=== PATIENT | male | born 1945 | race Two or more races ===

== ENCOUNTER 2020-02-05 08:20 | Outpatient (CLI) | payer OTHER, SELFPAY ==
--- NOTE | 2020-02-05 08:25 | ECHO_ITS ---
Patient Info Name: Jose Quinonez Age: 74 years : 1945 Gender: Male Ht: 66 in Wt: 150 lbs BSA: 1.79 m2 HR: 67 bpm BP: 136 / 70 mmHg Technical Quality: Good Exam Date: 02/05/2020 9:09 AM Exam Location: [facility] Patient Status: Outpatient Admit Date: 02/05/2020 Staff Ordering Physician: Olivier Kern DO Fire Lookout: Mahsa Wu RDCS Attending Provider: Olivier Kern DO Referring Physician: Erlin DEL TORO; Exam Type: CA echo doppler color flow Study Info Indications - cardiac murmur Complete two-dimensional, color flow and Doppler transthoracic echocardiogram is performed. Summary 1. Left ventricular chamber dimension is normal. 2. Left ventricular systolic function is normal, estimated at 60-65%. 3. There is mildly increased left ventricular wall thickness. 4. The left ventricular diastolic function is abnormal. 5. E/e' 21 is elevated. 6. Global longitudinal strain is normal at -17.7%. 7. Left atrial chamber dimension is severely enlarged. 8. Right atrial chamber dimension is mildly enlarged. 9. There is mild aortic valve sclerosis. 10. There is trace aortic valve regurgitation. 11. The mitral valve has mildly calcified annulus. 12. There is mild mitral valve regurgitation. 13. There is mild tricuspid valve regurgitation. 14. Mild pulmonary hypertension, estimated pulmonary arterial systolic pressure is 43 mmHg. Left Ventricle E/e' 21 is elevated. Global longitudinal strain is normal at -17.7%. Left ventricular chamber dimension is normal. Left ventricular systolic function is normal, estimated at 60-65%. There is mildly increased left ventricular wall thickness. The left ventricular diastolic function is abnormal. Right Ventricle Right ventricular chamber dimension is normal. Right ventricular systolic function is normal. Left Atria Left atrial chamber dimension is severely enlarged. Right Atria Right atrial chamber dimension is mildly enlarged. Aortic Valve The aortic valve is trileaflet. There is mild aortic valve sclerosis. There is no aortic valve stenosis. There is trace aortic valve regurgitation. Pulmonic Valve There is no pulmonic regurgitation. Mitral Valve The mitral valve has mildly calcified annulus. There is no mitral valve stenosis. There is mild mitral valve regurgitation. Tricuspid Valve There is mild tricuspid valve regurgitation. Mild pulmonary hypertension, estimated pulmonary arterial systolic pressure is 43 mmHg. Pericardium/Pleural There is no pericardial effusion. Inferior Vena Cava Normal inferior vena cava with >50% collapse upon inspiration consistent with normal right atrial pressure, 5 mmHg. Aorta The aortic root size at the sinus of Valsalva is normal. Left Ventricular Outflow Tract Name Value Normal LVOT 2D LVOT Diameter 2.0 cm LVOT Doppler LVOT Peak Gradient 5 mmHg LVOT Mean Gradient 2 mmHg LVOT VTI 25 cm LVOT VTI/AV VTI Ratio 0.7 LVOT Stroke Volume 78 ml
== END 2020-02-05 08:21 | disposition home or self-care (01) ==
LOC: ANHCARD 08:23
PROVIDERS: PCP Emergency Medicine; Visit Provider Internal Medicine Cardiovascular Disease
DX: R01.1 Cardiac murmur, unspecified (principal); I35.8 Other nonrheumatic aortic valve disorders; I34.0 Nonrheumatic mitral (valve) insufficiency; I36.1 Nonrheumatic tricuspid (valve) insufficiency; I27.20 Pulmonary hypertension, unspecified
CPT/HCPCS: 93306

== ENCOUNTER 2021-01-09 20:31 | Inpatient (IN) | payer OTHER, SELFPAY ==
--- NOTE | ~2021-01-09 | XR_ITS ---
EXAMINATION: XR chest port-a-cath/central DATE: 01/10/2021 10:14 INDICATION: Central line placement. TECHNIQUE: A single frontal view of the chest was obtained. COMPARISON: Chest single view 01/09/2021 FINDINGS: There is a diffuse interstitial pattern, consistent with mild pulmonary edema. No pleural e ffusion or pneumothorax. Cardiomegaly is noted. A left internal jugular central venous catheter is se en with tip at the superior cavoatrial junction. There is an old healed right rib fracture. IMPRESSION: 1. Central line tip at superior cavoatrial junction. 2. Mild pulmonary edema. 3. Cardiomegaly. Reviewed, dictated and finalized at location A.
--- NOTE | ~2021-01-09 | XR_ITS ---
XR chest 1V portable 01/09/2021 21:25 Indication: Shortness of breath Procedure: AP portable chest Comparison: 05/21/2018 Findings: Diffuse bilateral airspace disease. Heart size normal. No significant effusion or pneumotho rax. No acute osseous abnormality. Impression: 1: Diffuse bilateral airspace disease may represent edema or pneumonia. Reviewed, dictated and finalized at location A. Impression: 1: Diffuse bilateral airspace disease may represent edema or pneumonia.
--- NOTE | 2021-01-09 20:36 | ECG_ITS ---
Measurements Intervals [place] Rate: 94 P: 28 WV: 152 QRS: 40 QRSD: 104 T: 53 QT: 351 QTc: 440 Interpretive Statements SINUS RHYTHM CANNOT RULE OUT SEPTAL INFARCT, AGE INDETERMINATE BORDERLINE ST ABNORMALITY- ANTEROLAT/HIGH LEADS BASELINE ARTIFACT- AVL, AVF, V4-V6 ABNORMAL ECG Electronically Signed On 01-12-2021 13:30:51 CDT by Olivier Kern D.O.
[2021-01-09 20:40] VITALS: BP 209/119; PULSE 94; RESP 24; TEMP 36.3; O2SAT 96
--- NOTE | 2021-01-09 20:46 | PC.NURSE ---
Pt presents to ED from [facility] via EMS with complaints of sob. Language barrier noted as pt speaks Farsi. [id number] called by pt on his cell phone and she states that pt was due to go to Dialysis on Sunday and was not able to go because his ride never showed up. Bbryvh-[id number] also states that pt has been complaining of sob since yesterday evening and experiencing frequent episodes of diarrhea; pt noted to be taking OTC antidiarrheal medication. Sisiter-in law advises that pt has hx of diabetes and has no known allergies. Pt arrived on 4liters of O2 and saturating at 96%. Pt noted to desaturate to 88% on room air; placed on 4 liters via nasal cannula and O2 increased to 97%. Pt noted to be agitated, diaphoretic, pale with labored breathing and abdominal muscle use. ED respiratory presented to bedside for Bi-pap placement. Stratus placed at bedside for translation. Lawn Care Technician shared that pt states he does not have any chest pain at this time and is only short of breath. Also states that pt denies similar events in the past. Pt confirmed [id number]'s series of events. Pt remains alert and oriented to baseline.
[2021-01-09 20:58] VITALS: O2SAT 96
--- NOTE | 2021-01-09 21:00 | PC.NURSE ---
Pt not tolerating O2 via NC well. Desaturated to 89%. Pt placed on 15 liters of O2 via non-re breather and is requesting O2 to be increased. Pt sitting at beside for comfort. O2 96% via non rebreather.
[2021-01-09 21:06] VITALS: PULSE 84; RESP 30; O2SAT 100
--- NOTE | 2021-01-09 21:08 | PC.NURSE ---
Respiratory presented to bedside for Bi pap placement. Prior to RT arrival, pt placed on 15 liters of O2 on non rebreather and was requesting for O2 to be increased. Pt was restless, diaphoretic and sitting at bedside for comfort. Bi pap placed and pt immediately relaxed back in bed, placed feet on cart and said thank you . Respirations decreased and pt presents more comfortable.
--- NOTE | 2021-01-09 21:20 | PC.NURSE ---
Pt continues to tolerate Bi pap well. Resting on cart with eyes closed, relaxed and respirations have decreased from 38 to 24. O2 saturation at 100%. Pt remains alert and oriented x4 and in no obvious distress. Call button and personal items within reach. Advised to press call button for assistance.
[2021-01-09 21:22] LABS: Basophils Percent Auto 0.2 % (0.2-1.2); Eosinophils Absolute Auto 0.4 K/mm3 (0-0.3); Eosinophils Percent Auto 2.3 % (0-4.4); Hematocrit 36.4 % (42.0-52.0); Hemoglobin 11.8 g/dL (14.0-18.0); Immature Granulocyte Absolute 0.08 K/mm3 (0.00-0.031); Immature Granulocyte Percent A 0.5 % (0-0.5); Lymphocytes Percent Auto 20.3 % (18.3-44.2); Mean Corpuscular HGB Conc 32.4 g/dl (32-36); Mean Corpuscular Hemoglobin 33.5 pg (26-34); Mean Corpuscular Volume 103.4 fl (80-100); Mean Platelet Volume 11.1 fl (7.4-10.4); Monocytes Absolute Auto 0.9 K/mm3 (0.1-0.6); Monocytes Percent Auto 5.5 % (2.6-8.5); Neutrophils Absolute Auto 11.6 K/mm3 (1.3-6.7); Neutrophils Percent Auto 71.2 % (45.5-73.1); Platelet Count Result 148 k/mm3 (150-375); Red Blood Count 3.52 M/mm3 (4.6-6.20); White Blood Count 16.3 K/mm3 (4.5-10.0)
[2021-01-09] MEDS: FUROSEMIDE INJ 40 MG/4 ML VIAL IV PUSH (21:27)
[2021-01-09 21:30] VITALS: BP 219/79; PULSE 82; RESP 28; TEMP 36.3; O2SAT 96
[2021-01-09] MEDS: NITROGLYCERIN OINTMENT 1 INCH DOSE TRANSDERM (21:30)
[2021-01-09 21:41] LABS: Anion Gap 14 mmol/L (8-16); Blood Urea Nitrogen 77 mg/dL (9-20); Calcium 8.7 mg/dL (8.4-10.2); Carbon Dioxide 22 mmol/L (22-30); Chloride 102 mmol/L (98-107); Estimated Glomerular Filt Rate 4; Glucose 145 mg/dL (75-110); Potassium 7.8 mmol/L (3.4-5.0); Sodium 138 mmol/L (137-145)
[2021-01-09 21:42] LABS: NT Pro B Type Natriuretic Pept 20400 pg/mL (5-100)
--- NOTE | 2021-01-09 21:47 | ED.SOB ---
HPI - SOB/Dyspnea General Chief Complaint: Shortness of Breath/Dyspnea <Masoud Camargo MD - Last Filed: 01/10/21 01:28> Stated Complaint: sob <Masoud Camargo MD - Last Filed: 01/10/21 01:28> Time Seen by Provider: 01/09/21 20:47 <Masoud Camargo MD - Last Filed: 01/10/21 01:28> History of Present Illness HPI Narrative: Patient is a 75-year-old male with history of end-stage renal disease who requires dialysis Sunday that presents the ER with shortness of breath. Patient missed dialysis 2 days ago due to the transportation vehicle not showing up. He came increasingly short of breath today. He was found to be hypoxic by EMS. He is on supplemental oxygen is diaphoretic and tachypneic. There is a language barrier as patient speaks Farsi. He follows commands well and will shake his head yes or no appropriately to questions. <Masoud Camargo MD - Last Filed: 01/10/21 01:28> Related Data Home Medications: Home Medications Medication Instructions Recorded Confirmed furosemide 40 mg tablet 40 mg PO QAM 11/27/19 11/30/20 <Masuod Camargo MD - Last Filed: 01/10/21 01:28> Allergies/Adverse Reactions: Allergies Allergy/AdvReac Type Severity Reaction Status Date / Time No Known Allergies Allergy Verified 01/09/21 21:26 <Masoud Camargo MD - Last Filed: 01/10/21 01:28> Review of Systems Review of Systems: ROS unobtainable: Yes other (Full review of systems limited due to language barrier) <Masoud Camargo MD - Last Filed: 01/10/21 01:28> Constitutional: Constitutional: Denies chills and Denies fever(s) <Masoud Camargo MD - Last Filed: 01/10/21 01:28> Comments: Sweats <Masoud Camargo MD - Last Filed: 01/10/21 01:28> Cardiovascular: Cardiovascular: Denies chest pain, Denies rapid heart rate and Denies radiating jaw, neck or arm pain <Masoud Camargo MD - Last Filed: 01/10/21 01:28> Respiratory: Respiratory: Denies cough and Reports dyspnea <Masoud Camargo MD - Last Filed: 01/10/21:28> Comments: Orthopnea positive <Masoud Camargo MD - Last Filed: 01/10/21:28> Gastrointestinal: Gastrointestinal: Denies abdominal pain, Denies nausea and Denies vomiting <Masoud Camargo MD - Last Filed: 01/10/21:28> [facility] Past Medical History Medical History: Medical History (Updated 01/10/21 @ 00:58 by Masoud Camargo MD) Anemia CAD in [place] artery CKD (chronic kidney disease) stage V requiring chronic dialysis Dependence on renal dialysis Diabetes Dyslipidemia Essential hypertension Hypersomnia Renal disease Systolic murmur <Masoud Camargo MD - Last Filed: 01/10/21:28> Surgical History Surgical History: Surgical History (Updated 01/10/21 @ 00:47 by Masoud Camargo MD) AV fistula <Masoud Camargo MD - Last Filed: 01/10/21:28> Social History Social History: Social History Smoking status: Former smoker <Masoud Camargo MD - Last Filed: 01/10/21:28> Exam Narrative: Exam Narrative: GENERAL: ill-appearing, well-nourished, and in moderate distress. HEAD: Normocephalic, atraumatic. EYES: PERRL and EOMI. ENT: Mucous membranes moist. CHEST: Severe respiratory distress with increased respiratory rate and bibasilar crackles and poor lung volumes. HEART: Regular rate and rhythm. Normal peripheral pulses. ABDOMEN: Soft, nontender, nondistended. EXTREMITIES: Normal range of motion. 1+ edema.AV fistula RUE SKIN: Warm, diaphoretic, no rash. NEURO: Alert and oriented x3. PSYCH: Normal mood and affect. <Masoud Camargo MD - Last Filed: 01/10/21:28> Course Course Emergency Course: Patient with significant respiratory distress upon arrival. BiPAP applied. Patient tolerating quite well with 14/8. Patient did have one episode where he physically remove that and bradycardia down and was in severe distress. Upon being set back up in BiPAP applied he normalized
--- NOTE | 2021-01-09 22:15 | PC.NURSE ---
Pt found in room leaning over side rail with bi pap removed and in respiratory distress. Pt sinus macario with HR 38 and O2 undetected as sensor was removed when scientific writer presented to bedside. Staff assist and respiratory called; EDMD also presented to bedside. Pt repositioned in bed, bipap replaced and pt vitals improved. O2 saturation 97% and respirations 34. Stratus brought back to bedside and Pt educated on the need to keep bi pap in place and voices his understanding. Pt advised on poc and asks if he has any requests and pt denies at this time. Resting on cart in its lowest position with call button and persona items within reach. Advised to press call button for assistance.
[2021-01-09] MEDS: DEXTROSE 50% 25 GM/50 ML SYRINGE IV PUSH (22:27)
[2021-01-09] MEDS: INSULIN HUMAN REGULAR (*BKC) 100 UNITS/ML 10 UNITS IV PUSH (22:28)
[2021-01-09] MEDS: SODIUM POLYSTYRENE SULFONONATE 15 GM/60 ML BTL 30 GM PO (22:28)
[2021-01-09] MEDS: CALCIUM GLUCONATE 1,000 MG/10 ML VIAL 1000 MG IV PUSH (22:29)
--- NOTE | 2021-01-09 22:55 | PC.NURSE ---
Respiratory at bedside for ABG.
[2021-01-09 22:59] VITALS: PULSE 81; RESP 19; O2SAT 100
[2021-01-09 23:01] LABS: Alveolar/Arterial O2 Gradient 40.7 mmHg; Base Excess ABG -9.9 mEq/l (+/-2.0); Carboxyhemoglobin 0.6 % THb (0-2.0); Fractional Inspired Oxygen 30 %; HCO3 ABG 16.8 mEq/l (22.0-26.0); Methemoglobin ABG 0.1 %THb (0-1.5); Oxygen Content ABG 16.2 %vol (16.0-22.0); Oxyhemoglobin 96.6 % THb (90.0-100.0); PO2 ABG 126.2 mmHg (80.0-100.0); PO2 FiO2 Ratio Arterial Blood 4.21 %; Reduced Hemoglobin 2.7 %THb (0-5.0); Total Hemoglobin 11.8 g/dL (12.0-18.0)
[2021-01-09 23:02] LABS: Site Drawn LEFT RADIAL; pH ABG 7.242 (7.350-7.450)
[2021-01-09 23:03] LABS: Device NON-INVASIVE VENT; Modified Allen's Test Pass; Non-Invasive Expiratory Pressure 8 CMH2O; Non-Invasive Inspiratory Pressure 14 CMH2O; Non-Invasive Vent Rate 10 /MIN
[2021-01-09 23:30] LABS: Glucose Point of Care 191 (65-105)
--- NOTE | 2021-01-09 23:30 | PC.NURSE ---
Addendum entered by Erica Asencio RN 01/10/21 00:03: Dr. Camargo informed me that per Dr. Pickens reported that the dialysis nurse is not available to come in to do the dialysis. Machine Puller notified to page a telephone solicitor supervisor at [facility] and warehouse freight handler Florinda ba and Kristi carr RN aware also. Will await the telephone solicitor supervisor to return call. Original Note: [id number]
[2021-01-10] VITALS (37 sets, daily range): BP systolic 74–205; BP diastolic 41–83; PULSE 54–136; RESP 16–31; TEMP 36–37; O2SAT 94–100; BMI 25.4
--- NOTE | 2021-01-10 00:01 | PC.NURSE ---
[id number]- Assistant Project Manager notified to page dialysis nurse per Dr Camargo and Dr. Pickens request.
--- NOTE | 2021-01-10 00:05 | PC.NURSE ---
Rosalind from [facility] returned call into the ed and spoke with ED electrical discharge machine operator. Reports that there is not a dialysis nurse available at this time but will have one here first thing in the am to the ICU for patient dialysis. Rosalind reports that she has spoken to dr. Pickens and is ok with dialysis being first thing in the am. Dr. Camargo aware of am dialysis and orders received to recheck patient potassium at this time. Dr. Camargo has been in communication with Dr. Lucero. call center supervisor Florinda aware of Rosalind and information received for dialysis in the AM.
--- NOTE | 2021-01-10 00:19 | PC.NURSE ---
EDMD presented to bedside for reassessment. Pt up to bedside commode with assistance for bowel movement. Pt noted to be alert, stable and in no obvious distress at this time. Nitro paste removed.
[2021-01-10 00:32] LABS: Potassium 7.4 mmol/L (3.4-5.0)
--- NOTE | 2021-01-10 01:18 | PC.NURSE ---
Pt assisted to bedside commode and is now back in bed resting on car with call button ans personal items within reach. Pt advised to press call button for assistance.
[2021-01-10 02:11] LABS: Anion Gap 14 mmol/L (8-16); Blood Urea Nitrogen 81 mg/dL (9-20); Calcium 8.5 mg/dL (8.4-10.2); Carbon Dioxide 23 mmol/L (22-30); Chloride 101 mmol/L (98-107); Estimated CRCL calculation 4 ml/min; Estimated Glomerular Filt Rate 3; Glucose 157 mg/dL (75-110); Potassium 7.9 mmol/L (3.4-5.0); Sodium 138 mmol/L (137-145)
--- NOTE | 2021-01-10 02:27 | PC.NURSE ---
Pt up to bedside commode with steady gait. Vitals remain stable and pt in no obvious distress at this time.
[2021-01-10] MEDS: ALBUTEROL SULFATE NEB 2.5 MG/0.5 ML INH 5 MG INHALATION (02:35)
[2021-01-10] MEDS: DEXTROSE 50% 25 GM/50 ML SYRINGE IV PUSH ×2 (02:49→06:42)
[2021-01-10] MEDS: INSULIN HUMAN REGULAR (*BKC) 100 UNITS/ML 10 UNITS IV PUSH ×2 (02:50→06:46)
[2021-01-10 02:54] LABS: Glucose Point of Care 155 (65-105)
--- NOTE | 2021-01-10 03:29 | PC.NURSE ---
Glucose 203.
--- NOTE | 2021-01-10 03:30 | PC.NURSE ---
AFter multiple attempts to contact Sai KINNEY final call returned by Shakira and confirmation of time for dialysis in the am will be 7am. THis was relayed to Dr. Michael who spoke with Dr. Lucero.
[2021-01-10 03:31] LABS: Glucose Point of Care 203 (65-105)
--- NOTE | 2021-01-10 03:49 | PC.NURSE ---
Report called to Tammy. Lozano to send pt to floor.
[2021-01-10 04:33] LABS: Potassium 6.6 mmol/L (3.4-5.0)
--- NOTE | 2021-01-10 05:08 | PM.IMHP ---
H&P: HPI History of Present Illness Date/Time: 01/10/21 05:08 Chief Complaint: Shortness of breath+ Narrative: This is a pleasant 75-year-old Diabetic [place]ri[place] male with known history of end-stage renal disease on chronic hemodialysis Wednesdays and Fridays, chronic hypertension, coronary artery disease status post stent placement, and hyperlipidemia who presented to the hospital with a complaint of increased shortness of breath. The patient states that he could not sleep the night before because he was so short of breath. Apparently he missed dialysis this past Sunday because he could not get transportation to the dialysis center. Patient denies any fevers, chills, cough, chest pain, palpitations, dysuria, or hematuria. He reports chronic diarrhea for about a month now and has had some intermittent mild abdominal discomfort with that. Tonight in the emergency room the patient was found to be in acute respiratory failure. Chest x-ray revealed bilateral diffuse pulmonary edema. At approximately 8:36 p.m. EKG was obtained which demonstrated peaked T-waves in V3 V4 V5 V6. At approximately 9:00 p.m. the patient was treated with 40 mg of IV Lasix. The patient was initiated on BiPAP. Routine labs were obtained which demonstrated a severely elevated potassium of 7.8. At 9:50 p.m. the patient was treated with calcium gluconate, insulin and dextrose, and Kayexalate. ER provider, Dr Camargo consulted the patient's install technician, Dr. Hernandez for emergent dialysis. The dialysis nurse apparently called in sick this evening and there was no replacement. Dr. Camargo consulted our service to admit the patient to the hospital and verbalized to me that the install technician would perform dialysis in the morning. I personally called the install technician, Dr. Hernandez and discussed the case with him in detail. Dr. Hernandez verbalized to me that the patient needed emergent dialysis and should be transferred to another hospital for dialysis as this could not be performed immediately at our hospital. I relayed this information to Dr. Camargo who informed me that he would attempt to clarify if they could get a replacement dialysis nurse. Dr. Camargo decided to recheck the patient's labs which now demonstrated a serum potassium of 7.4 after treatment and at approximately 1:29 am I was paged by Dr. Camargo who again asked me to admit the patient to the hospital with the idea that the patient would get dialysis in the morning. I verbalized to him that I would like to speak with the install technician before accepting the patient and once more I called Dr. Hernandez and discussed the case with him a second time. Dr. Hernandez again verbalized to me that the patient needs urgent dialysis and would be best served to be transferred to another hospital at this time where immediate dialysis could be performed. I told him that I would advise the emergency room physician, Dr. Camargo to transfer the patient, which I did. At approximately 2:15 a.m. the patient was treated with 5 mg albuterol nebulization and was also given another round of 10 mg IV insulin and an amp of IV dextrose. At approximately 3:15 a.m. I was paged by Dr. Michael, ER physician who related to me that the install technician now wanted the patient to be admitted to our hospital for dialysis in the morning. Once more I called the install technician to verify this plan together with the ER provider, Dr. Michael on the phone. Dr. Hernandez stated that because of logistics, transferring the patient at this point in time to another facility would likely result in dialysis occurring around the same time in the morning and that we should now keep the patient in our hospital as it no longer made sense to transfer the patient. The patient arrived to the ICU at approximately 4:45 a.m. and on my encounter with the patient he is resting comfortably in bed saturating 100% on 2 L of oxygen. Repeat ABG was obtained which demonstrated peaked T-waves in V3 V4 V5 V6. Repeat BMP
--- NOTE | 2021-01-10 05:14 | ECG_ITS ---
Measurements Intervals [place] Rate: 80 P: 42 [place]: 158 QRS: 24 QRSD: 89 T: 71 QT: 411 QTc: 475 Interpretive Statements SINUS RHYTHM POSSIBLE LEFT ATRIAL ENLARGEMENT CANNOT RULE OUT SEPTAL INFARCT, AGE INDETERMINATE CONSIDER INFERIOR INFARCT, AGE INDETERMINATE BORDERLINE ST-T WAVE ABNORMALITY- ANTEROLAT/HIGH LAT LEADS ABNORMAL ECG Electronically Signed On 01-10-2021 6:58:55 CDT by Olivier Kern D.O.
--- NOTE | 2021-01-10 05:38 | PC.NURSE ---
This patient, Jose Quinonez, was admitted to Intensive Care Unit-3 @ 0445. Patient/family oriented to hospital policies and general routines including ID bracelet, bed and alarms, visiting hours, pain management, procedures, bathroom and other care routines, personal items, smoking policy, room service/diet, and visiting hours. Information on how to activate the Rapid Response Team has been discussed. Patient/Family are encouraged to report perceived risks to care and to ask questions if they do not understand what they are told or what they should do.
[2021-01-10] MEDS: hydrALAZINE HCL 20 MG/ML VIAL 10 MG IV PUSH (06:16)
[2021-01-10] MEDS: SODIUM BICARBONATE 8.4% 50 MEQ/50 ML SYRINGE IV PUSH (06:41)
[2021-01-10] MEDS: CALCIUM GLUC 1,000 MG/NS 50 ML 1,000 MG/50 ML BAG 100 MG IVPB (06:47)
[2021-01-10] MEDS: amLODIPine BESYLATE 5 MG TABLET PO (08:15)
[2021-01-10] MEDS: carvediloL 25 MG TABLET PO ×2 (08:15→19:37)
[2021-01-10] MEDS: FUROSEMIDE 40 MG TABLET PO (08:15)
[2021-01-10] MEDS: ENOXAPARIN 30 MG/0.3 ML SYRINGE SUB-Q (08:15)
[2021-01-10] MEDS: ATORVASTATIN 40 MG TABLET PO (08:15)
[2021-01-10 08:22] LABS: Glucose Point of Care 79 (65-105)
--- NOTE | 2021-01-10 08:51 | WPDCNINT ---
Assessment and Plan Assessment and plan (1) Acute hyperkalemia: Code(s): E87.5 - Hyperkalemia Status: Acute Assessment and Plan: Patient with acute hyperkalemia likely related to missed dialysis -initial potassium was 7.8, which was treated -repeat potassium this morning is 6.6, patient is going to be getting dialysis this morning -will monitor post dialysis (2) Volume overload: Qualifiers: Hypervolemia type: other Qualified Code(s): E87.79 - Other fluid overload Code(s): E87.70 - Fluid overload, unspecified Status: Acute Assessment and Plan: Volume overload acute respiratory failure and shortness of breath likely related to missed dialysis -patient to get dialyzed and home following shortness of breath will improve with fluid removal (3) Acute respiratory failure: Qualifiers: Respiratory failure complication: unspecified whether with hypoxia or hypercapnia Qualified Code(s): J96.00 - Acute respiratory failure, unspecified whether with hypoxia or hypercapnia Code(s): J96.00 - Acute respiratory failure, unspecified whether with hypoxia or hypercapnia Status: Acute Assessment and Plan: Acute respiratory failure likely related to volume overload from missed dialysis -patient was initially placed on BiPAP and is currently on 2 L nasal cannula with good O2 sats, denies shortness of breath -fluid removal with dialysis will probably help his respiratory status (4) Essential hypertension: Code(s): I10 - Essential (primary) hypertension Status: Chronic Assessment and Plan: Essential hypertension with elevated blood pressures -patient to get dialyzed which will probably help (5) CKD (chronic kidney disease) stage V requiring chronic dialysis: Code(s): N18.6 - End stage renal disease; Z99.2 - Dependence on renal dialysis Status: Chronic Assessment and Plan: Dr. Hernandez is the dance instructor is aware of the patient. -he had recommended dialysis to be done overnight but due to non availability of dialysis staff patient be dialyzed this morning Additional Plan Will discuss with family Code status: Full code Critical care time spent: 44 minutes This dictation may have been done utilizing a voice recognition system. Attempts have been made to correct errors. However, there may be uncorrected grammatical, spelling, and recognition errors present. Due to a high probability of clinically significant, life threatening deterioration, the patient required my highest level of preparedness to intervene emergently and I personally spent this critical care time directly and personally managing the patient. This critical care time included obtaining a history; examining the patient; pulse oximetry; ordering and review of studies; arranging urgent treatment with development of a management plan; evaluation of patient's response to treatment; frequent reassessment; and discussions with other providers. It was exclusive of separately billable procedures and treating other patients and teaching time. Please see Assessment and Plan section and the rest of the note for further information on patient assessment and treatment Horizontal Boring Mill Set Up Operator Consult Note Consult date: 01/10/21 Time Seen: 07:04 Reason for consult: Respiratory distress, hyperkalemia, missed dialysis HPI: Jose Quinonez is a 75 year old male significant past medical history of coronary artery disease, end-stage renal disease on hemodialysis, Sunday, Sunday, Sunday, history of diabetes, dyslipidemia, essential hypertension the ED on 01/09/2021 with complains of shortness of breath. He stated that he missed his dialysis on 01/07 as he did not have transportation to the dialysis center. He stated he became increasingly short of breath on the day of admission, upon EMS arrival they found him to be hypoxic and tachypneic. Patient admission has been obtained from the medical records due to language
[2021-01-10 09:11] LABS: Hepatitis B Surface Antigen Negative (Negative)
[2021-01-10 09:29] LABS: Hepatitis B Surface Anti Res Indeterminate
--- NOTE | 2021-01-10 11:01 | P.PCNBED_ITS ---
Procedures Hemodialysis Catheter Placement Left IJ: Discussed w/ patient and/or surrogate, the non-emergent placement of a hemodialysis catheter, including it's clinincal necessity/indication & associated potential risks & complications.: Yes The patient and/or surrogate understand(s) and acknowledge(s) the need to proceed with hemodialysis catheter insertion as an important element of the patient's clinical management.: Yes Emergently Placed - (Given emergent patient conditions, temporal constraints may not have permitted and aforementioned informed consent.): No HD Catheter Date: 01/10/21 HD Catheter Time: 09:44 Pre-procedural Time-Out was completed immediately before starting the procedure and confirmed: Patient Identification, Site, Procedure, Patient Position and the Availability of Requisite Equipment.: Yes Patient Position: supine Patient Placed on Monitor/Pulse Ox: Yes Provider Prep: mask, sterile gown, sterile gloves, Max. sterile barrier precautions, cap and hand hygiene Hemodialysis Catheter Prep: Chlorhexidine scrub Local Anesthesia Used: lidocaine 1% Amount of anesthesia used (mL): 4 Ultrasound Used for Placement: Yes Hemodialysis Catheter Inserted: triple Latvian: 12 Length (cm): 20 Depth of Insertion (cm): 20 Post Procedure: sutured in place, good blood return, all ports aspirated, flushed, capped, transparent dressing, hemostatic product, antimicrobial pro duct, securement product and aseptic technique maintained throughout procedure Post Procedure X-Ray: tip of catheter in good position Patient Tolerated Procedure: well Complications: none
[2021-01-10 12:21] LABS: Glucose Point of Care 140 (65-105)
--- NOTE | 2021-01-10 13:45 | PM.IMPN ---
Progress Note: A&P Assessment and Plan (1) Acute hyperkalemia: Code(s): E87.5 - Hyperkalemia Status: Acute Assessment and Plan: Patient has been admitted to ICU. Patient's acute hyperkalemia peers to be secondary to missed dialysis session this past week. Wood Panel Inspector has been consulted by ER provider. Repeat labs an EKG continue to reveal hyperkalemia. The patient will be treated with another round of calcium gluconate, IV insulin and IV dextrose, sodium bicarbonate, and albuterol neb. We will continue to monitor potassium every 4 hours. Telemetry. Specialty Department Supervisor, Dr. Hernandez, has been consulted by ER provider and is aware of the patient's severe hyperkalemia. The patient will likely benefit from early dialysis today. Continue nephrology recommendations. 01/10/21 13:45 Patient is 75-year-old male with history of coronary artery disease, diabetes and end-stage renal disease on hemodialysis patient presented emergency department with a complaint of shortness of breath as he had missed his scheduled dialysis on Sunday upon arrival to emergency depart his potassium was 7.8 and he was found to have peak T-wave on EKG, emergency depart patient received DuoNeb, dextrose and insulin to to bring level of potassium down 6.6, also patient was quite hypoxic, was unable to receive emergent dialysis last night however currently patient is receiving dialysis states is feeling much better compared to when he arrived, denies any complaint of shortness of breath, chest pain palpitation fever or chills, patient be seen by Nephrology, will continue to monitor patient will receive his scheduled dialysis and further recommendation to follow. (2) Acute respiratory failure: Qualifiers: Respiratory failure complication: unspecified whether with hypoxia or hypercapnia Qualified Code(s): J96.00 - Acute respiratory failure, unspecified whether with hypoxia or hypercapnia Code(s): J96.00 - Acute respiratory failure, unspecified whether with hypoxia or hypercapnia Status: Acute Assessment and Plan: Secondary to fluid overload as the patient missed his dialysis this past Sunday. Patient was initiated on BiPAP and currently he is only on 2 L of oxygen via nasal cannula saturating 100%. Patient is no longer in acute respiratory failure. We will reinitiate BiPAP if necessary. (3) Volume overload: Qualifiers: Hypervolemia type: other Qualified Code(s): E87.79 - Other fluid overload Code(s): E87.70 - Fluid overload, unspecified Status: Acute Assessment and Plan: Secondary to non adherence with dialysis. Patient will benefit from dialysis today. (4) Metabolic acidosis: Code(s): E87.2 - Acidosis Status: Acute Assessment and Plan: Secondary to ESRD. Monitor acid-base status. (5) Leukocytosis: Qualifiers: Leukocytosis type: unspecified Qualified Code(s): D72.829 - Elevated white blood cell count, unspecified Code(s): D72.829 - Elevated white blood cell count, unspecified Status: Acute Assessment and Plan: Check U/A w/ reflex. Monitor CBCd. (6) CKD (chronic kidney disease) stage V requiring chronic dialysis: Code(s): N18.6 - End stage renal disease; Z99.2 - Dependence on renal dialysis Status: Chronic Assessment and Plan: Continue nephrology recommendations. Renal diet. (7) Essential hypertension: Code(s): I10 - Essential (primary) hypertension Status: Chronic Assessment and Plan: Elevated. Continue amlodipine and Coreg. P.r.n. IV hydralazine with parameters as ordered. (8) Dyslipidemia: Code(s): E78.5 - Hyperlipidemia, unspecified Status: Chronic Assessment and Plan: Continue atorvastatin. (9) Diabetes: Qualifiers: Diabetes mellitus type: type 2 Diabetes mellitus halfway insulin use: without halfway use Diabetes mellitus complication status: with kidney
--- NOTE | 2021-01-10 13:59 | WPDNEURCNPN ---
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 EKG changes in a patient with coronary artery disease Acute respiratory failure with metabolic and respiratory acidosis. The former from renal failure, the letter from the restrictive filling Plan: -urgent dialysis. Supervised. -need to have cardiac assessment as well. -leukocytosis probably also stress origin -follow-up for ESRD and related -patient dropped his blood pressure, will need to consider presence of a pericardial effusion as well. -probable dialysis tomorrow as well to see if he can remove fluid. Fluid removal limited today. -follow-up of ESRD and related needs. (5) CAD in [place] artery: Code(s): I25.10 - Atherosclerotic heart disease of [place] coronary artery without angina pectoris Status: Acute (6) Dyslipidemia: Code(s): E78.5 - Hyperlipidemia, unspecified Status: Chronic (7) Diabetes: Qualifiers: Diabetes mellitus type: type 2 Diabetes mellitus terminal computer operator insulin use: without prison use Diabetes mellitus complication status: with kidney complications Diabetes mellitus complication detail: with chronic kidney disease Chronic kidney disease stage: on chronic dialysis Qualified Code(s): E11.22 - Type 2 diabetes mellitus with diabetic chronic kidney disease; N18.6 - End stage renal disease; Z99.2 - Dependence on renal dialysis Code(s): E11.9 - Type 2 diabetes mellitus without complications Status: Chronic (8) Acute respiratory failure: Qualifiers: Respiratory failure complication: unspecified whether with hypoxia or hypercapnia Qualified Code(s): J96.00 - Acute respiratory failure, unspecified whether with hypoxia or hypercapnia Code(s): J96.00 - Acute respiratory failure, unspecified whether with hypoxia or hypercapnia Status: Acute (9) Leukocytosis: Qualifiers: Leukocytosis type: unspecified Qualified Code(s): D72.829 - Elevated white blood cell count, unspecified Code(s): D72.829 - Elevated white blood cell count, unspecified Status: Acute (10) Essential hypertension: Code(s): I10 - Essential (primary) hypertension Status: Chronic Consult date: 01/10/21 Time Seen: 13:20 HPI: Jose Quinonez is a 75 year old male who presents with shortness of breath which he states that has been progressive over the last month but suddenly got worse over the weekend.. He missed his dialysis on Sunday, did not get picked up by his transportation company. No chest pains associated. No nausea or vomiting. Received a call from the emergency room last night indicating the presence of high Potassium and presentation of shortness of breath from a missed dialysis. Was on BiPAP. When the patient removed his BiPAP he did bradycardic down. Hence I notified the dialysis nurse oil pump station operator chief immediately through [facility] ore bridge operator. He indicated his non availability due to not feeling well. I was then contacted by his laboratory supervisor who asked if patient could wait until
[2021-01-10 14:49] LABS: Anion Gap 7 mmol/L (8-16); Blood Urea Nitrogen 30 mg/dL (9-20); Calcium 8.1 mg/dL (8.4-10.2); Carbon Dioxide 33 mmol/L (22-30); Chloride 97 mmol/L (98-107); Estimated CRCL calculation 12 ml/min; Estimated Glomerular Filt Rate 11; Glucose 98 mg/dL (75-110); Potassium 3.3 mmol/L (3.4-5.0); Sodium 137 mmol/L (137-145)
[2021-01-10 16:59] LABS: Glucose Point of Care 188 (65-105)
[2021-01-10 20:01] LABS: Anion Gap 8 mmol/L (8-16); Blood Urea Nitrogen 37 mg/dL (9-20); Calcium 8.3 mg/dL (8.4-10.2); Carbon Dioxide 32 mmol/L (22-30); Chloride 97 mmol/L (98-107); Estimated CRCL calculation 8 ml/min; Estimated Glomerular Filt Rate 7; Glucose 136 mg/dL (75-110); Sodium 137 mmol/L (137-145)
[2021-01-10 20:03] LABS: Potassium 4.2 mmol/L (3.4-5.0)
[2021-01-11] VITALS (17 sets, daily range): BP systolic 126–155; BP diastolic 56–73; PULSE 74–86; RESP 16–22; TEMP 36.7–37.2; O2SAT 84–100
--- NOTE | 2021-01-11 | ECHO_ITS ---
Patient Info Name: Jose Quinonez Age: 75 years : 1945 Gender: Male Ht: 69 in Wt: 172 lbs BSA: 1.96 m2 HR: 76 bpm BP: 139 / 56 mmHg Technical Quality: Good Exam Date: 01/11/2021 8:04 AM Exam Location: [facility] Patient Status: Inpatient Admit Date: 01/10/2021 Staff Ordering Physician: 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 MD Service Team Leader: Julien Ordoñez, LAY[place], RT Attending Provider: Rubens Lucero MD Referring Physician: Mary BATISTA; Exam Type: CA echo doppler color flow Study Info Indications I50.9 - Heart failure, unspecified Complete two-dimensional, color flow and Doppler transthoracic echocardiogram is performed. Strain analysis performed. Summary 1. Complete two-dimensional, color flow and Doppler transthoracic echocardiogram is performed. 2. Normal LV size and wall thickness; normal LV systolic function, ejection fraction 65-70%; G LS-15%. Normal diastolic function. Moderate left atrial enlargement. Mild mitral annular calcification, mild MR. Mild aortic valve sclerosis, no stenosis; mild aortic regurgitation. Trivial TR, unable to assess RVSP due to inadequate TR jet. Sinus rhythm. Left Ventricle Left ventricular chamber dimension is normal. Left ventricular systolic function is normal, estimated at 65-70%. There is moderately increased left ventricular wall thickness. The left ventricular diastolic function is normal. Right Ventricle Right ventricular chamber dimension is normal. Right ventricular systolic function is normal. Left Atria Left atrial chamber dimension is moderately enlarged. Right Atria Right atrial chamber dimension is normal. Aortic Valve There is mild aortic valve sclerosis. There is no aortic valve stenosis. There is mild aortic valve regurgitation. Pulmonic Valve The pulmonic valve is normal. There is trace pulmonic regurgitation. Mitral Valve The mitral valve has normal leaflets. There is trace mitral valve regurgitation. There is mild mitral valve calcification. Tricuspid Valve The tricuspid valve leaflets are normal. There is trace tricuspid valve regurgitation. Pericardium/Pleural The pericardium appears normal. Inferior Vena Cava Dilated inferior vena cava with >50% collapse upon inspiration consistent with elevated right atrial pressure, 10 mmHg. Aorta The aortic root size at the sinus of Valsalva is normal. Tricuspid Valve Name Value Normal Estimated PAP/RSVP RA Pressure 10 mmHg <=5 Report Signatures
[2021-01-11 04:56] LABS: Basophils Percent Auto 0.1 % (0.2-1.2); Eosinophils Absolute Auto 0.4 K/mm3 (0-0.3); Eosinophils Percent Auto 5.6 % (0-4.4); Hematocrit 24.9 % (42.0-52.0); Hemoglobin 8.1 g/dL (14.0-18.0); Immature Granulocyte Absolute 0.02 K/mm3 (0.00-0.031); Immature Granulocyte Percent A 0.3 % (0-0.5); Lymphocytes Absolute Auto 1.64 K/mm3 (0.9-3.2); Lymphocytes Percent Auto 23.6 % (18.3-44.2); Mean Corpuscular HGB Conc 32.5 g/dl (32-36); Mean Corpuscular Hemoglobin 33.2 pg (26-34); Mean Platelet Volume 11.5 fl (7.4-10.4); Monocytes Absolute Auto 0.4 K/mm3 (0.1-0.6); Monocytes Percent Auto 6.3 % (2.6-8.5); Neutrophils Absolute Auto 4.4 K/mm3 (1.3-6.7); Neutrophils Percent Auto 64.1 % (45.5-73.1); Platelet Count Result 91 k/mm3 (150-375); Red Blood Count 2.44 M/mm3 (4.6-6.20); White Blood Count 6.9 K/mm3 (4.5-10.0)
[2021-01-11 05:06] LABS: Anion Gap 5 mmol/L (8-16); Blood Urea Nitrogen 42 mg/dL (9-20); Calcium 7.8 mg/dL (8.4-10.2); Carbon Dioxide 32 mmol/L (22-30); Chloride 100 mmol/L (98-107); Estimated CRCL calculation 7 ml/min; Estimated Glomerular Filt Rate 6; Glucose 85 mg/dL (75-110); Potassium 4.2 mmol/L (3.4-5.0); Sodium 137 mmol/L (137-145)
[2021-01-11 07:53] LABS: Glucose Point of Care 72 (65-105)
--- NOTE | 2021-01-11 08:21 | ECG_ITS ---
Measurements Intervals [place] Rate: 80 P: 28 CA: 143 QRS: 28 QRSD: 89 T: 71 QT: 409 QTc: 473 Interpretive Statements SINUS RHYTHM BORDERLINE R WAVE PROGRESSION, ANTERIOR LEADS CONSIDER INFERIOR INFARCT, AGE INDETERMINATE BORDERLINE ST-T WAVE ABNORMALITY- HIGH LATERAL LEADS ABNORMAL ECG Electronically Signed On 01-11-2021 12:20:59 CDT by Olivier Kern D.O.
[2021-01-11 09:31] LABS: NT Pro B Type Natriuretic Pept 20200 pg/mL (5-100)
[2021-01-11 09:39] LABS: Troponin I 0.052 ng/mL (0.000-0.034)
[2021-01-11] MEDS: carvediloL 25 MG TABLET PO ×2 (10:09→20:22)
[2021-01-11] MEDS: ATORVASTATIN 40 MG TABLET PO (10:10)
[2021-01-11] MEDS: FUROSEMIDE 40 MG TABLET PO (10:10)
[2021-01-11] MEDS: amLODIPine BESYLATE 5 MG TABLET PO (10:10)
--- NOTE | 2021-01-11 11:13 | PM.PNNEP ---
Progress Note: A&P Assessment and Plan (1) End stage renal disease: Code(s): N18.6 - End stage renal disease Status: Chronic Assessment and Plan: HD tomorrow and continue M/W/F schedule follow electrolytes, volume status, and clearance (2) Acute hyperkalemia: Code(s): E87.5 - Hyperkalemia Status: Acute Assessment and Plan: due to missed HD treatment on 01/07/21 corrected with dialysis follow trend (3) Acute respiratory failure: Qualifiers: Respiratory failure complication: unspecified whether with hypoxia or hypercapnia Qualified Code(s): J96.00 - Acute respiratory failure, unspecified whether with hypoxia or hypercapnia Code(s): J96.00 - Acute respiratory failure, unspecified whether with hypoxia or hypercapnia Status: Acute Assessment and Plan: due to volume overload and possible flash pulmonary edema clinically better following dialysis and supportive therapy follow respiratory status (4) Essential hypertension: Code(s): I10 - Essential (primary) hypertension Status: Chronic Assessment and Plan: reasonable control at this time follow trend of hemodynamics (5) Anemia: Code(s): D64.9 - Anemia, unspecified Status: Acute Assessment and Plan: partly due to ESRD Epogen with HD follow trend of H/H Will continue to follow. Subjective Date/time seen: 01/11/21 11:13 Tolerated dialysis yesterday without any issues or problems; appears to be doing reasonably well from what I can tell (language barrier limits assessment); no new issues or problems overnight or earlier this AM; no apparent distress voiced. Exam Narrative: Exam Narrative: General: WD/WN male in NAD Heart: normal S1 and S2; no rub Lungs: clear to auscultation Abdomen: soft, nontender, nondistended, positive bowel sounds Extremities: no cyanosis or clubbing; no edema Skin: warm and dry Objective Data Vital Signs Vital Signs: Vital Signs Temp Pulse Resp BP Pulse Ox 01/11/21 10:09 82 01/11/21 09:02 82 16 93 01/11/21 08:40 86 16 99 01/11/21 08:00 82 16 93 01/11/21 07:52 36.7 C 77 16 155/67 H 99 01/11/21 04:15 77 17 139/56 L 99 01/11/21 04:00 81 01/11/21 00:00 77 20 93 01/10/21 20:51 76 19 98 01/10/21 20:00 36.9 C 88 21 H 144/54 H 95 01/10/21 19:52 88 19 95 01/10/21 19:41 78 17 95 01/10/21 19:37 78 01/10/21 18:31 136 H 31 H 112/67 96 01/10/21 16:00 36.9 C 75 18 110/56 L 100 01/10/21 14:37 121/50 L 01/10/21 14:15 37.0 C 62 18 97/46 L 01/10/21 14:00 73 18 103/51 L 100 01/10/21 13:45 73 108/48 L 01/10/21 13:30 73 90/46 L 01/10/21 13:15 72 95/48 L 01/10/21 13:00 64 97/49 L 01/10/21 12:45 71 97/47 L 01/10/21 12:30 68 91/52 L 01/10/21 12:15 67 92/47 L 01/10/21 12:00 68 20 95/48 L 98 01/10/21 11:59 69 18 98 01/10/21 11:45 69 85/45 L 01/10/21 11:30 70 74/43 L 01/10/21 11:15 71 100/47 L Intake/Output Intake/Output: Intake & Output 01/08/21 01/09/21 01/10/21 01/11/21 23:59 23:59 23:59 23:59 Intake Total 590 400 Output Total 605 175 Balance -15 225 Meds/Results Medications: Active Medications Generic Name Dose Route Start Last Admin Trade Name Freq PRN Reason Stop Dose Admin Acetaminophen 650 mg 01/09/21 22:57 Acetaminophen 325 Mg Tablet PO Q4H PRN Mild Pain (1-3) or Fever Amlodipine Besylate 5 mg 01/10/21 09:00 01/11/21 10:10 Amlodipine Besylate 5 Mg Tablet PO 5 mg DAILY UMU Administration Atorvastatin Calcium 40 mg 01/10/21 09:00 01/11/21 10:10 Atorvastatin 40 Mg Tablet PO 40 mg DAILY UMU Administration Carvedilol 25 mg 01/10/21 09:00 01/11/21 10:09 Carvedilol 25 Mg Tablet PO 25 mg Q12HR UMU Administration Dextrose 12.5 gm 01/10/21 05:25 Dextrose 50% 25 Gm/50
[2021-01-11 12:08] LABS: Glucose Point of Care 151 (65-105)
--- NOTE | 2021-01-11 12:31 | PM.IMPN ---
Progress Note: A&P Assessment and Plan (1) Acute hyperkalemia: Code(s): E87.5 - Hyperkalemia Status: Acute Assessment and Plan: 01/11/21 12:31 Patient has been admitted to ICU. Patient's acute hyperkalemia peers to be secondary to missed dialysis session this past week. [employer] Supervisor has been consulted by ER provider. Repeat labs an EKG continue to reveal hyperkalemia. The patient will be treated with another round of calcium gluconate, IV insulin and IV dextrose, sodium bicarbonate, and albuterol neb. We will continue to monitor potassium every 4 hours. Telemetry. Collection Systems Foreman, Dr. Hernandez, has been consulted by ER provider and is aware of the patient's severe hyperkalemia. The patient will likely benefit from early dialysis today. Continue nephrology recommendations. 01/10/21 13:45 Patient is 75-year-old male with history of coronary artery disease, diabetes and end-stage renal disease on hemodialysis patient presented emergency department with a complaint of shortness of breath as he had missed his scheduled dialysis on Sunday upon arrival to emergency depart his potassium was 7.8 and he was found to have peak T-wave on EKG, emergency depart patient received DuoNeb, dextrose and insulin to to bring level of potassium down 6.6, also patient was quite hypoxic, was unable to receive emergent dialysis last night however currently patient is receiving dialysis states is feeling much better compared to when he arrived, denies any complaint of shortness of breath, chest pain palpitation fever or chills, patient be seen by Nephrology, will continue to monitor patient will receive his scheduled dialysis and further recommendation to follow. 01/11 patient was seen by his senior resident care director and concern the patient complains chest pain, this morning patient does state he has chest pain, his first tropes will continue to monitor, patient will be seen by tray line worker, patient will be seen by his senior resident care director and will have scheduled dialysis, will continue to monitor and further recommendations to follow (2) Acute respiratory failure: Qualifiers: Respiratory failure complication: unspecified whether with hypoxia or hypercapnia Qualified Code(s): J96.00 - Acute respiratory failure, unspecified whether with hypoxia or hypercapnia Code(s): J96.00 - Acute respiratory failure, unspecified whether with hypoxia or hypercapnia Status: Acute Assessment and Plan: Secondary to fluid overload as the patient missed his dialysis this past Sunday. Patient was initiated on BiPAP and currently he is only on 2 L of oxygen via nasal cannula saturating 100%. Patient is no longer in acute respiratory failure. We will reinitiate BiPAP if necessary. (3) Volume overload: Qualifiers: Hypervolemia type: other Qualified Code(s): E87.79 - Other fluid overload Code(s): E87.70 - Fluid overload, unspecified Status: Acute Assessment and Plan: Secondary to non adherence with dialysis. Patient will benefit from dialysis today. (4) Metabolic acidosis: Code(s): E87.2 - Acidosis Status: Acute Assessment and Plan: Secondary to ESRD. Monitor acid-base status. (5) Leukocytosis: Qualifiers: Leukocytosis type: unspecified Qualified Code(s): D72.829 - Elevated white blood cell count, unspecified Code(s): D72.829 - Elevated white blood cell count, unspecified Status: Acute Assessment and Plan: Check U/A w/ reflex. Monitor CBCd. (6) CKD (chronic kidney disease) stage V requiring chronic dialysis: Code(s): N18.6 - End stage renal disease; Z99.2 - Dependence on renal dialysis Status: Chronic Assessment and Plan: Continue nephrology recommendations. Renal diet. (7) Essential hypertension: Code(s): I10 - Essential (primary) hypertension Status: Chronic Assessment and Plan: Elevated. Continue amlodipine and Coreg. P.r.n.
[2021-01-11 13:27] LABS: Troponin I 0.035 ng/mL (0.000-0.034)
--- NOTE | 2021-01-11 16:44 | PM.CNCAR ---
Assessment and Plan Assessment and plan (1) Essential hypertension: Code(s): I10 - Essential (primary) hypertension Status: Chronic Assessment and Plan: Stable. (2) Dyslipidemia: Code(s): E78.5 - Hyperlipidemia, unspecified Status: Chronic Assessment and Plan: On statin. (3) CAD in [place] artery: Code(s): I25.10 - Atherosclerotic heart disease of [place] coronary artery without angina pectoris Status: Acute (4) Volume overload: Qualifiers: Hypervolemia type: other Qualified Code(s): E87.79 - Other fluid overload Code(s): E87.70 - Fluid overload, unspecified Status: Acute Assessment and Plan: Control with hemodialysis. (5) End stage renal disease: Code(s): N18.6 - End stage renal disease Status: Chronic Assessment and Plan: Nephrology following. (6) Elevated troponin: Code(s): R77.8 - Other specified abnormalities of plasma proteins Status: Acute Assessment and Plan: Mild and trending down. Not related to ACS. Probably non-[place] troponin elevation. Echo is normal with no wall motion abnormalities. Will sign off. Have him keep his scheduled f/u appointment with me. History of Present Illness History of Present Illness Consult date/time: 01/11/21 16:44 Reason for consult: CP. 75 yr old man who is my regular cardiology patient presents to ER yesterday due to worsening sob. He has a history of CAD with stent, ESRD on HD (his chief telephone operator is Dr. Mathis), dyslipidemia, hypertension. Telephonic/video auto apprentice mechanic present for translation. Patient reports he missed dialysis on Sunday as he could not find transportation to dialysis center. He noted worsening sob in last couple of days and so he presented to ER. He completely denies chest discomfort of any kind. It was found that he had very high potassium levels and he got dialysis. Troponins are slightly elevated at .052 then went to .035. Hb was 11.8 then 8.1. NTproBNP 20,200. EKG: Sinus rhythm, consider inferior infarct, borderline ST-T wave abnormality. CXR shows diffuse bilateral airspace disease represents pulm edema or pneumonia. Echo done today shows normal EF with no wall motion abnormalities. His normal is he has BARNETT after walking in from parking lot. Denies chest pain, orthopnea, PND, edema, dizziness. CARDIOVASCULAR PROCEDURES HEALTH EDUCATION TEACHER: Cath (In [place]: Received 1 stent per patient.) - 2013 ECHO/MUGA: 02/05/20 Echo: EF 60-65%, mild LVH, diastolic dysfunction (E/e' 21), severe LAE, mild SHANICE, trace AI, mild MAC/MR/TR, RVSP 43 mmHg. Echo (EF 60-65%, mild LVH, grade II diastolic dysfunction (E/E' 15), mod LAE, Tiny shunt from left to right atrium s/o ASD, mild MAC, mild MR, trace AI/TR.) - 06/06/2018 ELECTROPHYSIOLOGY: EKG (Sinus rhythm, minimal q waves- inferior leads, borderline st-t wave abnormality- lateral leads.) - 05/30/2018 STRESS TESTS: MPI (Lexiscan myoview: Negative for ischemia.) - 06/06/2018 Reason For Visit: fluid overload, hyperkalemia Review of Systems Review of Systems: All systems reviewed & are unremarkable except as noted in HPI and below Constitutional: Constitutional: Reports as per HPI, Denies chills and Denies fever(s) Cardiovascular: Cardiovascular: Reports as per HPI, Denies chest pain, Denies leg edema, Denies lightheadedness and Reports dyspnea Respiratory: Respiratory: Reports as per HPI and Reports dyspnea Gastrointestinal: Gastrointestinal: Reports as per HPI and Denies abdominal pain Genitourinary: Genitourinary: Reports as per HPI and Denies dysuria Musculoskeletal: Musculoskeletal: Reports as per HPI Neurologic: Reports as per HPI, Denies dizziness and Denies syncope [facility] Past Medical History Medical History (Updated 01/11/21 @ 16:53 by Olivier Kern DO) Anemia CAD in [place] artery CKD (chronic kidney disease) stage V requiring chronic dialysis Dependence on renal dialysis Diabetes Dyslipidemia Essential hyper
[2021-01-11 16:59] LABS: Glucose Point of Care 182 (65-105)
[2021-01-11 18:32] LABS: Troponin I 0.029 ng/mL (0.000-0.034)
[2021-01-12] VITALS (30 sets, daily range): BP systolic 103–165; BP diastolic 50–96; PULSE 64–81; RESP 14–25; TEMP 36.5–37; O2SAT 92–100
[2021-01-12 04:58] LABS: Mean Corpuscular HGB Conc 33.3 g/dl (32-36); Mean Corpuscular Hemoglobin 33.5 pg (26-34); Mean Corpuscular Volume 100.4 fl (80-100); Mean Platelet Volume 11.6 fl (7.4-10.4); Platelet Count Result 92 k/mm3 (150-375); Red Blood Count 2.39 M/mm3 (4.6-6.20); Red Cell Distribution Width 12.7 % (11.5-14.5)
[2021-01-12 05:14] LABS: Albumin Level 3.4 g/dL (3.5-5.1); Anion Gap 10 mmol/L (8-16); Blood Urea Nitrogen 59 mg/dL (9-20); Calcium 7.4 mg/dL (8.4-10.2); Carbon Dioxide 29 mmol/L (22-30); Chloride 96 mmol/L (98-107); Estimated CRCL calculation 6 ml/min; Estimated Glomerular Filt Rate 5; Glucose 74 mg/dL (75-110); Phosphorus 6.7 mg/dL (2.5-4.5); Potassium 3.9 mmol/L (3.4-5.0); Sodium 135 mmol/L (137-145)
[2021-01-12] MEDS: carvediloL 25 MG TABLET PO ×2 (08:26→20:25)
[2021-01-12] MEDS: ATORVASTATIN 40 MG TABLET PO (08:26)
[2021-01-12] MEDS: FUROSEMIDE 40 MG TABLET PO (08:26)
[2021-01-12] MEDS: amLODIPine BESYLATE 5 MG TABLET PO (08:26)
[2021-01-12 08:30] LABS: Glucose Point of Care 97 (65-105)
--- NOTE | 2021-01-12 10:49 | PCCCNOTE ---
Per Care Coordination pt will need a Covid test within 48 hours or returning to Assisted Living.
[2021-01-12 12:04] LABS: Glucose Point of Care 145 (65-105)
--- NOTE | 2021-01-12 13:35 | PM.IMPN ---
Progress Note: A&P Assessment and Plan (1) Acute hyperkalemia: Code(s): E87.5 - Hyperkalemia Status: Acute Assessment and Plan: 01/12/21 13:40 Patient has been admitted to ICU. Patient's acute hyperkalemia peers to be secondary to missed dialysis session this past week. Inseam Trimmer has been consulted by ER provider. Repeat labs an EKG continue to reveal hyperkalemia. The patient will be treated with another round of calcium gluconate, IV insulin and IV dextrose, sodium bicarbonate, and albuterol neb. We will continue to monitor potassium every 4 hours. Telemetry. Project Manager/Design Manager, Dr. Hernandez, has been consulted by ER provider and is aware of the patient's severe hyperkalemia. The patient will likely benefit from early dialysis today. Continue nephrology recommendations. 01/10/21 13:45 Patient is 75-year-old male with history of coronary artery disease, diabetes and end-stage renal disease on hemodialysis patient presented emergency department with a complaint of shortness of breath as he had missed his scheduled dialysis on Sunday upon arrival to emergency depart his potassium was 7.8 and he was found to have peak T-wave on EKG, emergency depart patient received DuoNeb, dextrose and insulin to to bring level of potassium down 6.6, also patient was quite hypoxic, was unable to receive emergent dialysis last night however currently patient is receiving dialysis states is feeling much better compared to when he arrived, denies any complaint of shortness of breath, chest pain palpitation fever or chills, patient be seen by Nephrology, will continue to monitor patient will receive his scheduled dialysis and further recommendation to follow. 01/11 patient was seen by his plant and maintenance technician and concern the patient complains chest pain, this morning patient does state he has chest pain, his first tropes will continue to monitor, patient will be seen by senior administrative services officer, patient will be seen by his plant and maintenance technician and will have scheduled dialysis, will continue to monitor and further recommendations to follow. 01/12 patient with complaint of chest pain patient was seen by his Cardiology does not suspect acute coronary syndrome most likely elevated tropes secondary to end-stage renal disease on hemodialysis, this morning patient denies any complaint of chest pain shortness of breath palpitation fever or chills, he wants to go home, will do the COVID test before discharging patient back to the long-term (2) Acute respiratory failure: Qualifiers: Respiratory failure complication: unspecified whether with hypoxia or hypercapnia Qualified Code(s): J96.00 - Acute respiratory failure, unspecified whether with hypoxia or hypercapnia Code(s): J96.00 - Acute respiratory failure, unspecified whether with hypoxia or hypercapnia Status: Acute Assessment and Plan: Secondary to fluid overload as the patient missed his dialysis this past Sunday. Patient was initiated on BiPAP and currently he is only on 2 L of oxygen via nasal cannula saturating 100%. Patient is no longer in acute respiratory failure. We will reinitiate BiPAP if necessary. (3) Volume overload: Qualifiers: Hypervolemia type: other Qualified Code(s): E87.79 - Other fluid overload Code(s): E87.70 - Fluid overload, unspecified Status: Acute Assessment and Plan: Secondary to non adherence with dialysis. Patient will benefit from dialysis today. (4) Metabolic acidosis: Code(s): E87.2 - Acidosis Status: Acute Assessment and Plan: Secondary to ESRD. Monitor acid-base status. (5) Leukocytosis: Qualifiers: Leukocytosis type: unspecified Qualified Code(s): D72.829 - Elevated white blood cell count, unspecified Code(s): D72.829 - Elevated white blood cell count, unspecified Status: Acute Assessment and Plan: Check U/A w/ reflex. Monitor CBCd. (6) CKD (chronic kidney disease) stage V
[2021-01-12] MEDS: SODIUM CHLORIDE 0.9% IV 1,000 ML 100 ML IV CONT (14:00)
[2021-01-12] MEDS: EPOETIN ALFA-EPBX 10,000 UNITS/ML VIAL 10000 UNITS IV PUSH (16:52)
--- NOTE | 2021-01-12 16:59 | PM.PNNEP ---
Progress Note: A&P Assessment and Plan (1) End stage renal disease: Code(s): N18.6 - End stage renal disease Status: Chronic Assessment and Plan: HD today and continue M/W/ schedule follow electrolytes, volume status, and clearance (2) Acute hyperkalemia: Code(s): E87.5 - Hyperkalemia Status: Acute Assessment and Plan: due to missed HD treatment on 01/07/21 corrected with dialysis follow trend (3) Acute respiratory failure: Qualifiers: Respiratory failure complication: unspecified whether with hypoxia or hypercapnia Qualified Code(s): J96.00 - Acute respiratory failure, unspecified whether with hypoxia or hypercapnia Code(s): J96.00 - Acute respiratory failure, unspecified whether with hypoxia or hypercapnia Status: Acute Assessment and Plan: due to volume overload and possible flash pulmonary edema clinically better following dialysis and supportive therapy follow respiratory status (4) Essential hypertension: Code(s): I10 - Essential (primary) hypertension Status: Chronic Assessment and Plan: reasonable control at this time follow trend of hemodynamics (5) Anemia: Code(s): D64.9 - Anemia, unspecified Status: Acute Assessment and Plan: partly due to ESRD Epogen with HD follow trend of H/H Will continue to follow. Subjective Date/time seen: 01/12/21 16:59 Tolerating dialysis at the time of my visit (seen on HD at ~ 4:50PM); no issue/events/problems overnight or earlier this AM; breathing/respiratory status stable if not better; remains hemodynamically stable; no other complaints voiced. Exam Narrative: Exam Narrative: General: WD/WN male in NAD Heart: normal S1 and S2; no rub Lungs: clear to auscultation Abdomen: soft, nontender, nondistended, positive bowel sounds Extremities: no cyanosis or clubbing; no edema Skin: warm and intact Objective Data Vital Signs Vital Signs: Vital Signs Temp Pulse Resp BP Pulse Ox 01/12/21 15:00 67 124/58 L 01/12/21 14:45 69 128/59 L 01/12/21 14:24 72 137/66 01/12/21 14:14 36.9 C 71 18 136/66 01/12/21 12:00 69 01/12/21 11:44 92 01/12/21 08:26 76 01/12/21 08:00 36.5 C 69 25 H 117/70 96 01/12/21 04:00 66 01/12/21 02:23 68 14 100 01/12/21 00:00 71 18 100 01/11/21 21:07 100 01/11/21 20:40 74 22 H 99 01/11/21 20:22 74 01/11/21 20:18 36.9 C 74 21 H 141/71 H 100 01/11/21 20:00 75 Intake/Output Intake/Output: Intake & Output 01/09/21 01/10/21 01/11/21 01/12/21 23:59 23:59 23:59 23:59 Intake Total 590 1520 540 Output Total 605 175 150 Balance -15 1345 390 Meds/Results Medications: Active Medications Generic Name Dose Route Start Last Admin Trade Name Freq PRN Reason Stop Dose Admin Acetaminophen 650 mg 01/09/21 22:57 Acetaminophen 325 Mg Tablet PO Q4H PRN Mild Pain (1-3) or Fever Amlodipine Besylate 5 mg 01/10/21 09:00 01/12/21 08:26 Amlodipine Besylate 5 Mg Tablet PO 5 mg DAILY UMU Administration Atorvastatin Calcium 40 mg 01/10/21 09:00 01/12/21 08:26 Atorvastatin 40 Mg Tablet PO 40 mg DAILY UMU Administration Carvedilol 25 mg 01/10/21 09:00 01/12/21 08:26 Carvedilol 25 Mg Tablet PO 25 mg Q12HR UMU Administration Dextrose 12.5 gm 01/10/21 05:25 Dextrose 50% 25 Gm/50 Ml Syringe IV PUSH PRN PRN Hypoglycemia Protocol Enoxaparin Sodium 30 mg 01/10/21 09:00 01/11/21 10:00 Enoxaparin 30 Mg/0.3 Ml Syringe SUB-Q Not Given DAILY UMU Epoetin Volodymyr-epbx 10,000 units 01/12/21 21:43 01/12/21 16:52 Epoetin Volodymyr-Epbx 10,000 Units/Ml Vial IV PUSH 01/12/21 21:44 10,000 units ONCE ONE Administration Furosemide 40 mg 01/10/21 09:00 01/12/21 08:26 Furosemide 40 Mg Tablet PO 40 mg QAM UMU Administration Glucagon 1 mg 01/10/21 05:25
--- NOTE | 2021-01-12 17:01 | PM.DS ---
DS: Admitting Diagnosis Admitting Diagnosis Admitting Diagnosis: Short of breath DS: Discharge Diagnosis Discharge Diagnosis (1) Acute hyperkalemia: Code(s): E87.5 - Hyperkalemia Status: Acute Assessment and Plan: 01/12/21 13:40 Patient has been admitted to ICU. Patient's acute hyperkalemia peers to be secondary to missed dialysis session this past week. Staff Counsel has been consulted by ER provider. Repeat labs an EKG continue to reveal hyperkalemia. The patient will be treated with another round of calcium gluconate, IV insulin and IV dextrose, sodium bicarbonate, and albuterol neb. We will continue to monitor potassium every 4 hours. Telemetry. Stage Manager, Dr. Hernandez, has been consulted by ER provider and is aware of the patient's severe hyperkalemia. The patient will likely benefit from early dialysis today. Continue nephrology recommendations. 01/10/21 13:45 Patient is 75-year-old male with history of coronary artery disease, diabetes and end-stage renal disease on hemodialysis patient presented emergency department with a complaint of shortness of breath as he had missed his scheduled dialysis on Sunday upon arrival to emergency depart his potassium was 7.8 and he was found to have peak T-wave on EKG, emergency depart patient received DuoNeb, dextrose and insulin to to bring level of potassium down 6.6, also patient was quite hypoxic, was unable to receive emergent dialysis last night however currently patient is receiving dialysis states is feeling much better compared to when he arrived, denies any complaint of shortness of breath, chest pain palpitation fever or chills, patient be seen by Nephrology, will continue to monitor patient will receive his scheduled dialysis and further recommendation to follow. 01/11 patient was seen by his chemical radiation technician and concern the patient complains chest pain, this morning patient does state he has chest pain, his first tropes will continue to monitor, patient will be seen by inbound customer service representative, patient will be seen by his chemical radiation technician and will have scheduled dialysis, will continue to monitor and further recommendations to follow. 01/12 patient with complaint of chest pain patient was seen by his Cardiology does not suspect acute coronary syndrome most likely elevated tropes secondary to end-stage renal disease on hemodialysis, this morning patient denies any complaint of chest pain shortness of breath palpitation fever or chills, he wants to go home, will do the COVID test before discharging patient back to the custodial (2) Acute respiratory failure: Qualifiers: Respiratory failure complication: unspecified whether with hypoxia or hypercapnia Qualified Code(s): J96.00 - Acute respiratory failure, unspecified whether with hypoxia or hypercapnia Code(s): J96.00 - Acute respiratory failure, unspecified whether with hypoxia or hypercapnia Status: Acute Assessment and Plan: Secondary to fluid overload as the patient missed his dialysis this past Sunday. Patient was initiated on BiPAP and currently he is only on 2 L of oxygen via nasal cannula saturating 100%. Patient is no longer in acute respiratory failure. We will reinitiate BiPAP if necessary. (3) Volume overload: Qualifiers: Hypervolemia type: other Qualified Code(s): E87.79 - Other fluid overload Code(s): E87.70 - Fluid overload, unspecified Status: Acute Assessment and Plan: Secondary to non adherence with dialysis. Patient will benefit from dialysis today. (4) Metabolic acidosis: Code(s): E87.2 - Acidosis Status: Acute Assessment and Plan: Secondary to ESRD. Monitor acid-base status. (5) Leukocytosis: Qualifiers: Leukocytosis type: unspecified Qualified Code(s): D72.829 - Elevated white blood cell count, unspecified Code(s): D72.829 - Elevated white blood cell count, unspecified Status: Acute Assessmen
[2021-01-12 18:21] LABS: SARS-CoV-2 RNA PCR Negative
--- NOTE | 2021-01-12 18:26 | PC.NURSE ---
Report from insole coverer at 1814. Patient returned to room via bed without issue.
--- NOTE | 2021-01-12 18:33 | PC.NURSE ---
Patient transfered to Dialysis room via bed without issue.
--- NOTE | 2021-01-12 18:51 | PC.NURSE ---
Report called to [place] staff TAMIE Pimentel
[2021-01-12 19:32] LABS: Glucose Point of Care 105 (65-105)
[2021-01-12] MEDS: ACETAMINOPHEN 325 MG TABLET 650 MG PO (20:25)
== END 2021-01-12 20:45 | disposition home health service (06) | DRG 425 ==
LOC: ANHED 01-10 01:00 → ANHICU 01-10 06:41
PROVIDERS: Emergency Medicine; Family Medicine; Internal Medicine Nephrology; Admitting Provider Family Medicine; Emergency Provider Emergency Medicine; PCP Emergency Medicine; Visit Provider Family Medicine
DX: E87.79 Other fluid overload (principal); E87.5 Hyperkalemia; J96.01 Acute respiratory failure with hypoxia; J96.02 Acute respiratory failure with hypercapnia; Z91.15 Patient's noncompliance with renal dialysis; Z20.822 Contact with and (suspected) exposure to COVID-19; I12.0 Hypertensive chronic kidney disease with stage 5 chronic kidney disease or end stage renal disease; E11.22 Type 2 diabetes mellitus with diabetic chronic kidney disease; N18.6 End stage renal disease; Z99.2 Dependence on renal dialysis; I25.10 Atherosclerotic heart disease of native coronary artery without angina pectoris; E87.2 Acidosis; D63.1 Anemia in chronic kidney disease; D72.829 Elevated white blood cell count, unspecified; E78.5 Hyperlipidemia, unspecified; Z87.891 Personal history of nicotine dependence
CPT/HCPCS: 36415; 36600; 71045; 80048; 80069; 82375; 82805; 82948; 83050; 83880; 84132; 84484; 85025; 85027; 86706; 87340; 93005; 93306; 94002; 94003; 94640; 96374; 96375; 97161; 97165; 99285; A9270; C1752; C9803; G0257; J0360; J0610; J1650; J1815; J1940; J7030; Q5106; U0003; U0005

== ENCOUNTER 2021-01-19 10:30 | Inpatient (IN) | payer OTHER, SELFPAY ==
[2021-01-19] VITALS (21 sets, daily range): BP systolic 112–153; BP diastolic 49–73; PULSE 65–84; RESP 16–21; TEMP 36.1–37.3; O2SAT 96–100; BMI 28.9
--- NOTE | ~2021-01-19 | CT_ITS ---
EXAMINATION: CT abdomen pelvis wo con EXAM DATE: 01/19/2021 11:35 INDICATION: Upper abdominal pain, nausea and vomiting. Diarrhea. Dialysis patient. TECHNIQUE: Spiral CT of the abdomen and pelvis was performed without contrast. Axial, coronal and sag ittal images were reviewed. The dose-length product (DLP) for this examination was 479.57 mGy-cm. T he exposure was tailored according to patient size (auto mA exposure control), and iterative reconstr uction (ASIR) was used as additional dose reduction technique. There is no prior study for compariso n. FINDINGS: Mild to moderate bilateral renal atrophy. There is no nephrolithiasis or hydronephrosis. The prostate is unremarkable. The bladder is unremarkable. Mild hazy fat stranding at the pancreatic head and uncinate. The liver, spleen, adrenal glands are unremarkable. The gallbladder is distended but otherwise unremarkable. There is no biliary duct dilation. There is no retroperitoneal or pelv ic lymphadenopathy. Small umbilical fat-containing hernia. Moderate scattered arteriosclerotic dise ase. The appendix is not positively visualized. There is no pericecal inflammatory change to suggest appe ndicitis. The stomach and small bowel are unremarkable. Small amount of colonic contents. No wiliam e intraperitoneal gas. There is cardiomegaly. Trace right pleural effusion. The lung bases are unr emarkable. There are no osteoblastic or osteolytic lesions identified. Chronic bilateral L5 spondylo lysis. IMPRESSION: 1. Possible mild acute pancreatitis, correlate with amylase and lipase. 2. Distended but otherwise unremarkable gallbladder. 3. Cardiomegaly. Reviewed, dictated and finalized at location B.
--- NOTE | ~2021-01-19 | MR_ITS ---
EXAMINATION: MR MRCP wo con/w 3D wo ind pp DATE: 01/20/2021 14:34 INDICATION: Pancreatitis TECHNIQUE: Magnetic resonance imaging (MRI) of the abdomen was performed without intravenous contrast . Sequences included coronal T2-weighted SS-FSE ARC, coronal T2-weighted FS SS-FSE, coronal T2-weight ed 2D FS FIESTA, Water:Coronal LAVA-Flex, sagittal T2-weighted SS-FSE ARC, axial SSFSE ARC, axial 3D DualEcho, axial DWI B=600, axial T1-weighted LAVA, FAT:Coronal LAVA-Flex, and coronal in and opposed phase LAVA-Flex. Thick-slab T2-weighted FRFSE-XL images were obtained for magnetic resonance cholangi opancreatography (MRCP). Maximum intensity projection 3-D reconstructions of the volumetric data were created by the technologist. COMPARISON: CT, 01/19/2021 CONTRAST: None FINDINGS: ABDOMEN MRI: There is mild atelectasis of the lung bases. Cardiomegaly is noted. The liver, spleen, a nd adrenal glands are normal. The pancreas is unremarkable. There is mild wall thickening of the gall bladder. Small amount of adjacent fluid is identified. There are no pathologically enlarged abdominal lymph nodes. No dilated loops of bowel are evident. ABDOMEN MRCP: Respiratory motion artifact slightly limits the MRCP acquisition. There is no intrahepa tic or extrahepatic biliary dilatation. No biliary stones or stricture are identified. The pancreatic duct is normal in course and caliber. IMPRESSION: 1. No biliary dilatation, stones or stricture identified. 2. Mild wall thickening of the gallbladder with surrounding inflammatory fluid, possible cholecystiti s. Reviewed, dictated and finalized at location A. IMPRESSION: 1. No biliary dilatation, stones or stricture identified. 2. Mild wall thickening of the gallbladder with surrounding inflammatory fluid, possible cholecystitis.
--- NOTE | ~2021-01-19 | NM_ITS ---
EXAMINATION: NM hepatobiliary wo pharm EXAM DATE: 01/21/2021 14:19 INDICATION: Cholecystitis. TECHNIQUE: 5.4 mCi Tc-99m mebrofenin (Choletec) was administered intravenously. Scintigraphic images of the abdomen were obtained for one hour. To obtained gallbladder ejection fraction, patient drank 8 ounces of Ensure and imaging of the gallbladder obtained for one hour following ingestion. Gallbl adder ejection fraction was calculated by the technologist. Correlation is made to Recent CT and MRI. FINDINGS: There is normal clearance of radiotracer from the blood pool. There is homogeneous tracer u ptake by the liver. Gallbladder was identified initially after 50 minutes of imaging. No small bowel activity during the 1st hour and 15 minutes of imaging. Patient ingested ensure, and subsequent small bowel activity was confirmed. The gallbladder ejection fraction (GBEF) is 25% (most patients with ga llbladder dysfunction have GBEF < 35%, but there is slight overlap with the normal range of 33-90% us ing this protocol).] IMPRESSION: Delayed gallbladder and small bowel activity. Low gallbladder ejection fraction 25%, whic h may indicate some component of gallbladder dysfunction and/or chronic cholecystitis. Reviewed, dictated and finalized at location B. IMPRESSION: Delayed gallbladder and small bowel activity. Low gallbladder eject ion fraction 25%, which may indicate some component of gallbladder dysfunction and/or chronic cholecystitis.
--- NOTE | 2021-01-19 11:20 | ED.ABDPAIN ---
HPI - Abdominal Pain General Chief Complaint: Abdominal Pain Stated Complaint: Abd pain, N/V Time Seen by Provider: 01/19/21 11:04 Source: RN notes reviewed History of Present Illness HPI narrative: Patient presents to emergency department from home for abdominal pain. Patient states symptoms began last night with pain in the epigastric region states he had several episodes of emesis as well as diarrhea states that this morning continues to have the pain and severe nausea denies any emesis this morning denies any fevers or chills chest pain shortness of breath or any other symptoms patient was due for dialysis this morning at 11 Related Data Home Medications Medication Instructions Recorded Confirmed furosemide 40 mg tablet 40 mg PO QAM 11/27/19 01/10/21 Allergies Allergy/AdvReac Type Severity Reaction Status Date / Time No Known Allergies Allergy Verified 01/19/21 10:55 Review of Systems Review of Systems: Narrative: Gen.: Denies fevers or chills ENT: Denies congestion Respiratory: Denies shortness of breath or cough CV: Denies chest pain or palpitations GI: See HPI reports chronic renal failure with dialysis Musculoskeletal: Denies back pain or muscle pain Neuro: Denies numbness, tingling, weakness or focal weakness Skin: Denies rash Except as documented, all other systems reviewed and negative PMFSH Past Medical History Medical History (Updated 01/19/21 @ 14:04 by Dannie Morgan DO) Anemia, chronic disease Coronary artery disease History of stents. Followed by Dr. Olivier Kern. Dyslipidemia End-stage renal disease on hemodialysis Essential hypertension Surgical History Surgical History (Updated 01/19/21 @ 14:03 by Celia Gastelum PA-C) AV fistula (~05/2018) History of basal cell carcinoma excision Right cheek per Dr. Salgado. Family History Family History Other Unknown family medical history Social History Social History Smoking packs per day: 1 Smoking cigarettes per day: 20.0 Smoking status: Former smoker Second hand tobacco smoke exposure: No Alcohol intake: current Drinks per week: 1 Substance use: never Gender identity (if verbalized by the patient): Male Spiritual care concerns: No Exam Narrative: Exam Narrative: APPEARANCE: No acute distress, nontoxic, resting in bed HEENT: Normocephalic, atraumatic, OMM RESPIRATORY: No respiratory distress, clear to auscultation bilaterally with no rhonchi wheezing or rales CARDIOVASCULAR: RRR s murmur ABDOMINAL: Soft nondistended tender palpation epigastric and right upper quadrant left lower quadrant no tenderness right lower quadrant left lower quadrant no rebound or guarding MUSCULOSKELETAl: Moves all extremities. No clubbing, cyanosis or edema. NEURO: Awake and alert. Following commands, speech normal, no focal deficits SKIN:: Warm, dry. Normal Color PSYCHIATRIC: Normal affect/mood Course Course Emergency Course: Discussed with Dr. Wong presentation work-up will plan for patient of dialysis today request patient received insulin dextrose for current hyperkalemia Discussed with Dr. Montes presentation work-up agrees with admission at this time will hold fluids until dialysis Discussed with patient and family results of workup and diagnosis. Discussed need for admission. Patient and family understand and agree to current treatment plan Vital Signs Vital signs: Vital Signs Temperature 99.2 F 01/19/21 10:38 Pulse Rate 84 01/19/21 10:38 Respiratory Rate 18 01/19/21 10:38 Blood Pressure 146/63 H 01/19/21 10:38 Pulse Oximetry 100 01/19/21 10:38 Temperature 99.2 F 01/19/21 10:38 Pulse Rate 71 01/19/21 13:55 Respiratory Rate 18 01/19/21 13:55 Blood Pressure 118/52 L 01/19/21 13:55 Pulse Oximetry 97 01/19/21 13:32 MDM - Abdominal Pain Lab Data Result diagrams
[2021-01-19] MEDS: ONDANSETRON INJ 4 MG/2 ML VIAL IV PUSH (11:25)
--- NOTE | 2021-01-19 11:27 | PC.NURSE ---
Pt to ED via stretcher at this time.
[2021-01-19 11:28] LABS: Basophils Percent Auto 0.1 % (0.2-1.2); Eosinophils Percent Auto 0.4 % (0-4.4); Hematocrit 27.9 % (42.0-52.0); Hemoglobin 9.1 g/dL (14.0-18.0); Immature Granulocyte Absolute 0.07 K/mm3 (0.00-0.031); Immature Granulocyte Percent A 0.7 % (0-0.5); Immature Platelet Fraction Pct 4.7 % (0.9-11.2); Lymphocytes Absolute Auto 0.91 K/mm3 (0.9-3.2); Lymphocytes Percent Auto 8.8 % (18.3-44.2); Mean Corpuscular HGB Conc 32.6 g/dl (32-36); Mean Corpuscular Hemoglobin 33.2 pg (26-34); Mean Corpuscular Volume 101.8 fl (80-100); Mean Platelet Volume 11.3 fl (7.4-10.4); Monocytes Absolute Auto 0.7 K/mm3 (0.1-0.6); Monocytes Percent Auto 6.4 % (2.6-8.5); Neutrophils Absolute Auto 8.6 K/mm3 (1.3-6.7); Neutrophils Percent Auto 83.6 % (45.5-73.1); Platelet Count Result 135 k/mm3 (150-375); Red Blood Count 2.74 M/mm3 (4.6-6.20); White Blood Count 10.3 K/mm3 (4.5-10.0)
[2021-01-19 11:54] LABS: Alanine Aminotransferase 331 U/L (4-50); Albumin Level 4.3 g/dL (3.5-5.1); Alkaline Phosphatase 173 U/L (38-126); Anion Gap 11 mmol/L (8-16); Aspartate Amino Transferase 380 U/L (17-59); Bilirubin,Total 2.8 mg/dL (0.2-1.3); Blood Urea Nitrogen 53 mg/dL (9-20); Calcium 9.3 mg/dL (8.4-10.2); Carbon Dioxide 28 mmol/L (22-30); Chloride 98 mmol/L (98-107); Estimated CRCL calculation 7 ml/min; Estimated Glomerular Filt Rate 6; Glucose 179 mg/dL (75-110); Potassium 5.8 mmol/L (3.4-5.0); Sodium 137 mmol/L (137-145)
--- NOTE | 2021-01-19 11:57 | ECG_ITS ---
Measurements Intervals [place] Rate: 79 P: -5 ND: 164 QRS: 12 QRSD: 94 T: 72 QT: 392 QTc: 449 Interpretive Statements SINUS RHYTHM BORDERLINE R WAVE PROGRESSION, ANTERIOR LEADS CONSIDER INFERIOR INFARCT, AGE INDETERMINATE BASELINE ARTIFACT- I, II, III, AVR, AVL, AVF, V3-V6 ABNORMAL ECG Electronically Signed On 01-19-2021 12:16:53 CDT by Olivier Kern D.O.
[2021-01-19 12:25] LABS: Amylase > 2400 U/L (30-110)
[2021-01-19 12:26] LABS: Lipase > 40000 U/L (23-300)
[2021-01-19 12:27] LABS: Add Urine Microscopic? YES; Appearance Urine Clear (Clear); Bacteria Urine Trace /hpf; Bilirubin Urine Negative (Negative); Blood Urine 1+ (Negative); Color Urine Yellow (Yellow); Glucose Urine UA 3+ mg/dL (Negative); Ketones Urine Negative (Negative); Leukocyte Esterase Ur Negative LEU/UL (Negative); Nitrate Urine Negative (Negative); Protein Urine 3+ mg/dL (Negative); RBC Urine 21-50 /hpf (0-2); Specific Grav Ur 1.009 (1.001-1.035); Squamous Epithelial Cell Urine Rare /hpf (Few); Urobilinogen Urine Negative mg/dL (<2.0); WBC Urine 0-3 /hpf
[2021-01-19] MEDS: DEXTROSE 50% 25 GM/50 ML SYRINGE IV PUSH (12:27)
[2021-01-19] MEDS: INSULIN HUMAN REGULAR (*BKC) 100 UNITS/ML 10 UNITS IV PUSH (12:28)
--- NOTE | 2021-01-19 14:02 | PC.NURSE ---
This patient, Jose Quinonez, was admitted to [address] [place] [address] Room 324-01. Patient/family oriented to hospital policies and general routines including ID bracelet, bed and alarms, visiting hours, pain management, procedures, bathroom and other care routines, personal items, smoking policy, room service/diet, and visiting hours. Information on how to activate the Rapid Response Team has been discussed. Patient/Family are encouraged to report perceived risks to care and to ask questions if they do not understand what they are told or what they should do.
--- NOTE | 2021-01-19 15:00 | PM.IMHP ---
H&P: HPI History of Present Illness Date/Time: 01/19/21 15:00 Chief Complaint: Abdominal pain. Narrative: This is a pleasant 75-year-old male with end-stage renal disease on hemodialysis, coronary artery disease with history of stents, chronic hypertension, chronic anemia, diet-controlled diabetes, GERD, and dyslipidemia who presented to the emergency department earlier today via EMS for evaluation of abdominal pain. The patient's primary language is Farsi and although he can speak a few words of Nepali I did use the video translating system to aid in obtaining the following history. He developed epigastric pain which woke him from sleep at approximately 01:00. He has a difficult time describing the pain but states that it was an intense and has waxed and waned since that time. It did radiate up into the right upper quadrant. He gives no aggravating or alleviating factors. Associated symptoms include nausea and emesis x4. He also had 1 episode of diarrhea early this morning. He had a similar episode in the evening while in the hospital little over a week ago but he was told by the doctor that it was probably GERD. Today he was found to have evidence of pancreatitis on CT with markedly elevated lipase and amylase. The gallbladder was distended but there were no stones noted nor biliary dilatation. At the time my evaluation he is having no pain or nausea. He also denies fever, chills, sweats. No chest pain or shortness of breath. Review of Systems Review of Systems: Narrative: Twelve systems were reviewed with pertinent positives and negatives as per HPI. He denies fever, chills, and sweats. No chest pain or shortness of breath. No cold or flu symptoms. He denies hematemesis, melena, and hematochezia. He has been on dialysis for 2.5 years and still urinates a bit. No dysuria or hematuria. Except as documented, all other systems were reviewed and are negative. [facility] Past Medical History Medical History (Updated 01/20/21 @ 00:36 by Celia Gastelum PA-C) Anemia of chronic disease Coronary artery disease History of stents. Followed by Dr. Olivier Kern. Diet-controlled diabetes mellitus Dyslipidemia End-stage renal disease on hemodialysis Essential hypertension Surgical History Surgical History AV fistula (~05/2018) History of basal cell carcinoma excision Right cheek per Dr. Salgado. Family History Family History Other Unknown family medical history Social History Social History (Updated 01/20/21 @ 00:37 by Celia Gastelum PA-C) Social History: Surrogate decision maker: Sid Fraser, [id number]. Code status: Full code. Smoking packs per day: 1 Smoking cigarettes per day: 20.0 Smoking status: Never smoker Second hand tobacco smoke exposure: No Alcohol intake: current Drinks per week: 1 Substance use: never Substance use type: does not use Additional living arrangements comments: The patient lives at [facility] in [place]. Originally from [place]. His children remain there. 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 Gender identity (if verbalized by the patient): Male Spiritual care concerns: No Meds Home Medications and Allergies Home Medications Medication Instructions Recorded Confirmed Type furosemide 40 mg tablet 40 mg PO QAM 11/27/19 01/19/21 History amlodipine 5 mg tablet 5 mg PO DAILY #30 tablet 12/07/20 01/19/21 Rx atorvastatin 40 mg tablet 40 mg PO DAILY #30 tablet 12/07/20 01/19/21 Rx carvedilol 25 mg tablet 25 mg PO Q12H #60 tablet 12/07/20 01/19/21 Rx Allergies Allergy/AdvReac Type Severity Reaction Status Date / Time No Known Allergies Allergy Verified 01/19/21 10:55 Vital Signs Vital Signs - 24 hr 01/19/21 10:38 01/19/21 12:55 01/19/21 13:32 Temperature 99
--- NOTE | 2021-01-19 16:12 | WPDGICN ---
Assessment and Plan Assessment and plan (1) Acute pancreatitis: Code(s): K85.90 - Acute pancreatitis without necrosis or infection, unspecified Status: Acute Assessment and Plan: pancreatitis with elevated transaminases and bili, ? GS pancreatitis. CT reviewed with distended GB but no obvious stones, will get MRCP to assess also biliary system trend liver enzymes and NPO status for now get TG level ask surgery to see based on clinical course (2) Transaminasemia: Code(s): R74.01 - Elevation of levels of liver transaminase levels Status: Acute Assessment and Plan: from pancreatitis, ? passed stone will get also hepatitis panel patient denies drinking alcohol (3) End-stage renal disease on hemodialysis: Code(s): N18.6 - End stage renal disease; Z99.2 - Dependence on renal dialysis Status: Acute Assessment and Plan: nephrology to see and get dialysis inhouse (4) Acute hyperkalemia: Code(s): E87.5 - Hyperkalemia Status: Acute (5) Anemia of chronic disease: Code(s): D63.8 - Anemia in other chronic diseases classified elsewhere Status: Acute Assessment and Plan: stable, continue to monitor GI Consult Note Consult date/time: 01/19/21 16:12 Reason for consult: abdominal pain, pancreatitis HPI: Jose Quinonez is a 75 year old male with end-stage renal disease on hemodialysis, coronary artery disease, hypertension, chronic anemia who came to the emergency department via EMS for evaluation of new onset of abdominal pain. He speaks some Turkish but also part of interview using Farsi translation. He came here with severe pain in epigastric area, sharp type, also had nausea and emesis. Blood work showed elevated liver enzymes, dustin 2.8, transaminases 300 and significant elevation of pancreatic enzymes. He denies alcohol use or previous history of liver/pancreatic disease. CT of the abdomen and pelvis reviewed and showed mild, acute pancreatitis, Gallbladder was distended but otherwise unremarkable. Review of Systems Constitutional: Constitutional: Denies chills Eyes: Eyes: Reports no additional eye complaints ENT: Reports Normal hearing present Cardiovascular: Cardiovascular: Denies chest pain Respiratory: Respiratory: Denies dyspnea Gastrointestinal: Gastrointestinal: Reports abdominal pain, Reports nausea and Reports vomiting Genitourinary: Comments: on dialysis Musculoskeletal: Musculoskeletal: Denies neck pain Integumentary/Breasts: Skin/Breast: Denies dry skin Neurologic: Reports system reviewed and no additional complaints, except as documented Psychiatric: Psychiatric: Reports no additional psychiatric complaints [facility] Past Medical History Medical History (Updated 01/19/21 @ 14:05 by Celia Gastelum PA-C) Anemia of chronic disease Coronary artery disease History of stents. Followed by Dr. Olivier Kern. Dyslipidemia End-stage renal disease on hemodialysis Essential hypertension Surgical History Surgical History (Updated 01/19/21 @ 14:03 by Celia Gastelum PA-C) AV fistula (~05/2018) History of basal cell carcinoma excision Right cheek per Dr. Salgado. Family History Family History Other Unknown family medical history Social History Social History (Updated 01/19/21 @ 14:37 by Celia Gastelum PA-C) Social History: Surrogate decision maker: Sid Fraser, sibling. Code status: Full code. Smoking packs per day: 1 Smoking cigarettes per day: 20.0 Smoking status: Never smoker Second hand tobacco smoke exposure: No Alcohol intake: current Drinks per week: 1 Substance use: never Substance use type: does not use Additional living arrangements comments: The patient lives with his in [place]. Occupation/Education: retired Gender identity (if verbalized by the patient): Male Spiritual care concerns: No Med
[2021-01-19 17:12] LABS: Hepatitis B Surface Anti Res Negative
[2021-01-19 17:20] LABS: Hepatitis B Surface Antigen Negative (Negative)
--- NOTE | 2021-01-19 17:26 | PM.CNNEP ---
Assessment and Plan Assessment and plan (1) End-stage renal disease on hemodialysis: Code(s): N18.6 - End stage renal disease; Z99.2 - Dependence on renal dialysis Status: Acute Assessment and Plan: Jose has end-stage renal disease. He is due for dialysis today. His volume status looks okay. Because of the pancreatitis, he may 3rd space and so I think we will not take any fluid off in dialysis today. The patient's potassium is high so he is being done on a 2 potassium bath. (2) Acute pancreatitis: Code(s): K85.90 - Acute pancreatitis without necrosis or infection, unspecified Status: Acute Assessment and Plan: The patient has a very high his amylase and lipase, and also findings on CT scan. He is NPO. GI has been consulted. MRCP has been ordered (3) Essential hypertension: Code(s): I10 - Essential (primary) hypertension Status: Chronic Assessment and Plan: his blood pressure is fairly labile ranging from 116-148. We will keep an eye on this. It may fall because of 3rd spacing. Or it may rise because he is not on his medications or from abdominal pain. So will let his blood pressure declare itself and treat him accordingly. (4) Hyperkalemia: Code(s): E87.5 - Hyperkalemia Status: Acute Assessment and Plan: Potassium is 5.8. He is being done on a low-potassium bath (5) Transaminasemia: Code(s): R74.01 - Elevation of levels of liver transaminase levels Status: Acute Assessment and Plan: liver enzymes are high. Perhaps he passed a gallstone (6) Anemia of chronic disease: Code(s): D63.8 - Anemia in other chronic diseases classified elsewhere Status: Acute Assessment and Plan: hemoglobin is 9.1. I will give him some EPO. (7) Coronary artery disease: Code(s): I25.10 - Atherosclerotic heart disease of [place] coronary artery without angina pectoris Status: Acute Assessment and Plan: No chest pain or shortness of breath History of Present Illness Reason for Consult Consult date: 01/19/21 Chief Complaint Chief complaint: PANCREATITIS,HYPERKALEMIA,CHRONIC RENAL FAILURE History of Present Illness Narrative: Jose Is a very pleasant 75-year-old gentleman who has multiple medical problems including end-stage renal disease on dialysis for about 2 and half years, anemia, hyperlipidemia, hypertension, coronary disease status post stents. The patient says that he went to dialysis on Sunday and did well. He had about 2.5L on. They got the fluid off successfully although his blood pressure did drop at the very end. He says that he has been having some belly pain which has been mild over the last week but then in the last day grew in intensity. The pain was in the epigastric area. He had some nausea and vomiting this morning but otherwise none. No diarrhea. No fevers or chills. He went to the emergency room and was Evaluated. CT scan showed mild acute pancreatitis. Amylase and lipase are very high. Liver enzymes are also elevated. He was admitted to the hospital. His potassium was 5.8. Renal consultation was requested for treatment of the potassium and dialysis. Review of Systems Constitutional: Constitutional: Reports no additional constitutional complaints Eyes: Eyes: Reports no additional eye complaints ENT: Reports system reviewed and no additional complaints, except as documented Cardiovascular: Cardiovascular: Reports no additional cardiovascular complaints Respiratory: Respiratory: Reports no additional respiratory complaints Gastrointestinal: Gastrointestinal: Reports no additional gastrointestinal complaints Genitourinary: Genitourinary: Reports no additional male genitourinary complaints Musculoskeletal: Musculoskeletal: Reports no additional musculoskeletal complaints Integumentary/Breasts: Skin/Breast: Reports system reviewed and no
[2021-01-19 21:16] LABS: Glucose Point of Care 79 (65-105)
[2021-01-20] VITALS (10 sets, daily range): BP systolic 107–138; BP diastolic 47–52; PULSE 65–71; RESP 16–18; TEMP 36.6–36.7; O2SAT 96–99
[2021-01-20] MEDS: DEXTROSE 50% 25 GM/50 ML SYRINGE IV PUSH (04:44)
[2021-01-20 05:15] LABS: Glucose Point of Care 110 (65-105)
[2021-01-20 05:15] LABS: Glucose Point of Care 54 (65-105)
[2021-01-20 06:17] LABS: Basophils Percent Auto 0.2 % (0.2-1.2); Eosinophils Absolute Auto 0.4 K/mm3 (0-0.3); Eosinophils Percent Auto 5.6 % (0-4.4); Hematocrit 23.3 % (42.0-52.0); Hemoglobin 7.8 g/dL (14.0-18.0); Immature Granulocyte Absolute 0.03 K/mm3 (0.00-0.031); Immature Granulocyte Percent A 0.5 % (0-0.5); Immature Platelet Fraction Pct 5.4 % (0.9-11.2); Lymphocytes Absolute Auto 1.05 K/mm3 (0.9-3.2); Mean Corpuscular HGB Conc 33.5 g/dl (32-36); Mean Corpuscular Hemoglobin 33.2 pg (26-34); Mean Corpuscular Volume 99.1 fl (80-100); Monocytes Absolute Auto 0.5 K/mm3 (0.1-0.6); Monocytes Percent Auto 7.3 % (2.6-8.5); Neutrophils Absolute Auto 4.6 K/mm3 (1.3-6.7); Neutrophils Percent Auto 70.4 % (45.5-73.1); Platelet Count Result 111 k/mm3 (150-375); Red Blood Count 2.35 M/mm3 (4.6-6.20); Red Cell Distribution Width 13.1 % (11.5-14.5); White Blood Count 6.6 K/mm3 (4.5-10.0)
[2021-01-20 06:24] LABS: INR 1.3; Prothrombin Time 17.2 Seconds (11.1-14.7)
[2021-01-20 06:25] LABS: Partial Thromboplastin Time 35.4 SECONDS (22.3-36.8)
[2021-01-20 06:40] LABS: Alanine Aminotransferase 306 U/L (4-50); Albumin Level 3.4 g/dL (3.5-5.1); Alkaline Phosphatase 161 U/L (38-126); Anion Gap 7 mmol/L (8-16); Aspartate Amino Transferase 187 U/L (17-59); Bilirubin,Total 3.4 mg/dL (0.2-1.3); Blood Urea Nitrogen 27 mg/dL (9-20); Calcium 8.4 mg/dL (8.4-10.2); Carbon Dioxide 33 mmol/L (22-30); Chloride 93 mmol/L (98-107); Estimated CRCL calculation 10 ml/min; Estimated Glomerular Filt Rate 10; Glucose 95 mg/dL (75-110); Magnesium 1.8 mg/dL (1.6-2.3); Potassium 3.7 mmol/L (3.4-5.0); Sodium 133 mmol/L (137-145); Triglycerides 59 mg/dL (<150)
[2021-01-20 06:54] LABS: Anisocytosis 1+ (NORMAL); Hypochromasia 2+ (NORMAL); Platelet Estimate Adequate (Adequate); Poikilocytosis 1+ (NORMAL)
[2021-01-20 07:29] LABS: Lipase 3011 U/L (23-300)
--- NOTE | 2021-01-20 09:01 | PM.CNGS ---
Assessment and Plan Assessment and plan (1) Acute pancreatitis: Code(s): K85.90 - Acute pancreatitis without necrosis or infection, unspecified Status: Acute Assessment and Plan: CT scan reviewed, which suggests acute pancreatitis. Lipase greater than 40,000 on admission. Etiology unclear at this point. Patient denies alcohol use. Triglycerides are normal. The patient does have elevated LFTs, concerning for a gallstone that may have passed. There is no evidence of cholelithiasis or biliary duct dilation on the CT scan. GI has also been consulted. MRCP has been ordered today to further evaluate the biliary system. If there are gallstones present on the MRCP, we will plan for laparoscopic cholecystectomy as an outpatient with Dr. Dwyer. The patient would be a higher risk surgical candidate due to his multiple co-morbidities. If there are no gallstones on the MRCP, then another etiology should be considered for his pancreatitis. The patient is already clinically improving and his lipase is down significantly this morning. He is no longer complaining of any abdominal pain. After the MRCP, it would be okay to start him on a liquid diet from our standpoint. Continue medical management for the acute pancreatitis with IV fluids and analgesics. We will trend his labs and monitor the patient with serial abdominal exams. Thank you for allowing us to see the patient in consultation and we will continue to follow along with you. (2) Transaminasemia: Code(s): R74.01 - Elevation of levels of liver transaminase levels Status: Acute Assessment and Plan: Elevated LFTs with total bilirubin slightly up today. Concern for passing stone? No gallstones noted on CT scan. MRCP ordered today and will be able to evaluate the biliary system. Will await these results. See plan above. (3) End-stage renal disease on hemodialysis: Code(s): N18.6 - End stage renal disease; Z99.2 - Dependence on renal dialysis Status: Acute Assessment and Plan: Nephrology has been consulted and is following the patient. He received dialysis in-house last night. Labs improved this morning following dialysis. (4) Coronary artery disease: Code(s): I25.10 - Atherosclerotic heart disease of [place] coronary artery without angina pectoris Status: Acute (5) Diet-controlled diabetes mellitus: Code(s): E11.9 - Type 2 diabetes mellitus without complications Status: Acute Assessment and Plan: Hgb A1C 6.0. Management for hospitalist. (6) Anemia of chronic disease: Code(s): D63.8 - Anemia in other chronic diseases classified elsewhere Status: Acute Additional Plan I have discussed the patient's case and plan of care with Dr. Dwyer. History of Present Illness Consult details Consult date: 01/20/21 Reason for consult: other (Acute pancreatitis, elevated LFTs) Requesting physician: Lenard Nava MD Narrative: This is a 75-year-old male with end-stage renal disease on hemodialysis, coronary artery disease, hypertension, and diet controlled diabetes, who presented to the ER with complaints of abdominal pain yesterday. The patient speaks Farsi, therefore a video/telephone tunneling machine operator was used for interpretation. The patient had a sudden onset of upper abdominal pain around 1:00 a.m. 2 nights ago. He had associated nausea and vomiting. There were no alleviating factors. No fever or chills. Due to the persistent abdominal pain, the patient presented to the ER for further evaluation. CT scan of the abdomen and pelvis suggested mild acute pancreatitis. There was noted to be gallbladder distention but no gallstones or biliary duct dilation. Labs revealed a lipase of greater than 40,000 and elevated LFTs. The patient was admitted to the hospitalist service. He was made NPO and started on IV fluids and analgesics. Our service was then consulted for the concern of this being biliary pancreatitis due
--- NOTE | 2021-01-20 12:36 | PM.PNNEP ---
Progress Note: A&P Assessment and Plan (1) End-stage renal disease on hemodialysis: Code(s): N18.6 - End stage renal disease; Z99.2 - Dependence on renal dialysis Status: Acute Assessment and Plan: Jose has end-stage renal disease. This is due to hypertension. He is due for dialysis tomorrow. (2) Acute pancreatitis: Code(s): K85.90 - Acute pancreatitis without necrosis or infection, unspecified Status: Acute Assessment and Plan: The patient has pancreatitis. Lipase is much better, down to 3000. He is NPO. GI has been consulted. MRCP has been ordered. He is waiting for this to be done. (3) Essential hypertension: Code(s): I10 - Essential (primary) hypertension Status: Chronic Assessment and Plan: his blood pressure has settled down. It is ranging from 100-140. (4) Hyperkalemia: Code(s): E87.5 - Hyperkalemia Status: Acute Assessment and Plan: Resolved (5) Transaminasemia: Code(s): R74.01 - Elevation of levels of liver transaminase levels Status: Acute Assessment and Plan: liver enzymes are high. This is improved (6) Anemia of chronic disease: Code(s): D63.8 - Anemia in other chronic diseases classified elsewhere Status: Acute Assessment and Plan: hemoglobin is 9.1. I will give him some EPO. (7) Coronary artery disease: Code(s): I25.10 - Atherosclerotic heart disease of [place] coronary artery without angina pectoris Status: Acute Assessment and Plan: No chest pain or shortness of breath Subjective Date/time seen: 01/20/21 12:36 Interval history: The patient looks comfortable. He wants to eat. Belly seems a lot better. No shortness of breath Exam Narrative: Exam Narrative: WDWN in NAD skin no rash or subcu nodules head ncat lungs clear cor reg no rub abd BS+ nontender and soft ext no edema. Objective Data Vital Signs Vital Signs: Vital Signs - 24 hr 01/19/21 12:55 01/19/21 13:32 01/19/21 13:55 Temperature Pulse Rate 79 69 71 Respiratory Rate 21 H 17 18 Blood Pressure 134/54 L 116/49 L 118/52 L Pulse Oximetry 96 97 01/19/21 14:13 01/19/21 15:45 01/19/21 16:00 Temperature 36.1 C L 36.6 C Pulse Rate 70 70 73 Respiratory Rate 16 20 Blood Pressure 134/51 L 148/72 H 153/73 H Pulse Oximetry 99 01/19/21 16:15 01/19/21 16:30 01/19/21 17:00 Temperature Pulse Rate 66 66 67 Respiratory Rate Blood Pressure 132/62 117/60 120/58 L Pulse Oximetry 01/19/21 17:15 01/19/21 17:30 01/19/21 17:45 Temperature Pulse Rate 67 68 67 Respiratory Rate Blood Pressure 128/61 125/63 112/55 L Pulse Oximetry 01/19/21 18:00 01/19/21 18:15 01/19/21 18:30 Temperature Pulse Rate 65 66 67 Respiratory Rate Blood Pressure 115/54 L 119/57 L 137/58 L Pulse Oximetry 01/19/21 18:45 01/19/21 18:59 01/19/21 19:10 Temperature 36.2 C L Pulse Rate 67 66 68 Respiratory Rate 20 Blood Pressure 121/51 L 114/55 L 136/65 Pulse Oximetry 01/19/21 20:00 01/19/21 22:00 01/20/21 00:00 Temperature 36.8 C Pulse Rate 69 72 66 Respiratory Rate 16 Blood Pressure 135/56 L Pulse Oximetry 96 01/20/21 04:00 01/20/21 06:00 01/20/21 08:00 Temperature 36.7 C Pulse Rate 67 71 71 Respiratory Rate 16 Blood Pressure 107/49 L Pulse Oximetry 97 01/20/21 10:14 Temperature Pulse Rate Respiratory Rate Blood Pressure Pulse Oximetry 96 Intake/Output Intake/Output: Intake & Output 01/17/21 01/18/21 01/19/21 01/20/21 23:59 23:59 23:59 23:59 Intake Total 100 Output Total 0 300 Balance 100 -300 Meds/Results Medications: Active Medications Generic Name Dose Route Start Last Admin Trade Name Freq PRN Reason Stop Dose Admin Dextrose 12.5 gm 01/20/21 04:34 01/20/21 04:44 Dextrose 50% 25 Gm/50 Ml Syringe IV PUSH 12.5 gm PRN PRN Administration
--- NOTE | 2021-01-20 15:13 | PM.IMPN ---
Progress Note: A&P Assessment and Plan (1) Acute pancreatitis: Code(s): K85.90 - Acute pancreatitis without necrosis or infection, unspecified Status: Acute (2) End-stage renal disease on hemodialysis: Code(s): N18.6 - End stage renal disease; Z99.2 - Dependence on renal dialysis Status: Acute (3) Diet-controlled diabetes mellitus: Code(s): E11.9 - Type 2 diabetes mellitus without complications Status: Acute (4) Anemia of chronic disease: Code(s): D63.8 - Anemia in other chronic diseases classified elsewhere Status: Acute (5) Transaminasemia: Code(s): R74.01 - Elevation of levels of liver transaminase levels Status: Acute (6) Acute hyperkalemia: Code(s): E87.5 - Hyperkalemia Status: Acute Additional Plan 01/19/21 The patient presents today with epigastric pain radiating to the right upper quadrant that began sometime early this morning associated with nausea and vomiting. Amylase and lipase were markedly elevated with mild, acute pancreatitis on imaging. Gallbladder was distended but otherwise unremarkable. Though no ductal dilatation was noted I wonder if he may have passed a stone given his elevated LFTs. He reports having a similar episode within the last week or so which was chalked up to GERD. Dr. Nava (Gastroenterology) has been consulted for his opinion and an MRCP has been ordered for tomorrow. At this time treatment will be supportive with antiemetics and analgesics available as needed. As he is currently undergoing dialysis I do not want to give him any more fluids in what he received in the emergency department. His potassium is a bit elevated and in fact he is due for dialysis today. Dr. Wong consulted and his input is appreciated. Blood pressures were reviewed and they are stable and will be monitored closely. Hemoglobin and hematocrit are also stable on review of previous labs. 01/20/2021 lipase down trending no gallstones on MRCP just finding suspicious for cholecystitis. Spoke with GI will perform HIDA scan for further evaluation. The patient reporting abdominal pain discomfort in the epigastrium with ingestion of fluids. He is advised not to continue to drink of causing him pain. Pain medication administration discussed with RN. She will monitor pain score and treat accordingly. Patient with end-stage renal disease AVF in right proximal upper extremity nephrology following. Subjective Date/time seen: 01/20/21 15:13 Patient doing okay he reports worsening abdominal pain with ingestion of clear liquid diet. Patient advised to drink slowly or to take break from CLD if it is causing him pain. Case reviewed with RN. Exam Narrative: Exam Narrative: General: Well-developed male undergoing dialysis in no acute distress. Weight: 81.3 kilogram. BMI: 28.9. HEENT: Wearing glasses. PERRL, EOMI. Sclerae anicteric. Neck: Supple. No JVD. Respiratory: Lungs are clear to auscultation bilaterally. Respirations are nonlabored. Cardiovascular: Regular rate and rhythm with S1-S2. Gastrointestinal: Abdomen is soft and nondistended with slightly hypoactive bowel sounds. He is tender to deeper palpation in the right upper quadrant/epigastric region. No guarding or rebound tenderness. Skin: Warm and dry. Nonjaundiced. Extremities: No cyanosis, clubbing, or edema. Radial and pedal pulses intact. Neurological: Alert. Cranial nerves 2-12 are grossly intact. No gross focal deficits on gross examination. Psychiatric: Pleasant and cooperative with normal mood and affect. Judgment and insight intact. Objective Data Vital Signs Vital Signs: Vital Signs - 24 hr 01/19/21 15:45 01/19/21 16:00 01/19/21 16:15 Temperature 97.8 F Pulse Rate 70 73 66 Respiratory Rate 20 Blood Pressure 148/72 H 153/73 H 132/62 Pulse Oximetry 01/19/21 16:30 01/19/21 17:00 01/19/21 17:15 Temperature Pulse Rate 66 67 67 Respiratory Ra
[2021-01-20] MEDS: MORPHINE SULFATE (*CRX) 2 MG/ML INJ IV PUSH (15:53)
--- NOTE | 2021-01-20 16:01 | WPDGIPROGNO ---
Progress Note: A&P Assessment and Plan (1) Acute pancreatitis: Code(s): K85.90 - Acute pancreatitis without necrosis or infection, unspecified Status: Acute Assessment and Plan: still with pain, lipase trending down. TG klevel normal evaluated by surgery just completed MRCP and normal biliary system, no stones or stricture ok to start CL diet (2) Transaminasemia: Code(s): R74.01 - Elevation of levels of liver transaminase levels Status: Acute Assessment and Plan: continue to monitor, no choledocholithiasis (3) Anemia of chronic disease: Code(s): D63.8 - Anemia in other chronic diseases classified elsewhere Status: Acute Assessment and Plan: continue to monitor (4) End-stage renal disease on hemodialysis: Code(s): N18.6 - End stage renal disease; Z99.2 - Dependence on renal dialysis Status: Acute Assessment and Plan: on dialysis (5) Epigastric pain: Code(s): R10.13 - Epigastric pain Status: Acute Subjective Date/time seen: 01/20/21 16:01 Interval history: still some pain, no new events, he is hungry Review of Systems Review of Systems: All systems reviewed & are unremarkable except as noted in HPI and below Exam Const: General: comfortable and no acute distress HENMT: General nose exam: Normal nares present Eyes: General: appearance normal, both eyes and all related structures Neck: Neck: no JVD Resp: Auscultation: clear to auscultation bilaterally Cardio: Rate: regular rate Rhythm: regular rhythm GI: GI Palp: Yes Soft to palpation and Yes Tenderness to palpation present (GI) (mild tenderness in epigastric, no rebound) Auscultation: normal bowel sounds Skin: General skin exam: normal color Neuro: Speech: normal speech Motor exam (neuro): Normal motor muscle tone present throughout Extrem: General: normal to inspection Other: AV shunt in right arm Psych: Mental Status: mental status grossly normal Objective Data Vital Signs Vital Signs: Vital Signs - 24 hr 01/19/21 16:15 01/19/21 16:30 01/19/21 17:00 Temperature Pulse Rate 66 66 67 Respiratory Rate Blood Pressure 132/62 117/60 120/58 L Pulse Oximetry 01/19/21 17:15 01/19/21 17:30 01/19/21 17:45 Temperature Pulse Rate 67 68 67 Respiratory Rate Blood Pressure 128/61 125/63 112/55 L Pulse Oximetry 01/19/21 18:00 01/19/21 18:15 01/19/21 18:30 Temperature Pulse Rate 65 66 67 Respiratory Rate Blood Pressure 115/54 L 119/57 L 137/58 L Pulse Oximetry 01/19/21 18:45 01/19/21 18:59 01/19/21 19:10 Temperature 97.2 F L Pulse Rate 67 66 68 Respiratory Rate 20 Blood Pressure 121/51 L 114/55 L 136/65 Pulse Oximetry 01/19/21 20:00 01/19/21 22:00 01/20/21 00:00 Temperature 98.3 F Pulse Rate 69 72 66 Respiratory Rate 16 Blood Pressure 135/56 L Pulse Oximetry 96 01/20/21 04:00 01/20/21 06:00 01/20/21 08:00 Temperature 98.0 F Pulse Rate 67 71 71 Respiratory Rate 16 Blood Pressure 107/49 L Pulse Oximetry 97 01/20/21 10:14 01/20/21 12:00 Temperature Pulse Rate 69 Respiratory Rate Blood Pressure Pulse Oximetry 96 Intake/Output Intake/Output: Intake & Output 01/17/21 01/18/21 01/19/21 01/20/21 23:59 23:59 23:59 23:59 Intake Total 100 Output Total 0 300 Balance 100 -300 Meds/Results Medications: Active Medications Generic Name Dose Route Start Last Admin Trade Name Freq PRN Reason Stop Dose Admin Dextrose 12.5 gm 01/20/21 04:34 01/20/21 04:44 Dextrose 50% 25 Gm/50 Ml Syringe IV PUSH 12.5 gm PRN PRN Administration Hypoglycemia Protocol Epoetin Volodymyr-epbx 10,000 units 01/19/21 17:00 01/20/21 00:56 Epoetin Volodymyr-Epbx 10,000 Units/Ml Vial IV PUSH Not Given [email or web address] [facility] Glucagon 1 mg 01/20/21 04:34 Glucagon For Inj 1 Mg Vial IM PRN PRN Hypoglycemia Protocol Glucose 15 gm 01/20/21 04:
[2021-01-20 17:58] LABS: Glucose Point of Care 93 (65-105)
[2021-01-21] VITALS (26 sets, daily range): BP systolic 84–148; BP diastolic 35–67; PULSE 66–80; RESP 16–18; TEMP 36.4–37.3; O2SAT 96–98
[2021-01-21 00:49] LABS: Glucose Point of Care 116 (65-105)
[2021-01-21 06:22] LABS: Basophils Percent Auto 0.2 % (0.2-1.2); Eosinophils Absolute Auto 0.5 K/mm3 (0-0.3); Eosinophils Percent Auto 7.5 % (0-4.4); Hematocrit 23.2 % (42.0-52.0); Hemoglobin 7.8 g/dL (14.0-18.0); Immature Granulocyte Absolute 0.02 K/mm3 (0.00-0.031); Immature Granulocyte Percent A 0.3 % (0-0.5); Immature Platelet Fraction Pct 5.8 % (0.9-11.2); Lymphocytes Absolute Auto 1.07 K/mm3 (0.9-3.2); Lymphocytes Percent Auto 17.1 % (18.3-44.2); Mean Corpuscular HGB Conc 33.6 g/dl (32-36); Mean Corpuscular Hemoglobin 32.8 pg (26-34); Mean Corpuscular Volume 97.5 fl (80-100); Mean Platelet Volume 11.2 fl (7.4-10.4); Monocytes Absolute Auto 0.6 K/mm3 (0.1-0.6); Monocytes Percent Auto 8.9 % (2.6-8.5); Neutrophils Absolute Auto 4.1 K/mm3 (1.3-6.7); Platelet Count Result 107 k/mm3 (150-375); Red Blood Count 2.38 M/mm3 (4.6-6.20); Red Cell Distribution Width 12.8 % (11.5-14.5); White Blood Count 6.3 K/mm3 (4.5-10.0)
[2021-01-21 06:30] LABS: Alanine Aminotransferase 213 U/L (4-50); Albumin Level 3.4 g/dL (3.5-5.1); Alkaline Phosphatase 158 U/L (38-126); Anion Gap 7 mmol/L (8-16); Aspartate Amino Transferase 69 U/L (17-59); Bilirubin,Total 2.1 mg/dL (0.2-1.3); Blood Urea Nitrogen 39 mg/dL (9-20); Calcium 7.9 mg/dL (8.4-10.2); Carbon Dioxide 31 mmol/L (22-30); Chloride 93 mmol/L (98-107); Estimated CRCL calculation 7 ml/min; Estimated Glomerular Filt Rate 7; Glucose 83 mg/dL (75-110); Lipase 534 U/L (23-300); Potassium 3.8 mmol/L (3.4-5.0); Sodium 131 mmol/L (137-145)
[2021-01-21 08:06] LABS: Glucose Point of Care 85 (65-105)
--- NOTE | 2021-01-21 13:47 | WPDGIPROGNO ---
Progress Note: A&P Assessment and Plan (1) Acute pancreatitis: Code(s): K85.90 - Acute pancreatitis without necrosis or infection, unspecified Status: Acute Assessment and Plan: improving, only mild pain now will advance diet pending HIDA scan, may need follow up with surgery based on findings but liver enzymes trending down and overall better (2) Transaminasemia: Code(s): R74.01 - Elevation of levels of liver transaminase levels Status: Acute Assessment and Plan: trending down, no choledocholithiasis (3) Anemia of chronic disease: Code(s): D63.8 - Anemia in other chronic diseases classified elsewhere Status: Acute Assessment and Plan: continue to monitor, low but stable (4) End-stage renal disease on hemodialysis: Code(s): N18.6 - End stage renal disease; Z99.2 - Dependence on renal dialysis Status: Acute Assessment and Plan: on dialysis (5) Epigastric pain: Code(s): R10.13 - Epigastric pain Status: Acute Assessment and Plan: improved Subjective Date/time seen: 01/21/21 13:47 Interval history: pain is improved and he is hungry, no BM yet. Overall feeling better Review of Systems Review of Systems: All systems reviewed & are unremarkable except as noted in HPI and below Exam Const: General: comfortable and no acute distress HENMT: General nose exam: Normal nares present Eyes: General: appearance normal, both eyes and all related structures Neck: Neck: supple and no JVD Resp: Auscultation: clear to auscultation bilaterally Cardio: Rate: regular rate GI: Inspection: non-distended GI Palp: Yes Soft to palpation, Yes Tenderness to palpation present (GI) (only mild ttp epigastric but improved) and No Guarding due to palpation present (GI) Auscultation: normal bowel sounds Skin: General skin exam: normal color Neuro: Speech: normal speech Motor exam (neuro): Normal motor muscle tone present throughout Extrem: General: normal to inspection Objective Data Vital Signs Vital Signs: Vital Signs - 24 hr 01/20/21 14:00 01/20/21 16:00 01/20/21 20:00 Temperature 97.9 F Pulse Rate 71 68 65 Respiratory Rate 18 Blood Pressure 138/47 L Pulse Oximetry 96 01/20/21 22:00 01/21/21 00:00 01/21/21 04:00 Temperature 97.9 F Pulse Rate 67 66 68 Respiratory Rate 18 Blood Pressure 136/52 L Pulse Oximetry 99 01/21/21 06:00 Temperature 97.6 F Pulse Rate 70 Respiratory Rate 18 Blood Pressure 148/67 H Pulse Oximetry 98 Intake/Output Intake/Output: Intake & Output 01/18/21 01/19/21 01/20/21 01/21/21 23:59 23:59 23:59 23:59 Intake Total 100 590 150 Output Total 0 675 Balance 100 -85 150 Meds/Results Medications: Active Medications Generic Name Dose Route Start Last Admin Trade Name Freq PRN Reason Stop Dose Admin Dextrose 12.5 gm 01/20/21 04:34 01/20/21 04:44 Dextrose 50% 25 Gm/50 Ml Syringe IV PUSH 12.5 gm PRN PRN Administration Hypoglycemia Protocol Epoetin Volodymyr-epbx 10,000 units 01/19/21 17:00 01/20/21 00:56 Epoetin Volodymyr-Epbx 10,000 Units/Ml Vial IV PUSH Not Given [email or web address] [facility] Glucagon 1 mg 01/20/21 04:34 Glucagon For Inj 1 Mg Vial IM PRN PRN Hypoglycemia Protocol Glucose 15 gm 01/20/21 04:34 Glucose Oral Gel 15 Gm Of Glucse In 37.5 Gm Tube PO PRN PRN Hypoglycemia Protocol Morphine Sulfate 2 mg 01/19/21 12:40 01/20/21 15:53 Morphine Sulfate (*Crx) 2 Mg/Ml Inj IV PUSH 2 mg Q2H PRN Administration Pain Rated 7-10 Ondansetron HCl 4 mg 01/19/21 12:40 Ondansetron Inj 4 Mg/2 Ml Vial IV PUSH Q4H PRN Nausea Radiology Results: ITS Impressions Abdomen/Pelvis CT 01/19/21 11:36 IMPRESSION: 1. Possible mild acute pancreatitis, correlate with amylase and lipase. 2. Distended but otherwise unremarkable gallbladder. 3. Cardiomegaly. MRCP 01/20/21 14:
[2021-01-21 14:13] LABS: Glucose Point of Care 113 (65-105)
--- NOTE | 2021-01-21 15:17 | PM.IMPN ---
Progress Note: A&P Assessment and Plan (1) Acute pancreatitis: Code(s): K85.90 - Acute pancreatitis without necrosis or infection, unspecified Status: Acute (2) End-stage renal disease on hemodialysis: Code(s): N18.6 - End stage renal disease; Z99.2 - Dependence on renal dialysis Status: Acute (3) Diet-controlled diabetes mellitus: Code(s): E11.9 - Type 2 diabetes mellitus without complications Status: Acute (4) Anemia of chronic disease: Code(s): D63.8 - Anemia in other chronic diseases classified elsewhere Status: Acute (5) Transaminasemia: Code(s): R74.01 - Elevation of levels of liver transaminase levels Status: Acute (6) Acute hyperkalemia: Code(s): E87.5 - Hyperkalemia Status: Acute Additional Plan 01/19/21 The patient presents today with epigastric pain radiating to the right upper quadrant that began sometime early this morning associated with nausea and vomiting. Amylase and lipase were markedly elevated with mild, acute pancreatitis on imaging. Gallbladder was distended but otherwise unremarkable. Though no ductal dilatation was noted I wonder if he may have passed a stone given his elevated LFTs. He reports having a similar episode within the last week or so which was chalked up to GERD. Dr. Nava (Gastroenterology) has been consulted for his opinion and an MRCP has been ordered for tomorrow. At this time treatment will be supportive with antiemetics and analgesics available as needed. As he is currently undergoing dialysis I do not want to give him any more fluids in what he received in the emergency department. His potassium is a bit elevated and in fact he is due for dialysis today. Dr. Wong consulted and his input is appreciated. Blood pressures were reviewed and they are stable and will be monitored closely. Hemoglobin and hematocrit are also stable on review of previous labs. 01/20/2021 lipase down trending no gallstones on MRCP just finding suspicious for cholecystitis. Spoke with GI will perform HIDA scan for further evaluation. The patient reporting abdominal pain discomfort in the epigastrium with ingestion of fluids. He is advised not to continue to drink of causing him pain. Pain medication administration discussed with RN. She will monitor pain score and treat accordingly. Patient with end-stage renal disease AVF in right proximal upper extremity nephrology following. 01/21/2021 lipase is normalizing no stones on imaging HIDA with possible chronic cholecystitis. GI following as well as surgery. Continue current care, advanced diet to full liquid, anticipate discharge in 24-48 hours. Subjective Date/time seen: 01/21/21 15:17 Patient doing okay abdominal pain improving. He was able to tolerate clear liquid diet last night out currently NPO for HIDA scan. Patient speaks Farsi as 1st language discussion performed in Swedish And all questions answered. Exam Narrative: Exam Narrative: General: Well-developed male no acute distress. Weight: 81.3 kilogram. BMI: 28.9. HEENT: Wearing glasses. PERRL, EOMI. Sclerae anicteric. Neck: Supple. No JVD. Respiratory: Lungs are clear to auscultation bilaterally. Respirations are nonlabored. Cardiovascular: Regular rate and rhythm with S1-S2. Gastrointestinal: Abdomen is soft and nondistended with slightly hypoactive bowel sounds. He is tender to deeper palpation in the right upper quadrant. epigastric pain has resolved No guarding or rebound tenderness. Skin: Warm and dry. Nonjaundiced. Extremities: No cyanosis, clubbing, or edema. Radial and pedal pulses intact. AVF right upper extremity Neurological: Alert. Cranial nerves 2-12 are grossly intact. No gross focal deficits on gross examination. Psychiatric: Pleasant and cooperative with normal mood and affect. Judgment and insight intact. Objective Data Vital Signs Vital Signs: Vital Signs - 24 hr 01/20/21
[2021-01-21] MEDS: EPOETIN ALFA-EPBX 10,000 UNITS/ML VIAL 10000 UNITS IV PUSH (16:45)
[2021-01-21 18:34] LABS: Glucose Point of Care 148 (65-105)
[2021-01-21] MEDS: MORPHINE SULFATE (*CRX) 2 MG/ML INJ IV PUSH (20:33)
[2021-01-21 20:46] LABS: Glucose Point of Care 229 (65-105)
[2021-01-22] VITALS (9 sets, daily range): BP systolic 108–164; BP diastolic 48–67; PULSE 67–80; RESP 16–20; TEMP 36.3–36.8; O2SAT 96–98
[2021-01-22 08:22] LABS: Glucose Point of Care 75 (65-105)
[2021-01-22] MEDS: carvediloL 25 MG TABLET PO ×2 (10:22→20:41)
[2021-01-22] MEDS: amLODIPine BESYLATE 5 MG TABLET PO (10:23)
[2021-01-22] MEDS: FUROSEMIDE 40 MG TABLET PO (10:24)
[2021-01-22] MEDS: ATORVASTATIN 40 MG TABLET PO (10:24)
[2021-01-22 11:37] LABS: Alanine Aminotransferase 146 U/L (4-50); Albumin Level 3.8 g/dL (3.5-5.1); Alkaline Phosphatase 196 U/L (38-126); Anion Gap 7 mmol/L (8-16); Aspartate Amino Transferase 40 U/L (17-59); Bilirubin,Total 1.4 mg/dL (0.2-1.3); Blood Urea Nitrogen 20 mg/dL (9-20); Calcium 8.3 mg/dL (8.4-10.2); Carbon Dioxide 33 mmol/L (22-30); Chloride 94 mmol/L (98-107); Estimated CRCL calculation 10 ml/min; Estimated Glomerular Filt Rate 9; Glucose 180 mg/dL (75-110); Lipase 314 U/L (23-300); Magnesium 1.9 mg/dL (1.6-2.3); Potassium 4.3 mmol/L (3.4-5.0); Sodium 134 mmol/L (137-145)
--- NOTE | 2021-01-22 11:47 | PM.PNNEP ---
Progress Note: A&P Assessment and Plan (1) End-stage renal disease on hemodialysis: Code(s): N18.6 - End stage renal disease; Z99.2 - Dependence on renal dialysis Status: Acute Assessment and Plan: Jose has end-stage renal disease. This is due to hypertension. He had dialysis yesterday. (2) Acute pancreatitis: Code(s): K85.90 - Acute pancreatitis without necrosis or infection, unspecified Status: Acute Assessment and Plan: The patient has pancreatitis. Lipase is much better, down to 314 He is NPO. GI is consulting. (3) Essential hypertension: Code(s): I10 - Essential (primary) hypertension Status: Chronic Assessment and Plan: his blood pressure has settled down. It is ranging from 100-140. (4) Hyperkalemia: Code(s): E87.5 - Hyperkalemia Status: Deleted Assessment and Plan: Resolved (5) Transaminasemia: Code(s): R74.01 - Elevation of levels of liver transaminase levels Status: Acute Assessment and Plan: liver enzymes are improved (6) Anemia of chronic disease: Code(s): D63.8 - Anemia in other chronic diseases classified elsewhere Status: Acute Assessment and Plan: hemoglobin is 9.1. I will give him some EPO. (7) Coronary artery disease: Code(s): I25.10 - Atherosclerotic heart disease of [place] coronary artery without angina pectoris Status: Acute Assessment and Plan: No chest pain or shortness of breath Subjective Date/time seen: 01/22/21 11:47 Interval history: The patient looks comfortable. Tolerating food. Nursing tells me that he is going to go home today. Sister and [id number] are both in the room. We discussed the case. Exam Narrative: Exam Narrative: WDWN in NAD skin no rash or subcu nodules head ncat lungs clear bilaterally cor reg no rub or gallop abd BS+ nontender and soft ext no edema. Objective Data Vital Signs Vital Signs: Vital Signs - 24 hr 01/21/21 12:00 01/21/21 14:00 01/21/21 14:39 Temperature 37.3 C 36.7 C Pulse Rate 67 72 74 Respiratory Rate 16 18 Blood Pressure 121/57 L 137/64 Pulse Oximetry 96 01/21/21 15:06 01/21/21 15:15 01/21/21 15:30 Temperature Pulse Rate 69 70 71 Respiratory Rate Blood Pressure 125/58 L 117/51 L 84/35 L Pulse Oximetry 01/21/21 15:40 01/21/21 15:45 01/21/21 15:50 Temperature Pulse Rate 72 72 70 Respiratory Rate Blood Pressure 105/52 L 87/41 L 105/45 L Pulse Oximetry 01/21/21 16:00 01/21/21 16:15 01/21/21 16:30 Temperature Pulse Rate 80 69 68 Respiratory Rate Blood Pressure 101/49 L 120/54 L 126/55 L Pulse Oximetry 01/21/21 16:45 01/21/21 17:00 01/21/21 17:15 Temperature Pulse Rate 69 72 68 Respiratory Rate Blood Pressure 125/57 L 127/62 134/61 Pulse Oximetry 01/21/21 17:30 01/21/21 17:45 01/21/21 18:06 Temperature Pulse Rate 68 70 67 Respiratory Rate Blood Pressure 136/62 137/62 139/56 L Pulse Oximetry 01/21/21 18:16 01/21/21 20:00 01/21/21 22:00 Temperature 36.8 C 36.8 C Pulse Rate 77 79 73 Respiratory Rate 18 18 Blood Pressure 147/67 H 147/51 H Pulse Oximetry 96 01/22/21 00:00 01/22/21 04:00 01/22/21 06:00 Temperature 36.4 C L Pulse Rate 79 68 71 Respiratory Rate 20 Blood Pressure 148/54 H Pulse Oximetry 98 01/22/21 10:22 Temperature Pulse Rate 72 Respiratory Rate Blood Pressure Pulse Oximetry Intake/Output Intake/Output: Intake & Output 01/19/21 01/20/21 01/21/21 01/22/21 23:59 23:59 23:59 23:59 Intake Total 100 590 990 440 Output Total 0 675 730 100 Balance 100 -85 260 340 Meds/Results Medications: Active Medications Generic Name Dose Route Start Last Admin Trade Name Freq PRN Reason Stop Dose Admin Amlodipine Besylate 5 mg 01/22/21 09:00 01/22/21 10:23 Amlodipine Besylate 5 Mg Tablet PO 5 mg DAILY [facility] Administ
[2021-01-22 12:27] LABS: Glucose Point of Care 139 (65-105)
--- NOTE | 2021-01-22 13:27 | PM.DS ---
DS: Admitting Diagnosis Admitting Diagnosis Admitting Diagnosis: (1) Acute pancreatitis: Code(s): K85.90 - Acute pancreatitis without necrosis or infection, unspecified Status: Acute (2) Hyperkalemia: Code(s): E87.5 - Hyperkalemia Status: Acute (3) Transaminasemia: Code(s): R74.01 - Elevation of levels of liver transaminase levels Status: Acute (4) End-stage renal disease on hemodialysis: Code(s): N18.6 - End stage renal disease; Z99.2 - Dependence on renal dialysis Status: Acute (5) Anemia of chronic disease: Code(s): D63.8 - Anemia in other chronic diseases classified elsewhere Status: Acute (6) Essential hypertension: Code(s): I10 - Essential (primary) hypertension Status: Chronic (7) Dyslipidemia: Code(s): E78.5 - Hyperlipidemia, unspecified Status: Chronic DS: Discharge Diagnosis Discharge Diagnosis (1) Diet-controlled diabetes mellitus: Code(s): E11.9 - Type 2 diabetes mellitus without complications Status: Acute (2) Anemia of chronic disease: Code(s): D63.8 - Anemia in other chronic diseases classified elsewhere Status: Acute (3) Transaminasemia: Code(s): R74.01 - Elevation of levels of liver transaminase levels Status: Acute (4) Acute pancreatitis: Code(s): K85.90 - Acute pancreatitis without necrosis or infection, unspecified Status: Acute (5) Acute hyperkalemia: Code(s): E87.5 - Hyperkalemia Status: Acute (6) End-stage renal disease on hemodialysis: Code(s): N18.6 - End stage renal disease; Z99.2 - Dependence on renal dialysis Status: Acute (7) Coronary artery disease: Code(s): I25.10 - Atherosclerotic heart disease of [place] coronary artery without angina pectoris Status: Acute (8) Elevated troponin: Code(s): R77.8 - Other specified abnormalities of plasma proteins Status: Acute (9) Anemia: Code(s): D64.9 - Anemia, unspecified Status: Acute (10) End stage renal disease: Code(s): N18.6 - End stage renal disease Status: Chronic (11) Diabetes: Qualifiers: Diabetes mellitus type: type 2 Diabetes mellitus terminal computer operator insulin use: without terminal computer operator use Diabetes mellitus complication status: with kidney complications Diabetes mellitus complication detail: with chronic kidney disease Chronic kidney disease stage: on chronic dialysis Qualified Code(s): E11.22 - Type 2 diabetes mellitus with diabetic chronic kidney disease; N18.6 - End stage renal disease; Z99.2 - Dependence on renal dialysis Code(s): E11.9 - Type 2 diabetes mellitus without complications Status: Chronic DS: Summary Hospital Course Reason for hospitalization: abd pain Hospital Course: 01/19/21 The patient presents today with epigastric pain radiating to the right upper quadrant that began sometime early this morning associated with nausea and vomiting. Amylase and lipase were markedly elevated with mild, acute pancreatitis on imaging. Gallbladder was distended but otherwise unremarkable. Though no ductal dilatation was noted I wonder if he may have passed a stone given his elevated LFTs. He reports having a similar episode within the last week or so which was chalked up to GERD. Dr. Nava (Gastroenterology) has been consulted for his opinion and an MRCP has been ordered for tomorrow. At this time treatment will be supportive with antiemetics and analgesics available as needed. As he is currently undergoing dialysis I do not want to give him any more fluids in what he received in the emergency department. His potassium is a bit elevated and in fact he is due for dialysis today. Dr. Wong consulted and his input is appreciated. Blood pressures were reviewed and they are stable and will be monitored closely. Hemoglobin and hematocrit are also stable on review of previous labs. 01/20/2021 lipase down mariola
[2021-01-22 17:18] LABS: Glucose Point of Care 220 (65-105)
[2021-01-22 18:13] LABS: Glucose Point of Care 242 (65-105)
[2021-01-22 23:13] LABS: Glucose Point of Care 170 (65-105)
[2021-01-23 06:00] VITALS: BP 159/57; PULSE 71; RESP 16; TEMP 36.4; O2SAT 98
[2021-01-23 08:00] LABS: Glucose Point of Care 85 (65-105)
[2021-01-23] MEDS: ATORVASTATIN 40 MG TABLET PO (08:01)
[2021-01-23 08:02] VITALS: PULSE 73
[2021-01-23] MEDS: carvediloL 25 MG TABLET PO (08:02)
[2021-01-23] MEDS: amLODIPine BESYLATE 5 MG TABLET PO (08:03)
[2021-01-23] MEDS: FUROSEMIDE 40 MG TABLET PO (08:03)
[2021-01-23 14:53] LABS: SARS-CoV-2 RNA PCR Negative
--- NOTE | 2021-01-23 14:56 | PM.DS ---
DS: Admitting Diagnosis Admitting Diagnosis Admitting Diagnosis: Admitting Diagnosis: (1) Acute pancreatitis: Code(s): K85.90 - Acute pancreatitis without necrosis or infection, unspecified Status: Acute (2) Hyperkalemia: Code(s): E87.5 - Hyperkalemia Status: Acute (3) Transaminasemia: Code(s): R74.01 - Elevation of levels of liver transaminase levels Status: Acute (4) End-stage renal disease on hemodialysis: Code(s): N18.6 - End stage renal disease; Z99.2 - Dependence on renal dialysis Status: Acute (5) Anemia of chronic disease: Code(s): D63.8 - Anemia in other chronic diseases classified elsewhere Status: Acute (6) Essential hypertension: Code(s): I10 - Essential (primary) hypertension Status: Chronic (7) Dyslipidemia: Code(s): E78.5 - Hyperlipidemia, unspecified Status: Chronic DS: Discharge Diagnosis Discharge Diagnosis (1) Epigastric pain: Code(s): R10.13 - Epigastric pain Status: Acute (2) Diet-controlled diabetes mellitus: Code(s): E11.9 - Type 2 diabetes mellitus without complications Status: Acute (3) Anemia of chronic disease: Code(s): D63.8 - Anemia in other chronic diseases classified elsewhere Status: Acute (4) Transaminasemia: Code(s): R74.01 - Elevation of levels of liver transaminase levels Status: Acute (5) Acute pancreatitis: Code(s): K85.90 - Acute pancreatitis without necrosis or infection, unspecified Status: Acute (6) Acute hyperkalemia: Code(s): E87.5 - Hyperkalemia Status: Acute (7) End-stage renal disease on hemodialysis: Code(s): N18.6 - End stage renal disease; Z99.2 - Dependence on renal dialysis Status: Acute (8) Coronary artery disease: Code(s): I25.10 - Atherosclerotic heart disease of [place] coronary artery without angina pectoris Status: Acute (9) Elevated troponin: Code(s): R77.8 - Other specified abnormalities of plasma proteins Status: Acute (10) Anemia: Code(s): D64.9 - Anemia, unspecified Status: Acute (11) End stage renal disease: Code(s): N18.6 - End stage renal disease Status: Chronic (12) Diabetes: Qualifiers: Diabetes mellitus type: type 2 Diabetes mellitus care home insulin use: without buttermaker use Diabetes mellitus complication status: with kidney complications Diabetes mellitus complication detail: with chronic kidney disease Chronic kidney disease stage: on chronic dialysis Qualified Code(s): E11.22 - Type 2 diabetes mellitus with diabetic chronic kidney disease; N18.6 - End stage renal disease; Z99.2 - Dependence on renal dialysis Code(s): E11.9 - Type 2 diabetes mellitus without complications Status: Chronic (13) Acute hyperkalemia: Code(s): E87.5 - Hyperkalemia Status: Acute (14) Essential hypertension: Code(s): I10 - Essential (primary) hypertension Status: Chronic (15) Dyslipidemia: Code(s): E78.5 - Hyperlipidemia, unspecified Status: Chronic DS: Summary Hospital Course Hospital Course: Hospital Course Reason for hospitalization: abd pain Hospital Course: 01/19/21 The patient presents today with epigastric pain radiating to the right upper quadrant that began sometime early this morning associated with nausea and vomiting. Amylase and lipase were markedly elevated with mild, acute pancreatitis on imaging. Gallbladder was distended but otherwise unremarkable. Though no ductal dilatation was noted I wonder if he may have passed a stone given his elevated LFTs. He reports having a similar episode within the last week or so which was chalked up to GERD. Dr. Nava (Gastroenterology) has been consulted for his opinion and an MRCP has been ordered for tomorrow. At this time treatment will be supportive with antiemetics and analgesics available as needed. As
== END 2021-01-23 09:50 | disposition home health service (06) | DRG 282 ==
LOC: ANHED 12:47 → ANH3MEDSUR 12:53
PROVIDERS: Internal Medicine Nephrology; Nurse Practitioner Family; Physician Assistant; Admitting Provider Family Medicine; Emergency Provider Emergency Medicine; PCP Emergency Medicine; Visit Provider Hospitalist
DX: K85.90 Acute pancreatitis without necrosis or infection, unspecified (principal); E87.5 Hyperkalemia; I12.0 Hypertensive chronic kidney disease with stage 5 chronic kidney disease or end stage renal disease; N18.6 End stage renal disease; I25.10 Atherosclerotic heart disease of native coronary artery without angina pectoris; E78.5 Hyperlipidemia, unspecified; D63.1 Anemia in chronic kidney disease
CPT/HCPCS: 36415; 74176; 74181; 76376; 78226; 80053; 81001; 82150; 82948; 83036; 83690; 83735; 84100; 84478; 85025; 85055; 85610; 85730; 86706; 87340; 93005; 96361; 96374; 96375; 97110; 97116; 97161; 97165; 99291; A9270; A9537; C9803; G0257; G0379; J0131; J1815; J2270; J2405; J7030; Q5106; U0003; U0005

== ENCOUNTER 2021-01-24 14:21 | Inpatient (IN) | payer OTHER, SELFPAY ==
--- NOTE | ~2021-01-24 | CT_ITS ---
EXAMINATION: CT abdomen pelvis wo con EXAM DATE: 01/24/2021 16:48 INDICATION: Epigastric pain during dialysis TECHNIQUE: Spiral CT of the abdomen and pelvis was performed without contrast. Axial, coronal and s agittal images of the abdomen and pelvis were reviewed. The dose-length product (DLP) for this exami nation was 986.24 mGy-cm. The exposure was tailored according to patient size (auto mA exposure cont rol), and iterative reconstruction (ASIR) was used as additional dose reduction technique. Comparison is made to prior examination from 01/19/2021. FINDINGS: There is hazy fat stranding surrounding the pancreas, appearance is suspicious for acute pa ncreatitis. This is more pronounced than on previous exam. The liver, spleen, adrenal glands and [place] are otherwise unremarkable. Gallbladder is unremarkable. No biliary obstruction. Kidneys are atrophic with generalized adjacent fat stranding, unchanged. No hydronephrosis. The prostate is unr emarkable. The bladder is unremarkable. There is no retroperitoneal or pelvic lymphadenopathy. Th ere is moderate scattered arteriosclerotic disease. The appendix is not positively visualized. There is no pericecal inflammatory change to suggest appe ndicitis. The stomach and small bowel are unremarkable. There is expected amount of colonic stool. No free intraperitoneal gas. Mild cardiomegaly. The lung bases are unremarkable. There are no osteoblastic or osteolytic lesions identified. IMPRESSION: 1. Increase in mild peripancreatic fat stranding compared to 5 days ago, appearance is suspicious fo r acute uncomplicated pancreatitis. 2. Cardiomegaly. Reviewed, dictated and finalized at location A. IMPRESSION: 1. Increase in mild peripancreatic fat stranding compared to 5 days ago, appea john is suspicious for acute uncomplicated pancreatitis. 2. Cardiomegaly.
--- NOTE | ~2021-01-24 | XR_ITS ---
XR chest 1V portable DATE: 01/30/2021 01:45 INDICATION: Shortness of breath TECHNIQUE: Portable AP views on 01/30/2021 at 0 137 0138 hours COMPARISON: 01/10/2021 portable AP chest at 1009 hours FINDINGS: Borderline or increased heart size. There is pulmonary vascular congestion and redistributi on. There are new bilateral pulmonary infiltrates which predominate centrally and in the lower lung z ones. Differential diagnosis includes pulmonary edema and pneumonia, aspiration. Aortic arch calcification. Diffuse osteopenia. Degenerative changes of the thoracic and lumbar spine. IMPRESSION: Congestive changes and bilateral infiltrates suggesting pulmonary edema. Pneumonia or asp iration are not excluded. Reviewed, dictated and finalized at location A. IMPRESSION: Congestive changes and bilateral infiltrates suggesting pulmonary e corrine. Pneumonia or aspiration are not excluded.
--- NOTE | ~2021-01-24 | CT_ITS ---
EXAMINATION: CT abdomen pelvis wo con DATE: 01/29/2021 09:49 INDICATION: Persistent abdominal pain. Elevated lipase. TECHNIQUE: Computed tomography (CT) of the abdomen and pelvis was performed without intravenous contr ast. Automated exposure control and iterative reconstruction technique were employed. Exam dose: 454 .05 mGy-cm total exam DLP. COMPARISON: 01/24/2021 CT abdomen pelvis FINDINGS: There are mild to moderate bilateral pleural effusions, right greater than left, with assoc iated mild bilateral lower lobe compressive atelectasis. Borderline heart size. No pericardial effusion. There is interval virtual resolution of peripancreatic fat stranding since 01/24/2021. The gallbladder is present. Gallbladder wall thickening is noted. No pericholecystic fat stranding is noted. No bile duct or pancreatic duct dilatation. The liver, spleen, pancreas and adrenal glands are unremarkable. There is bilateral relatively symmetric perinephric stranding. 1.7 cm exophytic medial upper pole left renal cyst. 10 mm exophytic lateral left upper pole renal cys t. 7 mm exophytic lower pole right renal cyst. No urinary tract calculus or hydroureteronephrosis. The urinary bladder is relatively evacuated, which may account for moderate diffuse thickening of the wall. There is prostate enlargement. There is extensive abdominal aortic calcification but no aneurysm. There is likewise prominent calcif ication of the iliac and femoral arteries. No intraperitoneal or retroperitoneal or pelvic mass lesio n or adenopathy or ascites is evident. No bowel obstruction, bowel wall thickening, pneumatosis or intraperitoneal free air. Multilevel severe degenerative disc disease of the lumbar spine including L2-3, L4-5 and L5-S1 in par ticular. There is associated mild retrolisthesis at L2-3 and L4-5. Bilateral L5 pars interarticularis defects with grade 1 anterolisthesis at L5-S1. IMPRESSION: Virtual resolution of peripancreatic fat stranding consistent with improvement of pancre atitis Gallbladder wall thickening Bilateral renal cysts Prostate enlargement and probable associated bladder wall thickening Reviewed, dictated and finalized at Location [facility]. Reviewed, dictated and finalized at location A. IMPRESSION: Virtual resolution of peripancreatic fat stranding consistent with improvement of pancreatitis Gallbladder wall thickening Bilateral renal cysts Prostate enlargement and probable associated bladder wall thickening
--- NOTE | ~2021-01-24 | US_ITS ---
EXAMINATION: US right upper quadrant DATE: 01/24/2021 15:56 INDICATION: Abdominal pain. TECHNIQUE: Multiple grayscale and Doppler ultrasound images of the abdomen were obtained. COMPARISON: MRCP 01/20/2021 FINDINGS: The pancreas is obscured by bowel gas. The liver is normal without focal lesion. There is n ormal flow in main portal vein. The gallbladder is normal in size. No gallstones or gallbladder wall thickening. There was no sonographic Ordoñez sign. The common duct is normal and measures 3 mm. IMPRESSION: 1. Normal right upper quadrant ultrasound. Reviewed, dictated and finalized at location B.
[2021-01-24 14:39] VITALS: BP 126/78; PULSE 70; RESP 18; TEMP 36; O2SAT 99
--- NOTE | 2021-01-24 15:28 | PC.NURSE ---
Pt off floor to US via cart
--- NOTE | 2021-01-24 15:55 | PC.NURSE ---
Pt returned from imaging, was d/jude yesterday from hospital for pancreatitis. Received full dialysis today (RUE fistula, MWF) when upper abd pain and N/V started, +chills, febrile. Denies diarrhea, LBM today normal. NSR on monitor, 96% RA, shallow tachypneic respirations
--- NOTE | 2021-01-24 15:57 | ED.GENADULT ---
HPI - General Adult General Chief complaint: Abdominal Pain <Masoud Camargo MD - Last Filed: 01/24/21 16:55> Stated complaint: abd pain during dialysis, hx pancreatitis <Masoud Camargo MD - Last Filed: 01/24/21 16:55> Time Seen by Provider: 01/24/21 15:00 <Masoud Camargo MD - Last Filed: 01/24/21 16:55> History of Present Illness HPI narrative: Patient is a 75-year-old male who presents ER with acute epigastric pain that occurred while getting dialysis. Patient was admitted on 01/19/2021 for acute pancreatitis. He underwent MRCP and there is no evidence of gallstones. Patient did have a HIDA scan performed that showed an ejection fraction 25% which is reduced. Patient's lipase level improved as is his liver function tests and he was discharged home on 01/23/2021. Patient cannot describe any aggravating or alleviating factors at this time. His is acting as spanish interpreter as he speaks Farsi. <Masoud Camargo MD - Last Filed: 01/24/21 16:55> Related Data Home medications: Home Medications Medication Instructions Recorded Confirmed furosemide 40 mg tablet 40 mg PO QAM 11/27/19 01/19/21 <Masoud Camargo MD - Last Filed: 01/24/21 16:55> Allergies/adverse reactions: Allergies Allergy/AdvReac Type Severity Reaction Status Date / Time No Known Allergies Allergy Verified 01/21/21 02:46 <Masoud Camargo MD - Last Filed: 01/24/21 16:55> Review of Systems Review of Systems: All systems reviewed & are unremarkable except as noted in HPI and below <Masoud Camargo MD - Last Filed: 01/24/21 16:55> Constitutional: Constitutional: Denies chills and Denies weakness <Masoud Camargo MD - Last Filed: 01/24/21 16:55> Cardiovascular: Cardiovascular: Denies chest pain and Denies radiating jaw, neck or arm pain <Masoud Camargo MD - Last Filed: 01/24/21 16:55> Respiratory: Respiratory: Denies cough and Denies dyspnea <Masoud Camargo MD - Last Filed: 01/24/21 16:55> Gastrointestinal: Gastrointestinal: Reports abdominal pain, Denies diarrhea, Reports nausea and Reports vomiting <Masoud Camargo MD - Last Filed: 01/24/21 16:55> Musculoskeletal: Musculoskeletal: Denies muscle cramps <Masoud Camargo MD - Last Filed: 01/24/21 16:55> PMFSH Past Medical History Medical History: Medical History (Updated 01/24/21 @ 19:04 by Romel Farmer MD) Anemia of chronic disease Coronary artery disease History of stents. Followed by Dr. Olivier Kern. Diet-controlled diabetes mellitus Dyslipidemia End-stage renal disease on hemodialysis Epigastric pain Essential hypertension <Masoud Camargo MD - Last Filed: 01/24/21 16:55> Surgical History Surgical History: Surgical History AV fistula (~05/2018) History of basal cell carcinoma excision Right cheek per Dr. Salgado. <Masoud Camargo MD - Last Filed: 01/24/21 16:55> Family History Family History: Family History Other Unknown family medical history <Masoud Camargo MD - Last Filed: 01/24/21 16:55> Social History Social History: Social History Social History: Surrogate decision maker: Sid Fraser, [id number]. Code status: Full code. Smoking packs per day: 1 Smoking cigarettes per day: 20.0 Smoking status: Never smoker Second hand tobacco smoke exposure: No Alcohol intake: never Substance use: never Substance use type: does not use Additional living arrangements comments: The patient lives at [facility] in [place]. Originally from [place]. His children remain there. 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 Gender identity (if verbalized by the patient): Male Spiritual care concerns: No <Masoud Camargo MD - Last Filed: 01/24/21 16:55>
[2021-01-24] MEDS: MORPHINE SULFATE (*CRX) 4 MG/ML INJ IV PUSH (16:01)
[2021-01-24] MEDS: PROMETHAZINE HCL 25 MG/ML AMPUL 12.5 MG IV PUSH (16:02)
[2021-01-24 16:06] VITALS: BP 142/60; PULSE 81; RESP 28; TEMP 38.8; O2SAT 96
[2021-01-24 16:28] LABS: Basophils Percent Auto 0.1 % (0.2-1.2); Eosinophils Absolute Auto 0.2 K/mm3 (0-0.3); Eosinophils Percent Auto 2.1 % (0-4.4); Hematocrit 25.2 % (42.0-52.0); Hemoglobin 8.4 g/dL (14.0-18.0); Immature Granulocyte Absolute 0.03 K/mm3 (0.00-0.031); Immature Granulocyte Percent A 0.4 % (0-0.5); Immature Platelet Fraction Pct 5.9 % (0.9-11.2); Lymphocytes Absolute Auto 0.82 K/mm3 (0.9-3.2); Lymphocytes Percent Auto 10.6 % (18.3-44.2); Mean Corpuscular HGB Conc 33.3 g/dl (32-36); Mean Corpuscular Hemoglobin 33.7 pg (26-34); Mean Corpuscular Volume 101.2 fl (80-100); Mean Platelet Volume 10.9 fl (7.4-10.4); Monocytes Absolute Auto 0.1 K/mm3 (0.1-0.6); Monocytes Percent Auto 0.8 % (2.6-8.5); Neutrophils Absolute Auto 6.7 K/mm3 (1.3-6.7); Platelet Count Result 137 k/mm3 (150-375); Red Blood Count 2.49 M/mm3 (4.6-6.20); Red Cell Distribution Width 12.9 % (11.5-14.5); White Blood Count 7.8 K/mm3 (4.5-10.0)
[2021-01-24 17:00] LABS: Alanine Aminotransferase 105 U/L (4-50); Albumin Level 3.9 g/dL (3.5-5.1); Alkaline Phosphatase 415 U/L (38-126); Anion Gap 9 mmol/L (8-16); Aspartate Amino Transferase 99 U/L (17-59); Bilirubin,Total 2.3 mg/dL (0.2-1.3); Blood Urea Nitrogen 19 mg/dL (9-20); Carbon Dioxide 29 mmol/L (22-30); Chloride 99 mmol/L (98-107); Estimated CRCL calculation 12 ml/min; Estimated Glomerular Filt Rate 11; Glucose 112 mg/dL (75-110); Potassium 4.6 mmol/L (3.4-5.0); Sodium 137 mmol/L (137-145)
[2021-01-24 17:34] LABS: Lipase 18990 U/L (23-300)
[2021-01-24 17:45] VITALS: BP 141/56; PULSE 90; RESP 22; O2SAT 92
[2021-01-24 18:41] VITALS: BP 137/56; PULSE 93; RESP 22; O2SAT 92
[2021-01-24] MEDS: HYDROmorphone HCL INJ (*CRX) 1 MG/ML SYR 0.5 MG IV PUSH (19:24)
[2021-01-24 19:25] VITALS: BP 129/53; PULSE 94; RESP 24; O2SAT 94
[2021-01-24 20:00] VITALS: BP 139/52; PULSE 100; RESP 16; TEMP 37.2; O2SAT 91; BMI 35.4
[2021-01-24] MEDS: SODIUM CHLORIDE 0.9% IV 1,000 ML 75 ML IV CONT (20:38)
--- NOTE | 2021-01-24 21:02 | ADMGEN ---
This patient, Jose Quinonez, was admitted to 2 Medical Room 240-. Patient/family oriented to hospital policies and general routines including ID bracelet, bed and alarms, visiting hours, pain management, procedures, bathroom and other care routines, personal items, smoking policy, room service/diet, and visiting hours. Information on how to activate the Rapid Response Team has been discussed. Patient/Family are encouraged to report perceived risks to care and to ask questions if they do not understand what they are told or what they should do.
--- NOTE | 2021-01-24 22:54 | PM.IMHP ---
H&P: HPI History of Present Illness Date/Time: 01/24/21 22:54 this is a 75-year-old male patient who was just [facility] 01[facility]21 with the admitting diagnosis of acute pancreatitis without necrosis or infection. The patient had been admitted on 01/19/2021 we had epigastric pain radiating to his right upper quadrant. The patient had a similar episode a week prior to this. The patient did have a MRCP that admission no gallstones on the MR CP just finding suspicious for cholecystitis. Patient also had a HIDA scan no stones on imaging HIDA scan with possible chronic cholecystitis. GI as well surgery followed the patient. The patient was tolerating full liquid diet. Lipase trended down to the 300s on 01/19/2021 his lipase was greater than 40,000. On the 01/22/2021 his lipase was down to 314 on 01/22/2021. The patient is end-stage renal disease with hemodialysis. The patient return to the emergency room with acute epigastric pain that occurred while he was getting dialysis today. Patient's HIDA scan showed an ejection fraction of 25% which is reduced. The patient stated that he had just eaten some corn flakes and a half of a bagel today. The patient tells me that he is getting some relief with the IV pain medication. CT of the abdomen and pelvis was read as increase in mild. Pancreatic fat stranding compared to 5 days ago appearance is suspicious for acute complicated pancreatitis. Cardiomegaly. For upper quadrant ultrasound was read as normal right upper quadrant ultrasound today. 2.3. AST is 9 9 ALT 105 alkaline phosphatase 450. Patient denies any alcohol consumption. Patient's lipase is 18,990. Patient's hemoglobin is 8.4 and 25.2. Platelet count 137. IV fluids infusing without difficulty. The patient was given Dilaudid. Nephrology has been consulted GI has been consulted. Patient is being admitted to inpatient services on the date of service of 01/24/2021. Chief Complaint: Abdominal pain Review of Systems Review of Systems: All systems reviewed & are unremarkable except as noted in HPI and below Constitutional: Constitutional: Reports as per HPI and Reports no additional constitutional complaints Eyes: Eyes: Reports as per HPI and Reports no additional eye complaints ENT: Reports system reviewed and no additional complaints, except as documented and Reports Normal hearing present Cardiovascular: Cardiovascular: Reports no additional cardiovascular complaints Respiratory: Respiratory: Reports no additional respiratory complaints and Reports no additional respiratory complaints Gastrointestinal: Gastrointestinal: Reports as per HPI and Reports no additional gastrointestinal complaints Musculoskeletal: Musculoskeletal: Reports no additional musculoskeletal complaints Integumentary/Breasts: Skin/Breast: Reports system reviewed and no additional complaints, except as docu and Reports as per HPI Neurologic: Reports system reviewed and no additional complaints, except as documented, Reports as per HPI and Reports Normal hearing present Psychiatric: Psychiatric: Reports no additional psychiatric complaints and Reports as per HPI Endocrine: Endocrine: Reports no additional endocrine complaints Hematologic/Lymphatic: Hematologic/Lymphatic: Reports no additional hematologic/lymphatic complaints Allergic/Immunologic: Allergic/Immunologic: Reports no additional allergic/immunologic complaints [facility], [facility] Past Medical History Medical History Anemia of chronic disease Coronary artery disease History of stents. Followed by Dr. Olivier Kern. Diet-controlled diabetes mellitus Dyslipidemia End-stage renal disease on hemodialysis Epigastric pain Essential hypertension Surgical History Surgical History AV fistula (~05/2018) History of basal cell carcinoma excision Right cheek per Dr. Salgado. Family History
[2021-01-25] VITALS (8 sets, daily range): BP systolic 128–149; BP diastolic 52–59; PULSE 79–89; RESP 16–18; TEMP 36.5–36.9; O2SAT 92–98
[2021-01-25 05:49] LABS: Basophils Percent Auto 0.2 % (0.2-1.2); Eosinophils Absolute Auto 0.3 K/mm3 (0-0.3); Eosinophils Percent Auto 2.6 % (0-4.4); Hematocrit 24.8 % (42.0-52.0); Immature Granulocyte Absolute 0.08 K/mm3 (0.00-0.031); Immature Granulocyte Percent A 0.8 % (0-0.5); Immature Platelet Fraction Pct 5.5 % (0.9-11.2); Lymphocytes Absolute Auto 0.85 K/mm3 (0.9-3.2); Lymphocytes Percent Auto 8.1 % (18.3-44.2); Mean Corpuscular HGB Conc 32.3 g/dl (32-36); Mean Corpuscular Hemoglobin 33.6 pg (26-34); Mean Corpuscular Volume 104.2 fl (80-100); Mean Platelet Volume 11.6 fl (7.4-10.4); Monocytes Absolute Auto 0.6 K/mm3 (0.1-0.6); Monocytes Percent Auto 5.8 % (2.6-8.5); Neutrophils Absolute Auto 8.6 K/mm3 (1.3-6.7); Neutrophils Percent Auto 82.5 % (45.5-73.1); Platelet Count Result 130 k/mm3 (150-375); Red Blood Count 2.38 M/mm3 (4.6-6.20); Red Cell Distribution Width 13.3 % (11.5-14.5); White Blood Count 10.4 K/mm3 (4.5-10.0)
[2021-01-25 06:09] LABS: Alanine Aminotransferase 146 U/L (4-50); Albumin Level 3.5 g/dL (3.5-5.1); Alkaline Phosphatase 426 U/L (38-126); Anion Gap 7 mmol/L (8-16); Aspartate Amino Transferase 115 U/L (17-59); Bilirubin,Total 3.7 mg/dL (0.2-1.3); Blood Urea Nitrogen 25 mg/dL (9-20); Calcium 7.7 mg/dL (8.4-10.2); Carbon Dioxide 28 mmol/L (22-30); Chloride 100 mmol/L (98-107); Estimated CRCL calculation 10 ml/min; Estimated Glomerular Filt Rate 8; Glucose 105 mg/dL (75-110); Potassium 4.9 mmol/L (3.4-5.0); Sodium 135 mmol/L (137-145); Triglycerides 81 mg/dL (<150)
[2021-01-25 07:06] LABS: Lipase 12110 U/L (23-300)
--- NOTE | 2021-01-25 09:21 | PM.CNNEP ---
Assessment and Plan Assessment and plan (1) Acute pancreatitis: Qualifiers: Acute pancreatitis complication: no infection or necrosis Pancreatitis type: unspecified pancreatitis type Qualified Code(s): K85.90 - Acute pancreatitis without necrosis or infection, unspecified Code(s): K85.90 - Acute pancreatitis without necrosis or infection, unspecified Status: Acute (2) Diet-controlled diabetes mellitus: Code(s): E11.9 - Type 2 diabetes mellitus without complications Status: Acute (3) Anemia of chronic disease: Code(s): D63.8 - Anemia in other chronic diseases classified elsewhere Status: Acute (4) End-stage renal disease on hemodialysis: Code(s): N18.6 - End stage renal disease; Z99.2 - Dependence on renal dialysis Status: Acute Assessment and Plan: end-stage renal disease diabetic renal disease hypertensive renal disease anemia of chronic kidney disease secondary hyperparathyroidism acute pancreatitis plan: spoke through a radio equipment repairer in excellent during the he has acute pancreatitis, no surgical interventions, will need to give his pancreas a rest. symptomatic treatment for now. Dialysis to be done Sunday, Sunday, Sunday schedule. Elevated liver enzymes. This is in relation to the acute pancreatitis itself. No evidence of gallstones as per recent testing. Follow-up (5) Coronary artery disease: Code(s): I25.10 - Atherosclerotic heart disease of [place] coronary artery without angina pectoris Status: Acute (6) Essential hypertension: Code(s): I10 - Essential (primary) hypertension Status: Chronic History of Present Illness Reason for Consult Consult date: 01/25/21 Reason for consult: end stage renal disease (Established ESRD patient admitted with recurrent acute pancreatitis) Chief Complaint Chief complaint: acute Pancreatitis History of Present Illness Narrative: 75-year-old male who comes in with acute recurrent pancreatitis. Indicates that he was at dialysis yesterday, When he suddenly developed severe epigastric abdominal pain. Developed nausea and vomiting in the hospital itself. No diarrhea. His lipase was close to 18,000. No fevers or chills. At the last visit the patient had a similar presentation. MRCP was done and this was negative for gallstones. No surgical indication. CT scan on this occasion shows mild inflammation within the pancreas itself. imaging studies unremarkable. HIDA scan from past shows slightly low ejection fraction for the gallbladder. The patient looks ill, mildly short of breath at rest. This shortness of breath and is more due to the discomfort of the acute pancreatitis. No problems reported by the dialysis itself SOB. His right forearm fistula is working well. Review of Systems Review of Systems: Narrative: Negative All systems reviewed & are unremarkable except as noted in HPI and below PMFSH Past Medical History Medical History Anemia of chronic disease Coronary artery disease History of stents. Followed by Dr. Olivier Kern. Diet-controlled diabetes mellitus Dyslipidemia End-stage renal disease on hemodialysis Epigastric pain Essential hypertension Surgical History Surgical History AV fistula (~05/2018) History of basal cell carcinoma excision Right cheek per Dr. Salgado. Family History Family History Other Unknown family medical history Social History Social History Social History: Surrogate decision maker: Sid Evelio, [id number]. Code status: Full code. Smoking packs per day: 1 Smoking cigarettes per day: 20.0 Smoking status: Never smoker Second hand tobacco smoke exposure: No Alcohol intake: never Substance use: never Albrecht
[2021-01-25] MEDS: PANTOPRAZOLE SODIUM IV 40 MG VIAL IV PUSH (09:44)
[2021-01-25 10:07] LABS: Add Urine Microscopic? YES; Appearance Urine Clear (Clear); Bilirubin Urine Negative (Negative); Blood Urine Negative (Negative); Color Urine Amber (Yellow); Glucose Urine UA 2+ mg/dL (Negative); Ketones Urine Negative (Negative); Leukocyte Esterase Ur Negative LEU/UL (Negative); Nitrate Urine Negative (Negative); Protein Urine 3+ mg/dL (Negative); RBC Urine 0-2 /hpf (0-2); Specific Grav Ur 1.011 (1.001-1.035); Squamous Epithelial Cell Urine Rare /hpf (Few); WBC Urine 0-3 /hpf
[2021-01-25] MEDS: SODIUM CHLORIDE 0.9% IV 1,000 ML 50 ML IV CONT (10:44)
--- NOTE | 2021-01-25 13:06 | PM.IMPN ---
Progress Note: A&P Assessment and Plan (1) Acute pancreatitis: Qualifiers: Acute pancreatitis complication: no infection or necrosis Pancreatitis type: unspecified pancreatitis type Qualified Code(s): K85.90 - Acute pancreatitis without necrosis or infection, unspecified Code(s): K85.90 - Acute pancreatitis without necrosis or infection, unspecified Status: Acute Assessment and Plan: The patient is NPO at this time. Continue to monitor lipase. I am not going to continue with any IV fluids at this time as he has dialysis. Continue with IV pain medication and pantoprazole. The patient was seen by GI and surgery the last admission. GI has been consulted this time. The patient had a delayed gallbladder and small bowel activity wound he had a hepatobiliary scan on by 721. Ejection fraction 25%.. The patient's abdominal pelvis CT was read as increase and mild peripancreatic fat stranding compared to 5 days ago. Patient's lipase was 18,890. Check triglycerides. 01/25/21 13:06 Patient is 75-year-old male with history of end-stage renal disease on hemodialysis he was recently discharged after being treated for pancreatitis patient had a MRCP and did not show any gallstones, patient HIDA scan showed reduced ejection fraction, and his lipase were trending down so patient was discharged home on 01/22/21, however patient presented again last night with complaint abdominal pain and his lipase were close to 18,000 and this morning the close to 12,000, CT scan of the abdomen showed Increase in mild peripancreatic fat stranding compared to 5 days ago, appearance is suspicious for acute uncomplicated pancreatitis. Suggesting pancreatitis possibly infection will start the patient on Zosyn, this morning patient still is feeling much better pain is controlled denies any nausea or vomiting, patient will be seen by GI and further recommendation to follow, I suspect patient will need a surgery down the road once his infection is resolved will continue to monitor and further recommendation to follow. (2) Transaminasemia: Code(s): R74.01 - Elevation of levels of liver transaminase levels Status: Acute Assessment and Plan: The patient did have an upper quadrant ultrasound which was read as negative. (3) End-stage renal disease on hemodialysis: Code(s): N18.6 - End stage renal disease; Z99.2 - Dependence on renal dialysis Status: Acute Assessment and Plan: Nephrology has been consulted. Further recommendation for IV fluids. Patient had dialysis today. It sounds like he is Sunday and Sunday. (4) Coronary artery disease: Code(s): I25.10 - Atherosclerotic heart disease of [place] coronary artery without angina pectoris Status: Acute Assessment and Plan: The patient has a history of coronary artery disease with cardiac stents. (5) Essential hypertension: Code(s): I10 - Essential (primary) hypertension Status: Chronic Assessment and Plan: Patient is NPO at this time will do p.r.n. hydralazine. (6) Dyslipidemia: Code(s): E78.5 - Hyperlipidemia, unspecified Status: Chronic Assessment and Plan: Hold atorvastatin. Patient has elevated liver enzymes and he is NPO. Subjective Date/time seen: 01/25/21 13:06 Patient is 75-year-old male with history of end-stage renal disease on hemodialysis he was recently discharged after being treated for pancreatitis patient had a MRCP and did not show any gallstones, patient HIDA scan showed reduced ejection fraction, and his lipase were trending down so patient was discharged home on 01/22/21, however patient presented again last night with complaint abdominal pain and his lipase were close to 18,000 and this morning the close to 12,000, CT scan of the abdomen showed Increase in mild peripancreatic fat stranding compared to 5 days ago, appearance is suspicious for acute uncomplicated pancreatitis. Suggest
--- NOTE | 2021-01-25 13:40 | PCPTNOTE ---
Attempted PT evaluation. Pt back in bed from working with OT. Declining PT eval at this time secondary to epigastric pain. Will try again tomorrow. Susan Lilly, [email or web address]
--- NOTE | 2021-01-25 14:11 | WPDGICN ---
Assessment and Plan Assessment and plan (1) Acute pancreatitis: Qualifiers: Acute pancreatitis complication: no infection or necrosis Pancreatitis type: unspecified pancreatitis type Qualified Code(s): K85.90 - Acute pancreatitis without necrosis or infection, unspecified Code(s): K85.90 - Acute pancreatitis without necrosis or infection, unspecified Status: Acute Assessment and Plan: repeat ultrasound normal GB, CT scan no stones and MRCP recently also negative for stones will refer as outpatient for EUS of pancreas and GB (assess if microlithiasis), no definitive etiology to explain pancreatitis supportive care (2) Epigastric pain: Code(s): R10.13 - Epigastric pain Status: Acute Assessment and Plan: will do EGD tomorrow to exclude ulcers, esophagitis and other cause of abdominal pain (3) Anemia of chronic disease: Code(s): D63.8 - Anemia in other chronic diseases classified elsewhere Status: Acute Assessment and Plan: hb stable (4) End-stage renal disease on hemodialysis: Code(s): N18.6 - End stage renal disease; Z99.2 - Dependence on renal dialysis Status: Acute Assessment and Plan: by nephrology (5) Coronary artery disease: Code(s): I25.10 - Atherosclerotic heart disease of [place] coronary artery without angina pectoris Status: Acute (6) Transaminasemia: Code(s): R74.01 - Elevation of levels of liver transaminase levels Status: Acute Assessment and Plan: probably from acute pancreatitis will get also HCV ab GI Consult Note Consult date/time: 01/25/21 14:11 Reason for consult: pancreatitis HPI: Jose Quinonez is a 75 year old male with history of end-stage renal disease on hemodialysis, coronary artery disease, hypertension, chronic anemia who I met during recent hospitalization just few days ago after he was admitted for acute pancreatitis. He had MRCP that did not show gallstones and HIDA scan with possible chronic cholecystitis, EF 25%. Surgery evaluated patient. This time he is back because acute severe pain in epigastric area while he was getting his dialysis with nausea and vomiting. New CT of the abdomen and pelvis reviewed, showed increase in mild pancreatitis c/w acute uncomplicated pancreatitis. Also had upper quadrant ultrasound was normal. Pancreatic enzymes elevated. He never had EGD, pain was 10/10 on admission and now 5/10. Denies alcohol intake. Transaminases 90-100, HBV non-reactive. Review of Systems Constitutional: Constitutional: Denies headache(s) and Denies weakness Eyes: Eyes: Denies blurry vision ENT: Reports Normal hearing present, Denies headache(s) and Denies neck pain Cardiovascular: Cardiovascular: Denies chest pain and Denies dyspnea Respiratory: Respiratory: Denies dyspnea Gastrointestinal: Gastrointestinal: Reports no additional gastrointestinal complaints Genitourinary: Genitourinary: Denies dysuria Musculoskeletal: Musculoskeletal: Denies neck pain Integumentary/Breasts: Skin/Breast: Denies dry skin Neurologic: Reports Normal hearing present, Denies headache(s) and Denies weakness Psychiatric: Psychiatric: Denies anxiety Endocrine: Endocrine: Denies change in body appearance Hematologic/Lymphatic: Hematologic/Lymphatic: Denies easy bleeding Allergic/Immunologic: Allergic/Immunologic: Denies urticaria PMFSH Past Medical History Medical History Anemia of chronic disease Coronary artery disease History of stents. Followed by Dr. Olivier Kern. Diet-controlled diabetes mellitus Dyslipidemia End-stage renal disease on hemodialysis Epigastric pain Essential hypertension Surgical History Surgical History AV fistula (~05/2018) History of basal cell carcinoma excision Right cheek per Dr. Salgado. Family History Family History (Reviewed
[2021-01-25] MEDS: HYDROmorphone HCL INJ (*CRX) 1 MG/ML SYR 0.5 MG IV PUSH (20:41)
[2021-01-26] VITALS (14 sets, daily range): BP systolic 101–175; BP diastolic 51–82; PULSE 69–100; RESP 16–27; TEMP 36–37.1; O2SAT 94–100
--- NOTE | 2021-01-26 04:39 | PC.NURSE ---
Pt c/o being short of breath resp. shallow and 22. Spo2 89% , skin warm and dry color good. O2 starte at 2L/min and encourage pt to breath deeply. spo2 up to96% with 2L on.
[2021-01-26] MEDS: SODIUM CHLORIDE 0.9% IV 1,000 ML 50 ML IV CONT (05:25)
[2021-01-26 05:46] LABS: Basophils Percent Auto 0.1 % (0.2-1.2); Eosinophils Absolute Auto 0.5 K/mm3 (0-0.3); Eosinophils Percent Auto 5.6 % (0-4.4); Hematocrit 24.1 % (42.0-52.0); Hemoglobin 7.9 g/dL (14.0-18.0); Immature Granulocyte Absolute 0.05 K/mm3 (0.00-0.031); Immature Granulocyte Percent A 0.5 % (0-0.5); Lymphocytes Absolute Auto 0.91 K/mm3 (0.9-3.2); Mean Corpuscular HGB Conc 32.8 g/dl (32-36); Mean Corpuscular Hemoglobin 33.6 pg (26-34); Mean Corpuscular Volume 102.6 fl (80-100); Monocytes Absolute Auto 0.5 K/mm3 (0.1-0.6); Monocytes Percent Auto 5.7 % (2.6-8.5); Neutrophils Absolute Auto 7.1 K/mm3 (1.3-6.7); Neutrophils Percent Auto 78.1 % (45.5-73.1); Platelet Count Result 117 k/mm3 (150-375); Red Blood Count 2.35 M/mm3 (4.6-6.20); Red Cell Distribution Width 13.2 % (11.5-14.5); White Blood Count 9.1 K/mm3 (4.5-10.0)
[2021-01-26 06:04] LABS: Alanine Aminotransferase 105 U/L (4-50); Albumin Level 3.3 g/dL (3.5-5.1); Alkaline Phosphatase 418 U/L (38-126); Anion Gap 8 mmol/L (8-16); Aspartate Amino Transferase 55 U/L (17-59); Bilirubin,Total 4.1 mg/dL (0.2-1.3); Blood Urea Nitrogen 32 mg/dL (9-20); Calcium 7.9 mg/dL (8.4-10.2); Carbon Dioxide 24 mmol/L (22-30); Chloride 103 mmol/L (98-107); Estimated CRCL calculation 7 ml/min; Estimated Glomerular Filt Rate 6; Glucose 86 mg/dL (75-110); Magnesium 1.7 mg/dL (1.6-2.3); Phosphorus 3.8 mg/dL (2.5-4.5); Potassium 4.7 mmol/L (3.4-5.0); Sodium 135 mmol/L (137-145)
[2021-01-26 07:39] LABS: Lipase 2811 U/L (23-300)
[2021-01-26 07:47] LABS: Hepatitis C Virus Antibody Negative (Negative)
[2021-01-26] MEDS: PANTOPRAZOLE SODIUM IV 40 MG VIAL IV PUSH (08:28)
--- NOTE | 2021-01-26 09:26 | PC.NURSE ---
call to dialysis nurse court operations clerk to report that pt also has an EGD scheduled for today, tentatively scheduled for 1400
--- NOTE | 2021-01-26 10:25 | PC.NURSE ---
to GI lab via stretcher for scheduled EGD
--- NOTE | 2021-01-26 10:45 | WPDANESEPPF ---
Anes - Initial Pre Proc Eval Procedure: Operation Date: 01/26/21 14:00 Proposed Procedures p Esophagogastroduodenoscopy - Lenard Nava MD Date/Time: 01/26/21 10:45 Surgeon: Yumi Villa MD Pre Op Diagnosis: acute Pancreatitis Patient Data Age: 75 Gender: M Height: 5 ft 6 in Weight: 99.5 kg Last Vital Signs Temp 98.5 F 01/26/21 05:35 Pulse 91 01/26/21 08:00 Resp 20 01/26/21 08:00 BP 159/60 H 01/26/21 05:35 Pulse Ox 96 01/26/21 08:00 Allergies Allergy/AdvReac Type Severity Reaction Status Date / Time No Known Allergies Allergy Verified 01/26/21 10:42 Home Medications Medication Instructions Recorded Confirmed Type furosemide 40 mg tablet 40 mg PO QAM 11/27/19 01/26/21 History amlodipine 5 mg tablet 5 mg PO DAILY #30 tablet 12/07/20 01/26/21 Rx atorvastatin 40 mg tablet 40 mg PO DAILY #30 tablet 12/07/20 01/26/21 Rx carvedilol 25 mg tablet 25 mg PO Q12H #60 tablet 12/07/20 01/26/21 Rx dicyclomine 10 mg PO BID PRN #20 cap 01/22/21 01/26/21 Rx ondansetron HCl [Zofran] 4 mg PO Q6H PRN #20 tablet 01/22/21 01/26/21 Rx pantoprazole 20 mg PO QAM #30 tablet 01/23/21 01/26/21 Rx B complex-vitamin C-folic acid 1 tablet PO DAILY 01/24/21 01/26/21 History [Celi-Gabrielle] Laboratory Tests 01/26/21 01/26/21 01/26/21 05:23 05:23 05:23 WBC 9.1 K/mm3 K/mm3 (4.5-10.0) RBC 2.35 M/mm3 L M/mm3 (4.6-6.20) Hgb 7.9 g/dL L g/dL (14.0-18.0) Hct 24.1 % L % (42.0-52.0) MCV 102.6 fl H fl (80-100) MCH 33.6 pg pg (26-34) MCHC 32.8 g/dl g/dl (32-36) RDW 13.2 % % (11.5-14.5) Plt Count 117 k/mm3 L k/mm3 (150-375) MPV 11.0 fl H fl (7.4-10.4) Immature Gran % (Auto) 0.5 % % (0-0.5) Neut % (Auto) 78.1 % H % (45.5-73.1) Lymph % (Auto) 10.0 % L % (18.3-44.2) [place] % (Auto) 5.7 % % (2.6-8.5) Eos % (Auto) 5.6 % H % (0-4.4) Baso % (Auto) 0.1 % L % (0.2-1.2) Lymph # (Auto) 0.91 K/mm3 K/mm3 (0.9-3.2) [place] # (Auto) 0.5 K/mm3 K/mm3 (0.1-0.6) Eos # (Auto) 0.5 K/mm3 H K/mm3 (0-0.3) Baso # (Auto) 0.0 K/mm3 K/mm3 (0.0-0.1) Abs Immat Gran (auto) 0.05 K/mm3 H K/mm3 (0.00-0.031) Absolute Neuts (auto) 7.1 K/mm3 H K/mm3 (1.3-6.7) Absolute Nucleated RBC 0.0 K/mm3 K/mm3 (0.0-0.012) Nucleated RBC % 0.0 % % (0.0-0.2) Sodium 135 mmol/L L mmol/L (137-145) Potassium 4.7 mmol/L mmol/L (3.4-5.0) Chloride 103 mmol/L mmol/L (98-107) Carbon Dioxide 24 mmol/L mmol/L (22-30) Anion Gap 8 mmol/L mmol/L (8-16) BUN 32 mg/dL H mg/dL (9-20) Creatinine 9.00 mg/dL H mg/dL (0.7-1.3) Estim Creat Clear Calc 7 ml/min ml/min Estimated GFR 6 L (59 - ) Glucose 86 mg/dL mg/dL (75-110) Calcium 7.9 mg/dL L mg/dL (8.4-10.2) Phosphorus 3.8 mg/dL mg/dL (2.5-4.5) Magnesium 1.7 mg/dL mg/dL (1.6-2.3) Total Bilirubin 4.1 mg/dL H mg/dL (0.2-1.3) AST 55 U/L U/L (17-59) ALT 105 U/L H U/L (4-50) Alkaline Phosphatase 418 U/L H U/L (38-126) Total Protein 6.0 g/dL L g/dL (6.3-8.2) Albumin 3.3 g/dL L g/dL (3.5-5.1) Lipase 2811 U/L H U/L (23-300) Hepatitis C Ab Screen Negative (Negative) Patient hx anesthesia problems: none Family hx anesthesia problems: none PMFSH Past Medical History Medical History Anemia of chronic disease Coronary artery disease History of stents. Followed by Dr. Olivier Kern. Diet-controlled diabetes mellitus Dyslipidemia End-stage renal disease on hemodialysis Epigastric pain Essential hypertension Surgical History Surgical History (Reviewed 0
[2021-01-26] MEDS: SODIUM CHLORIDE 0.9% IV 500 ML 10 ML IV CONT (10:50)
--- NOTE | 2021-01-26 11:34 | PM.IMPN ---
Progress Note: A&P Assessment and Plan (1) Acute pancreatitis: Qualifiers: Acute pancreatitis complication: no infection or necrosis Pancreatitis type: unspecified pancreatitis type Qualified Code(s): K85.90 - Acute pancreatitis without necrosis or infection, unspecified Code(s): K85.90 - Acute pancreatitis without necrosis or infection, unspecified Status: Acute Assessment and Plan: The patient is NPO at this time. Continue to monitor lipase. I am not going to continue with any IV fluids at this time as he has dialysis. Continue with IV pain medication and pantoprazole. The patient was seen by GI and surgery the last admission. GI has been consulted this time. The patient had a delayed gallbladder and small bowel activity wound he had a hepatobiliary scan on by 721. Ejection fraction 25%.. The patient's abdominal pelvis CT was read as increase and mild peripancreatic fat stranding compared to 5 days ago. Patient's lipase was 18,890. Check triglycerides. 01/26/21 11:34 Patient is 75-year-old male with history of end-stage renal disease on hemodialysis he was recently discharged after being treated for pancreatitis patient had a MRCP and did not show any gallstones, patient HIDA scan showed reduced ejection fraction, and his lipase were trending down so patient was discharged home on 01/22/21, however patient presented again last night with complaint abdominal pain and his lipase were close to 18,000 and this morning the close to 12,000, CT scan of the abdomen showed Increase in mild peripancreatic fat stranding compared to 5 days ago, appearance is suspicious for acute uncomplicated pancreatitis. Suggesting pancreatitis possibly infection will start the patient on Zosyn, this morning patient still is feeling much better pain is controlled denies any nausea or vomiting, patient will be seen by GI and further recommendation to follow, I suspect patient will need a surgery down the road once his infection is resolved will continue to monitor and further recommendation to follow. 01/27/21 patient still complains abdominal pain, patient was seen by GI and had a EGD which essentially normal, patient is scheduled for dialysis today, will continue to monitor, patient has pancreatitis and suspicious for for infection started the patient on Zosyn, will continue to monitor will consult surgery for further recommendation. (2) Transaminasemia: Code(s): R74.01 - Elevation of levels of liver transaminase levels Status: Acute Assessment and Plan: The patient did have an upper quadrant ultrasound which was read as negative. (3) End-stage renal disease on hemodialysis: Code(s): N18.6 - End stage renal disease; Z99.2 - Dependence on renal dialysis Status: Acute Assessment and Plan: Nephrology has been consulted. Further recommendation for IV fluids. Patient had dialysis today. It sounds like he is Sunday and Sunday. (4) Coronary artery disease: Code(s): I25.10 - Atherosclerotic heart disease of [place] coronary artery without angina pectoris Status: Acute Assessment and Plan: The patient has a history of coronary artery disease with cardiac stents. (5) Essential hypertension: Code(s): I10 - Essential (primary) hypertension Status: Chronic Assessment and Plan: Patient is NPO at this time will do p.r.n. hydralazine. (6) Dyslipidemia: Code(s): E78.5 - Hyperlipidemia, unspecified Status: Chronic Assessment and Plan: Hold atorvastatin. Patient has elevated liver enzymes and he is NPO. Subjective Date/time seen: 01/26/21 11:34 Patient is 75-year-old male with history of end-stage renal disease on hemodialysis he was recently discharged after being treated for pancreatitis patient had a MRCP and did not show any gallstones, patient HIDA scan showed reduced ejection fraction, and his lipase were trending down so patient was disch
--- NOTE | 2021-01-26 12:49 | PC.NURSE ---
pt returned from GI lab
--- NOTE | 2021-01-26 16:48 | PC.NURSE ---
pt to dialysis via bed
--- NOTE | 2021-01-26 17:06 | PM.PNNEP ---
Progress Note: A&P Assessment and Plan (1) End stage renal disease: Code(s): N18.6 - End stage renal disease Status: Chronic Assessment and Plan: HD today and continue M/W/F schedule follow electrolytes, volume status, and clearance (2) Acute pancreatitis: Qualifiers: Acute pancreatitis complication: no infection or necrosis Pancreatitis type: unspecified pancreatitis type Qualified Code(s): K85.90 - Acute pancreatitis without necrosis or infection, unspecified Code(s): K85.90 - Acute pancreatitis without necrosis or infection, unspecified Status: Acute Assessment and Plan: etiology unclear s/p normal EGD Gastroenterology following follow trend of lipase continue supportive therapy (3) Elevated LFTs: Code(s): R79.89 - Other specified abnormal findings of blood chemistry Status: Acute Assessment and Plan: etiology? follow trend (4) Hypertension: Code(s): I10 - Essential (primary) hypertension Status: Acute Assessment and Plan: reasonable control at this time follow trend of hemodynamics (5) Anemia: Code(s): D64.9 - Anemia, unspecified Status: Acute Assessment and Plan: due to ESRD and acute illness Epogen with HD follow trend of H/H Will continue to follow. Subjective Date/time seen: 01/26/21 17:06 Tolerating dialysis treatment at the time of my visit (seen on HD at ~ 5:00PM); resting comfortably and in no apparent distress; no other events/issues overnight or earlier this AM; s/p EGD earlier today with no significant findings noted. Exam Narrative: Exam Narrative: General: WD/WN male in NAD Heart: normal S1 and S2; no rub Lungs: clear to auscultation Abdomen: soft, TTP with hypoactive sounds Extremities: no cyanosis or clubbing; no edema Skin: warm and dry Objective Data Vital Signs Vital Signs: Vital Signs Temp Pulse Resp BP Pulse Ox 01/26/21 14:00 36.4 C L 84 18 128/57 L 97 01/26/21 12:37 75 20 127/63 100 01/26/21 12:27 69 21 H 108/59 L 100 01/26/21 12:17 100 27 H 101/64 100 01/26/21 11:19 95 01/26/21 10:46 36.8 C 81 18 158/59 H 100 01/26/21 08:00 91 20 96 01/26/21 05:35 36.9 C 91 20 159/60 H 96 01/26/21 00:33 36.9 C 84 16 132/51 L 94 01/25/21 22:00 36.9 C 79 16 149/59 H 98 01/25/21 20:00 83 18 98 01/25/21 18:00 36.8 C 83 18 149/58 H 98 Intake/Output Intake/Output: Intake & Output 01/23/21 01/24/21 01/25/21 01/26/21 23:59 23:59 23:59 23:59 Intake Total 1040 1420 Output Total 125 100 Balance 915 1320 Meds/Results Medications: Active Medications Generic Name Dose Route Start Last Admin Trade Name Freq PRN Reason Stop Dose Admin Hydralazine HCl 10 mg 01/24/21 23:41 Hydralazine Hcl 20 Mg/Ml Vial IV PUSH Q8H PRN Blood Pressure - High Hydromorphone HCl 0.5 mg 01/24/21 19:04 01/25/21 20:41 Hydromorphone Hcl Inj (*Crx) 1 Mg/Ml Syr IV PUSH 0.5 mg Q4H PRN Administration Pain Rated 7-10 Sodium Chloride 1,000 mls @ 50 mls/hr 01/25/21 10:35 01/26/21 12:12 Normal Saline Iv IV CONT 30 mls/hr .Q20H UMU Infusion Piperacillin Sod/Tazobactam Sod 2.25 gm in 50 mls @ 100 mls/hr 01/25/21 18:00 01/26/21 05:55 Zosyn 2.25 Gm/D5w 50 Ml IVPB Infused Q12H UMU Infusion Ondansetron HCl 4 mg 01/24/21 19:04 Ondansetron Inj 4 Mg/2 Ml Vial IV PUSH Q4H PRN Nausea Pantoprazole Sodium 40 mg 01/25/21 09:00 01/26/21 08:28 Pantoprazole Sodium Iv 40 Mg Vial IV PUSH 40 mg QAM UMU Administration Radiology Results: ITS Impressions Upper Quadrant Ultrasound 01/24/21 15:57 IMPRESSION: 1. Normal right upper quadrant ultrasound. Abdomen/Pelvis CT 01/24/21 16:48 IMPRESSION: 1. Increase in mild peripancreatic fat stranding compared to 5 days ago, appearance is suspicious for acute uncomplicated pancreatitis.
--- NOTE | 2021-01-26 17:49 | PC.NURSE ---
pt returned from dialysis via bed, unable to complete treatment, pt had line come loose during treatment in dialysis room, site is covered with gauze
[2021-01-27] VITALS (24 sets, daily range): BP systolic 129–174; BP diastolic 51–81; PULSE 70–85; RESP 16–22; TEMP 36–37.5; O2SAT 96–100
[2021-01-27 05:40] LABS: Hemoglobin 7.4 g/dL (14.0-18.0); Mean Corpuscular HGB Conc 32.2 g/dl (32-36); Mean Corpuscular Hemoglobin 32.6 pg (26-34); Mean Corpuscular Volume 101.3 fl (80-100); Mean Platelet Volume 11.5 fl (7.4-10.4); Platelet Count Result 104 k/mm3 (150-375); Red Blood Count 2.27 M/mm3 (4.6-6.20); Red Cell Distribution Width 13.2 % (11.5-14.5); White Blood Count 7.1 K/mm3 (4.5-10.0)
[2021-01-27 06:27] LABS: Alanine Aminotransferase 72 U/L (4-50); Albumin Level 3.1 g/dL (3.5-5.1); Alkaline Phosphatase 390 U/L (38-126); Anion Gap 8 mmol/L (8-16); Aspartate Amino Transferase 37 U/L (17-59); Bilirubin,Total 3.1 mg/dL (0.2-1.3); Blood Urea Nitrogen 37 mg/dL (9-20); Calcium 7.9 mg/dL (8.4-10.2); Carbon Dioxide 26 mmol/L (22-30); Chloride 103 mmol/L (98-107); Estimated CRCL calculation 7 ml/min; Estimated Glomerular Filt Rate 5; Glucose 155 mg/dL (75-110); Potassium 4.8 mmol/L (3.4-5.0); Sodium 137 mmol/L (137-145)
[2021-01-27 06:30] LABS: Lipase 3998 U/L (23-300)
--- NOTE | 2021-01-27 08:30 | PCOTNOTE ---
Attempted therapy session with patient, but patient refused, stating he was just too tired and wanted to rest.
--- NOTE | 2021-01-27 09:03 | PC.NURSE ---
pt to dialysis via bed
--- NOTE | 2021-01-27 11:20 | PCOTNOTE ---
Second attempt at therapy session with patient, but patient was out of room for dialysis at 11:20.
--- NOTE | 2021-01-27 12:20 | PM.PNNEP ---
Progress Note: A&P Assessment and Plan (1) End stage renal disease: Code(s): N18.6 - End stage renal disease Status: Chronic Assessment and Plan: HD today (since did not get a treatment yesterday) and again tomorrow to continue M/W/F schedule follow electrolytes, volume status, and clearance (2) Acute pancreatitis: Qualifiers: Acute pancreatitis complication: no infection or necrosis Pancreatitis type: unspecified pancreatitis type Qualified Code(s): K85.90 - Acute pancreatitis without necrosis or infection, unspecified Code(s): K85.90 - Acute pancreatitis without necrosis or infection, unspecified Status: Acute Assessment and Plan: etiology unclear s/p normal EGD Gastroenterology following follow trend of lipase continue supportive therapy (3) Elevated LFTs: Code(s): R79.89 - Other specified abnormal findings of blood chemistry Status: Acute Assessment and Plan: etiology? follow trend (4) Hypertension: Code(s): I10 - Essential (primary) hypertension Status: Acute Assessment and Plan: reasonable control at this time follow trend of hemodynamics (5) Anemia: Code(s): D64.9 - Anemia, unspecified Status: Acute Assessment and Plan: due to ESRD and acute illness Epogen with HD follow trend of H/H given events yesterday Will continue to follow. Subjective Date/time seen: 01/27/21 12:20 Tolerating dialysis treatment at the time of my visit (seen at ~ 12:00PM); dialysis treatment yesterday aborted after 20 minutes due to unintentional dislodgement of dialysis needles (from his AVF) and associated bleeding; no acute distress voiced. Exam Narrative: Exam Narrative: General: WD/WN male in NAD Heart: normal S1 and S2; no rub Lungs: clear to auscultation Abdomen: soft, TTP with hypoactive sounds Extremities: no cyanosis or clubbing; no edema Skin: warm and intact Objective Data Vital Signs Vital Signs: Vital Signs Temp Pulse Resp BP Pulse Ox 01/27/21 12:01 73 154/68 H 01/27/21 11:45 74 158/73 H 01/27/21 11:30 70 129/62 01/27/21 11:15 71 148/66 H 01/27/21 11:00 76 141/70 H 01/27/21 10:31 73 163/67 H 01/27/21 10:15 75 140/66 01/27/21 10:01 76 155/72 H 01/27/21 09:45 79 160/73 H 01/27/21 09:30 77 165/79 H 01/27/21 09:15 78 169/81 H 01/27/21 09:11 75 167/75 H 01/27/21 09:05 37.1 C 83 22 H 174/80 H 01/27/21 08:00 76 22 H 97 01/27/21 06:00 37.2 C 85 16 143/51 H 97 01/27/21 02:00 36.8 C 80 16 140/55 L 97 01/26/21 22:00 37.1 C 82 16 142/53 H 97 01/26/21 20:00 97 01/26/21 18:05 36.8 C 88 20 160/72 H 01/26/21 18:00 36.9 C 84 18 144/57 H 100 01/26/21 16:49 36.8 C 87 20 175/82 H 01/26/21 14:00 36.4 C L 84 18 128/57 L 97 01/26/21 12:37 75 20 127/63 100 01/26/21 12:27 69 21 H 108/59 L 100 Intake/Output Intake/Output: Intake & Output 01/24/21 01/25/21 01/26/21 01/27/21 23:59 23:59 23:59 23:59 Intake Total 1040 1860 370 Output Total 125 407 50 Balance 915 1453 320 Meds/Results Medications: Active Medications Generic Name Dose Route Start Last Admin Trade Name Freq PRN Reason Stop Dose Admin Hydralazine HCl 10 mg 01/24/21 23:41 Hydralazine Hcl 20 Mg/Ml Vial IV PUSH Q8H PRN Blood Pressure - High Hydromorphone HCl 0.5 mg 01/24/21 19:04 01/25/21 20:41 Hydromorphone Hcl Inj (*Crx) 1 Mg/Ml Syr IV PUSH 0.5 mg Q4H PRN Administration Pain Rated 7-10 Sodium Chloride 1,000 mls @ 50 mls/hr 01/25/21 10:35 01/26/21 12:12 Normal Saline Iv IV CONT 30 mls/hr .Q20H UMU Infusion Piperacillin Sod/Tazobactam Sod 2.25 gm in 50 mls @ 100 mls/hr 01/25/21 18:00 01/27/21 05:38 Zosyn 2.25 Gm/D5w 50 Ml IVPB Infused Q12H UMU Infusion Ondansetron HCl 4 mg 01/24/21 19:04 Ondansetron Inj 4 Mg/2 M
--- NOTE | 2021-01-27 13:09 | PC.NURSE ---
pt returned to room from dialysis
[2021-01-27] MEDS: PANTOPRAZOLE SODIUM IV 40 MG VIAL IV PUSH (13:17)
--- NOTE | 2021-01-27 14:23 | PM.IMPN ---
Progress Note: A&P Assessment and Plan (1) Acute pancreatitis: Qualifiers: Acute pancreatitis complication: no infection or necrosis Pancreatitis type: unspecified pancreatitis type Qualified Code(s): K85.90 - Acute pancreatitis without necrosis or infection, unspecified Code(s): K85.90 - Acute pancreatitis without necrosis or infection, unspecified Status: Acute Assessment and Plan: The patient is NPO at this time. Continue to monitor lipase. I am not going to continue with any IV fluids at this time as he has dialysis. Continue with IV pain medication and pantoprazole. The patient was seen by GI and surgery the last admission. GI has been consulted this time. The patient had a delayed gallbladder and small bowel activity wound he had a hepatobiliary scan on by 721. Ejection fraction 25%.. The patient's abdominal pelvis CT was read as increase and mild peripancreatic fat stranding compared to 5 days ago. Patient's lipase was 18,890. Check triglycerides. 01/27/21 14:23 01/25 Patient is 75-year-old male with history of end-stage renal disease on hemodialysis he was recently discharged after being treated for pancreatitis patient had a MRCP and did not show any gallstones, patient HIDA scan showed reduced ejection fraction, and his lipase were trending down so patient was discharged home on 01/22/21, however patient presented again last night with complaint abdominal pain and his lipase were close to 18,000 and this morning the close to 12,000, CT scan of the abdomen showed Increase in mild peripancreatic fat stranding compared to 5 days ago, appearance is suspicious for acute uncomplicated pancreatitis. Suggesting pancreatitis possibly infection will start the patient on Zosyn, this morning patient still is feeling much better pain is controlled denies any nausea or vomiting, patient will be seen by GI and further recommendation to follow, I suspect patient will need a surgery down the road once his infection is resolved will continue to monitor and further recommendation to follow. 01/26/21 patient still complains abdominal pain, patient was seen by GI and had a EGD which essentially normal, patient is scheduled for dialysis today, will continue to monitor, patient has pancreatitis and suspicious for for infection started the patient on Zosyn, will continue to monitor will consult surgery for further recommendation. 01/27 patient with epigastric pain elevated lipase and persistent had a EGD which was essentially normal, his pain is still persisting but no nausea or vomiting will consult surgery as patient may have cholecystitis, patient with end-stage renal disease on hemodialysis will be seen by his Nephrology will have scheduled dialysis and further recommendation to follow (2) Transaminasemia: Code(s): R74.01 - Elevation of levels of liver transaminase levels Status: Acute Assessment and Plan: The patient did have an upper quadrant ultrasound which was read as negative. (3) End-stage renal disease on hemodialysis: Code(s): N18.6 - End stage renal disease; Z99.2 - Dependence on renal dialysis Status: Acute Assessment and Plan: Nephrology has been consulted. Further recommendation for IV fluids. Patient had dialysis today. It sounds like he is Sunday and Sunday. (4) Coronary artery disease: Code(s): I25.10 - Atherosclerotic heart disease of [place] coronary artery without angina pectoris Status: Acute Assessment and Plan: The patient has a history of coronary artery disease with cardiac stents. (5) Essential hypertension: Code(s): I10 - Essential (primary) hypertension Status: Chronic Assessment and Plan: Patient is NPO at this time will do p.r.n. hydralazine. (6) Dyslipidemia: Code(s): E78.5 - Hyperlipidemia, unspecified Status: Chronic Assessment and Plan: Hold atorvastatin. Patient has elevated liver
--- NOTE | 2021-01-27 16:02 | PM.CNGS ---
Assessment and Plan Assessment and plan (1) Acute pancreatitis: Qualifiers: Acute pancreatitis complication: no infection or necrosis Pancreatitis type: unspecified pancreatitis type Qualified Code(s): K85.90 - Acute pancreatitis without necrosis or infection, unspecified Code(s): K85.90 - Acute pancreatitis without necrosis or infection, unspecified Status: Acute Assessment and Plan: Recurrent acute pancreatitis. Etiology is unclear. There is no evidence of cholecystitis. There is no indication for cholecystectomy. Advise gastroenterology consultation and bowel rest. I will sign off. Call if anything else I can do. (2) End-stage renal disease on hemodialysis: Code(s): N18.6 - End stage renal disease; Z99.2 - Dependence on renal dialysis Status: Chronic (3) Coronary artery disease: Code(s): I25.10 - Atherosclerotic heart disease of pala coronary artery without angina pectoris Status: Chronic (4) Diet-controlled diabetes mellitus: Code(s): E11.9 - Type 2 diabetes mellitus without complications Status: Chronic (5) Anemia of chronic disease: Code(s): D63.8 - Anemia in other chronic diseases classified elsewhere Status: Chronic History of Present Illness Consult details Consult date: 01/27/21 Reason for consult: abdominal pain Requesting physician: Gautam Pitts MD Narrative: Patient is a 75-year-old man with end-stage renal disease on hemodialysis. I had just seen him in consultation last week for possible biliary pancreatitis. At that time he was admitted with acute pancreatitis but had no evidence of gallstones on MRCP or on CT scan. A HIDA scan was done for reasons unknown to me which showed an ejection fraction of 25%. Patient got better and was discharged only to be readmitted a few days ago with recurrent severe epigastric pain and again found to have acute pancreatitis. Since his admission, an ultrasound was done which showed a normal gallbladder. I was asked to see the patient on this admission for possible cholecystitis. On both admissions, the patient has had some elevation of his liver enzymes which can occur with acute pancreatitis. Review of Systems Review of Systems: All systems reviewed & are unremarkable except as noted in HPI and below Constitutional: Constitutional: Denies chills and Denies fever(s) Cardiovascular: Cardiovascular: Denies chest pain, Denies diaphoresis, Denies dyspnea and Denies paroxysmal nocturnal dyspnea Respiratory: Respiratory: Denies chest congestion, Denies cough and Denies dyspnea Integumentary/Breasts: Skin/Breast: Denies lesions and Denies rash [facility] Past Medical History Medical History Anemia of chronic disease Coronary artery disease History of stents. Followed by Dr. Olivier Kern. Diet-controlled diabetes mellitus Dyslipidemia End-stage renal disease on hemodialysis Epigastric pain Essential hypertension Surgical History Surgical History AV fistula (~05/2018) History of basal cell carcinoma excision Right cheek per Dr. Salgado. Family History Family History Other Unknown family medical history Social History Social History Social History: Surrogate decision maker: Sid Puentesavery, [id number]. Code status: Full code. Smoking packs per day: 1 Smoking cigarettes per day: 20.0 Smoking status: Never smoker Second hand tobacco smoke exposure: No Alcohol intake: never Substance use: never Substance use type: does not use Additional living arrangements comments: The patient lives at [facility] in [place]. Originally from [place]. His children remain there. 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 Gender identity
--- NOTE | 2021-01-27 16:10 | WPDGIPROGNO ---
Progress Note: A&P Assessment and Plan (1) Acute pancreatitis: Qualifiers: Acute pancreatitis complication: no infection or necrosis Pancreatitis type: unspecified pancreatitis type Qualified Code(s): K85.90 - Acute pancreatitis without necrosis or infection, unspecified Code(s): K85.90 - Acute pancreatitis without necrosis or infection, unspecified Status: Acute Assessment and Plan: egd yesterday unremarkable with pending biopsies pain from pancreatitis, elevated lft's also from pancreatitis surgery evaluated patient again continue medical treatment, liquid diet for now, pain management idiopathic- probably will benefit at some point of EUS pancreas as outpatient (2) Elevated LFTs: Code(s): R79.89 - Other specified abnormal findings of blood chemistry Status: Acute Assessment and Plan: monitor hepatitis panel negative (3) Epigastric pain: Code(s): R10.13 - Epigastric pain Status: Acute (4) Anemia of chronic disease: Code(s): D63.8 - Anemia in other chronic diseases classified elsewhere Status: Chronic (5) End-stage renal disease on hemodialysis: Code(s): N18.6 - End stage renal disease; Z99.2 - Dependence on renal dialysis Status: Chronic Assessment and Plan: by nephrology Subjective Date/time seen: 01/27/21 16:10 Interval history: still with epigastric pain 5-6/10, less nausea Review of Systems Review of Systems: All systems reviewed & are unremarkable except as noted in HPI and below Exam Const: General: comfortable, no acute distress, alert and awake HENMT: Head: normocephalic and atraumatic General nose exam: Normal nares present Mouth: Yes Normal oral and palatal mucosa present Eyes: Conjunctivae: conjunctivae normal Pupils: Equal, round and reactive pupils present EOM: EOMs intact bilaterally Neck: Neck: normal visual inspection, no lymphadenopathy, supple and nontender Resp: Effort & Inspection: normal respiratory effort Auscultation: clear to auscultation bilaterally Cardio: Rate: regular rate Rhythm: regular rhythm Heart sounds: no gallops, no murmurs and no rubs GI: Inspection: non-distended GI Palp: Yes Soft to palpation, Yes Tenderness to palpation present (GI) (EPIGASTRIC), Yes Guarding due to palpation present (GI), No Hepatomegaly present and No Splenomegaly present Auscultation: Hypoactive bowel sounds present Skin: General skin exam: no rashes or lesions noted Lesions: no lesions Rashes: no rashes Neuro: General: no focal motor deficits and CN's II-XI intact bilaterally Cranial nerves: Yes Equal, round and reactive pupils present, Yes Bilaterally intact EOM present, Yes facial symmetry and Yes Midline tongue present Speech: normal speech Motor exam (neuro): 5/5 motor strength present throughout and Motor abnormalities not present Extrem: General: no clubbing, cyanosis or edema and edema Psych: Affect: normal affect Thought process: Normal thought process present Insight: Good insight present (Psych) Objective Data Vital Signs Vital Signs: Vital Signs - 24 hr 01/26/21 16:49 01/26/21 18:00 01/26/21 18:05 Temperature 98.3 F 98.4 F 98.3 F Pulse Rate 87 84 88 Respiratory Rate 20 18 20 Blood Pressure 175/82 H 144/57 H 160/72 H Pulse Oximetry 100 01/26/21 20:00 01/26/21 22:00 01/27/21 02:00 Temperature 98.8 F 98.2 F Pulse Rate 82 80 Respiratory Rate 16 16 Blood Pressure 142/53 H 140/55 L Pulse Oximetry 97 97 97 01/27/21 06:00 01/27/21 08:00 01/27/21 09:05 Temperature 98.9 F 98.8 F Pulse Rate 85 76 83 Respiratory Rate 16 22 H 22 H Blood Pressure 143/51 H 174/80 H Pulse Oximetry 97 97 01/27/21 09:11 01/27/21 09:15 01/27/21 09:30 Temperature Pulse Rate 75 78 77 Respiratory Rate Blood Pressure 167/75 H 169/81 H 165/79 H Pulse Oximetry 01/27/21 09:45 01/27/21 10:01 01/27/21 10:15 Temperature Pulse Rate 79 76 75 Respiratory Rate Bl
[2021-01-28] VITALS (23 sets, daily range): BP systolic 142–196; BP diastolic 55–85; PULSE 73–81; RESP 16–18; TEMP 36.7–37.1; O2SAT 96–100
[2021-01-28 05:47] LABS: Mean Corpuscular HGB Conc 32.8 g/dl (32-36); Mean Corpuscular Hemoglobin 32.5 pg (26-34); Mean Platelet Volume 11.3 fl (7.4-10.4); Platelet Count Result 113 k/mm3 (150-375); White Blood Count 5.9 K/mm3 (4.5-10.0)
[2021-01-28 05:53] LABS: Hematocrit 19.8 % (42.0-52.0); Hemoglobin 6.5 g/dL (14.0-18.0)
[2021-01-28 06:12] LABS: Alanine Aminotransferase 62 U/L (4-50); Alkaline Phosphatase 381 U/L (38-126); Anion Gap 3 mmol/L (8-16); Aspartate Amino Transferase 35 U/L (17-59); Bilirubin,Total 2.3 mg/dL (0.2-1.3); Blood Urea Nitrogen 20 mg/dL (9-20); Calcium 7.9 mg/dL (8.4-10.2); Carbon Dioxide 36 mmol/L (22-30); Chloride 98 mmol/L (98-107); Estimated CRCL calculation 9 ml/min; Estimated Glomerular Filt Rate 9; Glucose 158 mg/dL (75-110); Potassium 3.8 mmol/L (3.4-5.0); Sodium 137 mmol/L (137-145)
[2021-01-28 06:29] LABS: Lipase 3740 U/L (23-300)
[2021-01-28] MEDS: SODIUM CHLORIDE 0.9% IV 1,000 ML 100 ML IV CONT (07:40)
[2021-01-28] MEDS: PANTOPRAZOLE SODIUM IV 40 MG VIAL IV PUSH (07:52)
--- NOTE | 2021-01-28 08:11 | PCOTNOTE ---
Attempted to see patient this AM for skilled OT session, prior to entry RN and LOFTSMAN/WOMAN stated patient was being taken for dialysis at this time. Will attempt to see patient for a second attempt this date if possible. Will continue per Plan of Care.
--- NOTE | 2021-01-28 08:20 | PC.NURSE ---
to dialysis via bed
--- NOTE | 2021-01-28 09:41 | PC.NURSE ---
blood being given during dialysis treatment by custom marine canvas fabricator Morteza, confirmed blood and signed into TAR
[2021-01-28] MEDS: EPOETIN ALFA-EPBX 20,000 UNITS/ML VIAL 20000 UNITS IV PUSH (10:06)
--- NOTE | 2021-01-28 11:27 | PCPTNOTE ---
Attempted to see patient for PT, however unable to see patient at this time due to patient in dialysis.
--- NOTE | 2021-01-28 11:42 | PM.PNNEP ---
Progress Note: A&P Assessment and Plan (1) End stage renal disease: Code(s): N18.6 - End stage renal disease Status: Chronic Assessment and Plan: HD today to continue M/W/F schedule follow electrolytes, volume status, and clearance (2) Acute pancreatitis: Qualifiers: Acute pancreatitis complication: no infection or necrosis Pancreatitis type: unspecified pancreatitis type Qualified Code(s): K85.90 - Acute pancreatitis without necrosis or infection, unspecified Code(s): K85.90 - Acute pancreatitis without necrosis or infection, unspecified Status: Acute Assessment and Plan: etiology unclear s/p normal EGD Gastroenterology following follow trend of lipase continue supportive therapy (3) Elevated LFTs: Code(s): R79.89 - Other specified abnormal findings of blood chemistry Status: Acute Assessment and Plan: etiology? follow trend (4) Hypertension: Code(s): I10 - Essential (primary) hypertension Status: Acute Assessment and Plan: reasonable control at this time follow trend of hemodynamics (5) Anemia: Code(s): D64.9 - Anemia, unspecified Status: Acute Assessment and Plan: due to ESRD and acute illness Epogen with HD follow trend of H/H given events yesterday Will continue to follow. Subjective Date/time seen: 01/28/21 11:42 Patient tolerating dialysis treatment at the time of my visit (seen on HD at ~ 11:25AM); still having the same abdominal pain that led to his admission (not really worse but not really any better); no other acute issues/complaints voiced. Exam Narrative: Exam Narrative: General: WD/WN male in NAD Heart: normal S1 and S2; no rub Lungs: clear to auscultation Abdomen: soft, TTP with hypoactive sounds Extremities: no cyanosis or clubbing; no edema Skin: warm and intact Objective Data Vital Signs Vital Signs: Vital Signs Temp Pulse Resp BP Pulse Ox 01/28/21 11:15 73 184/76 H 01/28/21 11:00 73 171/75 H 01/28/21 10:45 73 178/66 H 01/28/21 10:30 75 184/78 H 01/28/21 10:15 75 196/77 H 01/28/21 10:08 78 184/85 H 01/28/21 10:00 78 186/83 H 01/28/21 09:45 81 179/82 H 01/28/21 09:38 37.1 C 78 18 160/69 H 01/28/21 09:30 78 160/69 H 01/28/21 09:15 78 159/75 H 01/28/21 09:00 78 176/77 H 01/28/21 08:45 80 158/67 H 01/28/21 08:31 80 167/76 H 01/28/21 08:20 37.1 C 73 18 164/71 H 96 01/28/21 06:00 36.7 C 78 16 142/63 H 96 01/28/21 02:00 36.7 C 75 18 146/58 H 97 01/27/21 22:14 96 01/27/21 21:43 36.8 C 78 20 143/53 H 98 01/27/21 20:00 98 01/27/21 18:00 37.5 C 82 18 155/52 H 100 01/27/21 14:00 37.0 C 81 18 147/56 H 96 01/27/21 13:09 98 01/27/21 12:20 37.1 C 76 22 H 147/64 H 01/27/21 12:10 72 147/72 H 01/27/21 12:01 73 154/68 H 01/27/21 11:45 74 158/73 H Intake/Output Intake/Output: Intake & Output 01/25/21 01/26/21 01/27/21 01/28/21 23:59 23:59 23:59 23:59 Intake Total 1040 1860 1640 400 Output Total 260 593 8564 350 Balance 915 1453 90 50 Meds/Results Medications: Active Medications Generic Name Dose Route Start Last Admin Trade Name Freq PRN Reason Stop Dose Admin Epoetin Volodymyr-epbx 20,000 units 01/28/21 18:59 01/28/21 10:06 Epoetin Vloodymyr-Epbx 20,000 Units/Ml Vial IV PUSH 01/28/21 19:00 20,000 units ONCE ONE Administration Hydralazine HCl 10 mg 01/24/21 23:41 Hydralazine Hcl 20 Mg/Ml Vial IV PUSH Q8H PRN Blood Pressure - High Hydromorphone HCl 0.5 mg 01/24/21 19:04 01/25/21 20:41 Hydromorphone Hcl Inj (*Crx) 1 Mg/Ml Syr IV PUSH 0.5 mg Q4H PRN Administration Pain Rated 7-10 Piperacillin Sod/Tazobactam Sod 2.25 gm in 50 mls @ 100 mls/hr 01/25/21 18:00 01/28/21 07:00 Zosyn 2.25 Gm/D5w 50 Ml IVPB Infused Q12H UMU Infusion Sodium Chlori
--- NOTE | 2021-01-28 12:31 | PC.NURSE ---
pt returned from dialysis via bed, doing well
--- NOTE | 2021-01-28 12:52 | PM.IMPN ---
Progress Note: A&P Assessment and Plan (1) Acute pancreatitis: Qualifiers: Acute pancreatitis complication: no infection or necrosis Pancreatitis type: unspecified pancreatitis type Qualified Code(s): K85.90 - Acute pancreatitis without necrosis or infection, unspecified Code(s): K85.90 - Acute pancreatitis without necrosis or infection, unspecified Status: Acute Assessment and Plan: The patient is NPO at this time. Continue to monitor lipase. I am not going to continue with any IV fluids at this time as he has dialysis. Continue with IV pain medication and pantoprazole. The patient was seen by GI and surgery the last admission. GI has been consulted this time. The patient had a delayed gallbladder and small bowel activity wound he had a hepatobiliary scan on by 721. Ejection fraction 25%.. The patient's abdominal pelvis CT was read as increase and mild peripancreatic fat stranding compared to 5 days ago. Patient's lipase was 18,890. Check triglycerides. 01/28/21 12:52 The patient is NPO at this time. Continue to monitor lipase. I am not going to continue with any IV fluids at this time as he has dialysis. Continue with IV pain medication and pantoprazole. The patient was seen by GI and surgery the last admission. GI has been consulted this time. The patient had a delayed gallbladder and small bowel activity wound he had a hepatobiliary scan on by 721. Ejection fraction 25%.. The patient's abdominal pelvis CT was read as increase and mild peripancreatic fat stranding compared to 5 days ago. Patient's lipase was 18,890. Check triglycerides. 01/27/21 14:23 01/25 Patient is 75-year-old male with history of end-stage renal disease on hemodialysis he was recently discharged after being treated for pancreatitis patient had a MRCP and did not show any gallstones, patient HIDA scan showed reduced ejection fraction, and his lipase were trending down so patient was discharged home on 01/22/21, however patient presented again last night with complaint abdominal pain and his lipase were close to 18,000 and this morning the close to 12,000, CT scan of the abdomen showed Increase in mild peripancreatic fat stranding compared to 5 days ago, appearance is suspicious for acute uncomplicated pancreatitis. Suggesting pancreatitis possibly infection will start the patient on Zosyn, this morning patient still is feeling much better pain is controlled denies any nausea or vomiting, patient will be seen by GI and further recommendation to follow, I suspect patient will need a surgery down the road once his infection is resolved will continue to monitor and further recommendation to follow. 01/26/21 patient still complains abdominal pain, patient was seen by GI and had a EGD which essentially normal, patient is scheduled for dialysis today, will continue to monitor, patient has pancreatitis and suspicious for for infection started the patient on Zosyn, will continue to monitor will consult surgery for further recommendation. 01/27 patient with epigastric pain elevated lipase and persistent had a EGD which was essentially normal, his pain is still persisting but no nausea or vomiting will consult surgery as patient may have cholecystitis, patient with end-stage renal disease on hemodialysis will be seen by his Nephrology will have scheduled dialysis and further recommendation to follow. 01/28 patient epigastric pain is still persisting as well as lipase elevated, patient EGD was normal, patient was seen by surgeon does not suspect patient has cholecystitis, patient hgb is low today there was an accident during dialysis patient lost some blood, and patient has chronic anemia due to ESRD, will continue to monitor hgb and trend lipase. (2) Transaminasemia: Code(s): R74.01 - Elevation of levels of liver transaminase levels Status: Acute Assessment and Plan: The patient did have an upper quadrant ultrasound which was read as
--- NOTE | 2021-01-28 15:58 | WPDGIPROGNO ---
Progress Note: A&P Assessment and Plan (1) Acute pancreatitis: Qualifiers: Acute pancreatitis complication: no infection or necrosis Pancreatitis type: unspecified pancreatitis type Qualified Code(s): K85.90 - Acute pancreatitis without necrosis or infection, unspecified Code(s): K85.90 - Acute pancreatitis without necrosis or infection, unspecified Status: Acute Assessment and Plan: pain from pancreatitis, elevated lft's also from pancreatitis egd no major changes but bx showed gastritis and duodenitis- on protonix surgery evaluated patient again continue medical treatment, liquid diet for now, pain management. Consider enteral feeding beyond Ligament of Treitz if still not eating using DHT ? idiopathic- probably will benefit at some point of EUS pancreas as outpatient (2) Elevated LFTs: Code(s): R79.89 - Other specified abnormal findings of blood chemistry Status: Acute Assessment and Plan: monitor hepatitis panel negative (3) Epigastric pain: Code(s): R10.13 - Epigastric pain Status: Acute Assessment and Plan: still uncomfortable (4) Anemia of chronic disease: Code(s): D63.8 - Anemia in other chronic diseases classified elsewhere Status: Chronic Assessment and Plan: chronic (5) End-stage renal disease on hemodialysis: Code(s): N18.6 - End stage renal disease; Z99.2 - Dependence on renal dialysis Status: Chronic Assessment and Plan: by nephrology Subjective Date/time seen: 01/28/21 15:58 Interval history: still similar epigastric pain Review of Systems Review of Systems: All systems reviewed & are unremarkable except as noted in HPI and below Exam Const: General: no acute distress Other: still in pain HENMT: General nose exam: Normal nares present Neck: Neck: supple Resp: Auscultation: clear to auscultation bilaterally Cardio: Rate: regular rate GI: Inspection: non-distended GI Palp: Yes Soft to palpation and Yes Tenderness to palpation present (GI) (epigastric) Auscultation: normal bowel sounds Skin: General skin exam: no erythema Neuro: Speech: normal speech Extrem: General: normal to inspection Psych: Mental Status: mental status grossly normal Objective Data Vital Signs Vital Signs: Vital Signs - 24 hr 01/27/21 18:00 01/27/21 20:00 01/27/21 21:43 Temperature 99.5 F 98.3 F Pulse Rate 82 78 Respiratory Rate 18 20 Blood Pressure 155/52 H 143/53 H Pulse Oximetry 100 98 98 01/27/21 22:14 01/28/21 02:00 01/28/21 06:00 Temperature 98.1 F 98.0 F Pulse Rate 75 78 Respiratory Rate 18 16 Blood Pressure 146/58 H 142/63 H Pulse Oximetry 96 97 96 01/28/21 08:20 01/28/21 08:31 01/28/21 08:45 Temperature 98.8 F Pulse Rate 73 80 80 Respiratory Rate 18 Blood Pressure 164/71 H 167/76 H 158/67 H Pulse Oximetry 96 01/28/21 09:00 01/28/21 09:15 01/28/21 09:30 Temperature Pulse Rate 78 78 78 Respiratory Rate Blood Pressure 176/77 H 159/75 H 160/69 H Pulse Oximetry 01/28/21 09:38 01/28/21 09:45 01/28/21 10:00 Temperature 98.7 F Pulse Rate 78 81 78 Respiratory Rate 18 Blood Pressure 160/69 H 179/82 H 186/83 H Pulse Oximetry 01/28/21 10:08 01/28/21 10:15 01/28/21 10:30 Temperature Pulse Rate 78 75 75 Respiratory Rate Blood Pressure 184/85 H 196/77 H 184/78 H Pulse Oximetry 01/28/21 10:45 01/28/21 11:00 01/28/21 11:15 Temperature Pulse Rate 73 73 73 Respiratory Rate Blood Pressure 178/66 H 171/75 H 184/76 H Pulse Oximetry 01/28/21 11:31 01/28/21 11:45 01/28/21 14:00 Temperature 98.2 F 98.6 F Pulse Rate 73 81 78 Respiratory Rate 16 16 Blood Pressure 167/67 H 178/80 H 168/58 H Pulse Oximetry 100 Intake/Output Intake/Output: Intake & Output 01/25/21 01/26/21 01/27/21 01/28/21 23:59 23:59 23:59 23:59 Intake Total 1040 1860 1640 940 Output Total 302 398 5313 1850 Balance 915 1453 90 -
[2021-01-28 21:51] LABS: Glucose Point of Care 103 (65-105)
[2021-01-29] VITALS (9 sets, daily range): BP systolic 151–180; BP diastolic 55–85; PULSE 80–90; RESP 16–26; TEMP 36.2–37.3; O2SAT 97–100
[2021-01-29] MEDS: HYDROmorphone HCL INJ (*CRX) 1 MG/ML SYR 0.5 MG IV PUSH ×2 (03:00→20:07)
[2021-01-29 05:49] LABS: Hematocrit 27.9 % (42.0-52.0); Hemoglobin 9.1 g/dL (14.0-18.0); Mean Corpuscular HGB Conc 32.6 g/dl (32-36); Mean Corpuscular Hemoglobin 32.4 pg (26-34); Mean Corpuscular Volume 99.3 fl (80-100); Platelet Count Result 134 k/mm3 (150-375); Red Blood Count 2.81 M/mm3 (4.6-6.20); Red Cell Distribution Width 13.9 % (11.5-14.5); White Blood Count 7.3 K/mm3 (4.5-10.0)
[2021-01-29 06:21] LABS: Alanine Aminotransferase 69 U/L (4-50); Albumin Level 3.7 g/dL (3.5-5.1); Alkaline Phosphatase 430 U/L (38-126); Anion Gap 4 mmol/L (8-16); Aspartate Amino Transferase 52 U/L (17-59); Bilirubin,Total 2.7 mg/dL (0.2-1.3); Blood Urea Nitrogen 17 mg/dL (9-20); Calcium 8.7 mg/dL (8.4-10.2); Carbon Dioxide 36 mmol/L (22-30); Chloride 99 mmol/L (98-107); Estimated CRCL calculation 12 ml/min; Estimated Glomerular Filt Rate 11; Glucose 150 mg/dL (75-110); Potassium 4.6 mmol/L (3.4-5.0); Sodium 139 mmol/L (137-145)
[2021-01-29 06:22] LABS: Lipase 3055 U/L (23-300)
[2021-01-29] MEDS: PANTOPRAZOLE SODIUM IV 40 MG VIAL IV PUSH (08:21)
[2021-01-29] MEDS: SODIUM CHLORIDE 0.9% IV 1,000 ML 2 ML (08:29)
--- NOTE | 2021-01-29 12:03 | PM.PNNEP ---
Progress Note: A&P Assessment and Plan (1) End stage renal disease: Code(s): N18.6 - End stage renal disease Status: Chronic Assessment and Plan: HD yesterday and continue M/W/ schedule follow electrolytes, volume status, and clearance (2) Acute pancreatitis: Qualifiers: Acute pancreatitis complication: no infection or necrosis Pancreatitis type: unspecified pancreatitis type Qualified Code(s): K85.90 - Acute pancreatitis without necrosis or infection, unspecified Code(s): K85.90 - Acute pancreatitis without necrosis or infection, unspecified Status: Acute Assessment and Plan: etiology unclear s/p normal EGD Gastroenterology following follow trend of lipase (slow downward trend) continue supportive therapy (3) Elevated LFTs: Code(s): R79.89 - Other specified abnormal findings of blood chemistry Status: Acute Assessment and Plan: etiology? follow trend (slowly improving) (4) Hypertension: Code(s): I10 - Essential (primary) hypertension Status: Acute Assessment and Plan: reasonable control at this time however, suspect pain issues playing a role follow trend of hemodynamics (5) Anemia: Code(s): D64.9 - Anemia, unspecified Status: Acute Assessment and Plan: due to ESRD and acute illness Epogen with HD s/p PRBC transfusion follow trend of H/H Will continue to follow. Subjective Date/time seen: 01/29/21 12:03 Tolerated dialysis yesterday without any issues or problems; PRBC transfusion yesterday as well with improvement in H/H; continue to have epigastric abdominal pain -- this is apparently worse after he has a bowel movement; lipase remains elevated. Exam Narrative: Exam Narrative: General: WD/WN male in NAD Heart: normal S1 and S2; no rub Lungs: clear to auscultation Abdomen: soft, TTP with hypoactive sounds Extremities: no cyanosis or clubbing; no edema Skin: no rash or nodules Objective Data Vital Signs Vital Signs: Vital Signs Temp Pulse Resp BP Pulse Ox 01/29/21 10:00 37.3 C 80 18 157/68 H 100 01/29/21 09:10 97 01/29/21 08:20 100 01/29/21 05:33 36.9 C 90 18 172/85 H 97 01/29/21 03:03 86 26 H 180/67 H 97 01/29/21 00:20 36.9 C 86 16 156/55 H 97 01/28/21 22:20 97 01/28/21 20:00 37.1 C 81 18 175/63 H 98 01/28/21 18:00 36.9 C 79 16 165/55 H 98 01/28/21 14:00 37.0 C 78 16 168/58 H 100 Intake/Output Intake/Output: Intake & Output 01/26/21 01/27/21 01/28/21 01/29/21 23:59 23:59 23:59 23:59 Intake Total 1860 1640 1230 650 Output Total 407 1550 1900 0 Balance 1453 90 -670 650 Meds/Results Medications: Active Medications Generic Name Dose Route Start Last Admin Trade Name Freq PRN Reason Stop Dose Admin Hydralazine HCl 10 mg 01/24/21 23:41 Hydralazine Hcl 20 Mg/Ml Vial IV PUSH Q8H PRN Blood Pressure - High Hydromorphone HCl 0.5 mg 01/24/21 19:04 01/29/21 03:00 Hydromorphone Hcl Inj (*Crx) 1 Mg/Ml Syr IV PUSH 0.5 mg Q4H PRN Administration Pain Rated 7-10 Piperacillin Sod/Tazobactam Sod 2.25 gm in 50 mls @ 100 mls/hr 01/25/21 18:00 01/29/21 06:32 Zosyn 2.25 Gm/D5w 50 Ml IVPB Infused Q12H UMU Infusion Albumin Human 50 mls @ 999 mls/hr 01/28/21 06:59 Albutein IVPB 02/27/21 07:00 Q10M PRN HYPOTENSION Ondansetron HCl 4 mg 01/24/21 19:04 Ondansetron Inj 4 Mg/2 Ml Vial IV PUSH Q4H PRN Nausea Pantoprazole Sodium 40 mg 01/25/21 09:00 01/29/21 08:21 Pantoprazole Sodium Iv 40 Mg Vial IV PUSH 40 mg QAM UMU Administration Radiology Results: ITS Impressions Upper Quadrant Ultrasound 01/24/21 15:57 IMPRESSION: 1. Normal right upper quadrant ultrasound. Labs Labs: Laboratory Tests 01/29/21 05:11 01/29/21 05:11 01/29/21 05:11 Total Bilirubin 2.7 H AST 52 ALT 69 H [place]
--- NOTE | 2021-01-29 13:19 | WPDGIPROGNO ---
Progress Note: A&P Assessment and Plan (1) Acute pancreatitis: Qualifiers: Acute pancreatitis complication: no infection or necrosis Pancreatitis type: unspecified pancreatitis type Qualified Code(s): K85.90 - Acute pancreatitis without necrosis or infection, unspecified Code(s): K85.90 - Acute pancreatitis without necrosis or infection, unspecified Status: Acute Assessment and Plan: pain from pancreatitis, elevated lft's also from pancreatitis (continue to monitor) egd with bx showed gastritis and duodenitis- on protonix continue medical treatment, liquid diet, pain management. ? idiopathic- probably will benefit at some point of EUS pancreas as outpatient (2) Elevated LFTs: Code(s): R79.89 - Other specified abnormal findings of blood chemistry Status: Acute Assessment and Plan: monitor hepatitis panel negative (3) Epigastric pain: Code(s): R10.13 - Epigastric pain Status: Acute Assessment and Plan: similar pain, pain meds as needed (4) Anemia of chronic disease: Code(s): D63.8 - Anemia in other chronic diseases classified elsewhere Status: Chronic Assessment and Plan: chronic (5) End-stage renal disease on hemodialysis: Code(s): N18.6 - End stage renal disease; Z99.2 - Dependence on renal dialysis Status: Chronic Assessment and Plan: by nephrology Subjective Date/time seen: 01/29/21 13:19 Interval history: pain about 5/10, tolerating liquid diet Review of Systems Review of Systems: All systems reviewed & are unremarkable except as noted in HPI and below Exam Const: General: no acute distress Other: still in pain, using O2 NC HENMT: General nose exam: Normal nares present Neck: Neck: supple Resp: Auscultation: clear to auscultation bilaterally Cardio: Rate: regular rate GI: Inspection: non-distended GI Palp: Yes Soft to palpation, Yes Tenderness to palpation present (GI) (epigastric) and No Guarding due to palpation present (GI) Auscultation: normal bowel sounds Skin: General skin exam: no erythema Neuro: Speech: normal speech Extrem: General: normal to inspection Psych: Mental Status: mental status grossly normal Objective Data Vital Signs Vital Signs: Vital Signs - 24 hr 01/28/21 14:00 01/28/21 18:00 01/28/21 20:00 Temperature 98.6 F 98.5 F 98.7 F Pulse Rate 78 79 81 Respiratory Rate 16 16 18 Blood Pressure 168/58 H 165/55 H 175/63 H Pulse Oximetry 100 98 98 01/28/21 22:20 01/29/21 00:20 01/29/21 03:03 Temperature 98.4 F Pulse Rate 86 86 Respiratory Rate 16 26 H Blood Pressure 156/55 H 180/67 H Pulse Oximetry 97 97 97 01/29/21 05:33 01/29/21 08:20 01/29/21 09:10 Temperature 98.5 F Pulse Rate 90 Respiratory Rate 18 Blood Pressure 172/85 H Pulse Oximetry 97 100 97 01/29/21 10:00 Temperature 99.1 F Pulse Rate 80 Respiratory Rate 18 Blood Pressure 157/68 H Pulse Oximetry 100 Intake/Output Intake/Output: Intake & Output 01/26/21 01/27/21 01/28/21 01/29/21 23:59 23:59 23:59 23:59 Intake Total 1860 1640 1230 650 Output Total 407 1550 1900 0 Balance 1453 90 -670 650 Meds/Results Medications: Active Medications Generic Name Dose Route Start Last Admin Trade Name Freq PRN Reason Stop Dose Admin Hydralazine HCl 10 mg 01/24/21 23:41 Hydralazine Hcl 20 Mg/Ml Vial IV PUSH Q8H PRN Blood Pressure - High Hydromorphone HCl 0.5 mg 01/24/21 19:04 01/29/21 03:00 Hydromorphone Hcl Inj (*Crx) 1 Mg/Ml Syr IV PUSH 0.5 mg Q4H PRN Administration Pain Rated 7-10 Piperacillin Sod/Tazobactam Sod 2.25 gm in 50 mls @ 100 mls/hr 01/25/21 18:00 01/29/21 06:32 Zosyn 2.25 Gm/D5w 50 Ml IVPB Infused Q12H UMU Infusion Albumin Human 50 mls @ 999 mls/hr 01/28/21 06:59 Albutein IVPB 02/27/21 07:00 Q10M PRN HYPOTENSION Ondansetron HCl 4 mg 01/24/21 19:04 Ondansetron Inj 4 Mg/2 Ml Vial IV PU
--- NOTE | 2021-01-29 17:31 | PM.IMPN ---
Progress Note: A&P Assessment and Plan (1) Acute pancreatitis: Qualifiers: Acute pancreatitis complication: no infection or necrosis Pancreatitis type: unspecified pancreatitis type Qualified Code(s): K85.90 - Acute pancreatitis without necrosis or infection, unspecified Code(s): K85.90 - Acute pancreatitis without necrosis or infection, unspecified Status: Acute Assessment and Plan: The patient is NPO at this time. Continue to monitor lipase. I am not going to continue with any IV fluids at this time as he has dialysis. Continue with IV pain medication and pantoprazole. The patient was seen by GI and surgery the last admission. GI has been consulted this time. The patient had a delayed gallbladder and small bowel activity wound he had a hepatobiliary scan on by 721. Ejection fraction 25%.. The patient's abdominal pelvis CT was read as increase and mild peripancreatic fat stranding compared to 5 days ago. Patient's lipase was 18,890. Check triglycerides. 01/29/21 17:31 The patient is NPO at this time. Continue to monitor lipase. I am not going to continue with any IV fluids at this time as he has dialysis. Continue with IV pain medication and pantoprazole. The patient was seen by GI and surgery the last admission. GI has been consulted this time. The patient had a delayed gallbladder and small bowel activity wound he had a hepatobiliary scan on by 721. Ejection fraction 25%.. The patient's abdominal pelvis CT was read as increase and mild peripancreatic fat stranding compared to 5 days ago. Patient's lipase was 18,890. Check triglycerides. 01/27/21 14:23 01/25 Patient is 75-year-old male with history of end-stage renal disease on hemodialysis he was recently discharged after being treated for pancreatitis patient had a MRCP and did not show any gallstones, patient HIDA scan showed reduced ejection fraction, and his lipase were trending down so patient was discharged home on 01/22/21, however patient presented again last night with complaint abdominal pain and his lipase were close to 18,000 and this morning the close to 12,000, CT scan of the abdomen showed Increase in mild peripancreatic fat stranding compared to 5 days ago, appearance is suspicious for acute uncomplicated pancreatitis. Suggesting pancreatitis possibly infection will start the patient on Zosyn, this morning patient still is feeling much better pain is controlled denies any nausea or vomiting, patient will be seen by GI and further recommendation to follow, I suspect patient will need a surgery down the road once his infection is resolved will continue to monitor and further recommendation to follow. 01/26/21 patient still complains abdominal pain, patient was seen by GI and had a EGD which essentially normal, patient is scheduled for dialysis today, will continue to monitor, patient has pancreatitis and suspicious for for infection started the patient on Zosyn, will continue to monitor will consult surgery for further recommendation. 01/27 patient with epigastric pain elevated lipase and persistent had a EGD which was essentially normal, his pain is still persisting but no nausea or vomiting will consult surgery as patient may have cholecystitis, patient with end-stage renal disease on hemodialysis will be seen by his Nephrology will have scheduled dialysis and further recommendation to follow. 01/28 patient epigastric pain is still persisting as well as lipase elevated, patient EGD was normal, patient was seen by surgeon does not suspect patient has cholecystitis, patient hgb is low today there was an accident during dialysis patient lost some blood, and patient has chronic anemia due to ESRD, will continue to monitor hgb and trend lipase. 01/29 today patient lipase are still persisting, to further evaluate patient had a CT scan of abdomen it showed near resolution of pancreatitis however patient complains of abdominal pain nausea and loose bowel movem
[2021-01-30] VITALS (32 sets, daily range): BP systolic 126–218; BP diastolic 48–109; PULSE 71–115; RESP 18–36; TEMP 0–37.7; O2SAT 95–100
[2021-01-30] MEDS: ZOLPIDEM TARTRATE (*CRX) 5 MG TABLET PO (00:09)
--- NOTE | 2021-01-30 01:23 | ECG_ITS ---
Measurements Intervals [place] Rate: 82 P: 19 NV: 143 QRS: 19 QRSD: 88 T: 55 QT: 428 QTc: 501 Interpretive Statements SINUS RHYTHM POSSIBLE LEFT ATRIAL ENLARGEMENT ANTEROSEPTAL INFARCT, AGE INDETERMINATE ABNORMAL ECG Electronically Signed On 01-30-2021 14:35:47 CDT by Olivier Kern D.O.
[2021-01-30] MEDS: hydrALAZINE HCL 20 MG/ML VIAL IV PUSH (01:34)
[2021-01-30] MEDS: FUROSEMIDE INJ 40 MG/4 ML VIAL IV PUSH (01:34)
[2021-01-30] MEDS: MORPHINE SULFATE (*CRX) 2 MG/ML INJ IV PUSH (01:35)
[2021-01-30] MEDS: NALOXONE HCL 0.4 MG/ML VIAL IV PUSH (01:35)
[2021-01-30 01:42] LABS: Glucose Point of Care 161 (65-105)
[2021-01-30 01:48] LABS: Alveolar/Arterial O2 Gradient 234.7 mmHg; Base Excess ABG 0.5 mEq/l (+/-2.0); Carboxyhemoglobin 0.3 % THb (0-2.0); Fractional Inspired Oxygen 100 %; HCO3 ABG 25.6 mEq/l (22.0-26.0); Methemoglobin ABG 0.3 %THb (0-1.5); Oxygen Content ABG 17.2 %vol (16.0-22.0); Oxygen Saturation ABG 99.8 % (95.0-100.0); Oxyhemoglobin 98.4 % THb (90.0-100.0); PCO2 ABG 43.1 mmHg (35.0-45.0); PO2 ABG 435.2 mmHg (80.0-100.0); PO2 FiO2 Ratio Arterial Blood 4.35 %; Total Hemoglobin 11.6 g/dL (12.0-18.0); pH ABG 7.391 (7.350-7.450)
[2021-01-30 01:49] LABS: Device NON-INVASIVE VENT; Modified Allen's Test Pass; Site Drawn LEFT RADIAL
[2021-01-30 01:50] LABS: Non-Invasive Expiratory Pressure 8 CMH2O; Non-Invasive Inspiratory Pressure 16 CMH2O; Non-Invasive Vent Rate 14 /MIN
[2021-01-30] MEDS: ALBUTEROL SULFATE NEB 2.5 MG/0.5 ML INH 10 MG (01:52)
[2021-01-30] MEDS: IPRATROPIUM BR 0.02% INH SOLN 0.5 MG/2.5 ML VIAL 1 MG (01:53)
[2021-01-30] MEDS: MORPHINE SULFATE (*CRX) 4 MG/ML INJ IM (02:05)
--- NOTE | 2021-01-30 02:06 | PC.NURSE ---
Spoke with contacts regarding pt needing bipap and having to be moved from medical floor to Intermediate medical unit
--- NOTE | 2021-01-30 02:22 | PM.EVENT ---
Event Note Event Note Event Note: A RAPID RESPONSE WAS CALLED TO PATIENT'S ROOM AFTER HE WAS OBTUNDED AND WITH RESPIRATORY RATE IN THE 40S. UPON ARRIVAL TO THE ROOM PATIENT WAS MINIMALLY RESPONSIVE AND IN RESPIRATORY DISTRESS. PATIENT RECEIVED 0.4 OF NARCAN HE BECAME MORE RESPONSIVE. PATIENT WAS PLACED ON NON-REBREATHER AND CONTINUES NEBULIZER TREATMENTS WITH ALBUTEROL. VITALS PATIENT HAD A SYSTOLIC IN THE 230'S WITH DIASTOLIC IN THE 100'S HE WAS VERY DIMINISHED ON AUSCULTATION OR RESPIRATORY SYSTEM DECISION WAS MADE TO TRANSFER THE PATIENT TO IMU AND PLACE ON BIPAP. A STAT CHEST X-RAY SHOWED ACUTE FLASH PULMONARY EDEMA ON RIGHT-SIDED PLEURAL EFFUSION. NEPHROLOGY WAS CONTACTED FOR EMERGENT DIALYSIS. IR FOR POSSIBLE THORACENTESIS IN A.M. PATIENT ALSO RECEIVED HYDRALAZINE 20 MG IV PUSH, MORPHINE 4 MG IV PUSH AND LASIX 40 MG IV PUSH HOWEVER PATIENT STATES THAT HE DOES NOT MAKE URINE. PATIENT IS ON CONTINUOUS PULSE OXIMETRY TELE MONITORING AND ON BIPAP. AN ABG SHOWED A PH 7.3 PCO2 43 PO2 OF 435. WILL TITRATE FIO2.
--- NOTE | 2021-01-30 02:58 | PC.NURSE ---
Repeated calls to get ahold of plastics fabrication supervisor dialysis nurse both macerator operator and exchange number. Fnps calls at [phone] and [phone]. [facility] exchange called [phone] and [phone]. Sandy, plastics fabrication supervisor ethylene compressor operator returned call at [phone] and stated it will be a couple of hours before she gets to the hospital. Dr Pelaez informed of estimated arrival time.
--- NOTE | 2021-01-30 04:15 | PC.NURSE ---
This patient, Jose Quinonez, was received from room 240-01 on 01/30/21 at 0132. Patient/family oriented to unit policies and routines. Report received from GREGORIA Berry. GREGORIA Berry states that she updated Pt's family of rapid response and the Tx to IMU.
[2021-01-30 05:51] LABS: Hematocrit 24.9 % (42.0-52.0); Hemoglobin 8.1 g/dL (14.0-18.0); Mean Corpuscular HGB Conc 32.5 g/dl (32-36); Mean Corpuscular Hemoglobin 32.3 pg (26-34); Mean Corpuscular Volume 99.2 fl (80-100); Mean Platelet Volume 11.2 fl (7.4-10.4); Platelet Count Result 133 k/mm3 (150-375); Red Blood Count 2.51 M/mm3 (4.6-6.20); Red Cell Distribution Width 13.5 % (11.5-14.5); White Blood Count 9.5 K/mm3 (4.5-10.0)
[2021-01-30 06:01] LABS: Alanine Aminotransferase 54 U/L (4-50); Albumin Level 3.3 g/dL (3.5-5.1); Alkaline Phosphatase 315 U/L (38-126); Anion Gap 6 mmol/L (8-16); Aspartate Amino Transferase 33 U/L (17-59); Bilirubin,Total 2.1 mg/dL (0.2-1.3); Blood Urea Nitrogen 27 mg/dL (9-20); Carbon Dioxide 30 mmol/L (22-30); Chloride 99 mmol/L (98-107); Estimated CRCL calculation 9 ml/min; Estimated Glomerular Filt Rate 8; Glucose 158 mg/dL (75-110); Lipase 1583 U/L (23-300); Potassium 4.8 mmol/L (3.4-5.0); Sodium 135 mmol/L (137-145)
[2021-01-30] MEDS: PANTOPRAZOLE SODIUM IV 40 MG VIAL IV PUSH (11:05)
--- NOTE | 2021-01-30 11:12 | WPDGIPROGNO ---
Progress Note: A&P Assessment and Plan (1) Acute pancreatitis: Qualifiers: Acute pancreatitis complication: no infection or necrosis Pancreatitis type: unspecified pancreatitis type Qualified Code(s): K85.90 - Acute pancreatitis without necrosis or infection, unspecified Code(s): K85.90 - Acute pancreatitis without necrosis or infection, unspecified Status: Acute Assessment and Plan: pain from pancreatitis, elevated lft's also from pancreatitis but trending down repeat CT scan yesterday reviewed, resolution of pancreatitis will advance diet to renal/low fat as tolerated continue medical treatment, pain management. ? idiopathic also had gastritis on biopsies (continue with ppi) (2) Elevated LFTs: Code(s): R79.89 - Other specified abnormal findings of blood chemistry Status: Acute Assessment and Plan: trending down- from pancreatitis also was evaluated by surgery hepatitis panel negative (3) Epigastric pain: Code(s): R10.13 - Epigastric pain Status: Acute Assessment and Plan: pain meds as needed (4) Anemia of chronic disease: Code(s): D63.8 - Anemia in other chronic diseases classified elsewhere Status: Chronic Assessment and Plan: chronic and stable (5) Pulmonary edema: Code(s): J81.1 - Chronic pulmonary edema Status: Acute Assessment and Plan: yesterday more SOB, today received dialysis continue to monitor (6) End-stage renal disease on hemodialysis: Code(s): N18.6 - End stage renal disease; Z99.2 - Dependence on renal dialysis Status: Chronic Assessment and Plan: by nephrology Subjective Date/time seen: 01/30/21 11:12 Interval history: yesterday had more shortness of breath and found to have pulmonary edema, he just completed dialysis this morning. Also was moved to IMU, less abdominal pain also had CT a/p with resolution of pancreatitis Review of Systems Review of Systems: All systems reviewed & are unremarkable except as noted in HPI and below Exam Const: General: no acute distress and ill appearing chronically Other: using O2 NC HENMT: General nose exam: Normal nares present Neck: Neck: supple Resp: Auscultation: diminished lung sounds Cardio: Rate: regular rate GI: Inspection: non-distended GI Palp: Yes Soft to palpation, Yes Tenderness to palpation present (GI) (epigastric- less tender, no guarding) and No Guarding due to palpation present (GI) Auscultation: normal bowel sounds Skin: General skin exam: no erythema Neuro: Speech: normal speech Extrem: General: normal to inspection Other: AV graft right arm (for dialysis) Psych: Mental Status: mental status grossly normal Objective Data Vital Signs Vital Signs: Vital Signs - 24 hr 01/29/21 14:00 01/29/21 18:00 01/29/21 20:43 Temperature 97.9 F 97.2 F L 98.2 F Pulse Rate 85 82 82 Respiratory Rate 18 18 16 Blood Pressure 151/67 H 158/58 H 156/55 H Pulse Oximetry 97 100 97 01/30/21 00:00 01/30/21 01:12 01/30/21 01:15 Temperature 98.9 F 99.9 F H Pulse Rate 95 111 H 110 H Respiratory Rate 20 22 H 36 H Blood Pressure 176/72 H 218/90 H 213/109 H Pulse Oximetry 98 100 100 01/30/21 01:30 01/30/21 01:35 01/30/21 01:40 Temperature 98 F Pulse Rate 115 H 111 H Respiratory Rate 34 H 34 H Blood Pressure 178/108 H 183/90 H 193/71 H Pulse Oximetry 100 100 01/30/21 01:46 01/30/21 01:48 01/30/21 02:00 Temperature Pulse Rate 112 H 111 H 103 H Respiratory Rate 30 H Blood Pressure 193/71 H Pulse Oximetry 100 01/30/21 03:56 01/30/21 04:00 01/30/21 05:44 Temperature 98.1 F Pulse Rate 83 83 79 Respiratory Rate 19 19 Blood Pressure 128/52 L Pulse Oximetry 100 100 01/30/21 07:38 01/30/21 07:45 01/30/21 08:00 Temperature 98.3 F Pulse Rate 83 84 82 Respiratory Rate 22 H Blood Pressure 157/80 H 160/80 H 165/80 H Pulse Oximetry 01/30/21 08:15 01/30/21 08:30
--- NOTE | 2021-01-30 15:05 | PM.PNNEP ---
Progress Note: A&P Assessment and Plan (1) End stage renal disease: Code(s): N18.6 - End stage renal disease Status: Chronic Assessment and Plan: HD tomorrow and continue M/W/F schedule follow electrolytes, volume status, and clearance (2) Acute pancreatitis: Qualifiers: Acute pancreatitis complication: no infection or necrosis Pancreatitis type: unspecified pancreatitis type Qualified Code(s): K85.90 - Acute pancreatitis without necrosis or infection, unspecified Code(s): K85.90 - Acute pancreatitis without necrosis or infection, unspecified Status: Acute Assessment and Plan: etiology unclear s/p normal EGD Gastroenterology following follow trend of lipase (slow downward trend) continue supportive therapy (3) Elevated LFTs: Code(s): R79.89 - Other specified abnormal findings of blood chemistry Status: Acute Assessment and Plan: etiology? follow trend (slowly improving) (4) Hypertension: Code(s): I10 - Essential (primary) hypertension Status: Acute Assessment and Plan: reasonable control at this time however, suspect pain issues playing a role follow trend of hemodynamics (5) Anemia: Code(s): D64.9 - Anemia, unspecified Status: Acute Assessment and Plan: due to ESRD and acute illness Epogen with HD s/p PRBC transfusion on this admission follow trend of H/H Will continue to follow. Subjective Date/time seen: 01/30/21 15:05 Rapid response overnight due to altered mental status/poor responsiveness associated with hypertensive urgency -- improved mentation with administration of narcan but CXR with evidence of pulmonary edema (presumed to be flash pulmonary edema from high BP (200s systolic); given IV medications to help BP and patient received urgent DUF/fluid removal this AM; overall, currently, the patient is feeling much better. Exam Narrative: Exam Narrative: General: WD/WN male in NAD Heart: normal S1 and S2; no rub Lungs: decreased at bases Abdomen: soft, TTP with hypoactive sounds Extremities: no cyanosis or clubbing; no edema Skin: no rash or nodules Objective Data Vital Signs Vital Signs: Vital Signs Temp Pulse Resp BP Pulse Ox 01/30/21 14:00 77 01/30/21 12:00 81 20 97 01/30/21 11:02 36.4 C L 74 20 132/58 L 100 01/30/21 10:45 36.7 C 79 22 H 151/69 H 05/16/21 10:30 73 127/60 01/30/21 10:00 71 145/59 H 01/30/21 09:45 75 137/63 01/30/21 09:30 78 149/72 H 01/30/21 09:15 81 126/60 01/30/21 09:00 76 138/64 01/30/21 08:45 78 162/74 H 01/30/21 08:30 76 137/65 01/30/21 08:15 78 151/74 H 01/30/21 08:00 74 20 165/80 H 100 01/30/21 07:45 84 160/80 H 01/30/21 07:38 36.8 C 83 22 H 157/80 H 01/30/21 05:44 79 01/30/21 04:00 83 19 100 01/30/21 03:56 36.7 C 83 19 128/52 L 100 01/30/21 02:00 103 H 01/30/21 01:48 111 H 30 H 193/71 H 01/30/21 01:46 112 H 01/30/21 01:40 36.6 C 111 H 34 H 193/71 H 01/30/21 01:35 183/90 H 01/30/21 01:30 115 H 34 H 178/108 H 01/30/21 01:15 110 H 36 H 213/109 H 01/30/21 01:12 37.7 C H 111 H 22 H 218/90 H 01/30/21 00:00 37.2 C 95 20 176/72 H 98 01/29/21 20:43 36.8 C 82 16 156/55 H 97 01/29/21 18:00 36.2 C L 82 18 158/58 H 100 Intake/Output Intake/Output: Intake & Output 01/27/21 01/28/21 01/29/21 01/30/21 23:59 23:59 23:59 23:59 Intake Total 1640 1230 1530 730 Output Total 1550 1900 0 3050 Balance 90 670 1530 2320 Meds/Results Medications: Active Medications Generic Name Dose Route Start Last Admin Trade Name Freq PRN Reason Stop Dose Admin Hydralazine HCl 10 mg 01/24/21 23:41 Hydralazine Hcl 20 Mg/Ml Vial IV PUSH Q8H PRN Blood Pressure - High Piperacillin Sod/Tazobactam Sod 2.25 gm in 50 mls @ 100 mls/hr 01/15
[2021-01-31] VITALS (11 sets, daily range): BP systolic 145–175; BP diastolic 56–60; PULSE 70–83; RESP 16–20; TEMP 36.4–36.6; O2SAT 93–99
[2021-01-31 07:01] LABS: Hematocrit 25.5 % (42.0-52.0); Hemoglobin 8.2 g/dL (14.0-18.0); Mean Corpuscular HGB Conc 32.2 g/dl (32-36); Mean Corpuscular Hemoglobin 32.2 pg (26-34); Mean Platelet Volume 10.9 fl (7.4-10.4); Platelet Count Result 152 k/mm3 (150-375); Red Blood Count 2.55 M/mm3 (4.6-6.20); Red Cell Distribution Width 13.3 % (11.5-14.5); White Blood Count 8.7 K/mm3 (4.5-10.0)
--- NOTE | 2021-01-31 07:24 | P.PNNP_ITS ---
Progress Note: A&P Assessment and Plan (1) End stage renal disease: Code(s): N18.6 - End stage renal disease Status: Chronic Assessment and Plan: * HD today. * Orders written by Dr. Adamson. * Chemistries pending. (2) Acute pancreatitis: Qualifiers: Acute pancreatitis complication: no infection or necrosis Pancreatitis type: unspecified pancreatitis type Qualified Code(s): K85.90 - Acute pancreatitis without necrosis or infection, unspecified Code(s): K85.90 - Acute pancreatitis without necrosis or infection, unspecified Status: Acute Assessment and Plan: * etiology unclear * s/p normal EGD * Gastroenterology following * follow trend of lipase (slow downward trend). 1500 yesterday. * continue supportive therapy (3) Elevated LFTs: Code(s): R79.89 - Other specified abnormal findings of blood chemistry Status: Acute Assessment and Plan: * etiology? * follow trend (slowly improving) (4) Hypertension: Code(s): I10 - Essential (primary) hypertension Status: Acute Assessment and Plan: * Systolic has been ranging 130-160. * however, suspect pain issues playing a role * Will restart carvedilol half dose for now and watch bp. * On hydralazine as needed. * He had dialysis yesterday which helped bring the blood pressure down as well. (5) Anemia: Code(s): D64.9 - Anemia, unspecified Status: Acute Assessment and Plan: * due to ESRD and acute illness * Epogen with HD * s/p PRBC transfusion recently, bring the hemoglobin up to 9.1 but now in the low 8. * Check stool guaiac. * Will continue to follow. Subjective Date/time seen: 01/31/21 07:24 Interval history: Patient lying in bed comfortably. No shortness of breath. No pain. Exam Narrative: Exam Narrative: General: WD/WN male in NAD Heart: normal S1 and S2; no rub or gallop Lungs: decreased at bases Abdomen: soft, TTP with hypoactive sounds Extremities: no edema Skin: no rash Objective Data Vital Signs Vital Signs: Vital Signs - 24 hr 01/30/21 07:38 01/30/21 07:45 01/30/21 08:00 Temperature 36.8 C Pulse Rate 83 84 74 Respiratory Rate 22 H 20 Blood Pressure 157/80 H 160/80 H 165/80 H Pulse Oximetry 100 01/30/21 08:15 01/30/21 08:30 01/30/21 08:45 Temperature Pulse Rate 78 76 78 Respiratory Rate Blood Pressure 151/74 H 137/65 162/74 H Pulse Oximetry 01/30/21 09:00 01/30/21 09:15 01/30/21 09:30 Temperature Pulse Rate 76 81 78 Respiratory Rate Blood Pressure 138/64 126/60 149/72 H Pulse Oximetry 01/30/21 09:45 01/30/21 10:00 01/30/21 10:30 Temperature Pulse Rate 75 71 73 Respiratory Rate Blood Pressure 137/63 145/59 H 127/60 Pulse Oximetry 01/30/21 10:45 01/30/21 11:02 01/30/21 12:00 Temperature 36.7 C 36.4 C L Pulse Rate 79 74 81 Respiratory Rate 22 H 20 20 Blood Pressure 151/69 H 132/58 L Pulse Oximetry 100 97 01/30/21 14:00 01/30/21 16:00 01/30/21 18:00 Temperature 36.6 C Pulse Rate 77 79 81 Respirat
--- NOTE | 2021-01-31 07:24 | PM.PNNEP ---
Progress Note: A&P Assessment and Plan (1) End stage renal disease: Code(s): N18.6 - End stage renal disease Status: Chronic Assessment and Plan: HD today. Orders written by Dr. Adamson. Chemistries pending. (2) Acute pancreatitis: Qualifiers: Acute pancreatitis complication: no infection or necrosis Pancreatitis type: unspecified pancreatitis type Qualified Code(s): K85.90 - Acute pancreatitis without necrosis or infection, unspecified Code(s): K85.90 - Acute pancreatitis without necrosis or infection, unspecified Status: Acute Assessment and Plan: etiology unclear s/p normal EGD Gastroenterology following follow trend of lipase (slow downward trend). 1500 yesterday. continue supportive therapy (3) Elevated LFTs: Code(s): R79.89 - Other specified abnormal findings of blood chemistry Status: Acute Assessment and Plan: etiology? follow trend (slowly improving) (4) Hypertension: Code(s): I10 - Essential (primary) hypertension Status: Acute Assessment and Plan: Systolic has been ranging 130-160. however, suspect pain issues playing a role Will restart carvedilol half dose for now and watch bp. On hydralazine as needed. He had dialysis yesterday which helped bring the blood pressure down as well. (5) Anemia: Code(s): D64.9 - Anemia, unspecified Status: Acute Assessment and Plan: due to ESRD and acute illness Epogen with HD s/p PRBC transfusion recently, bring the hemoglobin up to 9.1 but now in the low 8. Check stool guaiac. Will continue to follow. Subjective Date/time seen: 01/31/21 07:24 Interval history: Patient lying in bed comfortably. No shortness of breath. No pain. Exam Narrative: Exam Narrative: General: WD/WN male in NAD Heart: normal S1 and S2; no rub or gallop Lungs: decreased at bases Abdomen: soft, TTP with hypoactive sounds Extremities: no edema Skin: no rash Objective Data Vital Signs Vital Signs: Vital Signs - 24 hr 01/30/21 07:38 01/30/21 07:45 01/30/21 08:00 Temperature 36.8 C Pulse Rate 83 84 74 Respiratory Rate 22 H 20 Blood Pressure 157/80 H 160/80 H 165/80 H Pulse Oximetry 100 01/30/21 08:15 01/30/21 08:30 01/30/21 08:45 Temperature Pulse Rate 78 76 78 Respiratory Rate Blood Pressure 151/74 H 137/65 162/74 H Pulse Oximetry 01/30/21 09:00 01/30/21 09:15 01/30/21 09:30 Temperature Pulse Rate 76 81 78 Respiratory Rate Blood Pressure 138/64 126/60 149/72 H Pulse Oximetry 01/30/21 09:45 01/30/21 10:00 01/30/21 10:30 Temperature Pulse Rate 75 71 73 Respiratory Rate Blood Pressure 137/63 145/59 H 127/60 Pulse Oximetry 01/30/21 10:45 01/30/21 11:02 01/30/21 12:00 Temperature 36.7 C 36.4 C L Pulse Rate 79 74 81 Respiratory Rate 22 H 20 20 Blood Pressure 151/69 H 132/58 L Pulse Oximetry 100 97 01/30/21 14:00 01/30/21 16:00 01/30/21 18:00 Temperature 36.6 C Pulse Rate 77 79 81 Respiratory Rate 20 Blood Pressure 138/60 Pulse Oximetry 96 01/30/21 20:00 01/30/21 23:32 01/31/21 00:00 Temperature 36.5 C 36.1 C L Pulse Rate 83 80 78 Respiratory Rate 20 18 Blood Pressure 139/54 L 146/48 H Pulse Oximetry 95 96 95 01/31/21 02:00 01/31/21 04:00 01/31/21 06:00 Temperature 36.4 C Pulse Rate 79 79 83 Respiratory Rate 20 Blood Pressure 156/56 H Pulse Oximetry 97 Intake/Output Intake/Output: Intake & Output 01/28/21 01/29/21 01/30/21 01/31/21 23:59 23:59 23:59 23:59 Intake Total 1230 1530 1080 150 Output Total 1900 0 3050 50 Balance -670 1530 -1970 100 Meds/Results Medications: Active Medications Generic Name Dose Route Start Last Admin Trade Name Freq PRN Reason Stop Dose Admin Epoetin Volodymyr-epbx 10,000 units 01/31/21 19:00 Epoetin Volodymyr-Epbx 10,000 Units/Ml Vial IV PUSH 01/31/21 19:01 ONCE ONE Hydralazine
[2021-01-31 07:30] LABS: Alanine Aminotransferase 47 U/L (4-50); Albumin Level 3.3 g/dL (3.5-5.1); Alkaline Phosphatase 273 U/L (38-126); Anion Gap 10 mmol/L (8-16); Aspartate Amino Transferase 29 U/L (17-59); Bilirubin,Total 1.6 mg/dL (0.2-1.3); Blood Urea Nitrogen 34 mg/dL (9-20); Calcium 8.2 mg/dL (8.4-10.2); Carbon Dioxide 28 mmol/L (22-30); Chloride 98 mmol/L (98-107); Estimated CRCL calculation 7 ml/min; Estimated Glomerular Filt Rate 6; Glucose 137 mg/dL (75-110); Lipase 1786 U/L (23-300); Potassium 4.4 mmol/L (3.4-5.0); Sodium 136 mmol/L (137-145)
[2021-01-31] MEDS: PANTOPRAZOLE SODIUM IV 40 MG VIAL IV PUSH (08:38)
[2021-01-31] MEDS: carvediloL 12.5 MG TABLET PO (08:38)
--- NOTE | 2021-01-31 10:11 | PM.EVENT ---
Event Note Event Note Event Note: Patient on dialysis. Tolerating it well. Going for 2L today. Blood pressure 136. Seen at 10:00 a.m.
[2021-01-31 12:48] LABS: Iron 35 ug/dL (49-181)
--- NOTE | 2021-01-31 12:50 | PCDIET ---
Weekly nutritional screen. Patient is tolerating current diet with adequate intake. No weight loss reported. No nutritional needs at this time.
[2021-01-31 12:59] LABS: Percent Iron Saturation 23 % (20-50)
--- NOTE | 2021-01-31 15:26 | PM.DS ---
DS: Admitting Diagnosis Admitting Diagnosis Admitting Diagnosis: Chief Complaint: Abdominal pain DS: Discharge Diagnosis Discharge Diagnosis (1) Acute pancreatitis: Qualifiers: Acute pancreatitis complication: no infection or necrosis Pancreatitis type: unspecified pancreatitis type Qualified Code(s): K85.90 - Acute pancreatitis without necrosis or infection, unspecified Code(s): K85.90 - Acute pancreatitis without necrosis or infection, unspecified Status: Acute Assessment and Plan: The patient is NPO at this time. Continue to monitor lipase. I am not going to continue with any IV fluids at this time as he has dialysis. Continue with IV pain medication and pantoprazole. The patient was seen by GI and surgery the last admission. GI has been consulted this time. The patient had a delayed gallbladder and small bowel activity wound he had a hepatobiliary scan on by 721. Ejection fraction 25%.. The patient's abdominal pelvis CT was read as increase and mild peripancreatic fat stranding compared to 5 days ago. Patient's lipase was 18,890. Check triglycerides. 01/30/21 14:30 The patient is NPO at this time. Continue to monitor lipase. I am not going to continue with any IV fluids at this time as he has dialysis. Continue with IV pain medication and pantoprazole. The patient was seen by GI and surgery the last admission. GI has been consulted this time. The patient had a delayed gallbladder and small bowel activity wound he had a hepatobiliary scan on by 721. Ejection fraction 25%.. The patient's abdominal pelvis CT was read as increase and mild peripancreatic fat stranding compared to 5 days ago. Patient's lipase was 18,890. Check triglycerides. 01/27/21 14:23 01/25 Patient is 75-year-old male with history of end-stage renal disease on hemodialysis he was recently discharged after being treated for pancreatitis patient had a MRCP and did not show any gallstones, patient HIDA scan showed reduced ejection fraction, and his lipase were trending down so patient was discharged home on 01/22/21, however patient presented again last night with complaint abdominal pain and his lipase were close to 18,000 and this morning the close to 12,000, CT scan of the abdomen showed Increase in mild peripancreatic fat stranding compared to 5 days ago, appearance is suspicious for acute uncomplicated pancreatitis. Suggesting pancreatitis possibly infection will start the patient on Zosyn, this morning patient still is feeling much better pain is controlled denies any nausea or vomiting, patient will be seen by GI and further recommendation to follow, I suspect patient will need a surgery down the road once his infection is resolved will continue to monitor and further recommendation to follow. 01/26/21 patient still complains abdominal pain, patient was seen by GI and had a EGD which essentially normal, patient is scheduled for dialysis today, will continue to monitor, patient has pancreatitis and suspicious for for infection started the patient on Zosyn, will continue to monitor will consult surgery for further recommendation. 01/27 patient with epigastric pain elevated lipase and persistent had a EGD which was essentially normal, his pain is still persisting but no nausea or vomiting will consult surgery as patient may have cholecystitis, patient with end-stage renal disease on hemodialysis will be seen by his Nephrology will have scheduled dialysis and further recommendation to follow. 01/28 patient epigastric pain is still persisting as well as lipase elevated, patient EGD was normal, patient was seen by surgeon does not suspect patient has cholecystitis, patient hgb is low today there was an accident during dialysis patient lost some blood, and patient has chronic anemia due to ESRD, will continue to monitor hgb and trend lipase. 01/29 today patient lipase are still persisting, to further evaluate patient had a CT scan of abdomen it show
--- NOTE | 2021-01-31 15:42 | WPDGIPROGNO ---
Progress Note: A&P Assessment and Plan (1) Acute pancreatitis: Qualifiers: Acute pancreatitis complication: no infection or necrosis Pancreatitis type: unspecified pancreatitis type Qualified Code(s): K85.90 - Acute pancreatitis without necrosis or infection, unspecified Code(s): K85.90 - Acute pancreatitis without necrosis or infection, unspecified Status: Acute Assessment and Plan: much better and tolerating diet ok to go home with low fat/renal diet repeat CT scan resolution of pancreatitis ? idiopathic also had gastritis on biopsies (continue with ppi) (2) Elevated LFTs: Code(s): R79.89 - Other specified abnormal findings of blood chemistry Status: Acute Assessment and Plan: trending down- from pancreatitis hepatitis panel negative (3) Epigastric pain: Code(s): R10.13 - Epigastric pain Status: Acute Assessment and Plan: improved (4) Anemia of chronic disease: Code(s): D63.8 - Anemia in other chronic diseases classified elsewhere Status: Chronic Assessment and Plan: chronic and stable (5) Pulmonary edema: Code(s): J81.1 - Chronic pulmonary edema Status: Acute Assessment and Plan: resolved (6) End-stage renal disease on hemodialysis: Code(s): N18.6 - End stage renal disease; Z99.2 - Dependence on renal dialysis Status: Chronic Assessment and Plan: by nephrology Subjective Date/time seen: 01/31/21 15:42 Interval history: abdominal pain almost gone, eating. His only complain is diarrhea. Review of Systems Review of Systems: All systems reviewed & are unremarkable except as noted in HPI and below Exam Const: General: no acute distress and ill appearing chronically Other: using O2 NC HENMT: General nose exam: Normal nares present Eyes: General: appearance normal, both eyes and all related structures Neck: Neck: supple Resp: Auscultation: diminished lung sounds Cardio: Rate: regular rate GI: Inspection: non-distended GI Palp: Yes Soft to palpation, No Tenderness to palpation present (GI) and No Guarding due to palpation present (GI) Auscultation: normal bowel sounds Skin: General skin exam: no erythema Neuro: Speech: normal speech Extrem: General: normal to inspection Other: AV graft right arm (for dialysis) Psych: Mental Status: mental status grossly normal Objective Data Vital Signs Vital Signs: Vital Signs - 24 hr 01/30/21 16:00 01/30/21 18:00 01/30/21 20:00 Temperature 97.8 F 97.7 F Pulse Rate 79 81 83 Respiratory Rate 20 20 Blood Pressure 138/60 139/54 L Pulse Oximetry 96 95 01/30/21 23:32 01/31/21 00:00 01/31/21 02:00 Temperature 97.0 F L Pulse Rate 80 78 79 Respiratory Rate 18 Blood Pressure 146/48 H Pulse Oximetry 96 95 01/31/21 04:00 01/31/21 06:00 01/31/21 08:00 Temperature 97.6 F 97.5 F L Pulse Rate 79 83 80 Respiratory Rate 20 18 Blood Pressure 156/56 H 175/60 H Pulse Oximetry 97 98 01/31/21 08:38 01/31/21 10:00 01/31/21 11:08 Temperature Pulse Rate 80 82 70 Respiratory Rate 18 Blood Pressure Pulse Oximetry 93 01/31/21 12:00 01/31/21 13:43 01/31/21 13:45 Temperature 97.8 F Pulse Rate 79 79 Respiratory Rate 16 Blood Pressure 145/56 H Pulse Oximetry 98 99 Intake/Output Intake/Output: Intake & Output 01/28/21 01/29/21 01/30/21 01/31/21 23:59 23:59 23:59 23:59 Intake Total 1230 1530 1080 350 Output Total 1900 0 3050 175 Balance -670 1530 -1970 175 Meds/Results Medications: Active Medications Generic Name Dose Route Start Last Admin Trade Name Anthonyq PRN Reason Stop Dose Admin Carvedilol 12.5 mg 01/31/21 09:00 01/31/21 08:38 Carvedilol 12.5 Mg Tablet PO 12.5 mg Q12HR UUM Administration Epoetin Volodymyr-epbx 10,000 units 01/31/21 19:00 01/31/21 13:53 Epoetin Volodymyr-Epbx 10,000 Units/Ml Vial IV PUSH 01/31/21 19:01 Not Given ONCE ONE Epoetin Volodymyr
[2021-01-31 18:48] LABS: SARS-CoV-2 RNA PCR Negative
== END 2021-01-31 16:45 | disposition home health service (06) | DRG 282 ==
LOC: ANHED 19:04 → ANH2MED 21:36 → ANHIMU 01-31 13:14 → ANH2MED 02-02 12:51 → ANHIMU 02-02 12:51
PROVIDERS: Emergency Medicine; Internal Medicine; Internal Medicine Gastroenterology; Internal Medicine Nephrology; Admitting Provider Hospitalist; Emergency Provider Family Medicine; PCP Emergency Medicine; Visit Provider Family Medicine
PROC: 0DJ08ZZ Inspection of Upper Intestinal Tract, Via Natural or Artificial Opening Endoscopic (ICD-10-PCS; CPT 43235; principal; 2021-01-26 14:00)
DX: K85.90 Acute pancreatitis without necrosis or infection, unspecified (principal); I12.0 Hypertensive chronic kidney disease with stage 5 chronic kidney disease or end stage renal disease; E11.22 Type 2 diabetes mellitus with diabetic chronic kidney disease; N18.6 End stage renal disease; R06.03 Acute respiratory distress; J81.0 Acute pulmonary edema; J90 Pleural effusion, not elsewhere classified; K29.70 Gastritis, unspecified, without bleeding; K29.80 Duodenitis without bleeding; D63.1 Anemia in chronic kidney disease; Z20.822 Contact with and (suspected) exposure to COVID-19; I25.10 Atherosclerotic heart disease of native coronary artery without angina pectoris; N25.81 Secondary hyperparathyroidism of renal origin; E78.5 Hyperlipidemia, unspecified; E11.9 Type 2 diabetes mellitus without complications; E66.9 Obesity, unspecified; Z68.30 Body mass index [BMI] 30.0-30.9, adult; Z99.2 Dependence on renal dialysis; Z85.828 Personal history of other malignant neoplasm of skin; Z95.5 Presence of coronary angioplasty implant and graft
CPT/HCPCS: 36415; 36430; 36600; 71045; 74176; 76705; 80053; 81001; 82375; 82728; 82805; 82948; 83050; 83540; 83550; 83690; 83735; 84100; 84478; 85025; 85027; 85055; 86803; 86850; 86900; 86901; 86923; 88305; 88342; 93005; 94002; 94660; 96374; 96375; 97110; 97116; 97161; 97165; 97530; 97535; 99285; A9270; C9113; C9803; G0257; J0360; J1170; J1940; J2001; J2270; J2310; J2543; J2550; J2704; J7030; J7040; P9016; P9047; Q5106; U0003; U0005

== ENCOUNTER 2022-07-14 11:05 | Emergency (ER) | payer OTHER, SELFPAY ==
--- NOTE | ~2022-07-14 | XR_ITS ---
EXAMINATION: XR chest 1V portable DATE: 07/14/2022 13:10 INDICATION: Cough. TECHNIQUE: A single frontal view of the chest was obtained. COMPARISON: Chest single view 01/30/2021, 01/10/21, CT abdomen and pelvis 01/29/2021 FINDINGS: There is mild atelectasis at left lung base. No pleural effusion or pneumothorax. There is leftward deviation of the trachea at the thoracic inlet. The heart size is normal. IMPRESSION: 1. Leftward deviation of the trachea at the thoracic inlet, new from prior imaging. The differential diagnosis includes goiter, lymphadenopathy, and vascular abnormality. Chest CT with contrast is recom mended. 2. Mild atelectasis at left lung base. Reviewed, dictated and finalized at location A. IMPRESSION: 1. Leftward deviation of the trachea at the thoracic inlet, new from prior imag ing. The differential diagnosis includes goiter, lymphadenopathy, and vascular abnormality. Chest CT with contrast is recommended. 2. Mild atelectasis at left lung base.
[2022-07-14 11:06] VITALS: BP 165/70; PULSE 79; RESP 18; TEMP 36.6; O2SAT 100
[2022-07-14 13:03] LABS: Basophils Percent Auto 0.2 % (0.2-1.2); Eosinophils Absolute Auto 0.1 K/mm3 (0-0.3); Eosinophils Percent Auto 2.2 % (0-4.4); Hematocrit 35.1 % (42.0-52.0); Hemoglobin 11.2 g/dL (14.0-18.0); Immature Granulocyte Absolute 0.02 K/mm3 (0.00-0.031); Immature Granulocyte Percent A 0.4 % (0-0.5); Lymphocytes Absolute Auto 1.26 K/mm3 (0.9-3.2); Lymphocytes Percent Auto 22.6 % (18.3-44.2); Mean Corpuscular HGB Conc 31.9 g/dl (32-36); Mean Corpuscular Hemoglobin 33.5 pg (26-34); Mean Corpuscular Volume 105.1 fl (80-100); Mean Platelet Volume 11.4 fl (7.4-10.4); Monocytes Absolute Auto 0.5 K/mm3 (0.1-0.6); Monocytes Percent Auto 9.3 % (2.6-8.5); Neutrophils Absolute Auto 3.7 K/mm3 (1.3-6.7); Neutrophils Percent Auto 65.3 % (45.5-73.1); Platelet Count Result 100 k/mm3 (150-375); Red Blood Count 3.34 M/mm3 (4.6-6.20); Red Cell Distribution Width 13.3 % (11.5-14.5); White Blood Count 5.6 K/mm3 (4.5-10.0)
[2022-07-14] MEDS: ACETAMINOPHEN 325 MG TABLET 650 MG PO (13:14)
[2022-07-14 13:15] LABS: Alanine Aminotransferase 30 U/L (6-50); Albumin Level 2.3 g/dL (3.5-5.1); Alkaline Phosphatase 43 U/L (38-126); Anion Gap 12 mmol/L (8-16); Aspartate Amino Transferase 28 U/L (17-59); Bilirubin,Total 0.3 mg/dL (0.2-1.3); Blood Urea Nitrogen 24 mg/dL (9-20); Calcium 5.1 mg/dL (8.4-10.2); Carbon Dioxide 17 mmol/L (22-30); Chloride 112 mmol/L (98-107); Estimated CRCL calculation 10 ml/min; Estimated Glomerular Filt Rate 9; Glucose 107 mg/dL (65-110); Potassium 3.3 mmol/L (3.4-5.0); Sodium 141 mmol/L (137-145)
[2022-07-14 15:06] VITALS: BP 150/64; PULSE 66
--- NOTE | 2022-07-14 15:12 | ED.WEAKNESS ---
HPI - Weakness General Chief complaint: Weakness Stated complaint: weakness, COVID + Time Seen by Provider: 07/14/22 12:01 History of Present Illness HPI Narrative: Patient is a 76-year-old male with history of end-stage renal disease who gets dialysis Sunday and Sunday who presents ER with weakness and fatigue. Patient had his COVID booster earlier in the week but then developed symptoms of COVID-19 and was subsequently diagnosed with COVID 2 days ago. He has been having body aches and fevers and chills. Mild sore throat and cough. No dyspnea. No orthopnea. Was sent here to be evaluated due to his fatigue. His crystal mounter is Dr. Hernandez. 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 Related Data Home Medications Medication Instructions Recorded Confirmed furosemide 40 mg tablet 40 mg PO QAM 11/27/19 01/26/21 vitamin B complex-vitamin C-folic 1 tablet PO DAILY 01/24/21 01/26/21 acid 0.8 mg tablet (Celi-Gabrielle) Allergies Allergy/AdvReac Type Severity Reaction Status Date / Time No Known Allergies Allergy Verified 01/26/21 10:42 Review of Systems Review of Systems: All systems reviewed & are unremarkable except as noted in HPI and below Constitutional: Constitutional: Reports chills, Reports fatigue and Reports fever(s) ENT: Denies nasal congestion and Reports sore throat Cardiovascular: Cardiovascular: Denies chest pain, Denies rapid heart rate and Denies radiating jaw, neck or arm pain Respiratory: Respiratory: Denies chest congestion, Reports cough and Denies dyspnea Gastrointestinal: Gastrointestinal: Denies abdominal pain, Denies nausea and Denies vomiting [facility] Past Medical History Medical History Anemia of chronic disease Coronary artery disease History of stents. Followed by Dr. Olivier Kern. Diet-controlled diabetes mellitus Dyslipidemia End-stage renal disease on hemodialysis Epigastric pain Essential hypertension Pulmonary edema Surgical History Surgical History AV fistula (~05/2018) History of basal cell carcinoma excision Right cheek per Dr. Salgado. Family History Family History Other Unknown family medical history Social History Social History Social History: Surrogate decision maker: Sid Fraser, [id number]. Code status: Full code. Smoking packs per day: 1 Smoking cigarettes per day: 20.0 Smoking status: Never smoker Second hand tobacco smoke exposure: No Alcohol intake: never Substance use: never Substance use type: does not use Additional living arrangements comments: The patient lives at [facility] in [place]. Originally from [facility]. His children remain there. 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 Gender identity (if verbalized by the patient): Male Spiritual care concerns: No Exam Narrative: GENERAL: Well-appearing, well-nourished, and in no acute distress. HEAD: Normocephalic, atraumatic. ENT: Mucous membranes moist. CHEST: Clear to auscultation. No respiratory distress. HEART: Regular rate and rhythm. Normal peripheral pulses. ABDOMEN: Soft, nontender, nondistended. EXTREMITIES: Normal range of motion. No edema. SKIN: Warm, dry, no rash. NEURO: Alert and oriented x3. PSYCH: Normal mood and affect. Course Course Emergency Course: Patient resting comfortably. Discussed patient's presentation and labs with Dr. Hernandez his crystal mounter. He feels patient can wait until 07/17/2022 to get his next dialysis. Vital Signs Vital signs: Vital Signs Temperature 97.9 F 07/14/22 11:06 Pulse Rate 79 07/14/22 11:06 Respiratory Rate 18 07/14/22 11:06 Blood Pressure 165/70 H 07/14/22 11:06 Pulse Oximetry 100 07/14/22 11:06 Oxygen Delivery Room Air
[2022-07-14 15:33] VITALS: BP 152/56; BP 155/65; PULSE 68; PULSE 72
--- NOTE | 2022-07-14 16:30 | PC.NURSE ---
Attempting to find transportation home for patient.
== END 2022-07-14 17:14 | disposition home or self-care (01) ==
PROVIDERS: Emergency Provider Emergency Medicine
DX: U07.1 COVID-19 (principal); I25.10 Atherosclerotic heart disease of native coronary artery without angina pectoris; E11.22 Type 2 diabetes mellitus with diabetic chronic kidney disease; I12.0 Hypertensive chronic kidney disease with stage 5 chronic kidney disease or end stage renal disease; N18.6 End stage renal disease
CPT/HCPCS: 36415; 71045; 80053; 85025; 99283; A9270

== ENCOUNTER 2025-05-19 11:45 | Inpatient (IN) | payer OTHER, SELFPAY ==
--- OUTSIDE RECORDS SUMMARY | 2022-03-07 11:12 | XMS_ITS | Continuity of Care Document ---
Author Organization [facility] Address [address] [facility] [place] [address] Phone Care Team Providers Care Re Dye Hand Name Role Phone Long Mccarthy MD Unavailable Unavailable Allergies, Adverse Reactions, Alerts Substance Reaction Status Criticality No Known Allergies Active No Inform ation Medications Medication Instructions Dosage Effective Dates (start - stop) Status Comments Lasix 40 mg tablet take 1 tablet by ora l route every day 40 MG - Active Lipitor 40 mg tablet take 1 tablet by or al route every day 40 MG - Active Coreg 25 mg tablet take 1 tablet by ora l route 2 times every day with food 25 MG - Active Procedures Procedure Date OFFICE/OUTPATIENT VISIT, EST OFFICE/OUTPATIENT VISIT, EST OFFICE/OUTPATIENT VISIT, EST PREV VISIT, EST, 65 & OVER OFFICE/OUTPATIENT VISIT, EST OFFICE/OUTPATIENT VISIT, EST OFFICE/OUTPATIENT VISIT, EST OFFICE/OUTPATIENT VISIT, EST OFFICE/OUTPATIENT VISIT, EST OFFICE/OUTPATIENT VISIT, EST OFFICE/OUTPATIENT VISIT, EST OFFICE/OUTPATIENT VISIT, EST OFFICE/OUTPATIENT VISIT, EST PREV VISIT, NEW, 65 & OVER Advance Directives Directive Yes / No Effective Date File Name No Information Encounters Encounter Description Practice Location Reason(s) For Visit Diagnoses Date Provider Providers Copied on Encounter OFFICE/OUTPA TIENT VISIT, EST [facility], [address] [facility] [address], [place], [place], [address], [place] tel:[phone] [facility] toe hemorrhage 1 (chief complaint) Other nail disordersEnd stage renal disease Feb- 2 Fabio Jordan [address], [place], [place], [address] , [place]. tel:[phone] Referring Provider: Taty Perez [facility] [address], [place], [place], [address]. tel:[phone] OFFICE/OUTPA TIENT VISIT, [facility], [address], [place], [place], [address], [place] tel:[phone] [facility] HLP (chief complaint) renal failure1 (chief complaint) NH (chief complaint) HTN w/ chronic renal disease stage 5Coronary artery disease of chenega coronary artery without angina pectoris 1 Fabio Jordan [address], [place], [place], [address] , [place]. tel:[phone] Referring Provider: Taty Perez [address], [place], [place], [address]. tel:[phone] OFFICE/OUTPA TIENT VISIT, [facility], [address], [place], [place], [address], [place] tel:[phone] [facility] insomnia1 (chief complaint) cough1 (chief complaint) weight loss1 (chief complaint) DM (chief complaint) Type 2 diabetes mellitus without complicationsAnemia InsomniaAcute bronchitisHTN w/ ESRDAbnormal weight loss 0 Fabio Jordan [address], [place], [place], [address] , [place]. tel:[phone] Referring Provider: Taty Perez [address], [place], [place], [address]. tel:[phone] PREV VISIT, EST, 65 & OVER [facility], [address], [place], [place], [address], [place] tel:[phone] [facility] HTN (chief complaint) ESRD1 (chief complaint) DM (chief complaint) insomnia1 (chief complaint) Encntr for general adult medical exam w/o abnormal findings 9 Fabio Jordan [address], [address], [place], [place], [address] , [place]. tel:[phone] Referring Provider: Ttay Perez [address], [place], [place], [address]. tel:[phone] OFFICE/OUTPA TIENT VISIT, [facility], [address], [address], [place] tel:[phone] [facility] renal (chief complaint) anemia1 (chief complaint) thrombocyt openia1 (chief complaint) DM (chief complaint) Iron deficiency anemiaHTN w/ chronic renal disease stage 5Type 2 diabetes mellitus with diabetic nephropathyThromboc ytopenia 9 Fabio Jordan [address], [address], [place], [place], [address] , [place]. [phone] Referring Provider: Taty Perez [address], [place], [place], [address]. tel:[phone] OFFICE/OUTPA TIENT VISIT, [facility], [address] [place], [address], [place] tel:[phone] [facility] DM (chief complaint) HLp (chief complaint) CAD (chief complaint) Essential (primary) hypertensionHypogly cemiaHTN w/ chronic renal disease stage 5Hyperlipidemia 9 Fabio Jordan [address], [place], [place], [address] , [place]. tel:[phone] Referring Provider: Taty Perez [address], [place], [place], [address]. tel:[phone] OFFICE/OUTPA TIENT VISIT, [facility], [address], [place], [place], [address], [place] tel:[phone] [facility] DM (chief complaint) anemia1 (chief complaint) renal (chief complaint) Type 2 diabetes mellitus with diabetic nephropathyAnemia 8 Faibo Alves. [address], [place], [place], [address] , [place]. tel:[phone] Referring Provider: Taty Perez [address], [place], [place], [address]. tel:[phone] OFFICE/OUTPA TIENT VISIT, [facility], [address], [place], [place], [address], [place] tel:[phone] [facility] CAD1 (chief complaint) nevus1 (chief complaint) anemia1 (chief complaint) ankle pain1 (chief complaint) Coronary artery disease of chenega coronary artery without angina pectorisAnemiaHTN w/ chronic renal disease stage 5Pain in right lower legNevus, non-neoplastic 8 Fabio Alvse. [address], [place], [place], [address] , [place]. tel:[phone] Referring Provider: Taty Perez [address], [place], [place], [address]. tel:[phone] OFFICE/OUTPA TIENT VISIT, [facility], [address], [place], [place], [address], [place] tel:[phone] [facility] cough1 (chief complaint) nevus1 (chief complaint) anemia1 (chief complaint) leg pain1 (chief complaint) Coronary artery disease of chenega coronary artery without angina pectorisAnemiaNevus , non-neoplasticPain in right lower legCough 8 Fabio Alves. [address], [place], [place], [address] , [place]. tel:[phone] Referring Provider: Taty Perez [address], [place], [place], [address]. tel:[phone] OFFICE/OUTPA TIENT VISIT, [facility], [address], [place], [place], [address], [place] tel:[phone] [facility] HTn (chief complaint) Anemia1 (chief complaint) cough1 (chief complaint) leg pain1 (chief complaint) nevus1 (chief complaint) AnemiaNevus, non-neoplasticPain in right lower legCoughHTN w/ chronic renal disease stage 5 8 Fabio Alves. [address], [place], [place], [address] , [place]. [phone] Referring Provider: Taty Perez [address], [place], [place], [address]. tel:[phone] OFFICE/OUTPA TIENT VISIT, [facility], [address], [address], [place] tel:[phone] [facility] HTN (chief complaint) stage 5 renal (chief complaint) anemia`1 (chief complaint) CAD (chief complaint) DM (chief complaint) Type 2 diabetes mellitus with diabetic nephropathyAnemiaHT N w/ chronic renal disease stage 5Coronary artery disease of chenega coronary artery without angina pectoris 8 Fabio Alves. [address], [place], [place], [address] , [place]. [phone] Referring [facility]: [facility] [place] [place] [address]. tel:[phone] OFFICE/OUTPA TIENT VISIT, [facility], [address] [place], [address], [place] tel:[phone] [facility] anemia1 (chief complaint) proteinuri a1 (chief complaint) DM (chief complaint) hTN (chief complaint) Essential (primary) hypertensionHTN w/ chronic renal disease stage 5AnemiaType 2 diabetes mellitus with diabetic nephropathyEncounte r for screening for malignant neoplasm of prostate Dec- 8 Fabio Alves. [address], [place], [place], [address] , [place]. tel:[phone] Referring Provider: Taty Perez [address], [place], [place], [address]. tel:[phone] OFFICE/OUTPA TIENT VISIT, [facility], [address] [place], [address], [place] tel:[phone] [facility] Renal 1 (chief complaint) amenia1 (chief complaint) DM (chief complaint) HLP (chief complaint) AnemiaHTN w/ chronic renal disease stage 5Type 2 diabetes mellitus with diabetic nephropathyHyperlip idemia 8 Fabio Alves. [address], [place], [place], [address] , [place]. [phone] Referring Provider: Taty Perez [address], [place], [place], [address]. tel:[phone] PREV VISIT, NEW, 65 & OVER [facility], [address], [place], [place], [address], [place] tel:[phone] [facility] Physical (chief complaint) Encntr for general adult medical exam w/o abnormal findingsType 2 diabetes mellitus without complicationsHyperl ipidemiaEssential (primary) hypertension 8 Fabio Alves. [address], [place], [place], [address] , [place]. [phone] Referring Provider: Taty Perez [address], [place], [place], [address]. tel:[phone] Family History Family Member Type Diagnosis Age At Onset Mother Problem (finding) daed of old age 93 Brother Problem (finding) of bone [place] Payers Payer name Insurance type Covered green party ID Authoriza tion(s) No Information Social History Type Description Quantity Date Captured Comments Alcohol Use Details No Caffeine Use Details Unknown Tobacco Use Status Ex-cigarette smoker 022 Smoking Status Former smoker Sex Male Chief Complaint And Reason For Visit From encounter dated '03/07/2022 16:12'. toe hemorrhage1 (chief complaint). Description: Pt with ESRD with regular dialysis and he lives at [facility] during the past year. Pt is being management by his configuration analyst. he is not sure about his current medication and the RN with him does not have his mediation list available during the visit. For unknown reason, the RN noticed that there is some kind of bleeding under his left big toenail for one week. Pt denies any injury. He denies any toe pain. He does have thicken toenail and he has difficulty cutting his nails. He needs podiatry care. RN did not notice any warmth or any drainage from the nail. Plan Of Treatment Date Type Action Status Goal Tobacco cessation counseling completed Goal Tobacco cessation counseling completed Goal Special diet education compl eted Goal Special diet education compl eted Goal Tobacco cessation counseling completed Goal Tobacco cessation counseling completed Goal Special diet education compl eted Goal Tobacco cessation counseling completed Goal Special diet education compl eted Goal Special diet education compl eted Goal Special diet education compl eted Goal Special diet education compl eted Goal Special diet education compl eted Goal Special diet education compl eted Goal Special diet education compl eted Referral Ordered: Podiatry (related to Other nail disorders) ordered Referral Ordered: Referrals: Podiatry. Evaluate and treat ordered Referral Ordered: DWIGHT MCKEON -Allopathic & Osteopathic Physicians : Internal Medicine : Endocrinology, Diabetes & Metabolism (related to Type 2 diabetes mellitus without complications) ordered Referral Referred To: DWIGHT MCKEON [address] [place], [place], [phone] Ordered: Referrals: Allopathic & Osteopathic Physicians : Internal Medicine : Endocrinology, Diabetes & Metabolism. DWIGHT MCKEON. Evaluate and treat ordered Referral Ordered: CECILIO DAWN -Podiatric Medicine & Surgery Service Providers : Off Premise Service Representative (related to Pain in right lower leg) ordered Referral Referred To: CECILIO DAWN [address] [facility] [place], [place], [phone] Ordered: Referrals: Podiatric Medicine & Surgery Service Providers : Off Premise Service Representative. CECILIO DAWN. Evaluate and treat ordered Referral Ordered: Vazquez Solorio -Allopathic & Osteopathic Physicians : Surgery (related to Nevus, non-neoplastic) ordered Referral Referred To: Vazquez Solorio [place] [address] [place], [place] [id number] Ordered: Referrals: Allopathic & Osteopathic Physicians : Surgery. Vazquez Solorio. 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 [place], [place] [address] Ordered: Referrals: Allopathic & Osteopathic Physicians : Internal Medicine : Cardiovascular Disease. Olivier Kern. Evaluate and treat ordered Referral Ordered: Gastroenterology (related to Anemia) ordered Referral Ordered: Referrals: Gastroenterology. Evaluate and treat ordered History Of Present Illness Encounter Date Complaint History Of Prese nt Illness toe hemorrhage1 Pt with ESRD wit h regular dialysis and he lives at [facility] during the past year. Pt is being management by his configuration analyst. he is not sure about his current medication and the RN with him does not have his mediation list available during the visit. For unknown reason, the RN noticed that there is some kind of bleeding under his left big toenail for one week. Pt denies any injury. He denies any toe pain. He does have thicken toenail and he has difficulty cutting his nails. He needs podiatry care. RN did not notice any warmth or any drainage from the nail. HLP Pt has HLP Pt ta kes lipitor. Pt has CAD with stent .Pt sees cardiology. Pt denies any chest pain renal failure1 Pt has end stage renal disease pt is doing hD 3 times per week Pt sees nephrology NH He will be going to snf since his is unable to take care of his med and other need at home .NH already accepted him but they need a letter stating that he is mentally stable to be placed in NH. Pt denies any mental status change insomnia1 Pt has insomnia, Pt did not roller picker vistaril due to expense Pt was told he needs generic? Pt denies any snoring cough1 Pt c/o productiv e cough for one week Pt denies any sob or chest pain. Pt denies any hemoptysis Pt denies any calf pain .Pt denies any recent travel or sick contact pt denies any fever weight loss1 Pt has weight lo ss pt had benign EGD and colonoscopy. Pt lost close to 20 pounds during last year Pt denies any appetite loss, nausea, early satiety, vomiting, blood in stool, abd pain, gerd ETc DM Pt has high gluc ose and A1c. he used to take insulin but his glucose keeps dropping so we stopped his insulin his A1c was around 5.4 one year ago and his recent A1c was close to 7 and BG was 180 Pt does have renal failure and he is getting dialysis pt denies any polyuria polydipsia insomnia1 Pt c/o insomnia recently. Pt states that he has hard time falling asleep at night, Pt denies any snoring. ESRD1 Pt has ESRD Pt i s getting hemodialysis three times per week currently. HTN Pt takes coreg p t states that he needs refills. He never started norvasc. His BP is stable.. Pt sees cardiology. He denies any chest pain DM Pt had lab done at dialysis center and his BG goes up and down. his BG is around 130s at home. But sometimes his glucose is 250 at dialysis. His A1c is 7.0 recently which is up from 5.4 early this year. He is off insulin currently due to hypoglycemia episodes while on insulin. Pt denies any neuropathy DM Pt stopped all i nsulin and his glucose is ok. His A1c is ok Pt has been having hypoglycemia with insulin. He already stopped insulin and he denies any hypoglycemia episodes. Pt denies any chest pain or headache or palpitation or diaphoresis thrombocytopenia1 Pt has mildly low platelet. Pt denies any bleeding or bruising anemia1 Pt has stable an emia. Pt had benign colonoscopy but he never had barium study. Pt told me he had EGD recently and was benign. Pt denies any dizziness or GI blood loss. Pt has low iron also renal Pt has end stage renal disease. Pt denies any mental status change or headache. Pt denies any chest pain pt still makes urine per patient. Pt denies any fever HLp Pt has not had a ny lipitor for 3 months. Pt states that pharmacy told him no refills. Pt denies any myalgia CAD Pt has CAD with stent Pt denies any chest pain. Pt had negative stress test recently by Dr. Kern DM Pt has DM. Pt ta kes basaglar 20 units at night and he states that his BG was as low as 35 last week and is on average 95 or lower daily for the past week. Pt feels weak and he could not sleep during night. Pt denies any diaphoresis or chest pain. Pt denies any nausea, vomiting. or abdominal pain DM Pt has DM. Pt ta kes basaglar and fating acting insulin. Pt told me the humalog is not covered by insurance. Pt states that he needs different insulin anemia1 Pt still has not done the EGD .Pt denies any upper Gi issue. pt does not want EGD renal Pt has close to end stage renal disease. Pt makes good amount of urine. CAD1 Pt has CAD with stent. Pt is seeing Dr. kern. Pt had negative stress test recently pt denies any chest pain Pt is off metoprolol. pt is on Norvasc and coreg now per cardiology. His bp is stable. nevus1 Pt had right alexsandra ek mole biopsied recently and was told it is not cancer anemia1 Pt has anemia an d renal failure. Pt is seeing nephrology Pt had colonoscopy done but he did not do barium study. Pt has appointment with Dr. Barbosa next month . pt denies any abd pain ankle pain1 Pt has chronic r ight ankle fracture with pain. Pt has old fracture with surgery with hardware intact Pt wants to see podiatry. Pt denies any worsening pain cough1 Pt has mild coug pastor. Pt had chest x done which is benign .Pt has slightly enlarged heart with signs of CAD Pt denies any chest pain or sob. Pt states that his coughing is improving Pt denies any sob nevus1 Pt has right fac ial lesion and he is seeing Dr morton and will get biopsy soon anemia1 Pt has appointme nt with GI soon to discuss EGD. Pt denies any abd pain or GI issue leg pain1 Pt has history o f proximal fibula and distal tibia fracture s/p ORIF. Pt has some right lower leg pain due to arthritis. Pt denies any injury. Pt denies any swelling nevus1 Pt has nevus rig ht cheek for several months. Pt notices getting bigger. No bleeding leg pain1 Pt has chronic r ight lower leg pain Pt has history of fracture with surgery with hardware right lower extremity Pt notices more pain lately .Pt denies any injury cough1 Pt c/o frequent coughing and he feels choking when he does cough. He states that he has something stuck in his throat and he canot breath when he coughs. Pt denies any sob. Pt denies any trouble with snoring or breathing at night. pt has chronic cough, not acute. Pt denies any sob Anemia1 Pt has anemia. P t needs EGD. Pt has no idea what i am talking about. he was told to contact GI during his last visit. I also talked to GI and they supposes to contact him but he has no idea about it He denies any GERD symptoms HTn pt has HTn Pt ta kes metoprolol and his BP is ok today. Pt is off diovan DM Pt states that h is Bg is around 90s. Pt denies any hypoglycemia CAD Pt has CAD with stent. Pt is on ASA and plavix. Pt denies any chest pain. Pt did the stent back in John. anemia`1 Pt has anemia. P t had colonoscopy. Pt needs enema study. pt supposes to do EGD but he does not know anything. Pt is not very good historian stage 5 renal Pt has stage 5 r enal failure. Pt will undergo dialysis soon. Pt is off diovan. pt still make urine HTN Pt i on metoprol ol 100 mg daily now Pt is off diovan His BP is borderline high .Pt denies any chest pain or headache proteinuria1 Pt has proteinur ia and renal failure. He has chronic renal disease. Pt actually is seeing Dr Hernandez and he has appointment next week.. Pt makes normal amount of urine per pt anemia1 Pt has anemia. p t denies any blood loss. DM Pt takes levemir and also humalog. His DM is decently controlled. Pt denies any polyuria polydipsia.. pt denies any hypoglycemia hTN Pt is on diovan and metoprolol. He as appointment with nephrology soon. His BP is stable HLP Pt takes lipitor His lipid profile is normal .Pt denies any myalgia DM Pt uses levemir and humalog. His A1c is 6.6. Pt denies any polyuria ,polydipsia. Pt denies any hypoglycemia. Pt states that his BG is around 150s. amenia1 Pt is anemic. Pt denies any GI or other blood loss. Pt denies any dizziness or any chest pain Renal [address] age 5 renal disease with proteinuria. Pt does have language issue and he is not sure if he was treated with renal disease in the past. Pt states that he is making normal urine. Physical Pt needs annual physical. pt has HLP. Pt takes lipitor. Pt denies any myalgia. Pt has CAD with stent. Pt is on plavix and ASA Pt denies any chest pain. Pt sees cardiology. Pt also has DM. Pt takes levemir and humalog. His BG is around 150s per patient. Pt also has HTn. Pt takes metoprolol and diovan 80 mg daily. He takes lasix for LE edema. Pt does not take any KCL. Pt states that he never had low kcl. Pt needs to establish care. Pt denies any complaints Instructions Date Instruction Additional Infor mation Special diet education Related t o Body mass index (BMI) 28.0-28.9, adult Increase activity. Related to En cntr for general adult medical exam w/o abnormal findings Special diet education Related t o Body mass index (BMI) 30.0-30.9, adult Weight management Related to Iro n deficiency anemia Special diet education Related t o Body mass index (BMI) 30.0-30.9, adult Increase activity. 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 Related to Es sential (primary) hypertension Follow a low sodium diet. Relate d to Essential (primary) hypertension Follow a low sodium diet. Relate d to Essential (primary) hypertension Increase activity. Related to Es sential (primary) hypertension Special diet education Related t o Body mass index (BMI) 30.0-30.9, adult Weight management Related to Ane amelia Special diet education Related t o Body mass index (BMI) 29.0-29.9, adult Special diet education Related t o Body mass index (BMI) 29.0-29.9, adult Increase activity. Related to En cntr for general adult medical exam w/o abnormal findings Assessments Type Assessment Date assessment Other nail disorders assessment End stage renal disease 022 Mental Status Date Cognitive Assessment Orientation - Boron ed to time, place, person, situation.
[2025-05-19] VITALS (17 sets, daily range): BP systolic 122–194; BP diastolic 50–78; PULSE 66–84; RESP 16–25; TEMP 36.2–36.7; O2SAT 89–100
--- NOTE | ~2025-05-19 | US_ITS ---
EXAMINATION: US venous doppler JULIAN SEARS, 05/24/2025 11:50 CDT HISTORY: LUE edema Comparison: None Technique: Multiple garcia scale and color Doppler sonographic images were obtained of the internal jugular, subclavian, axillary, brachial, basilar, radial and ulnar veins. Findings: Venous System:Normal flow, augmentation and compressibility. No echogenic thrombus identified. Soft tissues: Soft tissues are unremarkable. Impression: Negative for DVT. Reviewed, dictated and finalized at location A. Impression: Negative for DVT.
--- NOTE | ~2025-05-19 | XR_ITS ---
EXAM/PROCEDURE: XR chest 2V - 05/19/2025 13:10 CDT HISTORY: 79 years old Male with c/o dyspnea, SOB TECHNIQUE: Two view(s) of the chest. COMPARISON: None available. FINDINGS: LUNGS/ PLEURA: No focal consolidation. Moderate perihilar bronchial wall thickening. HEART/ MEDIASTINUM: Mild cardiomegaly. Atherosclerotic calcifications are seen. BONES: Degenerative changes. OTHER: Visualized upper abdomen is unremarkable. IMPRESSION: No focal consolidation. Moderate perihilar bronchial wall thickening, findings suggestive of respiratory bronchiolitis. Reviewed, dictated and finalized at location N.
--- NOTE | ~2025-05-19 | XR_ITS ---
EXAMINATION: XR chest 1V portable DATE: 05/21/2025 05:34 INDICATION: Shortness of breath TECHNIQUE: frontal view of the chest was obtained. COMPARISON: Chest radiograph and CT dated 05/19/25 FINDINGS: Diffuse increased interstitial pattern suggesting mild pulmonary edema. Hazy opacity in the left lower lung zone without evident blunting at the costophrenic angles equivocal for small left pleural effusion. No pneumothorax. Heart size is normal. Coronary artery stenting. IMPRESSION: 1. Diffuse increased initial pattern and pulmonary edema over pneumonia. 2. Possible small left pleural effusion. Reviewed, dictated and finalized at location A.
--- NOTE | ~2025-05-19 | CT_ITS ---
EXAMINATION: CT diagnostic chest wo con DATE: 05/19/2025 15:07 INDICATION: Dyspnea TECHNIQUE: Computed tomography (CT) of the chest was performed without intravenous contrast. The dose-length product was 413.36 mGy-cm. Automated exposure control and iterative reconstruction technique were employed. COMPARISON: None FINDINGS: Moderate right and small left pleural effusions. There is dependent atelectasis. There is mediastinal lymphadenopathy, likely reactive. There is atherosclerosis of the aorta and coronary arteries without aneurysm. There are low-density lesions in the upper pole of the left kidney, consistent with cysts. Gallbladder is present. There is interlobular septal thickening with subtle diffuse groundglass opacification, most likely edema or atypical pneumonia. IMPRESSION: 1. Diffuse interstitial infiltrates with septal thickening and groundglass opacification, most likely edema versus atypical pneumonia. 2: Bilateral pleural effusions, right greater than left. 3: Mediastinal lymphadenopathy, likely reactive. Reviewed, dictated and finalized at location O. IMPRESSION: 1. Diffuse interstitial infiltrates with septal thickening and groundglass opac ification, most likely edema versus atypical pneumonia. 2: Bilateral pleural effusions, right greater than left. 3: Mediastinal lymphadenopathy, likely reactive.
--- NOTE | ~2025-05-19 | XR_ITS ---
EXAMINATION: XR chest 1V portable DATE: 05/23/2025 10:45 INDICATION: Follow-up congestive heart failure TECHNIQUE: frontal view of the chest was obtained. COMPARISON: Chest radiograph dated 05/22/2025 FINDINGS: Previously seen interstitial and airspace opacities in the lower lungs likely related to pulmonary edema has resolved. No new airspace opacities, pleural effusion or pneumothorax. Heart size is normal. Coronary artery stenting. IMPRESSION: 1. Resolution of prior pulmonary edema. No evident acute cardiopulmonary disease. Reviewed, dictated and finalized at location A. IMPRESSION: 1. Resolution of prior pulmonary edema. No evident acute cardiopulmonary diseas e.
--- NOTE | ~2025-05-19 | XR_ITS ---
EXAMINATION: XR chest 1V portable DATE: 05/22/2025 06:48 INDICATION: Congestive heart failure TECHNIQUE: frontal view of the chest was obtained. COMPARISON: Chest radiograph dated 05/21/25 FINDINGS: Mild interstitial and groundglass opacities in the bilateral lower lung zones. No pneumothorax or definitive pleural effusion. Mild linear discoid atelectasis at the lateral left lung base. Heart size is normal. Coronary artery stenting. IMPRESSION: 1. Persistent mild interstitial and groundglass opacities in the bilateral lower lung zones which represent mild pulmonary edema, pneumonia or atelectasis. Reviewed, dictated and finalized at location A. IMPRESSION: 1. Persistent mild interstitial and groundglass opacities in the bilateral lowe r lung zones which represent mild pulmonary edema, pneumonia or atelectasis.
--- OUTSIDE RECORDS SUMMARY | 2025-05-19 12:03 | XMS_ITS | Clinical Summary ---
Author Organization [facility] Address [address] [place] [id number] Care Team Providers Care Rustic Terrazzo Setter Name Role Phone Long Mccarthy MD Primary Care Provider [phone] Allergies No known active allergies Medications amLODIPine (NORVASC) 5 mg tablet Take 1 tablet (5 mg total) by mouth daily 05/30/2022 Active atorvastatin (LIPITOR) 40 mg tablet Take 1 tablet (40 mg total) by mouth daily 05/30/2022 Active calcium acetate,phospha t bind, (PHOSLO) 667 mg capsule Take 2 capsules (1,334 mg total) by mouth 3 (three) times a day with meals 06/13/2022 Active carvediloL (COREG) 25 mg tablet Take 1 tablet (25 mg total) by mouth 2 (two) times a day with meals 05/30/2022 Active dicyclomine (BENTYL) 10 mg capsule Take 1 capsule (10 mg total) by mouth 2 (two) times a day as needed Active furosemide (LASIX) 40 mg tablet Take 3 tablets (120 mg total) by mouth 2 (two) times a day on non-dialysis days 05/30/2022 Active insulin lispro (HumaLOG, ADMELOG) 100 unit/mL pen for injection Inject under the skin 3 times daily Takes 5 units in the morning and 8 units with lunch and dinner Active insulin glargine 100 unit/mL vial for injection Inject 14 Units under the skin nightly at bedtime Active loperamide (IMODIUM) 2 mg capsule Take 1 capsule (2 mg total) by mouth 4 (four) times a day as needed for diarrhea Active ondansetron (ZOFRAN) 4 mg tablet Take 1 tablet (4 mg total) by mouth every 6 (six) hours as needed for nausea Active Celi-Gabrielle 0.8 mg tablet Take 1 tablet by mouth daily 05/30/2022 Active acetaminophen (TYLENOL) 325 mg tablet Take 2 tablets (650 mg total) by mouth every 4 (four) hours as needed for pain 07/13/2022 Active lidocaine (ASPERCREME) 4 % adhesive patch,medicated Place 1 patch on the skin daily To affected area Active melatonin tablet Take 1 tablet (3 mg total) by mouth nightly as needed for sleep Active Active Problems Problem Noted Date Diagnosed Date GI bleed 12/24/2024 Upper abdominal pain 12/23/2024 Coronary artery disease invo lving nikolai coronary artery of nikolai heart without angina pectoris 07/30/2023 Hypertensive heart disease w ith chronic diastolic congestive heart failure 07/30/2023 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 Continue Lipitor ESRD (end stage renal disease) on dialysis 07/30 Assessment & Plan (04/23/2025 11:29 AM CDT): Dialyzing well. Recently had an infiltration which is healing nicely. No other concerns. Can continue to utilize the Tubigrip to the upper extremity for support. Follow up in 3 months with AV duplex. COVID 07/14/2022 High cholesterol 06/16/2022 Chronic diastolic heart failure 03/14/2022 Functional diarrhea 03/14/2022 Hypertension, essential 03/14/2022 Assessment & Plan (04/23/2025 11:26 AM CDT): Stable and controlled continue amlodipine and carvedilol Assessment & Plan (07/03/2024 10:05 AM CDT): Impression: Chronic and stable. Plan: Continue amlodipine, carvedilol, Lasix Assessment & Plan (03/27/2024 12:49 PM CDT): Continue Coreg Assessment & Plan (11/10/2022 12:00 PM ZOOKEEPER): Impression: Chronic hypertension. Plan: Continue Coreg Insomnia 03/14/2022 Presence of coronary angioplasty implant and gra ft 03/14/2022 Secondary hyperparathyroidism 02/12/2019 End-stage renal disease on hemodialysis 10/24/19 19 Assessment & Plan (07/03/2024 10:12 AM CDT): Impression: Patient is being dialyzed through a right brachiocephalic AV fistula without any complications. Audible bruit and palpable thrill noted on exam. Patient does report occasional right upper extremity edema. 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 No significant edema is noted on exam today. Patient does have prominent veins to the right upper extremity and chest. AV duplex scan reveals a patent AV fistula. Av fistula is aneurysmal with no concern for skin compromise. Plan: Continue utilizing AV fistula for dialysis as per Nephrology. -Recommend compression therapy to the right upper extremity for edema. Patient given Tubigrip. -Recommend alternating cannulation sites and the same cannulation sites are being accessed. This is prevent an open ulceration over fistula and prevents infection. -Patient to follow-up in 3 months for re-evaluation with repeat AV duplex scan. Encouraged patient to make a sooner appointment if there is any complications during dialysis. Assessment & Plan (03/27/2024 12:49 PM CDT): Dialyzing well through a right upper extremity brachiocephalic fistula does have 2 areas of aneurysmal changes which are constantly being cannulated. Advised to avoid these areas and to rotate cannulation sites in order to help them heal. Plan: Follow up in 3 months for routine surveillance with an upper extremity AV duplex. Assessment & Plan (03/29/2023 3:32 PM CDT): Patient with a right brachiocephalic AV fistula functioning well for dialysis. Patient states he is had 3 separate episodes of right 1st through 4th finger numbness within the past week, lasting approximately 2 seconds and spontaneously resolving. No motor and sensory deficits. Patient denies pain to right hand. Low suspicion for steal syndrome at this point. Will have patient scheduled for follow-up in 3 months with right arm AV fistula scan. Patient instructed to be seen earlier if his right hand symptoms progress or worsen Assessment & Plan (11/10/2022 12:00 PM ZOOKEEPER): Impression: Patient is being dialyzed through a right brachiocephalic AV fistula without any complications. AV scan reveals a patent AV fistula. Patient's fistula is aneurysmal measuring 1.9 cm distally and 2.2 cm proximal arterial anastomosis. Plan: Continue utilizing AV fistula for dialysis as per Nephrology. Patient to follow-up in 3 months for re-evaluation. Encouraged patient to make a sooner appointment if any other issue arises. Hyperkalemia 10/24/2018 Proteinuria 10/24/2018 Type 2 diabetes mellitus wit h chronic kidney disease, with long-term current use of insulin 10/24/2018 Assessment & Plan (07/03/2024 10:05 AM CDT): Impression: Chronic with good glucose control. Plan: Continue insulin Assessment & Plan (03/27/2024 12:49 PM CDT): Continue insulin Assessment & Plan (11/10/2022 12:01 PM ZOOKEEPER): Impression: Chronic diabetes mellitus. Plan: Continue insulin Anemia in chronic kidney disease 06/18/2018 Hypertensive kidney disease with end-stage renal disease 08/29/2017 Encounters Date Type Department Care Team Description 04/23/2025 10:29 AM CDT - 04/23/2025 11:59 PM CDT Hospital Encounter [facility] [address] [place] [address] [place] [id number] End-stage renal disease on hemodialysis (HCC); Other complication of arteriovenous dialysis fistula, initial encounter Discharge Disposition: Discharge to home or self care 04/23/2025 10:29 AM CDT - 04/23/2025 11:59 PM CDT Hospital Encounter [facility] at [address] [place] [address] ESRD (end stage renal disease) on dialysis (HCC) (Primary Dx); Other specified complication of vascular prosthetic devices, implants and grafts, initial encounter; Other complication of arteriovenous dialysis fistula, initial encounter; Hypertension, essential; Pure hypercholesterolemia Discharge Disposition: Discharge to home or self care 04/20/2025 Telephone [facility] [address] [place] [address] Chris Garrison MD Ham Clerk for Upcoming Appointment from Last 3 Months Immunizations Immunization Administration Dates Next Due Pfizer SARS-CoV-2 Monovalent Vaccination (5-11 Yrs) 07/13/2021,12/11/2020,11/18/2020 Surgical History Surgery Date Site/Laterality Comments APPENDECTOMY TIBIA FRACTURE SURGERY Right HEART SURGERY Repair of Heart Wound EYE SURGERY TUNNELED VENOUS CATHETER PLACEMENT 02/28/2019 Right RIJ permacath (removed 07/31/19) - Dr. Rosa DIALYSIS FISTULA CREATION 03/31/2019 Right RUE brachiocephalic AVF creation - Dr. Rosa AV FISTULA REPAIR 07/06/2022 Right RUE AVF - angioplasty subclavian & innominate veins - Dr. Tierney Garrison ANGIOPLASTY COLONOSCOPY 06/17/2024 - 07/17/2024 Dr. Best Higgins' Medical History Medical History Date Comments Chronic renal failure Diabetes mellitus (HCC) Type 2 ESRD (end stage renal disease) on dialysis (HCC) High cholesterol Hypertension Functional diarrhea Chronic diastolic heart failure (HCC) History of pancreatitis 2020 CAD (coronary artery disease) H/ O stents Hemodialysis patient MWF at [facility] Anemia Language barrier farsi speaking Social History Tobacco Use Types Packs/Day Years Used Date Smoking Tobacco: Former Cigarettes Q uit: 2016 Smokeless Tobacco: Never Tobacco Cessation:Counseling Given: Not Answered [facility] Utilities Answer Date Recorded In the past 12 months has [employer], gas, oil, or water [employer] threatened to shut off services in your home? No 12/24/2024 Social Connection and Isolation Panel Answer Date Recorded In a typical week, how many times do you talk on the phone with family, friends, or neighbors? Three times a week 12/24/2024 How often do you get togethe r with friends or relatives? Once a week 12/24/2024 How often do you attend [facility] or [facility] services? Patient declined 12/24/2024 Do you belong to any clubs o r organizations such as hoahaoism groups, unions, fraternal or athletic groups, or school groups? Patient declined 12/24/2024 How often do you attend meet ings of the clubs or organizations you belong to? Never 12/24/2024 Are you , , di vorced, , never , or living with a partner? 12/24/2024 AUDIT-C Answer Date Recorded Q1: How often do you have a drink containing alc ohol? Never 06/30/2022 Average Number of Drinks Not on file 022 Frequency of Binge Drinking Not on file 06/17 Overall Financial Resource Strain (CARDIA) Answe r Date Recorded How hard is it for you to pa y for the very basics like food, housing, medical care, and heating? Not hard at all 12/24/2024 Hunger Vital Sign Answer Date Recorded Within the past 12 months, y ou worried that your food would run out before you got the money to buy more. Never true 12/25/19 25 Within the past 12 months, t he food you bought just didn't last and you didn't have money to get more. Never true 12/24/2024 PRAPARE - Transportation Answer Date Re corded In the past 12 months, has l ack of transportation kept you from medical appointments or from getting medications? No 05/2025 In the past 12 months, has l ack of transportation kept you from meetings, work, or from getting things needed for daily living? No 12/24/2024 Housing Stability Vital Sign Answer Rickie e Recorded In the last 12 months, was t here a time when you were not able to pay the mortgage or rent on time? No 12/24/2024 In the past 12 months, how m any times have you moved where you were living? 0 12/24/2024 At any time in the past 12 m [facility], were you homeless or living in a long-term (including now)? No 12/24/2024 Personal Safety Answer Date Recorded Have you ever been in or are you currently in a harmful physical or emotional relationship or is someone making you feel afraid or unsafe? Denies 12/24/2024 Sex and Gender Information Value Date Recorded Sex Assigned at Not on file Legal Sex Male 11:13 AM CDT Gender Identity Not on file Sexual Orientation Not on file Obstetrics History Last Filed Vital Signs Vital Sign Reading Time Taken Comments Blood Pressure 158/64 04/23/2025 11:10 AM CDT Pulse 65 04/23/2025 11:10 AM CDT Temperature 36.7 C (98.1 F) 01/20/2025 10:05 AM CDT Respiratory Rate 18 04/23/2025 11:10 AM CDT Oxygen Saturation 96% 04/23/2025 11:10 AM CDT Inhaled Oxygen Concentration - - Weight 83.1 kg (183 lb 1.6 oz) 12/26/2024 6:37 A M CDT Height 167.6 cm (5' 6) 12/24/2024 1:28 AM CDT Body Mass Index 29.55 12/24/2024 1:28 AM CDT Plan of Treatment Health Maintenance Due Date Last Done Comments Albumin Creatinine Ratio, Urine 1945 Depression Screening 1945 Hemoglobin A1C 1945 Dilated Eye Exam 1945 Foot Exam 1945 Lipid Panel 1945 DTaP/Tdap/Td Vaccine (1 - Tdap) 1956 Pneumococcal vaccine 65+ (1 of 2 - PCV) 1964 04/16/2019 Zoster Vaccine (1 of 2) 1995 Well Visit 65+ 2010 Covid-19 Vaccine (1 - 2023-2 5 season) 2024 07/13/2021, 12/11/2020, 11/18/2020 Influenza Vaccine (#1) 2025 2, 06/22/2021, 06/02/2020, Additional history exists eGFR 12/25/2025 12/25/2024, 04/0 05/2025, 12/23/2024, Additional history exists Fall Risk Assessment 12/28/2025 12/28/2024 Hepatitis B Screening Completed 12/24/2024 Hepatitis C Screening Completed 12/24/2024 Procedures Procedure Name Priority Date/Time Associated Diagnosis Comments US HEMODIALYSIS ACCESS Schedule Routine, Read Routine (OP Routine) 04/23/2025 11:05 AM CDT End-stage renal disease on hemodialysis (HCC) Other complication of arteriovenous dialysis fistula, initial encounter EGFR Routine 12/25/2024 6:18 AM CDT HEPATITIS PANEL, ACUTE Routine 12/24/2024 5:08 PM CDT from Last 3 Months or Most Recently Relevant to Health Maintenance Results * US Hemodialysis Access (04/23/2025 11:05 AM CDT) Anatomical Region Laterality Modality Vascular N/A Ultrasound 04/23/2025 10:3 2 AM CDT Narrative 04/24/2025 11:51 PM CDT Hemodialysis Access Duplex Report Patient Name: JOSE TOMPKINS : 1945 (79y 6m) Gender: M Study Date: 04/23/2025 10:32:57 AM Food Safety Manager: Dyan Merrill RDMS,RVT Order Provider: TIERNEY GARRISON Provider: TIERNEY GARRISON PROCEDURES: Vascular Report: Color Duplex ultrasound with velocity measurements was performed of the arteriovenous fistula in the right upper extremity. INDICATIONS: Dialysis graft complication. HISTORY: S/P BA right subclavian v/ innominate v 07/06/2022 S/P Right Brachioceph AVF 03/05/2019. COMPARISONS: The previous exam was completed on 01/20/2025. AVF: Vessel Velocity Rt Location Brachioceph AVF Rt [place] Artery 293.00 cm/sec Rt [place] Artery VF 2874.00 mL/min Rt Arterial Anast 316.00 cm/sec Rt Prx Graft 120.00 cm/sec Rt Prx-Mid AVF 244.00 cm/sec Rt Mid AVF 183.00 cm/sec Rt Mid AVF VF 1671.00 mL/min Rt Mid-Dist AVF 141.00 cm/sec Rt Dst AVF 141.00 cm/sec Rt Venous Anast 332.00 cm/sec Rt [place] Vein 156.00 cm/sec FINDINGS: Study Quality: The study quality is adequate. Fistula 1: Dilatation/ aneurysmal areas in the mid to distal AVF measuring 2.8 x 2.2cm and 2.6 x 2.2cm. CONCLUSIONS: 1. 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 Electronically Signed By: Chris Garrison MD 04/24/2025 11:50:25 PM CDT Procedure Note Chris Garrison MD - 04/24/2025 Hemodialysis Access Duplex Report Patient Name: JOSE TOMPKINS : 1945 (79y 6m) Gender: M Study Date: 04/23/2025 10:32:57 AM Food Safety Manager: Dyan Merrill RDMS,RVT Order Provider: TIERNEY GARRISON Provider: TIERNEY GARRISON PROCEDURES: Vascular Report: Color Duplex ultrasound with velocity measurements wasperformed of the arteriovenous fistula in the right upper extremity. INDICATIONS: Dialysis graft complication. HISTORY: S/P BA right subclavian v/ innominate v 07/06/2022 S/P Right Brachioceph AVF 03/05/2019. COMPARISONS: The previous exam was completed on 01/20/2025. AVF: Vessel Velocity Rt Location Brachioceph AVF Rt [place] Artery 293.00 cm/sec Rt [place] Artery VF 2874.00 mL/min Rt Arterial Anast 316.00 cm/sec Rt Prx Graft 120.00 cm/sec Rt Prx-Mid AVF 244.00 cm/sec Rt Mid AVF 183.00 cm/sec Rt Mid AVF VF 1671.00 mL/min Rt Mid-Dist AVF 141.00 cm/sec Rt Dst AVF 141.00 cm/sec Rt Venous Anast 332.00 cm/sec Rt [place] Vein 156.00 cm/sec FINDINGS: Study Quality: The study quality is adequate. Fistula 1: Dilatation/ aneurysmal areas in the mid to distal AVF measuring2.8 x 2.2cm and 2.6 x 2.2cm. CONCLUSIONS: 1. 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 Electronically Signed By: Chris Garrison MD 04/24/2025 11:50:25 PM CDT Tierney Garrison MD [facility] [place] Final Result * (ABNORMAL) eGFR (12/25/2024 6:18 AM CDT) eGFR 4(L) >=60 mL/min/1. 73 m2 Comment: Interpretive Data Reference Interval Normal >/= 90 mL/min/1.73m2 Mildly decreased* 60 - 89 mL/min/1.73m2 Mildly to moderately decreased 45 - 59 mL/min/1.73m2 Moderately to severely decreased 30 - 44 mL/min/1.73m2 Severely decreased 15 - 29 mL/min/1.73m2 Kidney Failure < 15 mL/min/1.73m2 *Relative to young adult level Estimated glomerular filtration rate is determined by the 2020 CKD-EPI equation recommended by the National Kidney Foundation (A Unifying Approach to GFR Estimation: Recommendations of the NKF-ASK Task Force on Reassessing the Inclusion of Race in Diagnosing Kidney DiseaseNAEEM 2020). The CKD-EPI equation should not be used for patients with unstable renal function and has not been validated in children and those over 70. Current interpretive data was last reviewed 2021. Blood 12/25/2024 6:18 AM CDT 12/25/2024 6:45 AM CDT Pete Davis MD LAB BLOOD ORDERABLES Final Resu lt Performing Organization Address [facility] Co de Phone Number [facility] [address] [place] [address] * Hepatitis panel, acute Blood (12/24/2024 5:08 PM CDT) Hep A IgM Nonreactive Nonreactive Comment: Interpretive Data: If Hep A IgM Ab is reported as Equivocal, a new sample should be drawn in two weeks for testing. Current interpretive data was last revised on 19. Hep B core IgM Nonreactive Nonreactive [facility] Comment: Interpretive Data If HepB Core IgM Ab is reported as Equivocal, a new sample should be drawn in two weeks for testing. Current interpretive data was last revised on 19. Hep C Ab Nonreactive Nonreactive [facility] Comment: Interpretive Data Nonreactive: Antibodies to HCV not detected. Does NOT exclude the possibility of recent exposure to HCV. Equivocal: Equivocal for HCV antibodies. Supplemental molecular testing will be automatically performed to determine infection status in accordance with current CDC screening recommendations. Reactive: Positive for HCV antibodies. This may represent current or past HCV infection. Supplemental molecular testing will be automatically performed to determine current infection status in accordance with current CDC screening recommendations. Interpretive data was last revised on 2019. HepBsAg Nonreactive Nonreactive [facility] Blood 12/24/2024 5:08 PM CDT 12/24/2024 6:07 PM CDT Pete Davis MD LAB MICROBIOLOGY - GENERAL ORDE RABLES Final Result Performing Organization Address [facility] Co de Phone Number [facility] [address] [email or web address] [address] from Last 3 Months or Most Recently Relevant to Health Maintenance Insurance Advance Directives For more information, please contact: [phone] * Full Code (Latest Code Status on File) Date Activated Date Inactivated Comments 12/24/2024 11:57 AM 12/28/2024 6:44 PM * Full Code Date Activated Date Inactivated Comments 07/06/2022 9:28 AM 07/06/2022 4:00 PM Care Teams Rustic Terrazzo Setter Relationship Specialty Start Date End Date Long Mccarthy MD PCP - General Family Medicine 01/10/21
--- OUTSIDE RECORDS SUMMARY | 2025-05-19 12:03 | XMS_ITS | Encounter Summary ---
Author Organization [facility] Healthcare Address [address] [place] [address] Care Team Providers Care Er Physician Name Role Phone Long Mccarthy MD Primary Care Provider [phone] Encounter Details Date Type Department Care Team (Late st Contact Info) Description 12/23/2024 Telephone [facility] [address] [place] [address] Chris Garrison MD [address] [place] [address] [address] [facility] [address] [place] [address] Social History Tobacco Use Types Packs/Day Years Used Date Smoking Tobacco: Former Cigarettes Q uit: 2016 Smokeless Tobacco: Never [facility] Utilities Answer Date Recorded In the past 12 months has th e electric, gas, oil, or water company threatened to shut off services in your home? No 12/24/2024 Social Connection and Isolation Panel Answer Date Recorded In a typical week, how many times do you talk on the phone with family, friends, or neighbors? Three times a week 12/24/2024 How often do you get togethe r with friends or relatives? Once a week 12/24/2024 How often do you attend chur ch or mandaeism services? Patient declined 12/24/2024 Do you belong to any clubs o r organizations such as evangelical groups, unions, fraternal or athletic groups, or [...] any time in the past 12 m [facility], were you homeless or living in a halfway (including now)? No 12/24/2024 Personal Safety Answer [...] on file Sexual Orientation Not on file documented as of this encounter Plan of Treatment Not on file documented as of this encounter Visit Diagnoses Not on filedocumented in this encounter Additional Health Concerns Infection Onset Date Last Indicated Resolved Time C. difficile suspected 12/24/2024 12/24/202412/24 7:45 PM CDT documented as of this encounter Care Teams Er Physician Relationship Specialty Start Date End Date Long Mccarthy MD PCP - General Family Medicine 01/10/21 documented as of this encounter
--- OUTSIDE RECORDS SUMMARY | 2025-05-19 12:03 | XMS_ITS | Encounter Summary ---
Author Organization [facility] Healthcare Address [address] [place] [address] Care Team Providers Care Silver Service Waiter Name Role Phone Long Mccarthy MD Primary Care Provider [phone] Encounter Details Date Type Department Care Team (Late st Contact Info) Description 10/06/2024 Telephone [facility] at [address] [place] [address] Celia Vallecillo Social History Tobacco Use Types Packs/Day Years Used Date Smoking Tobacco: Former Cigarettes Q uit: 2016 Smokeless Tobacco: Never AUDIT-C Answer Date Recorded Q1: How often do you have a drink containing alc ohol? Never 06/30/2022 Average Number of Drinks Not on file 022 Frequency of Binge Drinking Not on file 06/17 Personal Safety Answer Date Recorded Getting School Help Needed Not on file 09/22 Sex and Gender Information Value Date Recorded [...] documented as of this encounter Care Teams Silver Service Waiter Relationship Specialty Start Date End Date Long Mccarthy MD PCP - General Family Medicine 01/10/21 documented as of this encounter
--- OUTSIDE RECORDS SUMMARY | 2025-05-19 12:03 | XMS_ITS ---
Author Organization [facility] Address [address] [place] [id number] Care Team Providers Care Hospitality Aide Name Role Phone Long Mccarthy MD Primary Care Provider [phone] Dialysis Access Sites Type Status Location Placement Date Removal Da te AV fistula Active Right Upper Arm - Anterior Procedures Procedure Name Priority Date/Time Associated Diagnosis Comments US HEMODIALYSIS ACCESS Schedule Routine, Read Routine (OP Routine) 04/23/2025 11:05 AM CDT End-stage renal disease on hemodialysis (HCC) Other complication of arteriovenous dialysis fistula, initial encounter EGFR Routine 12/25/2024 6:18 AM CDT HEPATITIS PANEL, ACUTE Routine 12/24/2024 5:08 PM CDT from Last 3 Months or Most Recently Relevant to Health Maintenance Allergies No known active allergies Medications amLODIPine [...] pain 12/23/2024 Coronary artery disease invo lving [place] coronary artery of [place] heart without angina pectoris 07/30/2023 Hypertensive heart [...] Coreg Assessment & Plan (11/10/2022 12:00 PM LOGISTICS SUPPORT): Impression: Chronic hypertension. Plan: Continue Coreg Insomnia [...] worsen Assessment & Plan (11/10/2022 12:00 PM LOGISTICS SUPPORT): Impression: Patient is being dialyzed through a [...] insulin Assessment & Plan (11/10/2022 12:01 PM LOGISTICS SUPPORT): Impression: Chronic diabetes mellitus. Plan: Continue insulin Anemia in chronic kidney disease 06/18/2018 Hypertensive kidney disease with end-stage renal disease 08/29/2017 Immunizations Immunization Administration Dates Next Due Pfizer SARS-CoV-2 Monovalent Vaccination (5-11 Yrs) 07/13/2021,12/11/2020,11/18/2020 Social History Tobacco Use Types Packs/Day Years Used Date Smoking Tobacco: Former Cigarettes Q uit: 2016 Smokeless Tobacco: Never Tobacco Cessation:Counseling Given: Not Answered [facility] Utilities Answer Date Recorded In the [...] often do you attend chur ch or advent services? Patient declined 12/24/2024 Do you belong to any clubs o r organizations such as tenriism groups, unions, fraternal or athletic groups, or [...] any time in the past 12 m [facility], were you homeless or living in a prison (including now)? No 12/24/2024 Personal Safety Answer [...] on file Sexual Orientation Not on file Last Filed Vital Signs Vital Sign Reading [...] Mass Index 29.55 12/24/2024 1:28 AM CDT Results * US Hemodialysis Access (04/23/2025 11:05 AM CDT) Anatomical Region Laterality Modality Vascular N/A Ultrasound 04/23/2025 10:3 2 AM CDT Narrative 04/24/2025 11:51 PM CDT Hemodialysis Access Duplex Report Patient Name: JOSE TOMPKINS : 1945 (79y 6m) Gender: M Study Date: 04/23/2025 10:32:57 AM Radiology Special Procedure Tech: Dyan Merrill RDMS,RVT Order Provider: TIERNEY GARRISON [...] Vessel Velocity Rt Location Brachioceph AVF Rt [place] Artery 293.00 cm/sec Rt [place] Artery VF 2874.00 mL/min Rt Arterial Anast 316.00 cm/sec Rt Prx Graft 120.00 cm/sec Rt Prx-Mid AVF 244.00 cm/sec Rt Mid AVF 183.00 cm/sec Rt Mid AVF VF 1671.00 mL/min Rt Mid-Dist AVF 141.00 cm/sec Rt Dst AVF 141.00 cm/sec Rt Venous Anast 332.00 cm/sec Rt [place] Vein 156.00 cm/sec FINDINGS: Study Quality: The [...] Gender: M Study Date: 04/23/2025 10:32:57 AM Radiology Special Procedure Tech: Dyan Merrill RDMS,RVT Order Provider: TIERNEY GARRISON Provider: TIERNEY GARRISON PROCEDURES: Vascular Report: Color Duplex ultrasound with velocity measurements wasperformed of the arteriovenous fistula in the right upper extremity. INDICATIONS: Dialysis graft complication. HISTORY: S/P BA right subclavian v/ innominate v 07/06/2022 S/P Right Brachioceph AVF 03/05/2019. COMPARISONS: The previous exam was completed on 01/20/2025. AVF: Vessel Velocity Rt Location Brachioceph AVF Rt [place] Artery 293.00 cm/sec Rt [place] Artery VF 2874.00 mL/min Rt Arterial Anast 316.00 cm/sec Rt Prx Graft 120.00 cm/sec Rt Prx-Mid AVF 244.00 cm/sec Rt Mid AVF 183.00 cm/sec Rt Mid AVF VF 1671.00 mL/min Rt Mid-Dist AVF 141.00 cm/sec Rt Dst AVF 141.00 cm/sec Rt Venous Anast 332.00 cm/sec Rt [place] Vein 156.00 cm/sec FINDINGS: Study Quality: The study quality is adequate. Fistula 1: Dilatation/ aneurysmal areas in the mid to distal AVF measuring2.8 x 2.2cm and 2.6 x 2.2cm. CONCLUSIONS: 1. 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 Electronically Signed By: Chris Garrison MD 04/24/2025 11:50:25 PM CDT us Tierney Garrison MD IMG US PROCEDURES Final Result * (ABNORMAL) eGFR [...] the Inclusion of Race in Diagnosing Kidney Disease, JASN 2020). The CKD-EPI equation should not be used for patients with unstable renal function and has not been validated in children and those over 70. Current interpretive data was last reviewed 2021. Blood 12/25/2024 6:18 AM CDT 12/25/2024 6:45 AM CDT us Pete Davis MD LAB BLOOD ORDERABLES Final Resu lt [facility] [address] Department [place] [address] * Hepatitis panel, acute Blood (12/24/2024 5:08 PM CDT) Hep A IgM Nonreactive Nonreactive Comment: Interpretive Data: If Hep A IgM Ab is reported as Equivocal, a new sample should be drawn in two weeks for testing. Current interpretive data was last revised on 19. Hep B core IgM Nonreactive Nonreactive [facility] Comment: Interpretive Data If HepB Core IgM Ab is reported as Equivocal, a new sample should be drawn in two weeks for testing. Current interpretive data was last revised on 19. Hep C Ab Nonreactive Nonreactive [facility] Comment: Interpretive Data Nonreactive: Antibodies to HCV [...] last revised on 2019. HepBsAg Nonreactive Nonreactive [facility] Blood 12/24/2024 5:08 PM CDT 12/24/2024 6:07 PM CDT Pete Davis MD LAB MICROBIOLOGY - GENERAL MARIELA EUBANKS Final Result [facility] [address] Department [place] [address] from Last 3 Months or Most Recently Relevant to Health Maintenance
--- OUTSIDE RECORDS SUMMARY | 2025-05-19 12:04 | XMS_ITS | Clinical Summary ---
Author Organization [facility] Address [facility] [place] [address] Care Team Providers Care House Worker General Name Role Phone Tia Van INGREDIENT SPECIALIST Unavailable [phone] Marilu Dee JULIEN Primary Care Provider [phone] Allergies No known active allergies Medications calcium acetate, phos binder, 667 MG CapIndications: Chronic Kidney Disease Stage 5 Take 2 capsules (1,334 mg total) by mouth 3 (three) times daily with meals. Indications: Chronic Kidney Disease Stage 5 Active dicyclomine 10 MG capsuleIndicati ons:Abdominal Cramps Take 1 capsule (10 mg total) by mouth 2 (two) times daily as needed. Indications: Cramping Pain in the Abdomen And q8h prn Active loperamide 2 MG capsuleIndicati ons:Diarrhea Take 1 capsule (2 mg total) by mouth 4 (four) times daily as needed for Diarrhea. Indications: Diarrhea Take 2 tablets by mouth as needed with each loose stool Active ondansetron 4 MG tablet Take 1 tablet (4 mg total) by mouth every 6 (six) hours as needed for Nausea. Active insulin glargine (LANTUS) 100 UNIT/ML injection (VIAL)Indicatio ns:Diabetes Mellitus Inject 14 Units into the skin nightly at bedtime. Indications: Diabetes Active acetaminophen (TYLENOL) 325 MG tabletIndicatio ns:Pain Take 2 tablets (650 mg total) by mouth every 4 (four) hours as needed for Pain or Fever. 60 tablet 07/13/20 Active carvedilol (COREG) 25 MG tabletIndicatio ns:Hypertension TAKE 1 TABLET BY MOUTH 2 TIMES A DAY 60 tablet 4 09/01/20 22 Active atorvastatin (LIPITOR) 40 MG tabletIndicatio ns:Blood Cholesterol Abnormal TAKE 1 TABLET BY MOUTH EVERY DAY 30 tablet 4 09/01/20 22 Active Melatonin 3 MG CapIndications: Insomnia Take 3 mg by mouth nightly as needed. 30 capsule 1 11/29/19 23 Active DIMA-PAOLA Tab tabletIndicatio ns:Vitamin and/or Mineral Deficiency TAKE 1 TABLET BY MOUTH EVERY DAY 30 tablet 12 01/06/20 23 Active amLODIPine (NORVASC) 5 MG tabletIndicatio ns:Hypertension TAKE 1 TABLET BY MOUTH EVERY DAY 30 tablet 11 02/07/20 23 Active Continuous Blood Gluc Healthcare Science Specialist (DEXCOM G7 RADIO PRODUCER) DeviceIndicatio ns:Type 2 diabetes mellitus with chronic kidney disease on chronic dialysis, with long-term current use of insulin ([facility] HHS/HCC) 1 each by Does not apply route daily. 1 each 02/16/20 23 Active Continuous Blood Gluc Sensor (DEXCOM G7 SENSOR) MiscIndications :Type 2 diabetes mellitus with chronic kidney disease on chronic dialysis, with long-term current use of insulin ([facility]/HCC HHS/HCC) 1 Units by Does not apply route daily. 1 each 6 02/21/20 23 Active TRUEPLUS 5-BEVEL PEN NEEDLES 31G X 5 MM MiscIndications :Type 2 diabetes mellitus with chronic kidney disease on chronic dialysis, with long-term current use of insulin ([facility]/HCC HHS/HCC) USE DIRECTED 4 TIMES A DAY 100 each 2 03/07/20 23 Active insulin lispro, 1 Unit Dial, (HUMALOG KWIKPEN) 100 UNIT/ML injection (PEN)Indication s:Type 2 diabetes mellitus with chronic kidney disease on chronic dialysis, with long-term current use of insulin ([facility]/HCC HHS/HCC) INJECT 5 UNITS SUBCUTANEOUSLY EVERY MORNING WITH BREAKFAST AND INJECT 8 UNITS SUBCUTANEOUSLY AT LUNCH AND DINNER 3 mL 14 03/21/20 23 Active Active Problems Problem Noted Date Diagnosed Date Change in bowel habits 04/10/2024 Diarrhea, unspecified type 04/10/2024 Hypertension, essential 03/14/2022 Presence of coronary angioplasty implant and gra ft 03/14/2022 Insomnia 03/14/2022 Functional diarrhea 03/14/2022 Chronic diastolic heart failure ([facility] ) 03/14/2022 Secondary hyperparathyroidism ([facility]) 02/13/20 19 Hyperkalemia 10/24/2018 Proteinuria 10/24/2018 Type 2 diabetes mellitus wit h chronic kidney disease ([facility]) 10/24/2018 End stage renal disease ([facility]) 2018 Anemia due to chronic kidney disease, on chronic dialysis ([facility]) 06/18/2018 Hypertensive kidney disease with end-stage renal disease ([facility]) 08/29/2017 Chronic renal failure High cholesterol Social History Tobacco Use Types Packs/Day Years Used Date Smoking Tobacco: Former Cigarettes Q uit: 2016 Smokeless Tobacco: Never Tobacco Cessation:Counseling Given: No Alcohol Use Standard Drinks/Week Comments No 0 (1 standard drink = 0.6 oz pur e alcohol) OASIS D0700: Social Isolation Answer Da te Recorded Frequency of experiencing loneliness or isolatio n Never 03/15/2023 OASIS A1250: Transportation Answer Date Recorded Lack of Transportation (Medical) No 03/15/2023 Lack of Transportation (Non-Medical) No 03/15/2023 Patient Unable or Declines to Respond No 03/15/2023 OASIS B1300: Health Literacy Answer Rickie e Recorded Frequency of needing help to read materials from doctor or pharmacy Never 03/15/2023 AUDIT-C Answer Date Recorded Frequency of Alcohol Consumption Never 03/28/2019 Average Number of Drinks Not on file Frequency of Binge Drinking Not on file 03/17 PHQ-2 Answer Date Recorded Patient Health Questionnaire-2 Score 0 04/10/2024 Sex and Gender Information Value Date Recorded Sex Assigned at Not on file Legal Sex Male 4:35 PM CDT Gender Identity Not on file Sexual Orientation Not on file Last Filed Vital Signs Vital Sign Reading Time Taken Comments Blood Pressure 140/70 06/19/2024 9:25 AM CDT Pulse 65 06/19/2024 9:25 AM CDT Temperature 36.4 C (97.5 F) 06/19/2024 9:08 AM CDT Respiratory Rate 16 06/19/2024 9:25 AM CDT Oxygen Saturation 96% 06/19/2024 9:25 AM CDT Inhaled Oxygen Concentration - - Weight 87.1 kg (192 lb) 06/04/2024 1:19 PM CDT Height 165.1 cm (5' 5) 04/10/2024 10:58 AM CDT Body Mass Index 31.95 04/10/2024 10:58 AM CDT Plan of Treatment Health Maintenance Due Date Last Done Comments Lipid Panel 1945 Diabetes: Retinopathy Eye Exam 1963 DTaP, Tdap and Td Vaccines (1 - Tdap) 1964 Pneumococcal Vaccine: 50+ Years (1 of 2 - PCV) 1964 Zoster Vaccines (1 of 2) 1995 RSV Immunization or 60+ Years (1 - 1-dose 75+ series) 2020 Hemoglobin A1C 12/11/2022 06/13/2022 COVID-19 Vaccine (2 - season) 2024 07/11/2022, 07/13/2021, 12/11/2020, Additional history exists PHQ-2 (Physician [place]coe) 09/17/2024 04/10/2024 Hepatitis C Completed 03/05/2019 Colorectal Cancer Screening Colonoscopy (10 Years) Discontinued 06/19/2024, 06/19/2024 Meningococcal B Vaccine Aged Out No l onger eligible based on patient's age to complete this topic Meningococcal Vaccine Aged Out No davide kayode eligible based on patient's age to complete this topic RSV Immunizations Under 20 Months Aged Out No longer eligible based on patient's age to complete this topic Procedures Procedure Name Priority Date/Time Associated Diagnosis Comments COLONOSCOPY Routine 06/19/2024 6:49 AM CDT OUTSIDE LAB (SCAN ORDER) Routine 06/13/2022 HEPATITIS PANEL,ACUTE Routine 03/05/2019 9:27 AM CDT from Last 3 Months or Most Recently Relevant to Health Maintenance Results * OUTSIDE LAB (SCAN) (06/13/2022) HGB A1C 8.5 % HS ONBASE 06/13/2022 [facility] Scanned SCANNING Final Resu lt [facility] ONBASE * HEPATITIS PANEL,ACUTE (03/05/2019 9:27 AM CDT) HEPATITIS B SURFACE AG NON-REACTI VE NON-REACTI VE 03/05/2019 11:03 AM CDT [facility] HEP B CORE IGM NON-REACTI VE NON-REACTI VE 03/05/2019 11:28 AM CDT [facility] HAV IGM NON-REACTI VE NON-REACTI VE 03/05/2019 11:37 AM CDT [facility] HEPATITIS C AB NON-REACTI VE NON-REACTI VE 03/05/2019 11:28 AM CDT [facility] 03/05/2019 9:27 AM CDT Dannie Rosa MD LABORATORY Final Result Performing Organization Address City/[facility] Co de Phone Number [facility] [address] [place] [address], from Last 3 Months or Most Recently Relevant to Health Maintenance Insurance Advance Directives * Full Code (Latest Code Status on File) Date Activated Date Inactivated Comments 02/19/2023 2:43 PM 06/19/2024 5:47 AM * Full Code Date Activated Date Inactivated Comments 03/14/2022 10:27 AM 02/19/2023 2:43 PM * Full Code Date Activated Date Inactivated Comments 03/05/2019 9:17 AM 03/05/2019 5:42 PM Care Teams House Worker General Relationship Specialty Start Date End Date Dee Michel FNP [address] [place] [id number] PCP - General Nurse Practitioner Family 06/19/24 Tia Van NP Nurse Practitioner NURSE PRACTITIONER 03/08/22
[2025-05-19 12:17] LABS: Hematocrit 31.7 % (42.0-52.0); Hemoglobin 10.2 g/dL (14.0-18.0); Immature Granulocyte Percent A 0.3 % (0-0.5); Immature Platelet Fraction Pct 4.3 % (0.9-11.2); Lymphocytes Absolute Auto 1.19 K/mm3 (0.9-3.2); Mean Corpuscular HGB Conc 32.2 g/dl (32-36); Mean Corpuscular Hemoglobin 31.3 pg (26-34); Mean Corpuscular Volume 97.2 fl (80-100); Nucleated Red Blood Cells Absolute Auto 0.000 K/mm3 (0.0-0.012); Nucleated Red Blood Cells Perc 0.0 % (0.0-0.2); Platelet Count Result 91 k/mm3 (150-375); Red Blood Count 3.26 M/mm3 (4.6-6.20); White Blood Count 6.9 K/mm3 (4.5-10.0)
[2025-05-19 12:27] LABS: INR 1.3; Prothrombin Time 15.6 Seconds (11.1-14.7)
[2025-05-19 12:28] LABS: Partial Thromboplastin Time 36.9 Seconds (22.3-36.8)
[2025-05-19 12:41] LABS: Alanine Aminotransferase 19 U/L (6-50); Albumin Level 3.8 g/dL (3.5-5.1); Alkaline Phosphatase 67 U/L (38-126); Anion Gap 9 mmol/L (4-12); Aspartate Amino Transferase 19 U/L (17-59); Bilirubin,Total 1.1 mg/dL (0.2-1.3); Blood Urea Nitrogen 35 mg/dL (9-20); Calcium 9.6 mg/dL (8.4-10.2); Carbon Dioxide 25 mmol/L (22-30); Chloride 98 mmol/L (98-107); Estimated Glomerular Filt Rate 9; Glucose 76 mg/dL (65-110); Potassium 4.9 mmol/L (3.4-5.0); Sodium 132 mmol/L (137-145); Total Protein 6.5 g/dL (6.3-8.2)
[2025-05-19 12:45] LABS: NT Pro B Type Natriuretic Pept 17000 pg/mL (19.9-100)
[2025-05-19 12:52] LABS: Influenza A QL RT-PCR Negative (Negative); Influenza B QL RT-PCR Negative (Negative); RSV RNA, RT-PCR Negative (Negative); SARS-CoV-2 RNA PCR Negative (Negative)
--- NOTE | 2025-05-19 13:18 | ED_ITS ---
HPI - SOB/Dyspnea General Chief Complaint: Shortness of Breath/Dyspnea <Doris Epstein PA-C - Last Filed: 05/19/25 13:28> Stated Complaint: SOB <Doris Epstein PA-C - Last Filed: 05/19/25 13:28> Time Seen by Provider: 05/19/25 13:18 <GARIMA Shields Last Filed: 05/19/25 13:28> Focused HPI: Patient is a 79 y/o male, with PMH of ESRD on hemodialysis MWF, who presents the ED with report of shortness of breath. Family member assisted in providing information d/t language barrier. Patient is resident of [facility] in [place], [place]. Family reports patient has been feeling increasingly SOB for the past 2 weeks, but worse today. Aggravated with exertion. Also reports increased fatigue, falling asleep frequently. Denies significant cough, but c/o yellow phlegm. Denies fever, CP, swelling in BLE. Patient's BG on his glucometer in low 50's upon my eval. Given orange juice and brought back to ED room. GENERAL: Well-appearing, well-nourished, and in no acute distress. HEAD: Normocephalic, atraumatic. CHEST: No respiratory distress. HEART: Regular rate and rhythm.? NEURO: ?Alert and oriented x3. Patient screened in triage and initial orders placed.? ?Additional care and disposition to be based upon?diagnostic testing and treatment. <Doris Epstein PA-C - Last Filed: 05/19/25 13:28> Focused HPI: Patient is a 79 y/o male, with PMH of ESRD on hemodialysis MWF, who presents the ED with report of shortness of breath. Family member assisted in providing information d/t language barrier. Patient is resident of [facility] in [place], [place]. Family reports patient has been feeling increasingly SOB for the past 2 weeks, but worse today. Aggravated with exertion. Worse with laying flat and he also has lower extremity edema. Also reports increased fatigue, falling asleep frequently. Denies significant cough, but c/o yellow phlegm. Denies fever, CP, Patient's BG on his glucometer in low 50's upon my eval. Given orange juice and brought back to ED room. GENERAL: Well-appearing, well-nourished, and in no acute distress. HEAD: Normocephalic, atraumatic. CHEST: No respiratory distress. HEART: Regular rate and rhythm.? NEURO: ?Alert and oriented x3. Patient screened in triage and initial orders placed.? ?Additional care and disposition to be based upon?diagnostic testing and treatment. <Vipin Gar MD - Last Filed: 05/19/25 17:51> Source: patient and family <Doris Epstein PA-C - Last Filed: 05/19/25 13:28> Mode of arrival: ambulatory <Doris Epstein PA-C - Last Filed: 05/19/25 13:28> Limitations: language barrier <Doris Epstein PA-C - Last Filed: 05/19/25 13:28> Related Data Home Medications: Home Medications ?Medication ?Instructions ?Recorded ?Confirmed ?Last Taken ?Type furosemide 40 mg tablet 40 mg PO QAM 11/27/19 Unknown History vitamin B complex-vitamin C-folic 1 tablet PO DAILY 01/26/21 Unknown History acid 0.8 mg tablet (Celi-Gabrielle) <Doris Epstein PA-C - Last Filed: 05/19/25 13:28> Allergies/Adverse Reactions: Allergies Allergy/AdvReac Type Severity Reaction Status Date / Time No Known Allergies Allergy Verified 01/26/21 10:42 <Doris Epstein PA-C - Last Filed: 05/19/25 13:28> [facility] Past Medical History Medical History: Medical History Anemia of chronic disease Coronary artery disease History of stents. Followed by Dr. Olivier Kern. Diet-controlled diabetes mellitus Dyslipidemia End-stage renal disease on hemodialysis Epigastric pain Essential hypertension Pulmonary edema <Doris Epstein PA-C - Last Filed: 05/19/25 13:28> Surgical History Surgical History: Surgical History AV fistula (~05/2018) History of basal cell carcinoma excision Right cheek per Dr. Salgado. <Doris Epstein PA-C - Last Filed: 05/19/25 13:28> Family History Family History: Family History Other Unknown family medical history <Doris Epstein PA-C - Last Filed: 05/19/25 13:28> Social History Social History: Social History Social History: Surrogate decision maker: Sid Fraser, [id number]. Code status: Full code. Smoking packs per day: 1 Smoking cigarettes per day: 20.0 Smoking status: Never smoker Second hand tobacco smoke exposure: No Alcohol intake: never Substance use: never Substance use type: does not use Additional living arrangements comments: The patient lives at [facility] in [place]. Originally from [facility]. His children remain there. 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 Gender identity (if verbalized by the patient): Male Spiritual care concerns: No <Doris Epstein PA-C - Last Filed: 05/19/25 13:28> Exam 2 Narrative: APPEARANCE: No apparent distress. Head: atraumatic. EYES: EOMI, NOSE: Atraumatic NECK: Trachea midline RESPIRATORY: Tachypneic, hypoxic at 89% on room air, crackles in the bases CARDIOVASCULAR: RRR, mild edema of lower extremities ABDOMINAL: Non-distended soft nontender MUSCULOSKELETAl: No obvious deformities NEURO: Alert. Moving 4/4 extremities SKIN:: Warm, dry. Normal color PSYCHIATRIC: Normal affect <Vipin Gar MD - Last Filed: 05/19/25 17:51> Course Vital Signs Vital signs: Vital Signs Temperature 98.1 F 05/19/25 12:00 Pulse Rate 73 05/19/25 12:00 Respiratory Rate 16 05/19/25 12:00 Blood Pressure 132/50 L 05/19/25 12:00 Pulse Oximetry 98 05/19/25 12:00 Temperature 97.6 F 05/19/25 17:00 Pulse Rate 73 05/19/25 17:00 Respiratory Rate 23 H 05/19/25 17:00 Blood Pressure 167/55 H 05/19/25 17:00 Pulse Oximetry 100 05/19/25 17:00 Oxygen Delivery Nasal Cannula 05/19/25 15:52 Oxygen Flow Rate 2 05/19/25 15:52 <Doris Epstein PA-C - Last Filed: 05/19/25 13:28> Vital Signs Temperature 98.1 F 05/19/25 12:00 Pulse Rate 73 05/19/25 12:00 Respiratory Rate 16 05/19/25 12:00 Blood Pressure 132/50 L 05/19/25 12:00 Pulse Oximetry 98 05/19/25 12:00 Temperature 97.6 F 05/19/25 17:00 Pulse Rate 73 05/19/25 17:00 Respiratory Rate 23 H 05/19/25 17:00 Blood Pressure 167/55 H 05/19/25 17:00 Pulse Oximetry 100 05/19/25 17:00 Oxygen Delivery Nasal Cannula 05/19/25 15:52 Oxygen Flow Rate 2 05/19/25 15:52 <Vipin Gar MD - Last Filed: 05/19/25 17:51> MDM - SOB/Dyspnea MDM Narrative Medical decision making narrative: MSE by XANDER in triage. <Doris Epstein PA-C - Last Filed: 05/19/25 13:28> MSE by XANDER in triage. -Course: 79-year-old male history of end-stage renal disease on hemodialysis presenting for 2 weeks of shortness of breath. Patient is orthopneic and has edema of the lower extremities. Crackles in the bases. Last echo in our system was from 2020 which showed normal heart function. Patient has been going to his dialysis as directed. Chest x-ray showed pulmonary edema versus infiltrates. CT non-con showed pulmonary edema versus atypical pneumonia. Patient is afebrile with no white count and has had symptoms for 2 weeks. Pulmonary edema matches the patient's clinical picture. Patient given 80 of Lasix although he does not produce much urine. Patient will be admitted to the hospital for management of his hypoxic respiratory failure due to fluid overload versus CHF. Patient was hyper hypoglycemic in triage. He did require an amp of D50 and food to increase his blood pressures. Continuing to monitor on his implanted glucometer. -DDX includes but is not limited to: Fluid overload, CHF, pneumonia <Vipin Gar MD - Last Filed: 05/19/25 17:51> Lab Data Result diagrams: 05/19/25 12:07 05/19/25 12:07 <Doris Epstein PA-C - Last Filed: 05/19/25 13:28> Labs: Lab Results 05/19/25 05/19/25 05/19/25 Range/Units 12:04 12:07 13:32 WBC 6.9 (4.5-10.0) K/mm3 RBC 3.26 L (4.6-6.20) M/mm3 Hgb 10.2 L (14.0-18.0) g/dL Hct 31.7 L (42.0-52.0) % MCV 97.2 (80-100) fl MCH 31.3 (26-34) pg MCHC 32.2 (32-36) g/dl RDW 16.0 H (11.5-14.5) % Plt Count 91 L (150-375) k/mm3 MPV 10.6 H (7.4-10.4) fl Immature Gran % (Auto) 0.3 (0-0.5) % Neut % (Auto) 73.0 (45.5-73.1) % Lymph % (Auto) 17.3 L (18.3-44.2) % [place] % (Auto) 7.3 (2.6-8.5) % Eos % (Auto) 2.0 (0-4.4) % Baso % (Auto) 0.1 L (0.2-1.2) % Lymph # (Auto) 1.19 (0.9-3.2) K/mm3 [place] # (Auto) 0.5 (0.1-0.6) K/mm3 Eos # (Auto) 0.1 (0-0.3) K/mm3 Baso # (Auto) 0.0 (0.0-0.1) K/mm3 Abs Immat Gran (auto) 0.02 (0.00-0.031) K/mm3 Absolute Neuts (auto) 5.0 (1.3-6.7) K/mm3 Absolute Nucleated RBC 0.000 (0.0-0.012) K/mm3 Nucleated RBC % 0.0 (0.0-0.2) % % Immature Plt Fraction 4.3 (0.9-11.2) % PT 15.6 H (11.1-14.7) Seconds INR 1.3 APTT 36.9 H (22.3-36.8) Seconds D-Dimer 0.49 H (<0.48) ug/mL Sodium 132 L (137-145) mmol/L Potassium 4.9 (3.4-5.0) mmol/L Chloride 98 (98-107) mmol/L Carbon Dioxide 25 (22-30) mmol/L Anion Gap 9 (4-12) mmol/L BUN 35 H D (9-20) mg/dL Creatinine 6.32 H (0.7-1.3) mg/dL Estim Creat Clear Calc Not Reportable Estimated GFR 9 L (59 - ) Glucose 76 (65-110) mg/dL POC Capillary Glucose 256 H (65-105) mg/dl Calcium 9.6 (8.4-10.2) mg/dL Total Bilirubin 1.1 (0.2-1.3) mg/dL AST 19 (17-59) U/L ALT 19 (6-50) U/L Alkaline Phosphatase 67 (38-126) U/L Troponin I 0.058 H* (0.000-0.034) ng/mL NT-Pro-B Natriuret Pep 62839 H (19.9-100) pg/mL Total Protein 6.5 (6.3-8.2) g/dL Albumin 3.8 (3.5-5.1) g/dL Influenza A (RT-PCR) Negative (Negative) Influenza B (RT-PCR) Negative (Negative) RSV (RT-PCR) Negative (Negative) SARS-CoV-2 RNA (RT-PCR) Negative (Negative) 05/19/25 05/19/25 Range/Units 15:31 15:41 WBC (4.5-10.0) K/mm3 RBC (4.6-6.20) M/mm3 Hgb (14.0-18.0) g/dL Hct (42.0-52.0) % MCV (80-100) fl MCH (26-34) pg MCHC (32-36) g/dl RDW (11.5-14.5) % Plt Count (150-375) k/mm3 MPV (7.4-10.4) fl Immature Gran % (Auto) (0-0.5) % Neut % (Auto) (45.5-73.1) % Lymph % (Auto) (18.3-44.2) % [place] % (Auto) (2.6-8.5) % Eos % (Auto) (0-4.4) % Baso % (Auto) (0.2-1.2) % Lymph # (Auto) (0.9-3.2) K/mm3 [place] # (Auto) (0.1-0.6) K/mm3 Eos # (Auto) (0-0.3) K/mm3 Baso # (Auto) (0.0-0.1) K/mm3 Abs Immat Gran (auto) (0.00-0.031) K/mm3 Absolute Neuts (auto) (1.3-6.7) K/mm3 Absolute Nucleated RBC (0.0-0.012) K/mm3 Nucleated RBC % (0.0-0.2) % % Immature Plt Fraction (0.9-11.2) % PT (11.1-14.7) Seconds INR APTT (22.3-36.8) Seconds D-Dimer (<0.48) ug/mL Sodium (137-145) mmol/L Potassium (3.4-5.0) mmol/L Chloride (98-107) mmol/L Carbon Dioxide (22-30) mmol/L Anion Gap (4-12) mmol/L BUN (9-20) mg/dL Creatinine (0.7-1.3) mg/dL Estim Creat Clear Calc Estimated GFR (59 - ) Glucose (65-110) mg/dL POC Capillary Glucose 164 H (65-105) mg/dl Calcium (8.4-10.2) mg/dL Total Bilirubin (0.2-1.3) mg/dL AST (17-59) U/L ALT (6-50) U/L Alkaline Phosphatase (38-126) U/L Troponin I 0.058 H* (0.000-0.034) ng/mL NT-Pro-B Natriuret Pep (19.9-100) pg/mL Total Protein (6.3-8.2) g/dL Albumin (3.5-5.1) g/dL Influenza A (RT-PCR) (Negative) Influenza B (RT-PCR) (Negative) RSV (RT-PCR) (Negative) SARS-CoV-2 RNA (RT-PCR) (Negative) <Doris Epstein PA-C - Last Filed: 05/19/25 13:28> Lab Results 05/19/25 05/19/25 05/19/25 Range/Units 12:04 12:07 13:32 WBC 6.9 (4.5-10.0) K/mm3 RBC 3.26 L (4.6-6.20) M/mm3 Hgb 10.2 L (14.0-18.0) g/dL Hct 31.7 L (42.0-52.0) % MCV 97.2 (80-100) fl MCH 31.3 (26-34) pg MCHC 32.2 (32-36) g/dl RDW 16.0 H (11.5-14.5) % Plt Count 91 L (150-375) k/mm3 MPV 10.6 H (7.4-10.4) fl Immature Gran % (Auto) 0.3 (0-0.5) % Neut % (Auto) 73.0 (45.5-73.1) % Lymph % (Auto) 17.3 L (18.3-44.2) % [place] % (Auto) 7.3 (2.6-8.5) % Eos % (Auto) 2.0 (0-4.4) % Baso % (Auto) 0.1 L (0.2-1.2) % Lymph # (Auto) 1.19 (0.9-3.2) K/mm3 [place] # (Auto) 0.5 (0.1-0.6) K/mm3 Eos # (Auto) 0.1 (0-0.3) K/mm3 Baso # (Auto) 0.0 (0.0-0.1) K/mm3 Abs Immat Gran (auto) 0.02 (0.00-0.031) K/mm3 Absolute Neuts (auto) 5.0 (1.3-6.7) K/mm3 Absolute Nucleated RBC 0.000 (0.0-0.012) K/mm3 Nucleated RBC % 0.0 (0.0-0.2) % % Immature Plt Fraction 4.3 (0.9-11.2) % PT 15.6 H (11.1-14.7) Seconds INR 1.3 APTT 36.9 H (22.3-36.8) Seconds D-Dimer 0.49 H (<0.48) ug/mL Sodium 132 L (137-145) mmol/L Potassium 4.9 (3.4-5.0) mmol/L Chloride 98 (98-107) mmol/L Carbon Dioxide 25 (22-30) mmol/L Anion Gap 9 (4-12) mmol/L BUN 35 H D (9-20) mg/dL Creatinine 6.32 H (0.7-1.3) mg/dL Estim Creat Clear Calc Not Reportable Estimated GFR 9 L (59 - ) Glucose 76 (65-110) mg/dL POC Capillary Glucose 256 H (65-105) mg/dl Calcium 9.6 (8.4-10.2) mg/dL Total Bilirubin 1.1 (0.2-1.3) mg/dL AST 19 (17-59) U/L ALT 19 (6-50) U/L Alkaline Phosphatase 67 (38-126) U/L Troponin I 0.058 H* (0.000-0.034) ng/mL NT-Pro-B Natriuret Pep 29484 H (19.9-100) pg/mL Total Protein 6.5 (6.3-8.2) g/dL Albumin 3.8 (3.5-5.1) g/dL Influenza A (RT-PCR) Negative (Negative) Influenza B (RT-PCR) Negative (Negative) RSV (RT-PCR) Negative (Negative) SARS-CoV-2 RNA (RT-PCR) Negative (Negative) 05/19/25 05/19/25 Range/Units 15:31 15:41 WBC (4.5-10.0) K/mm3 RBC (4.6-6.20) M/mm3 Hgb (14.0-18.0) g/dL Hct (42.0-52.0) % MCV (80-100) fl MCH (26-34) pg MCHC (32-36) g/dl RDW (11.5-14.5) % Plt Count (150-375) k/mm3 MPV (7.4-10.4) fl Immature Gran % (Auto) (0-0.5) % Neut % (Auto) (45.5-73.1) % Lymph % (Auto) (18.3-44.2) % [place] % (Auto) (2.6-8.5) % Eos % (Auto) (0-4.4) % Baso % (Auto) (0.2-1.2) % Lymph # (Auto) (0.9-3.2) K/mm3 [place] # (Auto) (0.1-0.6) K/mm3 Eos # (Auto) (0-0.3) K/mm3 Baso # (Auto) (0.0-0.1) K/mm3 Abs Immat Gran (auto) (0.00-0.031) K/mm3 Absolute Neuts (auto) (1.3-6.7) K/mm3 Absolute Nucleated RBC (0.0-0.012) K/mm3 Nucleated RBC % (0.0-0.2) % % Immature Plt Fraction (0.9-11.2) % PT (11.1-14.7) Seconds INR APTT (22.3-36.8) Seconds D-Dimer (<0.48) ug/mL Sodium (137-145) mmol/L Potassium (3.4-5.0) mmol/L Chloride (98-107) mmol/L Carbon Dioxide (22-30) mmol/L Anion Gap (4-12) mmol/L BUN (9-20) mg/dL Creatinine (0.7-1.3) mg/dL Estim Creat Clear Calc Estimated GFR (59 - ) Glucose (65-110) mg/dL POC Capillary Glucose 164 H (65-105) mg/dl Calcium (8.4-10.2) mg/dL Total Bilirubin (0.2-1.3) mg/dL AST (17-59) U/L ALT (6-50) U/L Alkaline Phosphatase (38-126) U/L Troponin I 0.058 H* (0.000-0.034) ng/mL NT-Pro-B Natriuret Pep (19.9-100) pg/mL Total Protein (6.3-8.2) g/dL Albumin (3.5-5.1) g/dL Influenza A (RT-PCR) (Negative) Influenza B (RT-PCR) (Negative) RSV (RT-PCR) (Negative) SARS-CoV-2 RNA (RT-PCR) (Negative) <Vipin Gar MD - Last Filed: 05/19/25 17:51> Discharge Plan Discharge Clinical Impression: Fluid overload, Hypoxic respiratory failure <Doris Epstein PA-C - Last Filed: 05/19/25 13:28> Patient Disposition: Home <Doris Epstein PA-C - Last Filed: 05/19/25 13:28> Condition: Stable <Doris Epstein PA-C - Last Filed: 05/19/25 13:28> Instructions: Antibiotic Form <Doris Epstein PA-C - Last Filed: 05/19/25 13:28> Patient Language: Other <GARIMA Shields Last Filed: 05/19/25 13:28> Prescriptions: No Action furosemide 40 mg tablet 40 mg PO QAM ondansetron HCl [Zofran] 4 mg tablet 4 mg PO Q6H PRN (Reason: nausea and vomiting) Qty: 20 0RF dicyclomine 10 mg capsule 10 mg PO BID PRN (Reason: diarrhea) Qty: 20 0RF Rx Instructions: 1 tab q 8hrs as needed on dialysis days for diarrhea pantoprazole 20 mg tablet,delayed release (DR/EC) 20 mg PO QAM Qty: 30 0RF Celi-Gabrielle 0.8 mg Tablet 1 tablet PO DAILY amlodipine 5 mg tablet See Rx Instructions .ROUTE .COMPLEX Qty: 30 5RF Dose Instruction: TAKE 1 TABLET BY MOUTH EVERY DAY Rx Instructions: TAKE 1 TABLET BY MOUTH EVERY DAY atorvastatin 40 mg tablet See Rx Instructions .ROUTE .COMPLEX Qty: 30 5RF Dose Instruction: TAKE 1 TABLET BY MOUTH EVERY DAY Rx Instructions: TAKE 1 TABLET BY MOUTH EVERY DAY aspirin 81 mg tablet,delayed release (DR/EC) See Rx Instructions .ROUTE .COMPLEX Qty: 30 5RF Dose Instruction: TAKE 1 TABLET BY MOUTH EVERY DAY Rx Instructions: TAKE 1 TABLET BY MOUTH EVERY DAY carvedilol 25 mg tablet See Rx Instructions .ROUTE .COMPLEX Qty: 60 5RF Dose Instruction: TAKE 1 TABLET BY MOUTH 2 TIMES A DAY Rx Instructions: TAKE 1 TABLET BY MOUTH 2 TIMES A DAY <Doris Epstein PA-C - Last Filed: 05/19/25 13:28> Follow-up/Referrals: Maranda Saucedo APRN [Primary Care Provider, Hospitalist] <Doris Epstein PA-C - Last Filed: 05/19/25 13:28>
--- NOTE | 2025-05-19 13:27 | ECG_ITS ---
Test Date: 2025-05-19 13:36:09 Measurements Intervals [place] Rate: 64 P: 9 FL: 161 QRS: 9 QRSD: 98 T: 52 QT: 453 QTc: 468 Interpretive Statements SINUS RHYTHM NORMAL ELECTROCARDIOGRAM No previous ECG available for comparison Electronically Signed On 05-19-2025 16:05:49 CDT by Max Winn M.D.
--- NOTE | 2025-05-19 13:32 | PC.NURSE ---
BS 256 in ED room 4, monitor was 56 and pt had juice, 1 amp D50 given IVP per protocol.
[2025-05-19] MEDS: DEXTROSE 50% 25 GM/50 ML SYRINGE ×2 (13:44→15:26)
--- OUTSIDE RECORDS SUMMARY | 2025-05-19 14:04 | XMS_ITS | Encounter Summary ---
Author Organization [facility] Healthcare Address [address] [place] [address] Care Team Providers Care Rubber Stamp Maker Name Role Phone Long Mccarthy MD Primary Care Provider Encounter Details Date Type Department Care Team (Late st Contact Info) Description 12/23/2024 Telephone [facility] [address] [place] [address] Chris Garrison MD [address] [place] [address] [address] [facility] [address] [place] [address] Social History Tobacco Use Types Packs/Day Years Used Date Smoking Tobacco: Former Cigarettes Q uit: 2016 Smokeless Tobacco: Never [facility] Utilities Answer Date Recorded In the [...] often do you attend chur ch or synagogue services? Patient declined 12/24/2024 Do you belong [...] any time in the past [address] [facility], were you homeless or living in a care home (including now)? No 12/24/2024 Personal Safety Answer [...] documented as of this encounter Care Teams Rubber Stamp Maker Relationship Specialty Start Date End Date Long Mccarthy MD PCP - General Family Medicine 01/10/21 documented as of this encounter
--- OUTSIDE RECORDS SUMMARY | 2025-05-19 14:04 | XMS_ITS ---
Author Organization [facility] Address [address] [place] [id number] Care Team Providers Care Distribution Center Supervisor Name Role Phone Long Mccarthy MD Primary Care Provider [phone] Dialysis Access Sites Type Status Location Placement [...] pain 12/23/2024 Coronary artery disease invo lving eek coronary artery of eek heart without angina pectoris 07/30/2023 Hypertensive heart [...] Coreg Assessment & Plan (11/10/2022 12:00 PM HISTORICAL MANUSCRIPTS CURATOR): Impression: Chronic hypertension. Plan: Continue Coreg Insomnia [...] worsen Assessment & Plan (11/10/2022 12:00 PM HISTORICAL MANUSCRIPTS CURATOR): Impression: Patient is being dialyzed through a [...] insulin Assessment & Plan (11/10/2022 12:01 PM HISTORICAL MANUSCRIPTS CURATOR): Impression: Chronic diabetes mellitus. Plan: Continue insulin Anemia in chronic kidney disease 06/18/2018 Hypertensive kidney disease with end-stage renal disease 08/29/2017 Immunizations Immunization Administration Dates Next Due Pfizer SARS-CoV-2 Monovalent Vaccination (5-11 Yrs) 07/13/2021,12/11/2020,11/18/2020 Social History Tobacco Use Types Packs/Day Years Used Date Smoking Tobacco: Former Cigarettes Q uit: 2016 Smokeless Tobacco: Never Tobacco Cessation:Counseling Given: Not Answered [facility] Utilities Answer Date Recorded In the past [...] often do you attend chur ch or restoration services? Patient declined 12/24/2024 Do you belong to any clubs o r organizations such as shinto groups, unions, fraternal or athletic groups, or [...] any time in the past 12 m [facility], were you homeless or living in a skilled nursing (including now)? No 12/24/2024 Personal Safety Answer [...] Gender: M Study Date: 04/23/2025 10:32:57 AM Web Site Admin: Dyan Merrill RDMS,RVT Order Provider: TIERNEY GARRISON [...] Vessel Velocity Rt Location Brachioceph AVF Rt [place] Artery 293.00 cm/sec Rt [place] Artery VF 2874.00 mL/min Rt Arterial Anast 316.00 cm/sec Rt Prx Graft 120.00 cm/sec Rt Prx-Mid AVF 244.00 cm/sec Rt Mid AVF 183.00 cm/sec Rt Mid AVF VF 1671.00 mL/min Rt Mid-Dist AVF 141.00 cm/sec Rt Dst AVF 141.00 cm/sec Rt Venous Anast 332.00 cm/sec Rt [place] Vein 156.00 cm/sec FINDINGS: Study Quality: The [...] Gender: M Study Date: 04/23/2025 10:32:57 AM Web Site Admin: Dyan Merrill RDMS,RVT Order Provider: TIERNEY GARRISON Provider: TIERNEY GARRISON PROCEDURES: Vascular Report: Color Duplex ultrasound with velocity measurements wasperformed of the arteriovenous fistula in the right upper extremity. INDICATIONS: Dialysis graft complication. HISTORY: S/P BA right subclavian v/ innominate v 07/06/2022 S/P Right Brachioceph AVF 03/05/2019. COMPARISONS: The previous exam was completed on 01/20/2025. AVF: Vessel Velocity Rt Location Brachioceph AVF Rt [place] Artery 293.00 cm/sec Rt [place] Artery VF 2874.00 mL/min Rt Arterial Anast 316.00 cm/sec Rt Prx Graft 120.00 cm/sec Rt Prx-Mid AVF 244.00 cm/sec Rt Mid AVF 183.00 cm/sec Rt Mid AVF VF 1671.00 mL/min Rt Mid-Dist AVF 141.00 cm/sec Rt Dst AVF 141.00 cm/sec Rt Venous Anast 332.00 cm/sec Rt [place] Vein 156.00 cm/sec FINDINGS: Study Quality: The [...] LAB BLOOD ORDERABLES Final Resu lt [facility] [address] [place] [address] * Hepatitis panel, acute Blood (12/24/2024 [...] 19. Hep C Ab Nonreactive Nonreactive [facility] Comment: Interpretive Data Nonreactive: Antibodies to HCV [...] revised on 2019. HepBsAg Nonreactive Nonreactive [facility] Blood 12/24/2024 5:08 PM CDT 12/24/2024 6:07 PM CDT Pete Davis MD LAB MICROBIOLOGY - GENERAL MARIELA EUBANKS Final Result [facility] [address] [place] [address] from Last 3 Months or Most Recently Relevant to Health Maintenance
--- OUTSIDE RECORDS SUMMARY | 2025-05-19 14:04 | XMS_ITS | Encounter Summary ---
Author Organization [facility] Healthcare Address [address] [place] [id number] Care Team Providers Care Window Cutter Name Role Phone Long Mccarthy MD Primary Care Provider [phone] Encounter Details Date Type Department Care Team (Late st Contact Info) Description 10/06/2024 Telephone [facility] at [address] [place] [address] Celia Vallecillo Social History Tobacco Use Types [...] documented as of this encounter Care Teams Window Cutter Relationship Specialty Start Date End Date Long Mccarthy MD PCP - General Family Medicine 01/10/21 documented as of this encounter
--- OUTSIDE RECORDS SUMMARY | 2025-05-19 14:04 | XMS_ITS | Clinical Summary ---
Author Organization [facility] Address [facility] [place] [address] Care Team Providers Care Hack Driver Name Role Phone Tia Van TAILOR HELPER Unavailable [phone] Marilu Dee JULIEN Primary Care Provider [phone] Allergies No known active allergies Medications calcium [...] 11 02/07/20 23 Active Continuous Blood Gluc Envelope Patternmaker (DEXCOM G7 TEXTILE ARTIST) DeviceIndicatio ns:Type 2 diabetes mellitus with chronic kidney disease on chronic dialysis, with long-term current use of insulin ([facility] HHS/HCC) 1 each by Does not apply route daily. 1 each 02/16/20 23 Active Continuous Blood Gluc Sensor (DEXCOM G7 SENSOR) MiscIndications :Type 2 diabetes mellitus with chronic kidney disease on chronic dialysis, with long-term current use of insulin ([facility]/HCC HHS/HCC) 1 Units by Does not apply route daily. 1 each 6 02/21/20 23 Active TRUEPLUS 5-BEVEL PEN NEEDLES 31G X 5 MM MiscIndications :Type 2 diabetes mellitus with chronic kidney disease on chronic dialysis, with long-term current use of insulin ([facility]/HCC HHS/HCC) USE DIRECTED 4 TIMES A DAY 100 each 2 03/07/20 23 Active insulin lispro, 1 Unit Dial, (HUMALOG KWIKPEN) 100 UNIT/ML injection (PEN)Indication s:Type 2 diabetes mellitus with chronic kidney disease on chronic dialysis, with long-term current use of insulin ([facility]/HCC HHS/HCC) INJECT 5 UNITS SUBCUTANEOUSLY EVERY MORNING WITH BREAKFAST AND INJECT 8 UNITS SUBCUTANEOUSLY AT LUNCH AND DINNER 3 mL 14 03/21/20 23 Active Active Problems Problem Noted Date Diagnosed Date Change in bowel habits 04/10/2024 Diarrhea, unspecified type 04/10/2024 Hypertension, essential 03/14/2022 Presence of coronary angioplasty implant and gra ft 03/14/2022 Insomnia 03/14/2022 Functional diarrhea 03/14/2022 Chronic diastolic heart failure ([facility] ) 03/14/2022 Secondary hyperparathyroidism ([facility]) 02/13/20 19 Hyperkalemia 10/24/2018 Proteinuria 10/24/2018 Type 2 diabetes mellitus wit h chronic kidney disease ([facility]) 10/24/2018 End stage renal disease ([facility]) 2018 Anemia due to chronic kidney disease, on chronic dialysis ([facility]) 06/18/2018 Hypertensive kidney disease with end-stage renal disease ([facility]) 08/29/2017 Chronic renal failure High cholesterol [...] 07/13/2021, 12/11/2020, Additional history exists PHQ-2 (Phys[facility] [place]) 09/17/2024 04/10/2024 Hepatitis C Completed 03/05/2019 Colorectal [...] Med Group Scanned SCANNING Final Resu lt [facility] * HEPATITIS PANEL,ACUTE (03/05/2019 9:27 AM CDT) HEPATITIS B SURFACE AG NON-REACTI VE NON-REACTI VE 03/05/2019 11:03 AM CDT [facility] HEP B CORE IGM NON-REACTI VE NON-REACTI VE 03/05/2019 11:28 AM CDT [facility] HAV IGM NON-REACTI VE NON-REACTI VE 03/05/2019 11:37 AM CDT [facility] HEPATITIS C AB NON-REACTI VE NON-REACTI VE 03/05/2019 11:28 AM CDT [facility] 03/05/2019 9:27 AM CDT Dannie Rosa MD LABORATORY Final Result Performing Organization Address [facility] Co de Phone Number [facility] [address] [place] [address], from Last 3 Months or Most Recently Relevant to Health Maintenance Insurance Advance Directives * Full Code (Latest Code Status on File) Date Activated Date Inactivated Comments 02/19/2023 2:43 PM 06/19/2024 5:47 AM * Full Code Date Activated Date Inactivated Comments 03/14/2022 10:27 AM 02/19/2023 2:43 PM * Full Code Date Activated Date Inactivated Comments 03/05/2019 9:17 AM 03/05/2019 5:42 PM Care Teams Hack Driver Relationship Specialty Start Date End Date Dee Michel FNP [address] [place] [id number] PCP - General Nurse Practitioner Family 06/19/24 Tia Van NP Nurse Practitioner NURSE PRACTITIONER 03/08/22
--- OUTSIDE RECORDS SUMMARY | 2025-05-19 14:04 | XMS_ITS | Clinical Summary ---
Author Organization [facility] Address [address] [place] [id number] Care Team Providers Care Hvac Service Tech Name Role Phone Long Mccarthy MD Primary Care Provider [phone] Allergies No known active allergies Medications amLODIPine [...] pain 12/23/2024 Coronary artery disease invo lving [place] coronary artery of [place] heart without angina pectoris 07/30/2023 Hypertensive heart [...] Coreg Assessment & Plan (11/10/2022 12:00 PM EQUIPMENT PROCESSOR): Impression: Chronic hypertension. Plan: Continue Coreg Insomnia [...] worsen Assessment & Plan (11/10/2022 12:00 PM EQUIPMENT PROCESSOR): Impression: Patient is being dialyzed through a [...] insulin Assessment & Plan (11/10/2022 12:01 PM EQUIPMENT PROCESSOR): Impression: Chronic diabetes mellitus. Plan: Continue insulin Anemia in chronic kidney disease 06/18/2018 Hypertensive kidney disease with end-stage renal disease 08/29/2017 Encounters Date Type Department Care Team Description 04/23/2025 10:29 AM CDT - 04/23/2025 11:59 PM CDT Hospital Encounter [facility] Medical Office Building [address] [place] [address] [place] [id number] End-stage renal disease on hemodialysis (HCC); Other complication of arteriovenous dialysis fistula, initial encounter Discharge Disposition: Discharge to home or self care 04/23/2025 10:29 AM CDT - 04/23/2025 11:59 PM CDT Hospital Encounter [facility] at [address] [place] [phone] ESRD (end stage renal disease) on dialysis (HCC) (Primary Dx); Other specified complication of vascular prosthetic devices, implants and grafts, initial encounter; Other complication of arteriovenous dialysis fistula, initial encounter; Hypertension, essential; Pure hypercholesterolemia Discharge Disposition: Discharge to home or self care 04/20/2025 Telephone [facility] at [facility] [address] [place] [address] Chris Garrison MD Shovel Mechanic for Upcoming Appointment from Last 3 Months [...] ANGIOPLASTY COLONOSCOPY 06/17/2024 - 07/17/2024 Dr. Best [facility]' Medical History Medical History Date Comments Chronic renal failure Diabetes mellitus (HCC) Type 2 ESRD (end stage renal disease) on dialysis (HCC) High cholesterol Hypertension Functional diarrhea Chronic diastolic heart failure (HCC) History of pancreatitis 2020 CAD (coronary artery disease) H/ O stents Hemodialysis patient MWF at [facility] Anemia Language barrier farsi speaking Social History Tobacco Use Types Packs/Day Years Used Date Smoking Tobacco: Former Cigarettes Q uit: 2016 Smokeless Tobacco: Never Tobacco Cessation:Counseling Given: Not Answered [facility] Utilities Answer Date Recorded In the past 12 months has [employer] gas, oil, or water [employer] threatened to shut off services in your home? No 12/24/2024 Social Connection and Isolation Panel Answer Date Recorded In a typical week, how many times do you talk on the phone with family, friends, or neighbors? Three times a week 12/24/2024 How often do you get togethe r with friends or relatives? Once a week 12/24/2024 How often do you attend [facility] or taoist services? Patient declined 12/24/2024 Do you belong to any clubs o r organizations such as zoroastrianism groups, unions, fraternal or athletic groups, or [...] any time in the past 12 m [facility], were you homeless or living in a detention (including now)? No 12/24/2024 Personal Safety Answer [...] Gender: M Study Date: 04/23/2025 10:32:57 AM Statistics Teacher: Dyan Merrill RDMS,RVT Order Provider: TIERNEY GARRISON [...] Vessel Velocity Rt Location Brachioceph AVF Rt [place] Artery 293.00 cm/sec Rt [place] Artery VF 2874.00 mL/min Rt Arterial Anast 316.00 cm/sec Rt Prx Graft 120.00 cm/sec Rt Prx-Mid AVF 244.00 cm/sec Rt Mid AVF 183.00 cm/sec Rt Mid AVF VF 1671.00 mL/min Rt Mid-Dist AVF 141.00 cm/sec Rt Dst AVF 141.00 cm/sec Rt Venous Anast 332.00 cm/sec Rt [place] Vein 156.00 cm/sec FINDINGS: Study Quality: The [...] Gender: M Study Date: 04/23/2025 10:32:57 AM Statistics Teacher: Dyan Merrill RDMS,RVT Order Provider: TIERNEY GARRISON Provider: TIERNEY GARRISON PROCEDURES: Vascular Report: Color Duplex ultrasound with velocity measurements wasperformed of the arteriovenous fistula in the right upper extremity. INDICATIONS: Dialysis graft complication. HISTORY: S/P BA right subclavian v/ innominate v 07/06/2022 S/P Right Brachioceph AVF 03/05/2019. COMPARISONS: The previous exam was completed on 01/20/2025. AVF: Vessel Velocity Rt Location Brachioceph AVF Rt [place] Artery 293.00 cm/sec Rt [place] Artery VF 2874.00 mL/min Rt Arterial Anast 316.00 cm/sec Rt Prx Graft 120.00 cm/sec Rt Prx-Mid AVF 244.00 cm/sec Rt Mid AVF 183.00 cm/sec Rt Mid AVF VF 1671.00 mL/min Rt Mid-Dist AVF 141.00 cm/sec Rt Dst AVF 141.00 cm/sec Rt Venous Anast 332.00 cm/sec Rt [place] Vein 156.00 cm/sec FINDINGS: Study Quality: The study quality is adequate. Fistula 1: Dilatation/ aneurysmal areas in the mid to distal AVF measuring2.8 x 2.2cm and 2.6 x 2.2cm. CONCLUSIONS: 1. 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 Electronically Signed By: Chris Garrison MD 04/24/2025 11:50:25 PM CDT Tierney Garrison MD [facility] US PROCEDURES Final Result [...] ORDERABLES Final Resu lt Performing Organization Address [facility] Co de Phone Number [facility] [address] [place] [address] * Hepatitis panel, acute Blood (12/24/2024 5:08 PM CDT) Hep A IgM Nonreactive Nonreactive Comment: Interpretive Data: If Hep A IgM Ab is reported as Equivocal, a new sample should be drawn in two weeks for testing. Current interpretive data was last revised on 19. Hep B core IgM Nonreactive Nonreactive [facility] Comment: Interpretive Data If HepB Core IgM Ab is reported as Equivocal, a new sample should be drawn in two weeks for testing. Current interpretive data was last revised on 19. Hep C Ab Nonreactive Nonreactive [facility] Comment: Interpretive Data Nonreactive: Antibodies [...] last revised on 2019. HepBsAg Nonreactive Nonreactive [facility] Blood 12/24/2024 5:08 PM CDT 12/24/2024 6:07 PM CDT Pete Davis MD LAB MICROBIOLOGY - GENERAL ORDE RABLES Final Result Performing Organization Address [facility] Co de Phone Number [facility] [address] [place] [address] from Last 3 Months or Most Recently Relevant to Health Maintenance Insurance Advance Directives For more information, please contact: [phone] * Full Code (Latest Code Status on File) Date Activated Date Inactivated Comments 12/24/2024 11:57 AM 12/28/2024 6:44 PM * Full Code Date Activated Date Inactivated Comments 07/06/2022 9:28 AM 07/06/2022 4:00 PM Care Teams Hvac Service Tech Relationship Specialty Start Date End Date Long Mccarthy MD PCP - General Family Medicine 01/10/21
[2025-05-19] MEDS: FUROSEMIDE INJ 100 MG/10 ML VIAL 80 MG IV PUSH (14:10)
--- NOTE | 2025-05-19 14:13 | PC.NURSE ---
This RN spoke to Kim at [facility] and gave update on pt status and POC.
[2025-05-19 14:46] LABS: Troponin I 0.058 ng/mL (0.000-0.034)
--- NOTE | 2025-05-19 15:20 | PC.NURSE ---
Pt glucometer shows 59 currently, EDP made aware, per VORB - pt given sandwich and amp of D50
--- NOTE | 2025-05-19 15:23 | ECG_ITS ---
Test Date: 2025-05-19 15:35:12 Measurements Intervals [place] Rate: 80 P: 21 MS: 167 QRS: 36 QRSD: 92 T: 60 QT: 412 QTc: 477 Interpretive Statements SINUS RHYTHM WITHIN NORMAL LIMITS Compared to ECG 05/19/2025 13:36:09 NO SIGNIFICANT CHANGE Electronically Signed On 05-19-2025 16:11:55 CDT by Max Winn M.D.
[2025-05-19 16:16] LABS: Troponin I 0.058 ng/mL (0.000-0.034)
--- NOTE | 2025-05-19 18:49 | ADMGEN ---
This patient, Jose Quinonez, was admitted to [facility] Surg Room 312-01. Patient/family oriented to hospital policies and general routines including ID bracelet, bed and alarms, visiting hours, pain management, procedures, bathroom and other care routines, personal items, smoking policy, room service/diet, and visiting hours. Information on how to activate the Rapid Response Team has been discussed. Patient/Family are encouraged to report perceived risks to care and to ask questions if they do not understand what they are told or what they should do. patient arrived to floor at 1835 and report received from
[2025-05-20] VITALS (27 sets, daily range): BP systolic 111–169; BP diastolic 49–75; PULSE 61–85; RESP 16–20; TEMP 36.3–37.3; O2SAT 94–100; BMI 29.0
--- NOTE | 2025-05-20 | ECHO_ITS ---
Patient Info Name: Jose Quinonez Age: 79 years : 1945 Gender: Male Ht: 68 in Wt: 190 lbs BSA: 2.05 m2 HR: 72 bpm BP: 127 / 64 mmHg Technical Quality: Good Exam Date: 05/20/2025 10:30 AM Patient Status: I Admit Date: 05/19/2025 Exam Type: CA echo doppler color flow Complete two-dimensional, color flow and Doppler transthoracic echocardiogram is performed. Staff Referring Physician: Vipin Gar Enamel Dipper: Jaqui Torres Attending Provider: Sincere Walker Summary 1. Complete two-dimensional, color flow and Doppler transthoracic echocardiogram is performed. 2. Left ventricular chamber dimension is normal. 3. Left ventricular systolic function is normal, estimated at 60-65. 4. There is mild concentric increased left ventricular wall thickness. 5. The left ventricular diastolic function is abnormal. 6. E/e' 23 is significantly elevated. 7. Left atrial chamber dimension is moderately enlarged. 8. Right atrial chamber dimension is mildly enlarged. 9. There is mild aortic valve sclerosis. 10. There is mild to moderate aortic valve regurgitation. 11. The mitral valve has a moderately calcified annulus. 12. There is moderate to severe mitral valve regurgitation. 13. There is moderate tricuspid valve regurgitation. 14. Severe pulmonary hypertension, estimated pulmonary arterial systolic pressure is 83 mmHg. 15. Dilated inferior vena cava with >50% collapse upon inspiration consistent with elevated right atrial pressure, 10 mmHg. Left Ventricle E/e' 23 is significantly elevated. Left ventricular chamber dimension is normal. Left ventricular systolic function is normal, estimated at 60-65. There is mild concentric increased left ventricular wall thickness. The left ventricular diastolic function is abnormal. Right Ventricle Right ventricular chamber dimension is normal. Right ventricular systolic function is normal and with normal TAPSE 1.9 cm. Left Atria Left atrial chamber dimension is moderately enlarged. Right Atria Right atrial chamber dimension is mildly enlarged. Aortic Valve The aortic valve is trileaflet. There is mild aortic valve sclerosis. There is no aortic valve stenosis. There is mild to moderate aortic valve regurgitation. Pulmonic Valve There is no pulmonic regurgitation. Mitral Valve The mitral valve has a moderately calcified annulus. There is no mitral valve stenosis. There is moderate to severe mitral valve regurgitation. Tricuspid Valve There is moderate tricuspid valve regurgitation. Severe pulmonary hypertension, estimated pulmonary arterial systolic pressure is 83 mmHg. Pericardium/Pleural There is no pericardial effusion. Inferior Vena Cava Dilated inferior vena cava with >50% collapse upon inspiration consistent with elevated right atrial pressure, 10 mmHg. Aorta The aortic root size at the sinus of Valsalva is normal. Left Ventricular Outflow Tract Name Value Normal LVOT 2D LVOT Diameter 2.0 cm LVOT Doppler LVOT Peak Velocity 132 cm/s LVOT Peak Gradient 7 mmHg LVOT Mean Gradient 4 mmHg LVOT VTI 33 cm LVOT Stroke Volume 101 ml LVOT CO 7.3 l/min LVOT CI 3.5 l/min/m2 Pulmonic Valve Name Value Normal RVOT Doppler RVOT Peak Velocity 76 cm/s RVOT Peak Gradient 2 mmHg PV Doppler PV Peak Velocity 121 cm/s PV Peak Gradient 6 mmHg Mitral Valve Name Value Normal MV Regurgitation Doppler MR Peak Gradient 144 mmHg MV Diastolic Function MV E Peak Velocity 152 cm/s MV A Peak Velocity 111 cm/s MV E/A 1.4 MV Decel Time (PW) 150 ms MV Annular TDI MV E/e' (Septal) 28.8 MV E/e' (Lateral) 19.6 MV E/e' (Average) 24.2 Tricuspid Valve Name Value Normal TV Regurgitation Doppler TR Peak Velocity 428 cm/s TR Peak Gradient 73 mmHg Estimated PAP/RSVP RA Pressure 10 mmHg <=5 PA Systolic Pressure 83 mmHg <36 RV Systolic Pressure 83 mmHg <36 Aortic Valve Name Value Normal AV Doppler AV Peak Velocity 182 cm/s AV Peak Gradient 13 mmHg AV Area (Cont Eq Abraham) 2.2 cm2 AV DI (Abraham) 0.72 AV Regurgitation 2D LVOT Area 3.0 cm2 Ventricles Name Value Normal LV Dimensions 2D/MM IVS Diastolic Thickness (2D) 1.3 cm 0.6-1.0 LVID Diastole (2D) 3.8 cm 4.2-5.8 LVIW Diastolic Thickness (2D) 1.1 cm 0.6-1.0 LVID Systole (2D) 2.7 cm 2.5-4.0 LVOT Diameter 2.0 cm LV Mass (2D Cubed) 158.31 g 88.00-224.00 LV Mass Index (2D Cubed) 77 g/m2 49-115 Relative Wall Thickness (2D) 0.57 <=0.42 LV Fractional Shortening/Ejection Fraction 2D/MM LV Fractional Shortening (2D) 29 % 25-43 LV EF (2D Teichholz) 56 % LV Diastolic Volume (4C MOD) 136 ml LV EF (4C MOD) 61 % LV Diastolic Volume (2C MOD) 138 ml LV EF (2C MOD) 58 % LV Diastolic Volume (BP MOD) 140 ml 62-150 LV Diastolic Volume Index (BP MOD) 68 ml/m2 34-74 LV Systolic Volume (BP MOD) 57 ml 21-61 LV Systolic Volume Index (BP MOD) 28 ml/m2 11-31 LV EF (BP MOD) 59 % 52-72 LV Diastolic Length (4C) 7.8 cm LV Systolic Length (4C) 6.6 cm LV Stroke Volume (4C MOD) 83 ml Atria Name Value Normal LA Dimensions LA Volume (4C A-L) 71 ml LA Volume (BP A-L) 82 ml RA Dimensions RA Systolic Major [place] Length (4C) 5.5 cm 2.1-2.7 RA Area (4C) 14.2 cm2 <=18.0 Report Signatures
--- NOTE | 2025-05-20 04:58 | PM.IMHP ---
H&P: HPI History of Present Illness Date/Time: 05/20/25 04:58 Chief Complaint: Shortness of breath Narrative: This is a 79-year-old male patient who has a past medical history of end-stage renal disease on dialysis Sunday. The patient resides at [facility] in [facility] . The patient has been feeling short of breath over the last 2 weeks. The patient does make a small amount of urine. He has had increased swelling to his hands and his feet. The patient speaks Farsi and requires an sleeve maker. Patient's blood sugars were in the 50s upon arrival to the emergency room. He was given orange juice and taken into ER. The patient is currently on oxygen at 6 L and does not typically wear oxygen. He does have a history of coronary artery disease with stents and sees Dr. Kern. His chest CT was read as the following 1. Diffuse interstitial infiltrates with septal thickening and groundglass opacification, most likely edema versus atypical pneumonia. 2: Bilateral pleural effusions, right greater than left. 3: Mediastinal lymphadenopathy, likely reactive. Patient's chest x-ray showed no focal consolidation. Moderate perihilar bronchial wall thickening, findings suggestive of respiratory bronchiolitis The patient was given Lasix 80 mg in the emergency room. He was also given D50. His H&H is 10.2 and 31.7. Platelet counts are down to 91. D-dimer 0.49. Other abnormal labs on his chemistry includes sodium of 132, BUN 35, creatinine 6.32, GFR 9, point of care glucose 164. Troponin 0.058 and repeat was 0.058. BNP was 10472. Viral serology was negative. The patient is being admitted to observation status on the date of service of 05/20/2025. Review of Systems Constitutional: Constitutional: Reports as per HPI and Reports fatigue Eyes: Eyes: Reports as per HPI ENT: Reports as per HPI Cardiovascular: Cardiovascular: Reports edema, Reports leg edema and Reports orthopnea Respiratory: Respiratory: Reports as per HPI Gastrointestinal: Gastrointestinal: Reports as per HPI Musculoskeletal: Musculoskeletal: Reports no additional musculoskeletal complaints Neurologic: Reports system reviewed and no additional complaints, except as documented Psychiatric: Psychiatric: Reports no additional psychiatric complaints Endocrine: Endocrine: Reports fatigue Hematologic/Lymphatic: Hematologic/Lymphatic: Reports as per HPI Allergic/Immunologic: Allergic/Immunologic: Reports no additional allergic/immunologic complaints PMFSH Past Medical History Medical History Anemia of chronic disease Coronary artery disease History of stents. Followed by Dr. Olivier Kern. Diet-controlled diabetes mellitus Dyslipidemia End-stage renal disease on hemodialysis Epigastric pain Essential hypertension Pulmonary edema Surgical History Surgical History AV fistula (~05/2018) History of basal cell carcinoma excision Right cheek per Dr. Salgado. Family History Family History Other Unknown family medical history Social History Social History (Updated 05/20/25 @ 05:19 by Lisa Askew APRN) Social History: Surrogate decision maker: Sid Fraser, [id number]. Code status: Full code. He speaks Farsi and requires sleeve maker Smoking packs per day: 1 Smoking cigarettes per day: 20.0 Smoking status: Never smoker Second hand tobacco smoke exposure: No Alcohol intake: never Substance use: never Substance use type: does not use Lack of Transportation: No Lack of Food: Never True Current Housing: I Have Housing Concerned About Future Housing: No Difficulty Paying Gas/Electric Bills: No Difficulty Paying for Meds: No Currently Unemployed: No Education: Don't Know Difficulty w/ Childcare or Family Care: No Additional living arrangements comments: The patient lives at [facility] in [place]. Originally from [facility]. His children remain there. 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 Gender identity (if verbalized by the patient): Male Spiritual care concerns: No Meds Home Medications and Allergies Home Medications ?Medication ?Instructions ?Recorded ?Confirmed ?Type furosemide 40 mg tablet 40 mg PO BID 11/27/19 05/19/25 History dicyclomine 10 mg capsule 10 mg PO BID PRN diarrhea #20 caps 01/22/21 05/19/25 Rx ondansetron HCl 4 mg tablet 4 mg PO Q6H PRN nausea and 01/22/21 05/19/25 Rx (Zofran) vomiting #20 tabs vitamin B complex-vitamin C-folic 1 tablet PO DAILY 01/24/21 05/19/25 History acid 0.8 mg tablet (Celi-Gabrielle) amlodipine 5 mg tablet See Rx Instructions .Route 06/23/21 05/19/25 Rx .COMPLEX #30 tabs acetaminophen 325 mg tablet 650 mg PO Q4H PRN pain 05/19/25 05/19/25 History atorvastatin 40 mg tablet 40 mg PO DAILY 05/19/25 05/19/25 History blood-glucose sensor (Dexcom G7 05/19/25 05/19/25 History Sensor device) calcium acetate(phosphat bind) 667 667 mg PO TID 05/19/25 05/19/25 History mg capsule carvedilol 25 mg tablet 25 mg PO BID 05/19/25 05/19/25 History insulin glargine 100 unit/mL (3 14 unit subcut HS 05/19/25 05/19/25 History mL) subcutaneous pen (Lantus Solostar U-100 Insulin) insulin lispro 100 unit/mL 5 unit subcut DAILY 05/19/25 05/19/25 History subcutaneous pen insulin lispro 100 unit/mL 8 unit subcut BID 05/19/25 05/19/25 History subcutaneous pen (Humalog KwikPen (U-100) Insulin) lidocaine 4 % topical patch 1 patch topical Q12H 05/19/25 05/19/25 History loperamide 2 mg capsule 2 mg PO PRN PRN diarrhea 05/19/25 05/19/25 History (Anti-Diarrheal (loperamide)) melatonin 3 mg tablet 5 mg PO HS 05/19/25 05/19/25 History Allergies Allergy/AdvReac Type Severity Reaction Status Date / Time No Known Allergies Allergy Verified 01/26/21 10:42 Vital Signs Vital Signs - 24 hr 05/19/25 12:00 05/19/25 13:31 05/19/25 13:31 Temperature 98.1 F Pulse Rate 73 68 66 Respiratory Rate 16 25 H Blood Pressure 132/50 L 122/60 Pulse Oximetry 98 92 Oxygen Delivery Oxygen Flow Rate 05/19/25 13:33 05/19/25 13:48 05/19/25 14:11 Temperature Pulse Rate 70 Respiratory Rate 18 Blood Pressure 151/67 H Pulse Oximetry 93 94 100 Oxygen Delivery Room Air Room Air Oxygen Flow Rate 05/19/25 15:21 05/19/25 15:51 05/19/25 15:52 Temperature Pulse Rate 78 82 Respiratory Rate 19 22 H Blood Pressure 166/73 H 166/73 H Pulse Oximetry 91 89 L 94 Oxygen Delivery Nasal Cannula Oxygen Flow Rate 2 05/19/25 16:28 05/19/25 17:00 05/19/25 18:12 Temperature 97.6 F Pulse Rate 80 73 70 Respiratory Rate 23 H 23 H 20 Blood Pressure 164/78 H 167/55 H 164/55 H Pulse Oximetry 98 100 94 Oxygen Delivery Oxygen Flow Rate 05/19/25 18:50 05/19/25 19:08 05/19/25 19:59 Temperature 97.9 F Pulse Rate 83 84 Respiratory Rate 20 Blood Pressure 184/71 H Pulse Oximetry 96 96 Oxygen Delivery Nasal Cannula Oxygen Flow Rate 2 05/19/25 20:04 05/19/25 22:00 05/19/25 23:15 Temperature 97.2 F L Pulse Rate 83 83 Respiratory Rate 18 Blood Pressure 194/73 H Pulse Oximetry 98 98 Oxygen Delivery Nasal Cannula Oxygen Flow Rate 2 Exam Const: General: tired appearing, uncomfortable and edematous Nutritional Appearance: average body habitus Orientation/consciousness: oriented to person, oriented to place, oriented to time and patient oriented x3 Limitations: other limitations (Language barrier he speaks Farsi) HENMT: Head: normal to inspection Ears: hearing grossly normal bilaterally Face/Nose/Sinus: Normal external nose present and Normal nares present Eyes: General: appearance normal, both eyes and all related structures Neck: Neck: normal visual inspection and full ROM Chest: Chest palpation & inspection: normal inspection of the chest Resp: Effort & Inspection: normal respiratory effort and able to speak in complete sentences Auscultation: diminished lung sounds Cardio: Jugular venous distension: no JVD Rate: regular rate Rhythm: regular rhythm GI: Inspection: normal to inspection : Other: External catheter on Skin: General skin exam: normal color Other: Dialysis catheter right antecubital positive bruit and thrill Neuro: General: oriented to person, oriented to place, oriented to time, patient oriented x3 and gait normal Extrem: General: edema bilateral (3+ pitting edema) and pedal edema bilaterally Psych: Appearance: grossly normal H&P: Results Labs Labs: Short CBC 05/19/25 Range/Units 12:07 WBC 6.9 (4.5-10.0) K/mm3 Hgb 10.2 L (14.0-18.0) g/dL Hct 31.7 L (42.0-52.0) % Plt Count 91 L (150-375) k/mm3 BMP 05/19/25 12:07 Sodium 132 L Potassium 4.9 Chloride 98 Carbon Dioxide 25 BUN 35 H D Creatinine 6.32 H Glucose 76 Calcium 9.6 Cardiac Enzymes 05/19/25 05/19/25 Range/Units 12:07 15:31 Troponin I 0.058 H* 0.058 H* (0.000-0.034) ng/mL Liver Function 05/19/25 Range/Units 12:07 Total Bilirubin 1.1 (0.2-1.3) mg/dL AST 19 (17-59) U/L ALT 19 (6-50) U/L Alkaline Phosphatase 67 (38-126) U/L Albumin 3.8 (3.5-5.1) g/dL Assessment and Plan Assessment and plan (1) Acute respiratory failure: Qualifiers: Respiratory failure complication: unspecified whether with hypoxia or hypercapnia Qualified Code(s): J96.00 - Acute respiratory failure, unspecified whether with hypoxia or hypercapnia Code(s): J96.00 - Acute respiratory failure, unspecified whether with hypoxia or hypercapnia Status: Acute Assessment and Plan: -the patient is on oxygen at 6 L per nasal cannula. -he was given IV Lasix. -strict I&O -CT of the chest was read as the following 1. Diffuse interstitial infiltrates with septal thickening and groundglass opacification, most likely edema versus atypical pneumonia. 2: Bilateral pleural effusions, right greater than left. 3: Mediastinal lymphadenopathy, likely reactive. -Echo ordered (2) End stage renal disease: Code(s): N18.6 - End stage renal disease Status: Chronic Assessment and Plan: -the patient is on dialysis Sunday. Nephrology has been consulted. -he has a AV fistula to the right AC which has a positive bruit and thrill. -continue with IV Lasix due to the pulmonary edema and peripheral edema. The patient makes small amount of urine. -monitor electrolytes (3) Hypoxic respiratory failure: Code(s): J96.91 - Respiratory failure, unspecified with hypoxia Status: Acute Assessment and Plan: -the patient was placed on IV Lasix. -an echo has been ordered. Please discontinue order if he has had an echo within the last 6 months. -the patient sees a high risk case manager Dr. Kern who was consulted. (4) Coronary artery disease: Code(s): I25.10 - Atherosclerotic heart disease of [place] coronary artery without angina pectoris Status: Chronic Assessment and Plan: -continue with Coreg, atorvastatin, and Norvasc. -he has a history of coronary stents. (5) Hypertension: Code(s): I10 - Essential (primary) hypertension Status: Acute Assessment and Plan: -continue with Coreg and amlodipine -current blood pressure is 127/64. 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 Check A1c. -his home insulin was placed on hold. The patient's blood sugar was low when he initially came to the emergency room.
[2025-05-20 05:23] LABS: Hemoglobin A1C 4.6 % (<5.7)
[2025-05-20 06:07] LABS: Hemoglobin A1C 4.7 % (<5.7)
[2025-05-20] MEDS: FUROSEMIDE INJ 40 MG/4 ML VIAL IV PUSH ×3 (06:32→18:16)
--- NOTE | 2025-05-20 08:14 | P.PNIM_ITS ---
Progress Note: A&P Assessment and Plan (1) Acute respiratory failure: Qualifiers: Respiratory failure complication: unspecified whether with hypoxia or hypercapnia Qualified Code(s): J96.00 - Acute respiratory failure, unspecified whether with hypoxia or hypercapnia Code(s): J96.00 - Acute respiratory failure, unspecified whether with hypoxia or hypercapnia Status: Acute Assessment and Plan: - secondary to hypervolemia -CT chest with interstitial infiltrates with septal thickening and groundglass opacification, most likely edema versus atypical pneumonia. Bilateral pleural effusions, right greater than left. Mediastinal lymphadenopathy, likely reactive. - required up to 6L NC, No home O2 requirement. Weaned to 2L NC today. - BNP 17K - echo with EF 60%, abnormal diastolic function, mild-mod AR, mod-severe MR, mod TR, severe pulmonary HTN - on IV lasix, patient is oliguric in setting of ESRD -strict I&O - cardio and nephrology following (2) End stage renal disease: Code(s): N18.6 - End stage renal disease Status: Chronic Assessment and Plan: -the patient is on dialysis Sunday. Nephrology has been consulted. -he has a AV fistula to the right AC which has a positive bruit and thrill. -continue with IV Lasix due to the pulmonary edema and peripheral edema. The patient makes small amount of urine. - monitor electrolytes - planning for dialysis today (3) Coronary artery disease: Code(s): I25.10 - Atherosclerotic heart disease of [place] coronary artery without angina pectoris Status: Chronic Assessment and Plan: -s/p stents -continue with Coreg, atorvastatin, and Norvasc. 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 -his home insulin was placed on hold. The patient's blood sugar was low when he initially came to the emergency room. Likely can discontinue insulin on discharge. (6) Elevated troponin: Code(s): R77.8 - Other specified abnormalities of plasma proteins Status: Acute Assessment and Plan: - troponin I 0.058, flat trend - denied chest pain - likely due to ESRD and volume overload - monitor on telemetry Subjective Date/time seen: 05/20/25 08:14 Interval history: 79-year-old male patient who has a past medical history of end-stage renal disease on dialysis Sunday who presented with SOB. Patient seen and examined at bedside with assistance of [facility] special technical operations officer. Still very dyspneic. Decreasing O2 requirements and not much urine output. Review of Systems Review of Systems: All systems reviewed & are unremarkable except as noted in HPI and below Exam Narrative: General: NAD Eyes: EOMI ENT: neck supple Cardiovascular: Regular rate and rhythm Respiratory: bibasilar rales, conversationally dyspneic on 2L NC Gastrointestinal: Soft, non tender Genitourinary: no suprapubic tenderness Musculoskeletal: trace BLE edema Skin: warm, dry Neuro: Alert. Psych: Mood appropriate Objective Data Vital Signs Vital Signs: Vital Signs - 24 hr 05/19/25 12:00 05/19/25 13:31 05/19/25 13:31 Temperature 98.1 F Pulse Rate 73 68 66 Respiratory Rate 16 25 H Blood Pressure 132/50 L 122/60 Pulse Oximetry 98 92 Oxygen Delivery Oxygen Flow Rate 05/19/25 13:33 05/19/25 13:48 05/19/25 14:11 Temperature Pulse Rate 70 Respiratory Rate 18 Blood Pressure 151/67 H Pulse Oximetry 93 94 100 Oxygen Delivery Room Air Room Air Oxygen Flow Rate 05/19/25 15:21 05/19/25 15:51 05/19/25 15:52 Temperature Pulse Rate 78 82 Respiratory Rate 19 22 H Blood Pressure 166/73 H 166/73 H Pulse Oximetry 91 89 L 94 Oxygen Delivery Nasal Cannula Oxygen Flow Rate 2 05/19/25 16:28 05/19/25 17:00 05/19/25 18:12 Temperature 97.6 F Pulse Rate 80 73 70 Respiratory Rate 23 H 23 H 20 Blood Pressure 164/78 H 167/55 H 164/55 H Pulse Oximetry 98 100 94 Oxygen Delivery Oxygen Flow Rate 05/19/25 18:50 05/19/25 19:08 05/19/25 19:59 Temperature 97.9 F Pulse Rate 83 84 Respiratory Rate 20 Blood Pressure 184/71 H Pulse Oximetry 96 96 Oxygen Delivery Nasal Cannula Oxygen Flow Rate 2 05/19/25 20:04 05/19/25 22:00 05/19/25 23:15 Temperature 97.2 F L Pulse Rate 83 83 Respiratory Rate 18 Blood Pressure 194/73 H Pulse Oximetry 98 98 Oxygen Delivery Nasal Cannula Oxygen Flow Rate 2 05/20/25 00:00 05/20/25 04:04 05/20/25 06:00 Temperature 97.8 F Pulse Rate 83 84 61 Respiratory Rate 18 Blood Pressure 127/64 Pulse Oximetry 99 Oxygen Delivery Oxygen Flow Rate 05/20/25 08:00 Temperature Pulse Rate Respiratory Rate Blood Pressure Pulse Oximetry 99 Oxygen Delivery Nasal Cannula Oxygen Flow Rate 2 Meds/Results Medications: Active Medications Generic Name Dose Route Start Last Admin Trade Name Freq PRN Reason Stop Dose Admin Acetaminophen 650 mg 05/20/25 05:19 Acetaminophen 325 Mg Tablet PO Q4H PRN Pain Amlodipine Besylate 5 mg 05/20/25 09:00 Amlodipine Besylate 5 Mg Tablet BY MOUTH DAILY [facility] Atorvastatin Calcium 40 mg 05/20/25 09:00 Atorvastatin 40 Mg Tablet PO DAILY [facility] Calcium Acetate 667 mg 05/20/25 08:00 Calcium Acetate 667 Mg Tablet PO TIDWM [facility] Carvedilol 25 mg 05/20/25 09:00 Carvedilol 25 Mg Tablet PO Q12HR [facility] Dextrose 12.5 gm 05/20/25 05:03 Dextrose 50% 25 Gm/50 Ml Syringe IV PUSH PRN PRN Hypoglycemia Protocol Dicyclomine HCl 10 mg 05/20/25 05:19 Dicyclomine Hcl 10 Mg Capsule PO TID PRN Diarrhea Furosemide 40 mg 05/20/25 09:00 Furosemide Inj 40 Mg/4 Ml Vial IV PUSH BID [facility] Glucagon 1 mg 05/20/25 05:03 Glucagon For Inj 1 Mg Vial IM PRN PRN Hypoglycemia Protocol Glucose 15 gm 05/20/25 05:03 Glucose Oral Gel 15 Gm Of Glucse In 37.5 Gm Tube PO PRN PRN Hypoglycemia Protocol Dextrose 1,000 mls @ 100 mls/hr 05/20/25 05:03 Dextrose 5% 1,000 Ml IVPB PRN PRN Hypoglycemia Protocol Lidocaine 1 patch 05/20/25 09:00 Lidocaine 5% Patch TRANSDERM DAILY [facility] Loperamide HCl 2 mg 05/20/25 05:19 Loperamide Hcl 2 Mg Capsule PO PRN PRN Diarrhea Melatonin 5 mg 05/20/25 21:00 Melatonin 5 Mg Tablet PO [facility] Miscellaneous Information 0 each 05/20/25 05:30 Lidocaine Patch- Please Indicate Application Site: XX 06/19/25 05:29 CLARIFY [facility] Ondansetron HCl 4 mg 05/20/25 05:19 Ondansetron Hcl Odt 4 Mg Tablet PO Q6H PRN Nausea And Vomiting Perflutren Lipid Microsphere 0 ml 05/20/25 05:00 Perflutren Lipid Microspheres 1.5 Ml Vial Diluted To 10 Ml Total Volume IV PUSH 05/23/25 05:00 ONCE PRN adequate visualization Protocol Vitamin B Complex/Folic Acid 1 cap 05/20/25 09:00 Vitamin B Cmplx/Vit C/Folic Ac 1 [facility]apsule [facility] [place] Results: ITS Impressions Chest X-Ray 05/19/25 13:40 IMPRESSION: No focal consolidation. Moderate perihilar bronchial wall thickening, findings suggestive of respiratory bronchiolitis. Chest CT 05/19/25 15:17 IMPRESSION: 1. Diffuse interstitial infiltrates with septal thickening and groundglass opacification, most likely edema versus atypical pneumonia. 2: Bilateral pleural effusions, right greater than left. 3: Mediastinal lymphadenopathy, likely reactive. Labs Labs: Laboratory Results - last 24 hr 05/19/25 05/19/25 05/19/25 12:04 12:07 13:32 WBC 6.9 RBC 3.26 L Hgb 10.2 L Hct 31.7 L MCV 97.2 MCH 31.3 MCHC 32.2 RDW 16.0 H Plt Count 91 L MPV 10.6 H Immature Gran % (Auto) 0.3 Neut % (Auto) 73.0 Lymph % (Auto) 17.3 L Tucker % (Auto) 7.3 Eos % (Auto) 2.0 Baso % (Auto) 0.1 L Lymph # (Auto) 1.19 Tucker # (Auto) 0.5 Eos # (Auto) 0.1 Baso # (Auto) 0.0 Abs Immat Gran (auto) 0.02 Absolute Neuts (auto) 5.0 Absolute Nucleated RBC 0.000 Nucleated RBC % 0.0 % Immature Plt Fraction 4.3 PT 15.6 H INR 1.3 APTT 36.9 H D-Dimer 0.49 H Sodium 132 L Potassium 4.9 Chloride 98 Carbon Dioxide 25 Anion Gap 9 BUN 35 H D Creatinine 6.32 H Estim Creat Clear Calc Not Reportable Estimated GFR 9 L Glucose 76 POC Capillary Glucose 256 H Hemoglobin A1c 4.6 Calcium 9.6 Total Bilirubin 1.1 AST 19 ALT 19 Alkaline Phosphatase 67 Troponin I 0.058 H* NT-Pro-B Natriuret Pep 90558 H Total Protein 6.5 Albumin 3.8 Influenza A (RT-PCR) Negative Influenza B (RT-PCR) Negative RSV (RT-PCR) Negative SARS-CoV-2 RNA (RT-PCR) Negative 05/19/25 05/19/25 05/20/25 15:31 15:41 01:41 WBC RBC Hgb Hct MCV MCH MCHC RDW Plt Count MPV Immature Gran % (Auto) Neut % (Auto) Lymph % (Auto) Tucker % (Auto) Eos % (Auto) Baso % (Auto) Lymph # (Auto) Tucker # (Auto) Eos # (Auto) Baso # (Auto) Abs Immat Gran (auto) Absolute Neuts (auto) Absolute Nucleated RBC Nucleated RBC % % Immature Plt Fraction PT INR APTT D-Dimer Sodium Potassium Chloride Carbon Dioxide Anion Gap BUN Creatinine Estim Creat Clear Calc Estimated GFR Glucose POC Capillary Glucose 164 H 94 Hemoglobin A1c Calcium Total Bilirubin AST ALT Alkaline Phosphatase Troponin I 0.058 H* NT-Pro-B Natriuret Pep Total Protein Albumin Influenza A (RT-PCR) Influenza B (RT-PCR) RSV (RT-PCR) SARS-CoV-2 RNA (RT-PCR) 05/20/25 05/20/25 05:24 07:40 WBC RBC Hgb Hct MCV MCH MCHC RDW Plt Count MPV Immature Gran % (Auto) Neut % (Auto) Lymph % (Auto) Tucker % (Auto) Eos % (Auto) Baso % (Auto) Lymph # (Auto) Tucker # (Auto) Eos # (Auto) Baso # (Auto) Abs Immat Gran (auto) Absolute Neuts (auto) Absolute Nucleated RBC Nucleated RBC % % Immature Plt Fraction PT INR APTT D-Dimer Sodium Potassium Chloride Carbon Dioxide Anion Gap BUN Creatinine Estim Creat Clear Calc Estimated GFR Glucose POC Capillary Glucose 93 Hemoglobin A1c 4.7 Calcium Total Bilirubin AST ALT Alkaline Phosphatase Troponin I NT-Pro-B Natriuret Pep Total Protein Albumin Influenza A (RT-PCR) Influenza B (RT-PCR) RSV (RT-PCR) SARS-CoV-2 RNA (RT-PCR) Quality VTE Prophylaxis VTE prophylaxis: pharmacologic ordered
[2025-05-20] MEDS: ATORVASTATIN 40 MG TABLET PO (09:09)
[2025-05-20] MEDS: CALCIUM ACETATE 667 MG TABLET PO ×3 (09:09→18:16)
[2025-05-20] MEDS: LIDOCAINE 5% PATCH 1 PATCH TRANSDERM (09:17)
[2025-05-20] MEDS: VITAMIN B CMPLX/VIT C/FOLIC AC 1 CAPSULE 1 CAP PO (09:17)
--- NOTE | 2025-05-20 09:32 | PM.CNCAR ---
Assessment and Plan Assessment and plan (1) Volume overload: Qualifiers: Hypervolemia type: other Qualified Code(s): E87.79 - Other fluid overload Code(s): E87.70 - Fluid overload, unspecified Status: Acute Assessment and Plan: Needs HD to regulate volume status as he makes very little urine. (2) Elevated troponin: Code(s): R77.8 - Other specified abnormalities of plasma proteins Status: Acute Assessment and Plan: Flat at slightly high at .058. Probably due to volume overload and CKD. Doubt ACS. Obtain echo. (3) Essential hypertension: Code(s): I10 - Essential (primary) hypertension Status: Chronic Assessment and Plan: Was high but normal now. (4) CAD in [place] artery: Code(s): I25.10 - Atherosclerotic heart disease of [place] coronary artery without angina pectoris Status: Acute Assessment and Plan: Stable. (5) Dyslipidemia: Code(s): E78.5 - Hyperlipidemia, unspecified Status: Chronic Assessment and Plan: On Atorvastatin. History of Present Illness History of Present Illness Consult date/time: 05/20/25 09:32 Reason For Visit: hypoxic resp failure Narrative: 75 yr old man who was my patient but I have not seen since 06/16/21 as he resides in [place] now. He has a history of CAD with stent, ESRD on HD (his filler sifter machine was Dr. Mathis), DM, dyslipidemia, hypertension. States he had sob for last couple of weeks and found to have CHF. Admits to BARNETT after walking short distances normally. Denies chest pain, orthopnea, PND, edema, dizziness. 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 02/05/20 Echo: EF 60-65%, mild LVH, diastolic dysfunction (E/e' 21), severe LAE, mild SHANICE, trace AI, mild MAC/MR/TR, RVSP 43 mmHg. Echo (EF 60-65%, mild LVH, grade II diastolic dysfunction (E/E' 15), mod LAE, Tiny shunt from left to right atrium s/o ASD, mild MAC, mild MR, trace AI/TR.) - 06/06/2018 ELECTROPHYSIOLOGY: 01/30/21 EKG: Sinus rhythm, anteroseptal infarct, age indeterminate. EKG (Sinus rhythm, minimal q waves- inferior leads, borderline st-t wave abnormality- lateral leads.) - 05/30/2018 STRESS TESTS: MPI (Lexiscan myoview: Negative for ischemia.) - 06/06/2018 Review of Systems Review of Systems: All systems reviewed & are unremarkable except as noted in HPI and below Constitutional: Constitutional: Reports as per HPI, Denies chills, Reports fatigue and Denies fever(s) Cardiovascular: Cardiovascular: Reports as per HPI and Denies chest pain Respiratory: Respiratory: Reports as per HPI and Reports dyspnea Gastrointestinal: Gastrointestinal: Reports as per HPI and Denies abdominal pain Genitourinary: Genitourinary: Reports as per HPI Musculoskeletal: Musculoskeletal: Reports as per HPI Neurologic: Reports as per HPI, Denies dizziness and Denies syncope [facility] Past Medical History Medical History Anemia of chronic disease Coronary artery disease History of stents. Followed by Dr. Olivier Kern. Diet-controlled diabetes mellitus Dyslipidemia End-stage renal disease on hemodialysis Epigastric pain Essential hypertension Pulmonary edema Surgical History Surgical History AV fistula (~05/2018) History of basal cell carcinoma excision Right cheek per Dr. Salgado. Family History Family History Other Unknown family medical history Social History Social History (Updated 05/20/25 @ 05:19 by Lisa Askew APRN) Social History: Surrogate decision maker: Sid Fraser, [id number]. Code status: Full code. He speaks Farsi and requires operations research engineer Smoking packs per day: 1 Smoking cigarettes per day: 20.0 Smoking status: Never smoker Second hand tobacco smoke exposure: No Alcohol intake: never Substance use: never Substance use type: does not use Lack of Transportation: No Lack of Food: Never True Current Housing: I Have Housing Concerned About Future Housing: No Difficulty Paying Gas/Electric Bills: No Difficulty Paying for Meds: No Currently Unemployed: No Education: Don't Know Difficulty w/ Childcare or Family Care: No Additional living arrangements comments: The patient lives at [facility] in [place]. Originally from [facility]. His children remain there. 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 Gender identity (if verbalized by the patient): Male Spiritual care concerns: No Meds Home Medications and Allergies Home Medications ?Medication ?Instructions ?Recorded ?Confirmed ?Type furosemide 40 mg tablet 40 mg PO BID 11/27/19 05/19/25 History dicyclomine 10 mg capsule 10 mg PO BID PRN diarrhea #20 caps 01/22/21 05/19/25 Rx ondansetron HCl 4 mg tablet 4 mg PO Q6H PRN nausea and 01/22/21 05/19/25 Rx (Zofran) vomiting #20 tabs vitamin B complex-vitamin C-folic 1 tablet PO DAILY 01/24/21 05/19/25 History acid 0.8 mg tablet (Celi-Gabrielle) amlodipine 5 mg tablet See Rx Instructions .Route 06/23/21 05/19/25 Rx .COMPLEX #30 tabs acetaminophen 325 mg tablet 650 mg PO Q4H PRN pain 05/19/25 05/19/25 History atorvastatin 40 mg tablet 40 mg PO DAILY 05/19/25 05/19/25 History blood-glucose sensor (Dexcom G7 05/19/25 05/19/25 History Sensor device) calcium acetate(phosphat bind) 667 667 mg PO TID 05/19/25 05/19/25 History mg capsule carvedilol 25 mg tablet 25 mg PO BID 05/19/25 05/19/25 History insulin glargine 100 unit/mL (3 14 unit subcut HS 05/19/25 05/19/25 History mL) subcutaneous pen (Lantus Solostar U-100 Insulin) insulin lispro 100 unit/mL 5 unit subcut DAILY 05/19/25 05/19/25 History subcutaneous pen insulin lispro 100 unit/mL 8 unit subcut BID 05/19/25 05/19/25 History subcutaneous pen (Humalog KwikPen (U-100) Insulin) lidocaine 4 % topical patch 1 patch topical Q12H 05/19/25 05/19/25 History loperamide 2 mg capsule 2 mg PO PRN PRN diarrhea 05/19/25 05/19/25 History (Anti-Diarrheal (loperamide)) melatonin 3 mg tablet 5 mg PO HS 05/19/25 05/19/25 History Allergies Allergy/AdvReac Type Severity Reaction Status Date / Time No Known Allergies Allergy Verified 01/26/21 10:42 Vital Signs Vital Signs - 24 hr 05/19/25 12:00 05/19/25 13:31 05/19/25 13:31 Temperature 98.1 F Pulse Rate 73 68 66 Respiratory Rate 16 25 H Blood Pressure 132/50 L 122/60 Pulse Oximetry 98 92 Oxygen Delivery Oxygen Flow Rate 05/19/25 13:33 05/19/25 13:48 05/19/25 14:11 Temperature Pulse Rate 70 Respiratory Rate 18 Blood Pressure 151/67 H Pulse Oximetry 93 94 100 Oxygen Delivery Room Air Room Air Oxygen Flow Rate 05/19/25 15:21 05/19/25 15:51 05/19/25 15:52 Temperature Pulse Rate 78 82 Respiratory Rate 19 22 H Blood Pressure 166/73 H 166/73 H Pulse Oximetry 91 89 L 94 Oxygen Delivery Nasal Cannula Oxygen Flow Rate 2 05/19/25 16:28 05/19/25 17:00 05/19/25 18:12 Temperature 97.6 F Pulse Rate 80 73 70 Respiratory Rate 23 H 23 H 20 Blood Pressure 164/78 H 167/55 H 164/55 H Pulse Oximetry 98 100 94 Oxygen Delivery Oxygen Flow Rate 05/19/25 18:50 05/19/25 19:08 05/19/25 19:59 Temperature 97.9 F Pulse Rate 83 84 Respiratory Rate 20 Blood Pressure 184/71 H Pulse Oximetry 96 96 Oxygen Delivery Nasal Cannula Oxygen Flow Rate 2 05/19/25 20:04 05/19/25 22:00 05/19/25 23:15 Temperature 97.2 F L Pulse Rate 83 83 Respiratory Rate 18 Blood Pressure 194/73 H Pulse Oximetry 98 98 Oxygen Delivery Nasal Cannula Oxygen Flow Rate 2 05/20/25 00:00 05/20/25 04:04 05/20/25 06:00 Temperature 97.8 F Pulse Rate 83 84 61 Respiratory Rate 18 Blood Pressure 127/64 Pulse Oximetry 99 Oxygen Delivery Oxygen Flow Rate 05/20/25 08:00 Temperature Pulse Rate Respiratory Rate Blood Pressure Pulse Oximetry 99 Oxygen Delivery Nasal Cannula Oxygen Flow Rate 2 Exam Const: General: cooperative, healthy appearing and comfortable Resp: Auscultation: no crackles, no rales, no rhonchi, no wheezes and diminished lung sounds Cardio: Rate: regular rate Rhythm: regular rhythm Heart sounds: no murmurs Peripheral pulses: dorsalis pedis present GI: GI Palp: No abdominal tenderness and Yes Soft to palpation Neuro: General: oriented to person, oriented to place and oriented to time Extrem: Right lower extremity: no edema Left lower extremity: no edema Results Labs and Meds 05/19/25 12:07 05/19/25 12:07 Lab results: Cardiac Enzymes 05/19/25 05/19/25 Range/Units 12:07 15:31 AST 19 (17-59) U/L Troponin I 0.058 H* 0.058 H* (0.000-0.034) ng/mL Coagulation 05/19/25 Range/Units 12:07 PT 15.6 H (11.1-14.7) Seconds APTT 36.9 H (22.3-36.8) Seconds CBC 05/19/25 Range/Units 12:07 WBC 6.9 (4.5-10.0) K/mm3 RBC 3.26 L (4.6-6.20) M/mm3 Hgb 10.2 L (14.0-18.0) g/dL Hct 31.7 L (42.0-52.0) % Plt Count 91 L (150-375) k/mm3 Lymph # (Auto) 1.19 (0.9-3.2) K/mm3 [place] # (Auto) 0.5 (0.1-0.6) K/mm3 Eos # (Auto) 0.1 (0-0.3) K/mm3 Baso # (Auto) 0.0 (0.0-0.1) K/mm3 Comprehensive Metabolic Panel 05/19/25 Range/Units 12:07 Sodium 132 L (137-145) mmol/L Potassium 4.9 (3.4-5.0) mmol/L Chloride 98 (98-107) mmol/L Carbon Dioxide 25 (22-30) mmol/L BUN 35 H D (9-20) mg/dL Creatinine 6.32 H (0.7-1.3) mg/dL Glucose 76 (65-110) mg/dL Calcium 9.6 (8.4-10.2) mg/dL AST 19 (17-59) U/L ALT 19 (6-50) U/L Alkaline Phosphatase 67 (38-126) U/L Total Protein 6.5 (6.3-8.2) g/dL Albumin 3.8 (3.5-5.1) g/dL Intake and Output 05/19/25 05/20/25 05/20/25 23:59 07:59 15:59 Intake Total 240 Balance 240 Intake: Oral 240 Other: # Incontinent Voids 4 Number of Bowel Movements Today 1 Patient Weight 05/20/25 23:59 Weight 86.5 kg
--- NOTE | 2025-05-20 14:00 | PC.NURSE ---
To Dialysis per hospital bed.
--- NOTE | 2025-05-20 14:30 | P.CONNP_ITS ---
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 (2) Acute hypoxic respiratory failure: Code(s): J96.01 - Acute respiratory failure with hypoxia Status: Acute Assessment and Plan: * suspect multifactorial: * pleural effusions * pulmonary edema * atypical pneumonia(?) * bronchitis * other(?) * CT of chest noted: * diffuse interstitial infiltrates with septal thickening and groundglass opacification, most likely edema versus atypical pneumonia * bilateral pleural effusions, right greater than left * mediastinal lymphadenopathy, likely reactive * on supplemental oxygen - wean as tolerated * fluid removal with dialysis * on IV lasix (but does not make much urine) * follow respiratory status (3) Volume overload: Qualifiers: Hypervolemia type: other Qualified Code(s): E87.79 - Other fluid overload Code(s): E87.70 - Fluid overload, unspecified Status: Acute Assessment and Plan: * as noted by bilateral pleural effusions and pulmonary edema * attempt aggressive fluid removal with HD * per outpatient dialysis clinic, fluid removal with HD can be challenging due to intolerance * consider dry ultrafiltration along with dialysis * follow fluid status (4) Anemia: Code(s): D64.9 - Anemia, unspecified Status: Chronic Assessment and Plan: * due to ESRD * Epogen with dialysis * follow trend of H/H (5) Essential hypertension: Code(s): I10 - Essential (primary) hypertension Status: Chronic Assessment and Plan: * reasonable control at this time * follow trend of hemodynamics (6) Diabetes: Qualifiers: Chronic kidney disease stage: on chronic dialysis Diabetes mellitus complication detail: with chronic kidney disease Diabetes mellitus complication status: with kidney complications 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 Thank you for allowing me to participate in the care of this patient. L History of Present Illness Reason for Consult Consult date: 05/20/25 Reason for consult: end stage renal disease Chief Complaint Chief complaint: hypoxic resp failure History of Present Illness Narrative: The patient is a 79-year-old male with a past medical history as outlined below who presented to [facility] Emergency Room with complaints of shortness of breath. A great majority of the information I have obtained is from review of the electronic medical record as well as discussion with the physician/nurses involved in the patient's care as the patient's primary language is Farsi although he does appear to understand a small bit of Beninese. the patient is currently residing nursing facility and states that for the last 2 weeks he has noticed his shortness of breath getting progressively worse. His shortness of breath appears to be present at rest but it seems to be more aggravated with exertional activities. Other associated symptoms include increased fatigue, lethargy, orthopnea, and some worsening of lower extremity edema. He also reports some mild cough with yellow phlegm/sputum production. As his symptoms have not improved with some acute worsening on the day of admission, he presented to the emergency room for further assessment. Workup and evaluation emergency room demonstrated the patient to be mildly short of breath but in no acute distress. Supplemental oxygen was applied for comfort although I am unclear if he actually had evidence of hypoxia although even on 2 L of oxygen, his O2 saturations were 96%. Routine blood test demonstrated white blood cell count of 6.9, hemoglobin 10.2, platelet count of 91, sodium 132, potassium 4.9 click, bicarb 25, BUN 35, creatinine 6.32, albumin 3.8,with a glucose of 76. D-dimer was negative and viral testing for influenza, RSV, and COVID were negative as well. His initial troponin was mildly elevated at 0.058 [place]BNP [place] [id number]. her chest x-ray showed evidence of pulmonary edema verses infiltrates and a subsequent CT scan of the chest showed pulmonary edema versus atypical pneumonia. Given his clinical symptoms seem to be more consistent with a clinical picture of a CHF exacerbation, it was suspected that the imaging studies were more in line with pulmonary edema. As he still makes some urine, he was started on IV Lasix and subsequently admitted to hospital for further evaluation and therapy. Since his admission, his breathing/respiratory status appears about the same and he does not appear to have had any significant improvement with the use of IV Lasix. Renal consultation was requested due to his end-stage renal disease. The patient normally dialyzes on a Sunday, Sunday, Sunday dialysis schedule under the care of Dr. 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 at [facility]. He is compliant with his dialysis treatments and last had dialysis the day before his presentation to the ER. From my discussion with the patient's outpatient dialysis clinic, the patient does have some issues and problems with significant fluid gains in between his dialysis treatments which is further complicated by fact that they are sometimes unable to get him down to his dry weight as he does not tolerate aggressive ultrafiltration very well. He is due for dialysis today but of course was unable to get to his outpatient dialysis unit given his presentation to the emergency room yesterday. Currently, at the time of my visit, he is tolerating his hemodialysis treatment without any issues or problems (seen on HD at 2:20pm). Review of Systems 2 Review of Systems: As per HPI. [facility] Past Medical History Medical History Anemia of chronic disease Coronary artery disease History of stents. Followed by Dr. Olivier Kern. Diet-controlled diabetes mellitus Dyslipidemia End-stage renal disease on hemodialysis Epigastric pain Essential hypertension Pulmonary edema Surgical History Surgical History AV fistula (~05/2018) History of basal cell carcinoma excision Right cheek per Dr. Salgado. Family History Family History Other Unknown family medical history Social History Social History (Updated 05/20/25 @ 05:19 by Lisa Askew APRN) Social History: Surrogate decision maker: Sid Fraser, [id number]. Code status: Full code. He speaks Farsi and requires home care aide Smoking packs per day: 1 Smoking cigarettes per day: 20.0 Smoking status: Never smoker Second hand tobacco smoke exposure: No Alcohol intake: never Substance use: never Substance use type: does not use Lack of Transportation: No Lack of Food: Never True Current Housing: I Have Housing Concerned About Future Housing: No Difficulty Paying Gas/Electric Bills: No Difficulty Paying for Meds: No Currently Unemployed: No Education: Don't Know Difficulty w/ Childcare or Family Care: No Additional living arrangements comments: The patient lives at [facility] in [place]. Originally from [facility]. His children remain there. 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 Gender identity (if verbalized by the patient): Male Spiritual care concerns: No Meds Home Medications and Allergies Home Medications ?Medication ?Instructions ?Recorded ?Confirmed ?Type furosemide 40 mg tablet 40 mg PO BID 11/27/19 History dicyclomine 10 mg capsule 10 mg PO BID PRN diarrhea #2 0 caps 01/22/21 05/19/25 Rx ondansetron HCl 4 mg tablet 4 mg PO Q6H PRN nausea and 01/22/21 05/19/25 Rx (Zofran) vomiting #20 tabs vitamin B complex-vitamin C-folic 1 tablet PO DAILY 05/19/25 History acid 0.8 mg tablet (Celi-Gabrielle) amlodipine 5 mg tablet See Rx Instructions .Route 1 05/19/25 Rx .COMPLEX #30 tabs acetaminophen 325 mg tablet 650 mg PO Q4H PRN pain 11/1105/19/25 History atorvastatin 40 mg tablet 40 mg PO DAILY 05/19/2511/11 History blood-glucose sensor (Dexcom G7 05/19/25 05/19/25 His tory Sensor device) calcium acetate(phosphat bind) 667 667 mg PO TID 05/1905/19/25 History mg capsule carvedilol 25 mg tablet 25 mg PO BID 05/19/25 History insulin glargine 100 unit/mL (3 14 unit subcut HS 11/1105/19/25 History mL) subcutaneous pen (Lantus Solostar U-100 Insulin) insulin lispro 100 unit/mL 5 unit subcut DAILY 5 05/19/25 History subcutaneous pen insulin lispro 100 unit/mL 8 unit subcut BID 05/19/25 05/19/25 History subcutaneous pen (Humalog KwikPen (U-100) Insulin) lidocaine 4 % topical patch 1 patch topical Q12H 05/1905/19/25 History loperamide 2 mg capsule 2 mg PO PRN PRN diarrhea 11/1105/19/25 History (Anti-Diarrheal (loperamide)) melatonin 3 mg tablet 5 mg PO HS 05/19/25 05/19/25 History Allergies Allergy/AdvReac Type Severity Reaction Status Date / Time No Known Allergies Allergy Verified 01/26/21 10:42 Vital Signs Vital Signs Temp Pulse Resp BP Pulse Ox O2 Del Method O2 Flow Rate 05/20/25 14:30 71 149/75 H 05/20/25 14:12 76 153/73 H 05/20/25 14:00 2 05/20/25 14:00 97.4 F L 79 16 146/69 H 100 05/20/25 12:00 73 05/20/25 11:45 94 Nasal Cannula 2 05/20/25 09:49 100 Nasal Cannula 3 05/20/25 08:00 68 05/20/25 08:00 99 Nasal Cannula 2 05/20/25 06:00 97.8 F 61 18 127/64 99 05/20/25 04:04 84 05/20/25 00:00 83 05/19/25 23:15 98 Nasal Cannula 2 05/19/25 22:00 97.2 F L 83 18 194/73 H 98 05/19/25 20:04 83 05/19/25 19:59 84 05/19/25 19:08 97.9 F 83 20 184/71 H 96 05/19/25 18:50 96 Nasal Cannula 2 05/19/25 18:12 70 20 164/55 H 94 Exam 2 Narrative: GENERAL APPEARANCE: elderly but well developed well nourished male male in no acute distress HEENT: normocephalic, atraumatic, normal conjunctiva and sclera, nares patient NECK: no lymphadenopathy or thyromegaly MOUTH: normal lips, teeth, and gums CARDIOVASCULAR: RRR, normal S1 and S2, no rub detected RESPIRATORY: coarse breath sounds with bibasilar rales ABDOMEN: soft, nontender, nondistended, positive bowel sounds present EXTREMITIES: no evidence of cyanosis, clubbing, trace edema NEUROLOGICAL: awake and alert; CN II - XII intact bilaterally; no focal deficits noted Results Lab Results 05/21/25 04:55 05/21/25 04:55 Lab results: Most recent lab results Calcium 9.6 mg/dL (8.4-10.2) 05/19/25 12:07
[2025-05-20] MEDS: EPOETIN ALFA-EPBX 4,000 UNITS/ML VIAL 4000 UNITS IV PUSH (15:44)
[2025-05-20] MEDS: SODIUM CHLORIDE 0.9% IV 1,000 ML 999 ML IV CONT (15:45)
--- NOTE | 2025-05-20 18:12 | PC.NURSE ---
Returned to room from Dialysis per hospital bed.
[2025-05-20] MEDS: LOPERAMIDE HCL 2 MG CAPSULE PO (18:21)
[2025-05-20] MEDS: DICYCLOMINE HCL 10 MG CAPSULE PO (18:21)
[2025-05-20] MEDS: MELATONIN 5 MG TABLET PO (21:16)
[2025-05-21] VITALS (26 sets, daily range): BP systolic 117–177; BP diastolic 41–82; PULSE 59–75; RESP 18–20; TEMP 0–37; O2SAT 94–99
[2025-05-21 05:58] LABS: Hematocrit 33.3 % (42.0-52.0); Hemoglobin 10.4 g/dL (14.0-18.0); Immature Granulocyte Percent A 0.4 % (0-0.5); Lymphocytes Absolute Auto 1.52 K/mm3 (0.9-3.2); Mean Corpuscular HGB Conc 31.2 g/dl (32-36); Mean Corpuscular Hemoglobin 31.1 pg (26-34); Mean Corpuscular Volume 99.7 fl (80-100); Nucleated Red Blood Cells Absolute Auto 0.000 K/mm3 (0.0-0.012); Nucleated Red Blood Cells Perc 0.0 % (0.0-0.2); Platelet Count Result 108 k/mm3 (150-375); Red Blood Count 3.34 M/mm3 (4.6-6.20); White Blood Count 6.7 K/mm3 (4.5-10.0)
[2025-05-21 06:22] LABS: Albumin Level 3.6 g/dL (3.5-5.1); Anion Gap 8 mmol/L (4-12); Blood Urea Nitrogen 30 mg/dL (9-20); Calcium 9.5 mg/dL (8.4-10.2); Carbon Dioxide 26 mmol/L (22-30); Chloride 101 mmol/L (98-107); Estimated CRCL calculation 9 ml/min; Estimated Glomerular Filt Rate 9; Glucose 79 mg/dL (65-110); Magnesium 2.1 mg/dL (1.6-2.3); Potassium 4.7 mmol/L (3.4-5.0); Sodium 135 mmol/L (137-145)
[2025-05-21] MEDS: FUROSEMIDE INJ 40 MG/4 ML VIAL IV PUSH ×2 (06:40→16:23)
--- NOTE | 2025-05-21 06:57 | PC.NURSE ---
Patient with increased shortness of breath, oxygen increased to 3l, Pt bed at 45 degrees and provider notified who recommended giving the 9am lasix early.
--- NOTE | 2025-05-21 07:44 | P.PNCA_ITS ---
Progress Note: A&P Assessment and Plan (1) Volume overload: Qualifiers: Hypervolemia type: other Qualified Code(s): E87.79 - Other fluid overload Code(s): E87.70 - Fluid overload, unspecified Status: Acute Assessment and Plan: Due to diastolic dysfunction, MR and minimal UOP. Needs HD to regulate volume status as he makes very little urine. (2) Elevated troponin: Code(s): R77.8 - Other specified abnormalities of plasma proteins Status: Acute Assessment and Plan: Flat at slightly high at .058. Probably due to volume overload and CKD. Doubt ACS. Echo shows no wall motion abnormalities. (3) Essential hypertension: Code(s): I10 - Essential (primary) hypertension Status: Chronic Assessment and Plan: High. Need to regulate BP to improve mitral regurgitation. Will leave it to nephrology as dialysis will drop BP also. (4) CAD in [place] artery: Code(s): I25.10 - Atherosclerotic heart disease of [place] coronary artery without angina pectoris Status: Acute Assessment and Plan: Stable. (5) Dyslipidemia: Code(s): E78.5 - Hyperlipidemia, unspecified Status: Chronic Assessment and Plan: On Atorvastatin. (6) Mitral regurgitation: Code(s): I34.0 - Nonrheumatic mitral (valve) insufficiency Status: Acute Assessment and Plan: 05/20/25 Echo: EF 60-65%, mild LVH, diastolic dysfunction (E/e' 23), mod LAE, mild SHANICE, mild-mod AI, mod MAC, mod-severe MR, mod TR, RVSP 83 mmHg. Need to maintain euvolemia with HD and optimize BP control to improve MR. Recheck echo in 3 months and if severe MR, then consider MV repair. Subjective Date/time seen: 05/21/25 07:44 Interval history: Denies chest pain. States after dialysis his breathing improved. Exam Const: General: cooperative, healthy appearing and comfortable Orientation/consciousness: oriented to person, oriented to place and oriented to time Resp: Auscultation: no crackles, no rales, no rhonchi, no wheezes and diminished lung sounds Cardio: Rate: regular rate Rhythm: regular rhythm Heart sounds: no murmurs Peripheral pulses: dorsalis pedis present Neuro: General: oriented to person, oriented to place and oriented to time Extrem: Right lower extremity: no edema Left lower extremity: no edema Objective Data Vital Signs Vital Signs: Vital Signs - 24 hr 05/20/25 08:00 05/20/25 08:00 05/20/25 09:49 Temperature Pulse Rate 68 Respiratory Rate Blood Pressure Pulse Oximetry 99 100 Oxygen Delivery Nasal Cannula Nasal Cannula Oxygen Flow Rate 2 3 Fraction of Inspired Oxygen 05/20/25 11:45 05/20/25 12:00 05/20/25 14:00 Temperature 97.4 F L Pulse Rate 73 79 Respiratory Rate 16 Blood Pressure 146/69 H Pulse Oximetry 94 100 Oxygen Delivery Nasal Cannula Oxygen Flow Rate 2 Fraction of Inspired Oxygen 05/20/25 14:00 05/20/25 14:12 05/20/25 14:30 Temperature Pulse Rate 76 71 Respiratory Rate Blood Pressure 153/73 H 149/75 H Pulse Oximetry Oxygen Delivery Oxygen Flow Rate 2 Fraction of Inspired Oxygen 05/20/25 14:45 05/20/25 15:00 05/20/25 15:15 Temperature Pulse Rate 68 68 66 Respiratory Rate Blood Pressure 149/75 H 152/74 H 149/74 H Pulse Oximetry Oxygen Delivery Oxygen Flow Rate Fraction of Inspired Oxygen 05/20/25 15:30 05/20/25 15:45 05/20/25 16:00 Temperature Pulse Rate 66 65 64 Respiratory Rate Blood Pressure 147/65 H 153/67 H 142/61 H Pulse Oximetry Oxygen Delivery Oxygen Flow Rate Fraction of Inspired Oxygen 05/20/25 16:00 05/20/25 16:15 05/20/25 16:30 Temperature Pulse Rate 65 66 65 Respiratory Rate Blood Pressure 144/66 H 111/49 L Pulse Oximetry Oxygen Delivery Oxygen Flow Rate Fraction of Inspired Oxygen 05/20/25 17:00 05/20/25 17:17 05/20/25 17:35 Temperature Pulse Rate 66 67 68 Respiratory Rate Blood Pressure 141/68 H 141/67 H 159/73 H Pulse Oximetry Oxygen Delivery Oxygen Flow Rate Fraction of Inspired Oxygen 05/20/25 17:45 05/20/25 18:00 05/20/25 18:07 Temperature 97.4 F L Pulse Rate 66 72 78 Respiratory Rate 16 Blood Pressure 158/71 H 145/62 H 169/71 H Pulse Oximetry 100 Oxygen Delivery Oxygen Flow Rate Fraction of Inspired Oxygen 05/20/25 19:45 05/20/25 20:00 05/20/25 22:00 Temperature 97.9 F Pulse Rate 85 83 Respiratory Rate 20 18 Blood Pressure 133/62 Pulse Oximetry 95 100 100 Oxygen Delivery Nasal Cannula Nasal Cannula Oxygen Flow Rate 2 2 Fraction of Inspired Oxygen 28 05/21/25 00:00 05/21/25 04:00 05/21/25 05:30 Temperature Pulse Rate 71 72 Respiratory Rate Blood Pressure Pulse Oximetry 94 Oxygen Delivery Nasal Cannula Oxygen Flow Rate 3 Fraction of Inspired Oxygen 05/21/25 06:00 Temperature 97.2 F L Pulse Rate 75 Respiratory Rate 18 Blood Pressure 159/60 H Pulse Oximetry 94 Oxygen Delivery Oxygen Flow Rate Fraction of Inspired Oxygen Intake/Output Intake/Output: Intake & Output 05/18/25 05/19/25 05/20/25 05/21/25 23:59 23:59 23:59 23:59 Intake Total 600 Output Total 3000 150 Balance -2400 -150 Meds/Results Medications: Active Medications Generic Name Dose Route Start Last Admin Trade Name Freq PRN Reason Stop Dose Admin Acetaminophen 650 mg 05/20/25 05:19 Acetaminophen 325 Mg Tablet PO Q4H PRN Pain Amlodipine Besylate 5 mg 05/20/25 09:00 05/20/25 09:09 Amlodipine Besylate 5 Mg Tablet BY MOUTH 5 mg DAILY UMU Administration Atorvastatin Calcium 40 mg 05/20/25 09:00 05/20/25 09:09 Atorvastatin 40 Mg Tablet PO 40 mg DAILY UMU Administration Calcium Acetate 667 mg 05/20/25 08:00 05/20/25 18:16 Calcium Acetate 667 Mg Tablet PO 667 mg TIDWM UMU Administration Carvedilol 25 mg 05/20/25 09:00 05/20/25 21:14 Carvedilol 25 Mg Tablet PO 25 mg Q12HR UMU Administration Dextrose 12.5 gm 05/20/25 05:03 Dextrose 50% 25 Gm/50 Ml Syringe IV PUSH PRN PRN Hypoglycemia Protocol Dicyclomine HCl 10 mg 05/20/25 05:19 05/20/25 18:21 Dicyclomine Hcl 10 Mg Capsule PO 10 mg TID PRN Administration Diarrhea Furosemide 40 mg 05/20/25 09:00 05/21/25 06:40 Furosemide Inj 40 Mg/4 Ml Vial IV PUSH 40 mg BID UMU Administration Glucagon 1 mg 05/20/25 05:03 Glucagon For Inj 1 Mg Vial IM PRN PRN Hypoglycemia Protocol Glucose 15 gm 05/20/25 05:03 Glucose Oral Gel 15 Gm Of Glucse In 37.5 Gm Tube PO PRN PRN Hypoglycemia Protocol Heparin Sodium (Porcine) 5,000 units 05/20/25 22:00 05/21/25 06:07 Heparin Sodium 5,000 Units/Ml Vial SUB-Q 5,000 units Q8HR UMU Administration Dextrose 1,000 mls @ 100 mls/hr 05/20/25 05:03 Dextrose 5% 1,000 Ml IVPB PRN PRN Hypoglycemia Protocol Albumin Human 50 mls @ 999 mls/hr 05/20/25 12:06 Albutein IVPB 06/19/25 12:05 Q10M PRN HYPOTENSION Lidocaine 1 patch 05/20/25 09:00 05/20/25 09:17 Lidocaine 5% Patch TRANSDERM 1 patch DAILY UMU Administration Lidocaine/Prilocaine 1 each 05/20/25 12:11 Lidocaine/Prilocaine Cream 2.5-2.5% Tube TOPICAL WITH DIALYSIS PRN for dialysis Protocol Loperamide HCl 2 mg 05/20/25 05:19 05/20/25 18:21 Loperamide Hcl 2 Mg Capsule PO 2 mg PRN PRN Administration Diarrhea Melatonin 5 mg 05/20/25 21:00 05/20/25 21:16 Melatonin 5 Mg Tablet PO 5 mg HS UMU Administration Ondansetron HCl 4 mg 05/20/25 05:19 Ondansetron Hcl Odt 4 Mg Tablet PO Q6H PRN Nausea And Vomiting Perflutren Lipid Microsphere 0 ml 05/20/25 05:00 Perflutren Lipid Microspheres 1.5 Ml Vial Diluted To 10 Ml Total Volume IV PUSH 05/23/25 05:00 ONCE PRN adequate visualization Protocol Vitamin B Complex/Folic Acid 1 cap 05/20/25 09:00 05/20/25 09:17 Vitamin B Cmplx/Vit C/Folic Ac 1 Capsule PO 1 cap QAM UMU Administration Radiology Results: ITS Impressions Chest CT 05/19/25 15:17 IMPRESSION: 1. Diffuse interstitial infiltrates with septal thickening and groundglass opacification, most likely edema versus atypical pneumonia. 2: Bilateral pleural effusions, right greater than left. 3: Mediastinal lymphadenopathy, likely reactive. Labs Labs: Laboratory Results - last 24 hr 05/20/25 05/20/25 05/20/25 11:27 18:17 20:18 WBC RBC Hgb Hct MCV MCH MCHC RDW Plt Count MPV Immature Gran % (Auto) Neut % (Auto) Lymph % (Auto) [place] % (Auto) Eos % (Auto) Baso % (Auto) Lymph # (Auto) [place] # (Auto) Eos # (Auto) Baso # (Auto) Abs Immat Gran (auto) Absolute Neuts (auto) Absolute Nucleated RBC Nucleated RBC % Sodium Potassium Chloride Carbon Dioxide Anion Gap BUN Creatinine Estim Creat Clear Calc Estimated GFR Glucose POC Capillary Glucose 134 H 103 147 H Calcium Phosphorus Magnesium Albumin 05/21/25 04:55 WBC 6.7 RBC 3.34 L Hgb 10.4 L Hct 33.3 L MCV 99.7 MCH 31.1 MCHC 31.2 L RDW 15.8 H Plt Count 108 L MPV 11.1 H Immature Gran % (Auto) 0.4 Neut % (Auto) 65.5 Lymph % (Auto) 22.6 [place] % (Auto) 6.1 Eos % (Auto) 5.1 H Baso % (Auto) 0.3 Lymph # (Auto) 1.52 [place] # (Auto) 0.4 Eos # (Auto) 0.3 Baso # (Auto) 0.0 Abs Immat Gran (auto) 0.03 Absolute Neuts (auto) 4.4 Absolute Nucleated RBC 0.000 Nucleated RBC % 0.0 Sodium 135 L Potassium 4.7 Chloride 101 Carbon Dioxide 26 Anion Gap 8 BUN 30 H Creatinine 5.79 H Estim Creat Clear Calc 9 Estimated GFR 9 L Glucose 79 POC Capillary Glucose Calcium 9.5 Phosphorus 4.7 H Magnesium 2.1 Albumin 3.6
--- NOTE | 2025-05-21 08:04 | P.PNIM_ITS ---
Progress Note: A&P Assessment and Plan (1) Acute respiratory failure: Qualifiers: Respiratory failure complication: unspecified whether with hypoxia or hypercapnia Qualified Code(s): J96.00 - Acute respiratory failure, unspecified whether with hypoxia or hypercapnia Code(s): J96.00 - Acute respiratory failure, unspecified whether with hypoxia or hypercapnia Status: Acute Assessment and Plan: - secondary to hypervolemia -CT chest with interstitial infiltrates with septal thickening and groundglass opacification, most likely edema versus atypical pneumonia. Bilateral pleural effusions, right greater than left. Mediastinal lymphadenopathy, likely reactive. - required up to 6L NC, No home O2 requirement. Weaned to 2L NC today. - BNP 17K - echo with EF 60%, abnormal diastolic function, mild-mod AR, mod-severe MR, mod TR, severe pulmonary HTN - on IV lasix, patient is oliguric in setting of ESRD -strict I&O - cardio and nephrology following. Volume management with dialysis. - improving with dialysis (2) End stage renal disease: Code(s): N18.6 - End stage renal disease Status: Chronic Assessment and Plan: -the patient is on dialysis Sunday. Follows with Dr. 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. -he has a AV fistula to the right AC which has a positive bruit and thrill. -continue with IV Lasix due to the pulmonary edema and peripheral edema. The patient makes small amount of urine. - monitor electrolytes - nephrology following. Last dialyzed 05/21 (3) Coronary artery disease: Code(s): I25.10 - Atherosclerotic heart disease of [place] coronary artery without angina pectoris Status: Chronic Assessment and Plan: -s/p stents -continue with Coreg, atorvastatin, and Norvasc. 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 -his home insulin was placed on hold. The patient's blood sugar was low when he initially came to the emergency room. Likely can discontinue insulin on discharge. (6) Elevated troponin: Code(s): R77.8 - Other specified abnormalities of plasma proteins Status: Acute Assessment and Plan: - troponin I 0.058, flat trend - denied chest pain - likely due to ESRD and volume overload - monitor on telemetry Subjective Date/time seen: 05/21/25 08:04 Interval history: Patient seen and examined at bedside with assistance of Luis surplus property disposal agent. Feeling much better after dialysis. Review of Systems Review of Systems: All systems reviewed & are unremarkable except as noted in HPI and below Exam Narrative: General: NAD Eyes: EOMI ENT: neck supple Cardiovascular: Regular rate and rhythm Respiratory: lungs CTA, respirations even and unlabored on 2L NC Gastrointestinal: Soft, non tender Genitourinary: no suprapubic tenderness Musculoskeletal: trace BLE edema Skin: warm, dry Neuro: Alert. Psych: Mood appropriate Objective Data Vital Signs Vital Signs: Vital Signs - 24 hr 05/20/25 09:49 05/20/25 11:45 05/20/25 12:00 Temperature Pulse Rate 73 Respiratory Rate Blood Pressure Pulse Oximetry 100 94 Oxygen Delivery Nasal Cannula Nasal Cannula Oxygen Flow Rate 3 2 Fraction of Inspired Oxygen 05/20/25 14:00 05/20/25 14:00 05/20/25 14:12 Temperature 97.4 F L Pulse Rate 79 76 Respiratory Rate 16 Blood Pressure 146/69 H 153/73 H Pulse Oximetry 100 Oxygen Delivery Oxygen Flow Rate 2 Fraction of Inspired Oxygen 05/20/25 14:30 05/20/25 14:45 05/20/25 15:00 Temperature Pulse Rate 71 68 68 Respiratory Rate Blood Pressure 149/75 H 149/75 H 152/74 H Pulse Oximetry Oxygen Delivery Oxygen Flow Rate Fraction of Inspired Oxygen 05/20/25 15:15 05/20/25 15:30 05/20/25 15:45 Temperature Pulse Rate 66 66 65 Respiratory Rate Blood Pressure 149/74 H 147/65 H 153/67 H Pulse Oximetry Oxygen Delivery Oxygen Flow Rate Fraction of Inspired Oxygen 05/20/25 16:00 05/20/25 16:00 05/20/25 16:15 Temperature Pulse Rate 64 65 66 Respiratory Rate Blood Pressure 142/61 H 144/66 H Pulse Oximetry Oxygen Delivery Oxygen Flow Rate Fraction of Inspired Oxygen 05/20/25 16:30 05/20/25 17:00 05/20/25 17:17 Temperature Pulse Rate 65 66 67 Respiratory Rate Blood Pressure 111/49 L 141/68 H 141/67 H Pulse Oximetry Oxygen Delivery Oxygen Flow Rate Fraction of Inspired Oxygen 05/20/25 17:35 05/20/25 17:45 05/20/25 18:00 Temperature Pulse Rate 68 66 72 Respiratory Rate Blood Pressure 159/73 H 158/71 H 145/62 H Pulse Oximetry Oxygen Delivery Oxygen Flow Rate Fraction of Inspired Oxygen 05/20/25 18:07 05/20/25 19:45 05/20/25 20:00 Temperature 97.4 F L Pulse Rate 78 85 Respiratory Rate 16 20 Blood Pressure 169/71 H Pulse Oximetry 100 95 100 Oxygen Delivery Nasal Cannula Nasal Cannula Oxygen Flow Rate 2 2 Fraction of Inspired Oxygen 28 05/20/25 22:00 05/21/25 00:00 05/21/25 04:00 Temperature 97.9 F Pulse Rate 83 71 72 Respiratory Rate 18 Blood Pressure 133/62 Pulse Oximetry 100 Oxygen Delivery Oxygen Flow Rate Fraction of Inspired Oxygen 05/21/25 05:30 05/21/25 06:00 Temperature 97.2 F L Pulse Rate 75 Respiratory Rate 18 Blood Pressure 159/60 H Pulse Oximetry 94 94 Oxygen Delivery Nasal Cannula Oxygen Flow Rate 3 Fraction of Inspired Oxygen Intake/Output Intake/Output: Intake & Output 05/18/25 05/19/25 05/20/25 05/21/25 23:59 23:59 23:59 23:59 Intake Total 600 Output Total 3000 150 Balance -2400 -150 Meds/Results Medications: Active Medications Generic Name Dose Route Start Last Admin Trade Name Freq PRN Reason Stop Dose Admin Acetaminophen 650 mg 05/20/25 05:19 Acetaminophen 325 Mg Tablet PO Q4H PRN Pain Amlodipine Besylate 5 mg 05/20/25 09:00 05/20/25 09:09 Amlodipine Besylate 5 Mg Tablet BY MOUTH 5 mg DAILY UMU Administration Atorvastatin Calcium 40 mg 05/20/25 09:00 05/20/25 09:09 Atorvastatin 40 Mg Tablet PO 40 mg DAILY UMU Administration Calcium Acetate 667 mg 05/20/25 08:00 05/20/25 18:16 Calcium Acetate 667 Mg Tablet PO 667 mg TIDWM UMU Administration Carvedilol 25 mg 05/20/25 09:00 05/20/25 21:14 Carvedilol 25 Mg Tablet PO 25 mg Q12HR UMU Administration Dextrose 12.5 gm 05/20/25 05:03 Dextrose 50% 25 Gm/50 Ml Syringe IV PUSH PRN PRN Hypoglycemia Protocol Dicyclomine HCl 10 mg 05/20/25 05:19 05/20/25 18:21 Dicyclomine Hcl 10 Mg Capsule PO 10 mg TID PRN Administration Diarrhea Furosemide 40 mg 05/20/25 09:00 05/21/25 06:40 Furosemide Inj 40 Mg/4 Ml Vial IV PUSH 40 mg BID UMU Administration Glucagon 1 mg 05/20/25 05:03 Glucagon For Inj 1 Mg Vial IM PRN PRN Hypoglycemia Protocol Glucose 15 gm 05/20/25 05:03 Glucose Oral Gel 15 Gm Of Glucse In 37.5 Gm Tube PO PRN PRN Hypoglycemia Protocol Heparin Sodium (Porcine) 5,000 units 05/20/25 22:00 05/21/25 06:07 Heparin Sodium 5,000 Units/Ml Vial SUB-Q 5,000 units Q8HR UMU Administration Dextrose 1,000 mls @ 100 mls/hr 05/20/25 05:03 Dextrose 5% 1,000 Ml IVPB PRN PRN Hypoglycemia Protocol Albumin Human 50 mls @ 999 mls/hr 05/20/25 12:06 Albutein IVPB 06/19/25 12:05 Q10M PRN HYPOTENSION Lidocaine 1 patch 05/20/25 09:00 05/20/25 09:17 Lidocaine 5% Patch TRANSDERM 1 patch DAILY UMU Administration Lidocaine/Prilocaine 1 each 05/20/25 12:11 Lidocaine/Prilocaine Cream 2.5-2.5% Tube TOPICAL WITH DIALYSIS PRN for dialysis Protocol Loperamide HCl 2 mg 05/20/25 05:19 05/20/25 18:21 Loperamide Hcl 2 Mg Capsule PO 2 mg PRN PRN Administration Diarrhea Melatonin 5 mg 05/20/25 21:00 05/20/25 21:16 Melatonin 5 Mg Tablet PO 5 mg HS UMU Administration Ondansetron HCl 4 mg 05/20/25 05:19 Ondansetron Hcl Odt 4 Mg Tablet PO Q6H PRN Nausea And Vomiting Perflutren Lipid Microsphere 0 ml 05/20/25 05:00 Perflutren Lipid Microspheres 1.5 Ml Vial Diluted To 10 Ml Total Volume IV PUSH 05/23/25 05:00 ONCE PRN adequate visualization Protocol Vitamin B Complex/Folic Acid 1 cap 05/20/25 09:00 05/20/25 09:17 Vitamin B Cmplx/Vit C/Folic Ac 1 Capsule PO 1 cap QAM UMU Administration Radiology Results: ITS Impressions Chest CT 05/19/25 15:17 IMPRESSION: 1. Diffuse interstitial infiltrates with septal thickening and groundglass opacification, most likely edema versus atypical pneumonia. 2: Bilateral pleural effusions, right greater than left. 3: Mediastinal lymphadenopathy, likely reactive. Chest X-Ray 05/21/25 07:52 IMPRESSION: 1. Diffuse increased initial pattern and pulmonary edema over pneumonia. 2. Possible small left pleural effusion. Labs Labs: Laboratory Results - last 24 hr 05/20/25 05/20/25 05/20/25 11:27 18:17 20:18 WBC RBC Hgb Hct MCV MCH MCHC RDW Plt Count MPV Immature Gran % (Auto) Neut % (Auto) Lymph % (Auto) [place] % (Auto) Eos % (Auto) Baso % (Auto) Lymph # (Auto) [place] # (Auto) Eos # (Auto) Baso # (Auto) Abs Immat Gran (auto) Absolute Neuts (auto) Absolute Nucleated RBC Nucleated RBC % Sodium Potassium Chloride Carbon Dioxide Anion Gap BUN Creatinine Estim Creat Clear Calc Estimated GFR Glucose POC Capillary Glucose 134 H 103 147 H Calcium Phosphorus Magnesium Albumin 05/21/25 05/21/25 04:55 07:42 WBC 6.7 RBC 3.34 L Hgb 10.4 L Hct 33.3 L MCV 99.7 MCH 31.1 MCHC 31.2 L RDW 15.8 H Plt Count 108 L MPV 11.1 H Immature Gran % (Auto) 0.4 Neut % (Auto) 65.5 Lymph % (Auto) 22.6 [place] % (Auto) 6.1 Eos % (Auto) 5.1 H Baso % (Auto) 0.3 Lymph # (Auto) 1.52 [place] # (Auto) 0.4 Eos # (Auto) 0.3 Baso # (Auto) 0.0 Abs Immat Gran (auto) 0.03 Absolute Neuts (auto) 4.4 Absolute Nucleated RBC 0.000 Nucleated RBC % 0.0 Sodium 135 L Potassium 4.7 Chloride 101 Carbon Dioxide 26 Anion Gap 8 BUN 30 H Creatinine 5.79 H Estim Creat Clear Calc 9 Estimated GFR 9 L Glucose 79 POC Capillary Glucose 84 Calcium 9.5 Phosphorus 4.7 H Magnesium 2.1 Albumin 3.6 Quality VTE Prophylaxis VTE prophylaxis: pharmacologic ordered
--- NOTE | 2025-05-21 09:15 | PC.NURSE ---
To Dialysis per hospital bed.
--- NOTE | 2025-05-21 11:13 | PCPTNOTE ---
Attempted PT evaluation, pt in dialysis. Will follow.
--- NOTE | 2025-05-21 12:09 | PC.NURSE ---
Patient in Dialysis, morning medications not administered at this time.
--- NOTE | 2025-05-21 12:20 | P.PNNP_ITS ---
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 (2) Acute hypoxic respiratory failure: Code(s): J96.01 - Acute respiratory failure with hypoxia Status: Acute Assessment and Plan: * suspect multifactorial: * pleural effusions * pulmonary edema * atypical pneumonia(?) * bronchitis * other(?) * CT of chest noted: * diffuse interstitial infiltrates with septal thickening and groundglass opacification, most likely edema versus atypical pneumonia * bilateral pleural effusions, right greater than left * mediastinal lymphadenopathy, likely reactive * on supplemental oxygen - wean as tolerated * fluid removal with dialysis * on IV lasix (but does not make much urine) * follow respiratory status (3) Volume overload: Qualifiers: Hypervolemia type: other Qualified Code(s): E87.79 - Other fluid overload Code(s): E87.70 - Fluid overload, unspecified Status: Acute Assessment and Plan: * as noted by bilateral pleural effusions and pulmonary edema * attempt aggressive fluid removal with HD * per outpatient dialysis clinic, fluid removal with HD can be challenging due to intolerance * dry ultrafiltration today for further fluid removal * follow I/Os (4) Anemia: Code(s): D64.9 - Anemia, unspecified Status: Chronic Assessment and Plan: * due to ESRD * Epogen with dialysis * follow trend of H/H (5) Essential hypertension: Code(s): I10 - Essential (primary) hypertension Status: Chronic Assessment and Plan: * reasonable control at this time * aggressive fluid removal/ultrafiltration with dialysis may help further improve * follow trend of hemodynamics (6) Diabetes: Qualifiers: Chronic kidney disease stage: on chronic dialysis Diabetes mellitus complication detail: with chronic kidney disease Diabetes mellitus complication status: with kidney complications Diabetes mellitus usp insulin use: w ithout usp use Diabetes mellitus type: type 2 Qualified Code(s): E11.22 - Type 2 diabetes mellitus with diabetic chronic kidney disease; N18.6 - End stage renal disease; Z99.2 - Dependence on renal dialysis Code(s): E11.9 - Type 2 diabetes mellitus without complications Status: Chronic Assessment and Plan: * follow accu-cheks * glycemic control per hospitalist Will continue to follow. L Subjective Date/time seen: 05/21/25 12:20 Interval history: Follow-up for end stage renal disease on hemodialysis. Tolerated dialysis treatment yesterday without any issues or problems with note improvement in breathing/respiratory status; tolerating dry ultrafiltration session at the time of my visit (seen on DUF at 12:10pm) which is being done due to AM CXR findings; no apparent distress noted; still requiring supplemental oxygen therapy; no other issues/events overnight. Exam 2 Narrative: General: elderly but WD/WN male in NAD Heart: normal S1 and S2; no rub Lungs: coarse breath sounds; noted bibasilar crackles Abdomen: soft, nontender, nondistended, positive bowel sounds Extremities: no cyanosis or clubbing; no edema Skin: warm and dry Objective Data Vital Signs Vital Signs: Vital Signs Temp Pulse Resp BP Pulse Ox O2 Del Method O2 Flow Rate 05/21/25 12:15 61 152/63 H 05/21/25 12:00 60 138/62 05/21/25 12:00 61 05/21/25 11:45 60 153/67 H 05/21/25 11:30 62 144/63 H 05/21/25 11:15 59 L 144/62 H 05/21/25 11:00 59 L 138/66 05/21/25 10:45 60 146/62 H 05/21/25 10:30 63 151/65 H 05/21/25 10:15 65 142/67 H 05/21/25 10:00 62 147/61 H 05/21/25 09:45 68 177/76 H 05/21/25 09:30 68 167/82 H 05/21/25 09:22 65 156/72 H 05/21/25 09:13 98.4 F 71 18 138/61 05/21/25 09:13 3 05/21/25 08:00 75 05/21/25 08:00 94 Nasal Cannula 3 05/21/25 06:00 97.2 F L 75 18 159/60 H 94 05/21/25 05:30 94 Nasal Cannula 3 05/21/25 04:00 72 05/21/25 00:00 71 05/20/25 22:00 97.9 F 83 18 133/62 100 05/20/25 20:00 100 Nasal Cannula 2 05/20/25 19:45 85 20 95 Nasal Cannula 2 05/20/25 18:07 97.4 F L 78 16 169/71 H 100 05/20/25 18:00 72 145/62 H 05/20/25 17:45 66 158/71 H 05/20/25 17:35 68 159/73 H 05/20/25 17:17 67 141/67 H 05/20/25 17:00 66 141/68 H 05/20/25 16:30 65 111/49 L 05/20/25 16:15 66 144/66 H 05/20/25 16:00 65 05/20/25 16:00 64 142/61 H 05/20/25 15:45 65 153/67 H 05/20/25 15:30 66 147/65 H 05/20/25 15:15 66 149/74 H 05/20/25 15:00 68 152/74 H 05/20/25 14:45 68 149/75 H 05/20/25 14:30 71 149/75 H 05/20/25 14:12 76 153/73 H Intake/Output Intake/Output: Intake & Output 05/18/25 05/19/25 05/20/25 05/21/25 23:59 23:59 23:59 23:59 Intake Total 600 480 Output Total 3000 3150 Balance -8248 -4901 Meds/Results Medications: Active Medications Generic Name Dose Route Start Last Admin Trade Name Anthonyq PRN Reason Stop Dose Admin Acetaminophen 650 mg 05/20/25 05:19 Acetaminophen 325 Mg Tablet PO Q4H PRN Pain Amlodipine Besylate 5 mg 05/20/25 09:00 05/21/25 12:45 Amlodipine Besylate 5 Mg Tablet BY MOUTH 5 mg DAILY UMU Administration Atorvastatin Calcium 40 mg 05/20/25 09:00 05/21/25 12:45 Atorvastatin 40 Mg Tablet PO 40 mg DAILY UMU Administration Calcium Acetate 667 mg 05/20/25 08:00 05/21/25 12:45 Calcium Acetate 667 Mg Tablet PO 667 mg TIDWM UMU Administration Carvedilol 25 mg 05/20/25 09:00 05/21/25 12:45 Carvedilol 25 Mg Tablet PO 25 mg Q12HR UMU Administration Dextrose 12.5 gm 05/20/25 05:03 Dextrose 50% 25 Gm/50 Ml Syringe IV PUSH PRN PRN Hypoglycemia Protocol Dicyclomine HCl 10 mg 05/20/25 05:19 05/20/25 18:21 Dicyclomine Hcl 10 Mg Capsule PO 10 mg TID PRN Administration Diarrhea Furosemide 40 mg 05/20/25 09:00 05/21/25 06:40 Furosemide Inj 40 Mg/4 Ml Vial IV PUSH 40 mg BID UMU Administration Glucagon 1 mg 05/20/25 05:03 Glucagon For Inj 1 Mg Vial IM PRN PRN Hypoglycemia Protocol Glucose 15 gm 05/20/25 05:03 Glucose Oral Gel 15 Gm Of Glucse In 37.5 Gm Tube PO PRN PRN Hypoglycemia Protocol Heparin Sodium (Porcine) 5,000 units 05/20/25 22:00 05/21/25 06:07 Heparin Sodium 5,000 Units/Ml Vial SUB-Q 5,000 units Q8HR UMU Administration Dextrose 1,000 mls @ 100 mls/hr 05/20/25 05:03 Dextrose 5% 1,000 Ml IVPB PRN PRN Hypoglycemia Protocol Albumin Human 50 mls @ 999 mls/hr 05/20/25 12:06 Albutein IVPB 06/19/25 12:05 Q10M PRN HYPOTENSION Lidocaine 1 patch 05/20/25 09:00 05/21/25 12:46 Lidocaine 5% Patch TRANSDERM 1 patch DAILY UMU Administration Lidocaine/Prilocaine 1 each 05/20/25 12:11 Lidocaine/Prilocaine Cream 2.5-2.5% Tube TOPICAL WITH DIALYSIS PRN for dialysis Protocol Loperamide HCl 2 mg 05/20/25 05:19 05/20/25 18:21 Loperamide Hcl 2 Mg Capsule PO 2 mg PRN PRN Administration Diarrhea Melatonin 5 mg 05/20/25 21:00 05/20/25 21:16 Melatonin 5 Mg Tablet PO 5 mg HS UMU Administration Ondansetron HCl 4 mg 05/20/25 05:19 Ondansetron Hcl Odt 4 Mg Tablet PO Q6H PRN Nausea And Vomiting Perflutren Lipid Microsphere 0 ml 05/20/25 05:00 Perflutren Lipid Microspheres 1.5 Ml Vial Diluted To 10 Ml Total Volume IV PUSH 05/23/25 05:00 ONCE PRN adequate visualization Protocol Vitamin B Complex/Folic Acid 1 cap 05/20/25 09:00 05/21/25 12:45 Vitamin B Cmplx/Vit C/Folic Ac 1 Capsule PO 1 cap QAM UMU Administration Radiology Results: ITS Impressions Chest CT 05/19/25 15:17 IMPRESSION: 1. Diffuse interstitial infiltrates with septal thickening and groundglass opacification, most likely edema versus atypical pneumonia. 2: Bilateral pleural effusions, right greater than left. 3: Mediastinal lymphadenopathy, likely reactive. Chest X-Ray 05/21/25 07:52 IMPRESSION: 1. Diffuse increased initial pattern and pulmonary edema over pneumonia. 2. Possible small left pleural effusion. Labs Labs: Laboratory Tests 05/21/25 04:55 05/21/25 04:55 Calcium 9.5 Phosphorus 4.7 H Magnesium 2.1 Albumin 3.6
[2025-05-21] MEDS: CALCIUM ACETATE 667 MG TABLET PO ×2 (12:45→16:23)
[2025-05-21] MEDS: ATORVASTATIN 40 MG TABLET PO (12:45)
[2025-05-21] MEDS: VITAMIN B CMPLX/VIT C/FOLIC AC 1 CAPSULE 1 CAP PO (12:45)
[2025-05-21] MEDS: LIDOCAINE 5% PATCH 1 PATCH TRANSDERM (12:46)
[2025-05-21 14:23] LABS: MRSA (PCR) NOT DETECTED (NOT DETECTE)
[2025-05-21] MEDS: MELATONIN 5 MG TABLET PO (21:38)
[2025-05-22] VITALS (26 sets, daily range): BP systolic 79–157; BP diastolic 41–86; PULSE 53–81; RESP 18–20; TEMP 36.1–37; O2SAT 92–100
[2025-05-22 06:50] LABS: Hematocrit 34.5 % (42.0-52.0); Hemoglobin 10.8 g/dL (14.0-18.0); Immature Granulocyte Percent A 0.3 % (0-0.5); Lymphocytes Absolute Auto 1.94 K/mm3 (0.9-3.2); Mean Corpuscular HGB Conc 31.3 g/dl (32-36); Mean Corpuscular Hemoglobin 31.6 pg (26-34); Mean Corpuscular Volume 100.9 fl (80-100); Nucleated Red Blood Cells Absolute Auto 0.000 K/mm3 (0.0-0.012); Nucleated Red Blood Cells Perc 0.0 % (0.0-0.2); Platelet Count Result 122 k/mm3 (150-375); Red Blood Count 3.42 M/mm3 (4.6-6.20); White Blood Count 6.9 K/mm3 (4.5-10.0)
--- NOTE | 2025-05-22 07:21 | P.PNIM_ITS ---
Progress Note: A&P Assessment and Plan (1) Acute respiratory failure: Qualifiers: Respiratory failure complication: unspecified whether with hypoxia or hypercapnia Qualified Code(s): J96.00 - Acute respiratory failure, unspecified whether with hypoxia or hypercapnia Code(s): J96.00 - Acute respiratory failure, unspecified whether with hypoxia or hypercapnia Status: Acute Assessment and Plan: - secondary to hypervolemia -CT chest with interstitial infiltrates with septal thickening and groundglass opacification, most likely edema versus atypical pneumonia. Bilateral pleural effusions, right greater than left. Mediastinal lymphadenopathy, likely reactive. - patient is afebrile without leukocytosis and minimal cough - doubt bacterial pneumonia. - required up to 6L NC, No home O2 requirement. Weaned to 2L NC. Attempting to wean to RA today. - BNP 17K - echo with EF 60%, abnormal diastolic function, mild-mod AR, mod-severe MR, mod TR, severe pulmonary HTN - s/p IV lasix -strict I&O - cardio and nephrology following. Volume management with dialysis. - improving with dialysis (2) End stage renal disease: Code(s): N18.6 - End stage renal disease Status: Chronic Assessment and Plan: -the patient is on dialysis Sunday. Follows with Dr. 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. - AV fistula to the right AC which has a positive bruit and thrill. - s/p IV lasix - monitor electrolytes - nephrology following. Last dialyzed 05/21 (3) Coronary artery disease: Code(s): I25.10 - Atherosclerotic heart disease of [place] coronary artery without angina pectoris Status: Chronic Assessment and Plan: -s/p stents -continue with Coreg, atorvastatin, and Norvasc. (4) Hypertension: Code(s): I10 - Essential (primary) hypertension Status: Acute Assessment and Plan: -BP stable -continue Coreg and amlodipine (5) Diabetes: Qualifiers: Chronic kidney disease stage: on chronic dialysis Diabetes mellitus co mplication detail: with chronic kidney disease Diabetes mellitus complication status: with kidney complications Diabetes mellitus programmer numerical control insulin use: without programmer numerical control use Diabetes mellitus type: type 2 Qualified Code(s): E11.22 - Type 2 diabetes mellitus with diabetic chronic kidney disease; N18.6 - End stage renal disease; Z99.2 - Dependence on renal dialysis Code(s): E11.9 - Type 2 diabetes mellitus without complications Status: Chronic Assessment and Plan: -hemoglobin A1c 4.7 -Accu-Cheks AC and HS with sliding scale insulin. -his home insulin was placed on hold. The patient's blood sugar was low when he initially came to the emergency room. Likely can discontinue insulin on discharge. (6) Elevated troponin: Code(s): R77.8 - Other specified abnormalities of plasma proteins Status: Acute Assessment and Plan: - troponin I 0.058, flat trend - denied chest pain - likely due to ESRD and volume overload - monitor on telemetry (7) Mitral regurgitation: Code(s): I34.0 - Nonrheumatic mitral (valve) insufficiency Status: Acute Assessment and Plan: - echo with moderate to severe MR - cardio following, recommended to maintain euvolemia with HD and optimize BP to improve MR. Recommended outpatient follow-up in 2 weeks and a repeat echo in 2 months to re-evaluate need for possible mitral valve repair Subjective Date/time seen: 05/22/25 07:21 Interval history: Patient seen and examined at bedside with assistance of [facility] asst, Marleen [id number]. Patient is feeling better and appears more comfortable. Dyspnea improving. Review of Systems Review of Systems: All systems reviewed & are unremarkable except as noted in HPI and below Exam Narrative: General: NAD Eyes: EOMI ENT: neck supple Cardiovascular: Regular rate and rhythm Respiratory: lungs CTA, respirations even and unlabored on 2L NC Gastrointestinal: Soft, non tender Genitourinary: no suprapubic tenderness Musculoskeletal: trace BLE edema Skin: warm, dry Neuro: Alert. Psych: Mood appropriate Objective Data Vital Signs Vital Signs: Vital Signs - 24 hr 05/21/25 08:00 05/21/25 08:00 05/21/25 09:13 Temperature Pulse Rate 75 Respiratory Rate Blood Pressure Pulse Oximetry 94 Oxygen Delivery Nasal Cannula Oxygen Flow Rate 3 3 05/21/25 09:13 05/21/25 09:22 05/21/25 09:30 Temperature 98.4 F Pulse Rate 71 65 68 Respiratory Rate 18 Blood Pressure 138/61 156/72 H 167/82 H Pulse Oximetry Oxygen Delivery Oxygen Flow Rate 05/21/25 09:45 05/21/25 10:00 05/21/25 10:15 Temperature Pulse Rate 68 62 65 Respiratory Rate Blood Pressure 177/76 H 147/61 H 142/67 H Pulse Oximetry Oxygen Delivery Oxygen Flow Rate 05/21/25 10:30 05/21/25 10:45 05/21/25 11:00 Temperature Pulse Rate 63 60 59 L Respiratory Rate Blood Pressure 151/65 H 146/62 H 138/66 Pulse Oximetry Oxygen Delivery Oxygen Flow Rate 05/21/25 11:15 05/21/25 11:30 05/21/25 11:45 Temperature Pulse Rate 59 L 62 60 Respiratory Rate Blood Pressure 144/62 H 144/63 H 153/67 H Pulse Oximetry Oxygen Delivery Oxygen Flow Rate 05/21/25 12:00 05/21/25 12:00 05/21/25 12:15 Temperature Pulse Rate 61 60 61 Respiratory Rate Blood Pressure 138/62 152/63 H Pulse Oximetry Oxygen Delivery Oxygen Flow Rate 05/21/25 12:26 05/21/25 12:36 05/21/25 12:45 Temperature 98.0 F Pulse Rate 68 62 60 Respiratory Rate 18 Blood Pressure 148/67 H 167/70 H Pulse Oximetry Oxygen Delivery Oxygen Flow Rate 05/21/25 14:00 05/21/25 16:00 05/21/25 16:00 Temperature 97.0 F L Pulse Rate 60 59 L Respiratory Rate 18 Blood Pressure 117/41 L Pulse Oximetry 99 95 Oxygen Delivery Nasal Cannula Oxygen Flow Rate 3 05/21/25 20:00 05/21/25 20:00 05/21/25 22:00 Temperature 98.5 F Pulse Rate 68 65 Respiratory Rate 20 Blood Pressure 145/56 H Pulse Oximetry 98 98 Oxygen Delivery Nasal Cannula Oxygen Flow Rate 2 05/22/25 00:00 05/22/25 06:00 Temperature 97.5 F L Pulse Rate 59 L 64 Respiratory Rate 20 Blood Pressure 157/69 H Pulse Oximetry 100 Oxygen Delivery Oxygen Flow Rate Intake/Output Intake/Output: Intake & Output 05/19/25 05/20/25 05/21/25 05/22/25 23:59 23:59 23:59 23:59 Intake Total 600 480 250 Output Total 3000 3150 Balance -2400 -2670 250 Meds/Results Medications: Active Medications Generic Name Dose Route Start Last Admin Trade Name Anthonyq PRN Reason Stop Dose Admin Acetaminophen 650 mg 05/20/25 05:19 Acetaminophen 325 Mg Tablet PO Q4H PRN Pain Amlodipine Besylate 5 mg 05/20/25 09:00 05/21/25 12:45 Amlodipine Besylate 5 Mg Tablet BY MOUTH 5 mg DAILY UMU Administration Atorvastatin Calcium 40 mg 05/20/25 09:00 05/21/25 12:45 Atorvastatin 40 Mg Tablet PO 40 mg DAILY UMU Administration Calcium Acetate 667 mg 05/20/25 08:00 05/21/25 16:23 Calcium Acetate 667 Mg Tablet PO 667 mg TIDWM UMU Administration Carvedilol 25 mg 05/20/25 09:00 05/21/25 21:38 Carvedilol 25 Mg Tablet PO 25 mg Q12HR UMU Administration Dextrose 12.5 gm 05/20/25 05:03 Dextrose 50% 25 Gm/50 Ml Syringe IV PUSH PRN PRN Hypoglycemia Protocol Dicyclomine HCl 10 mg 05/20/25 05:19 05/20/25 18:21 Dicyclomine Hcl 10 Mg Capsule PO 10 mg TID PRN Administration Diarrhea Epoetin Volodymyr-epbx 10,000 units 05/22/25 18:00 Epoetin Volodymyr-Epbx 10,000 Units/Ml Vial IV PUSH 05/22/25 18:01 ONCE ONE Glucagon 1 mg 05/20/25 05:03 Glucagon For Inj 1 Mg Vial IM PRN PRN Hypoglycemia Protocol Glucose 15 gm 05/20/25 05:03 Glucose Oral Gel 15 Gm Of Glucse In 37.5 Gm Tube PO PRN PRN Hypoglycemia Protocol Heparin Sodium (Porcine) 5,000 units 05/20/25 22:00 05/22/25 05:55 Heparin Sodium 5,000 Units/Ml Vial SUB-Q 5,000 units Q8HR UMU Administration Dextrose 1,000 mls @ 100 mls/hr 05/20/25 05:03 Dextrose 5% 1,000 Ml IVPB PRN PRN Hypoglycemia Protocol Albumin Human 50 mls @ 999 mls/hr 05/20/25 12:06 Albutein IVPB 06/19/25 12:05 Q10M PRN HYPOTENSION Lidocaine 1 patch 05/20/25 09:00 05/21/25 12:46 Lidocaine 5% Patch TRANSDERM 1 patch DAILY UMU Administration Lidocaine/Prilocaine 1 each 05/20/25 12:11 Lidocaine/Prilocaine Cream 2.5-2.5% Tube TOPICAL WITH DIALYSIS PRN for dialysis Protocol Loperamide HCl 2 mg 05/20/25 05:19 05/20/25 18:21 Loperamide Hcl 2 Mg Capsule PO 2 mg PRN PRN Administration Diarrhea Melatonin 5 mg 05/20/25 21:00 05/21/25 21:38 Melatonin 5 Mg Tablet PO 5 mg HS UMU Administration Ondansetron HCl 4 mg 05/20/25 05:19 Ondansetron Hcl Odt 4 Mg Tablet PO Q6H PRN Nausea And Vomiting Perflutren Lipid Microsphere 0 ml 05/20/25 05:00 Perflutren Lipid Microspheres 1.5 Ml Vial Diluted To 10 Ml Total Volume IV PUSH 05/23/25 05:00 ONCE PRN adequate visualization Protocol Vitamin B Complex/Folic Acid 1 cap 05/20/25 09:00 05/21/25 12:45 Vitamin B Cmplx/Vit C/Folic Ac 1 Capsule PO 1 cap QAM UMU Administration Radiology Results: ITS Impressions Chest CT 05/19/25 15:17 IMPRESSION: 1. Diffuse interstitial infiltrates with septal thickening and groundglass opacification, most likely edema versus atypical pneumonia. 2: Bilateral pleural effusions, right greater than left. 3: Mediastinal lymphadenopathy, likely reactive. Labs Labs: Laboratory Results - last 24 hr 05/21/25 05/21/25 05/21/25 07:42 12:49 16:29 WBC RBC Hgb Hct MCV MCH MCHC RDW Plt Count MPV Immature Gran % (Auto) Neut % (Auto) Lymph % (Auto) [place] % (Auto) Eos % (Auto) Baso % (Auto) Lymph # (Auto) [place] # (Auto) Eos # (Auto) Baso # (Auto) Abs Immat Gran (auto) Absolute Neuts (auto) Absolute Nucleated RBC Nucleated RBC % POC Capillary Glucose 84 184 H Nasal MRSA (PCR) Not detected 05/21/25 05/22/25 20:07 05:33 WBC 6.9 RBC 3.42 L Hgb 10.8 L Hct 34.5 L MCV 100.9 H MCH 31.6 MCHC 31.3 L RDW 16.1 H Plt Count 122 L MPV 11.2 H Immature Gran % (Auto) 0.3 Neut % (Auto) 59.9 Lymph % (Auto) 28.2 [place] % (Auto) 4.7 Eos % (Auto) 6.6 H Baso % (Auto) 0.3 Lymph # (Auto) 1.94 [place] # (Auto) 0.3 Eos # (Auto) 0.5 H Baso # (Auto) 0.0 Abs Immat Gran (auto) 0.02 Absolute Neuts (auto) 4.1 Absolute Nucleated RBC 0.000 Nucleated RBC % 0.0 POC Capillary Glucose 210 H Nasal MRSA (PCR) Quality VTE Prophylaxis VTE prophylaxis: pharmacologic ordered
[2025-05-22 07:28] LABS: Albumin Level 3.8 g/dL (3.5-5.1); Anion Gap 13 mmol/L (4-12); Blood Urea Nitrogen 46 mg/dL (9-20); Calcium 9.9 mg/dL (8.4-10.2); Carbon Dioxide 23 mmol/L (22-30); Chloride 99 mmol/L (98-107); Estimated CRCL calculation 7 ml/min; Estimated Glomerular Filt Rate 7; Glucose 71 mg/dL (65-110); Magnesium 2.3 mg/dL (1.6-2.3); Potassium 4.7 mmol/L (3.4-5.0); Sodium 135 mmol/L (137-145)
--- NOTE | 2025-05-22 09:47 | P.PNNP_ITS ---
Progress Note: A&P Assessment and Plan (1) End stage renal disease: Code(s): N18.6 - End stage renal disease Status: Chronic Assessment and Plan: * HD today * continue outpatient dialysis schedule of Sun/Sun/Sunday * follow electrolytes, volume status, and clearance * outpatient dialysis unit = [facility] * primary i o psychologist = Dr. 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 (2) Acute hypoxic respiratory failure: Code(s): J96.01 - Acute respiratory failure with hypoxia Status: Acute Assessment and Plan: * suspect multifactorial: * pleural effusions * pulmonary edema * atypical pneumonia(?) * bronchitis * other(?) * CT of chest noted: * diffuse interstitial infiltrates with septal thickening and groundglass opacification, most likely edema versus atypical pneumonia * bilateral pleural effusions, right greater than left * mediastinal lymphadenopathy, likely reactive * on supplemental oxygen - wean as tolerated * continuje fluid removal with dialysis as tolerated by hemodynamics * follow respiratory status (3) Volume overload: Qualifiers: Hypervolemia type: other Qualified Code(s): E87.79 - Other fluid overload Code(s): E87.70 - Fluid overload, unspecified Status: Acute Assessment and Plan: * as noted by bilateral pleural effusions and pulmonary edema * attempt aggressive fluid removal with HD * per outpatient dialysis clinic, fluid removal with HD can be challenging due to intolerance * dry ultrafiltration (on 05/20) for further fluid removal (3L removed at that time) * follow I/Os (4) Anemia: Code(s): D64.9 - Anemia, unspecified Status: Chronic Assessment and Plan: * due to ESRD * Epogen with dialysis * follow trend of H/H (5) Essential hypertension: Code(s): I10 - Essential (primary) hypertension Status: Chronic Assessment and Plan: * reasonable control at this time * aggressive fluid removal/ultrafiltration with dialysis may help further improve * follow trend of hemodynamics (6) Diabetes: Qualifiers: Diabetes mellitus type: type 2 Diabetes mellitus correction insulin use: without termite exterminator helper use Diabetes mellitus complication status: with kidney complications Diabetes mellitus complication detail: with chronic kidney disease Chronic kidney disease stage: on chronic dialysis Qualified Code(s): E 11.22 - Type 2 diabetes mellitus with diabetic chronic kidney disease; N18.6 - End stage renal disease; Z99.2 - Dependence on renal dialysis Code(s): E11.9 - Type 2 diabetes mellitus without complications Status: Chronic Assessment and Plan: * follow accu-cheks * glycemic control per hospitalist Will continue to follow. L Subjective Date/time seen: 05/22/25 09:47 Interval history: Follow-up for end stage renal disease on hemodialysis. Tolerated session of dry ultrafiltration yesterday with about 3L fluid removal; tolerating dialysis treatment at the time of my visit (seen on HD at 9:35am); reports improvement breathing/respiratory status (but still requiring supplemental oxygen when seen); no issues/events overnight or earlier this morning. Exam 2 Narrative: General: elderly but WD/WN male in NAD Heart: normal S1 and S2; no rub Lungs: coarse breath sounds; decreased at bases Abdomen: soft, nontender, nondistended, positive bowel sounds Extremities: no cyanosis or clubbing; no edema Skin: warm and intact Objective Data Vital Signs Vital Signs: Vital Signs Temp Pulse Resp BP Pulse Ox O2 Del Method O2 Flow Rate 05/22/25 09:45 59 L 107/56 L 05/22/25 09:30 58 L 115/50 L 05/22/25 09:15 58 L 117/55 L 05/22/25 09:00 60 128/61 05/22/25 08:45 58 L 151/54 H 05/22/25 08:31 58 L 141/60 H 05/22/25 08:17 98.3 F 66 18 147/61 H 05/22/25 08:17 2 05/22/25 08:00 61 05/22/25 06:00 97.5 F L 64 20 157/69 H 100 05/22/25 04:00 65 05/22/25 00:00 59 L 05/21/25 22:00 98.5 F 65 20 145/56 H 98 05/21/25 20:00 68 05/21/25 20:00 98 Nasal Cannula 2 Intake/Output Intake/Output: Intake & Output 05/19/25 05/20/25 05/21/25 05/22/25 23:59 23:59 23:59 23:59 Intake Total 600 480 600 Output Total 3000 3150 2500 Balance -6620 -3880 -4130 Meds/Results Medications: Active Medications Generic Name Dose Route Start Last Admin Trade Name Freq PRN Reason Stop Dose Admin Acetaminophen 650 mg 05/20/25 05:19 Acetaminophen 325 Mg Tablet PO Q4H PRN Pain Amlodipine Besylate 5 mg 05/20/25 09:00 05/22/25 08:51 Amlodipine Besylate 5 Mg Tablet BY MOUTH Not Given DAILY UMU Atorvastatin Calcium 40 mg 05/20/25 09:00 05/22/25 08:51 Atorvastatin 40 Mg Tablet PO Not Given DAILY UMU Calcium Acetate 667 mg 05/20/25 08:00 05/22/25 13:29 Calcium Acetate 667 Mg Tablet PO 667 mg TIDWM UMU Administration Carvedilol 25 mg 05/20/25 09:00 05/22/25 08:51 Carvedilol 25 Mg Tablet PO Not Given Q12HR UMU Dextrose 12.5 gm 05/20/25 05:03 Dextrose 50% 25 Gm/50 Ml Syringe IV PUSH PRN PRN Hypoglycemia Protocol Dicyclomine HCl 10 mg 05/20/25 05:19 05/20/25 18:21 Dicyclomine Hcl 10 Mg Capsule PO 10 mg TID PRN Administration Diarrhea Epoetin Volodymyr-epbx 10,000 units 05/22/25 18:00 05/22/25 12:04 Epoetin Volodymyr-Epbx 10,000 Units/Ml Vial IV PUSH 05/22/25 18:01 Not Given ONCE ONE Glucagon 1 mg 05/20/25 05:03 Glucagon For Inj 1 Mg Vial IM PRN PRN Hypoglycemia Protocol Glucose 15 gm 05/20/25 05:03 Glucose Oral Gel 15 Gm Of Glucse In 37.5 Gm Tube PO PRN PRN Hypoglycemia Protocol Heparin Sodium (Porcine) 5,000 units 05/20/25 22:00 05/22/25 13:28 Heparin Sodium 5,000 Units/Ml Vial SUB-Q 5,000 units Q8HR UMU Administration Dextrose 1,000 mls @ 100 mls/hr 05/20/25 05:03 Dextrose 5% 1,000 Ml IVPB PRN PRN Hypoglycemia Protocol Albumin Human 50 mls @ 999 mls/hr 05/20/25 12:06 Albutein IVPB 06/19/25 12:05 Q10M PRN HYPOTENSION Lidocaine 1 patch 05/20/25 09:00 05/22/25 13:28 Lidocaine 5% Patch TRANSDERM 1 patch DAILY UMU Administration Lidocaine/Prilocaine 1 each 05/20/25 12:11 Lidocaine/Prilocaine Cream 2.5-2.5% Tube TOPICAL WITH DIALYSIS PRN for dialysis Protocol Loperamide HCl 2 mg 05/20/25 05:19 05/20/25 18:21 Loperamide Hcl 2 Mg Capsule PO 2 mg PRN PRN Administration Diarrhea Melatonin 5 mg 05/20/25 21:00 05/21/25 21:38 Melatonin 5 Mg Tablet PO 5 mg HS UMU Administration Ondansetron HCl 4 mg 05/20/25 05:19 Ondansetron Hcl Odt 4 Mg Tablet PO Q6H PRN Nausea And Vomiting Perflutren Lipid Microsphere 0 ml 05/20/25 05:00 Perflutren Lipid Microspheres 1.5 Ml Vial Diluted To 10 Ml Total Volume IV PUSH 05/23/25 05:00 ONCE PRN adequate visualization Protocol Vitamin B Complex/Folic Acid 1 cap 05/20/25 09:00 05/22/25 13:28 Vitamin B Cmplx/Vit C/Folic Ac 1 Capsule PO 1 cap QAM UMU Administration Radiology Results: ITS Impressions Chest CT 05/19/25 15:17 IMPRESSION: 1. Diffuse interstitial infiltrates with septal thickening and groundglass opacification, most likely edema versus atypical pneumonia. 2: Bilateral pleural effusions, right greater than left. 3: Mediastinal lymphadenopathy, likely reactive. Chest X-Ray 05/22/25 08:49 IMPRESSION: 1. Persistent mild interstitial and groundglass opacities in the bilateral lower lung zones which represent mild pulmonary edema, pneumonia or atelectasis. Labs Labs: Laboratory Tests 05/22/25 05:33 05/22/25 05:33 Calcium 9.9 Phosphorus 5.1 H Magnesium 2.3 Albumin 3.8
[2025-05-22] MEDS: LIDOCAINE 5% PATCH 1 PATCH TRANSDERM (13:28)
[2025-05-22] MEDS: VITAMIN B CMPLX/VIT C/FOLIC AC 1 CAPSULE 1 CAP PO (13:28)
[2025-05-22] MEDS: CALCIUM ACETATE 667 MG TABLET PO ×2 (13:29→17:27)
[2025-05-22] MEDS: MELATONIN 5 MG TABLET PO (21:27)
[2025-05-23] VITALS (15 sets, daily range): BP systolic 112–164; BP diastolic 52–68; PULSE 59–74; RESP 18–20; TEMP 35.8–36.7; O2SAT 90–99
[2025-05-23 06:24] LABS: Hematocrit 35.3 % (42.0-52.0); Hemoglobin 11.0 g/dL (14.0-18.0); Immature Granulocyte Percent A 0.6 % (0-0.5); Lymphocytes Absolute Auto 1.98 K/mm3 (0.9-3.2); Mean Corpuscular HGB Conc 31.2 g/dl (32-36); Mean Corpuscular Hemoglobin 31.4 pg (26-34); Mean Corpuscular Volume 100.9 fl (80-100); Nucleated Red Blood Cells Absolute Auto 0.000 K/mm3 (0.0-0.012); Nucleated Red Blood Cells Perc 0.0 % (0.0-0.2); Platelet Count Result 137 k/mm3 (150-375); Red Blood Count 3.50 M/mm3 (4.6-6.20); White Blood Count 6.7 K/mm3 (4.5-10.0)
[2025-05-23 06:45] LABS: Albumin Level 3.7 g/dL (3.5-5.1); Anion Gap 9 mmol/L (4-12); Blood Urea Nitrogen 31 mg/dL (9-20); Calcium 9.4 mg/dL (8.4-10.2); Carbon Dioxide 29 mmol/L (22-30); Chloride 99 mmol/L (98-107); Estimated CRCL calculation 9 ml/min; Estimated Glomerular Filt Rate 9; Glucose 85 mg/dL (65-110); Magnesium 2.0 mg/dL (1.6-2.3); Potassium 4.2 mmol/L (3.4-5.0); Sodium 137 mmol/L (137-145)
[2025-05-23] MEDS: CALCIUM ACETATE 667 MG TABLET PO ×3 (09:14→17:30)
[2025-05-23] MEDS: VITAMIN B CMPLX/VIT C/FOLIC AC 1 CAPSULE 1 CAP PO (09:16)
[2025-05-23] MEDS: LIDOCAINE 5% PATCH 1 PATCH TRANSDERM (09:19)
[2025-05-23] MEDS: ATORVASTATIN 40 MG TABLET PO (09:19)
[2025-05-23] MEDS: guaiFENesin 12 HR 600 MG TABCR PO ×2 (10:30→21:04)
[2025-05-23] MEDS: LOPERAMIDE HCL 2 MG CAPSULE PO (10:34)
--- NOTE | 2025-05-23 11:06 | P.PNNP_ITS ---
Progress Note: A&P Assessment and Plan (1) End stage renal disease: Code(s): N18.6 - End stage renal disease Status: Chronic Assessment and Plan: * HD Went well yesterday. * Next dialysis is Sunday * volume status looks okay. No swelling and clear lungs. * outpatient dialysis unit = [facility] * primary sow farm barn technician = Dr. 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 (2) Acute hypoxic respiratory failure: Code(s): J96.01 - Acute respiratory failure with hypoxia Status: Acute Assessment and Plan: * suspect multifactorial: * pleural effusions * pulmonary edema * atypical pneumonia(?) * bronchitis * other(?) * CT of chest noted: * diffuse interstitial infiltrates with septal thickening and groundglass opacification, most likely edema versus atypical pneumonia * bilateral pleural effusions, right greater than left * mediastinal lymphadenopathy, likely reactive * Improved. Off oxygen. No swelling or shortness of breath (3) Volume overload: Qualifiers: Hypervolemia type: other Qualified Code(s): E87.79 - Other fluid overload Code(s): E87.70 - Fluid overload, unspecified Status: Acute Assessment and Plan: * continue removing fluid with dialysis. (4) Anemia: Code(s): D64.9 - Anemia, unspecified Status: Chronic Assessment and Plan: * Hemoglobin 11. * Will see what it is on Sunday and decide about EPO then (5) Essential hypertension: Code(s): I10 - Essential (primary) hypertension Status: Chronic Assessment and Plan: * blood pressure doing well. Systolic in the 100-140 range now. * It did drop yesterday on dialysis. (6) Diabetes: Qualifiers: Diabetes mellitus type: type 2 Diabetes mellitus intermediate insulin use: without intermediate use Diabetes mellitus complication status: with kidney complications Diabetes mellitus complication detail: with chronic kidney disease Chronic kidney disease stage: on chronic dialysis Qualified Code(s): E11.22 - Type 2 diabetes mellitus with diabetic chronic kidney disease; N18.6 - End stage renal disease; Z99.2 - Dependence on renal dialysis Code(s): E11.9 - Type 2 diabetes mellitus without complications Status: Chronic Assessment and Plan: * follow accu-cheks * glycemic control per hospitalist Will continue to follow. Subjective Date/time seen: 05/23/25 11:06 Interval history: The patient feels okay. Lying in bed and smiling. Breathing comfortably. He just received something for his bowels. Exam Narrative: General: elderly but WD/WN male in NAD Heart: normal S1 and S2; no rub Lungs: coarse breath sounds; decreased at bases Abdomen: soft, nontender, nondistended, positive bowel sounds Extremities: no cyanosis or clubbing; no edema Skin: warm and intact Objective Data Vital Signs Vital Signs: Vital Signs - 24 hr 05/22/25 11:15 05/22/25 11:25 05/22/25 11:30 Temperature Pulse Rate 60 81 54 L Respiratory Rate Blood Pressure 106/47 L 79/41 L 120/57 L Pulse Oximetry Oxygen Delivery 05/22/25 11:45 05/22/25 12:30 05/22/25 13:31 Temperature 98.2 F 96.9 F L Pulse Rate 58 L 62 64 Respiratory Rate 18 18 Blood Pressure 123/50 L 102/41 L Pulse Oximetry 97 Oxygen Delivery 05/22/25 14:00 05/22/25 14:13 05/22/25 14:46 Temperature Pulse Rate Respiratory Rate Blood Pressure Pulse Oximetry 95 Oxygen Delivery Room Air Room Air Room Air 05/22/25 16:00 05/22/25 20:00 05/22/25 20:00 Temperature Pulse Rate 69 71 Respiratory Rate Blood Pressure Pulse Oximetry Oxygen Delivery Room Air 05/22/25 21:28 05/23/25 00:00 05/23/25 04:00 Temperature 98.2 F Pulse Rate 70 67 61 Respiratory Rate 20 Blood Pressure 142/86 H Pulse Oximetry 92 Oxygen Delivery 05/23/25 06:00 05/23/25 08:00 05/23/25 08:00 Temperature 96.5 F L Pulse Rate 74 62 Respiratory Rate 20 Blood Pressure 112/68 Pulse Oximetry 98 Oxygen Delivery Room Air 05/23/25 09:49 Temperature Pulse Rate 68 Respiratory Rate 18 Blood Pressure Pulse Oximetry 92 Oxygen Delivery Intake/Output Intake/Output: Intake & Output 05/20/25 05/21/25 05/22/25 05/23/25 23:59 23:59 23:59 23:59 Intake Total 600 480 600 360 Output Total 3000 0138 9660 Balance -9699 -3518 -4461 360 Meds/Results Medications: Active Medications Generic Name Dose Route Start Last Admin Trade Name Freq PRN Reason Stop Dose Admin Acetaminophen 650 mg 05/20/25 05:19 Acetaminophen 325 Mg Tablet PO Q4H PRN Pain Amlodipine Besylate 5 mg 05/20/25 09:00 05/23/25 09:16 Amlodipine Besylate 5 Mg Tablet BY MOUTH 5 mg DAILY UMU Administration Atorvastatin Calcium 40 mg 05/20/25 09:00 05/23/25 09:19 Atorvastatin 40 Mg Tablet PO 40 mg DAILY UMU Administration Calcium Acetate 667 mg 05/20/25 08:00 05/23/25 09:14 Calcium Acetate 667 Mg Tablet PO 667 mg TIDWM UMU Administration Carvedilol 25 mg 05/20/25 09:00 05/23/25 09:16 Carvedilol 25 Mg Tablet PO 25 mg Q12HR UMU Administration Dextrose 12.5 gm 05/20/25 05:03 Dextrose 50% 25 Gm/50 Ml Syringe IV PUSH PRN PRN Hypoglycemia Protocol Dextrose 12.5 gm 05/23/25 07:32 Dextrose 50% 25 Gm/50 Ml Syringe IV PUSH PRN PRN Hypoglycemia Protocol Dicyclomine HCl 10 mg 05/20/25 05:19 05/20/25 18:21 Dicyclomine Hcl 10 Mg Capsule PO 10 mg TID PRN Administration Diarrhea Glucagon 1 mg 05/20/25 05:03 Glucagon For Inj 1 Mg Vial IM PRN PRN Hypoglycemia Protocol Glucagon 1 mg 05/23/25 07:32 Glucagon For Inj 1 Mg Vial IM PRN PRN Hypoglycemia Protocol Glucose 15 gm 05/20/25 05:03 Glucose Oral Gel 15 Gm Of Glucse In 37.5 Gm Tube PO PRN PRN Hypoglycemia Protocol Glucose 15 gm 05/23/25 07:32 Glucose Oral Gel 15 Gm Of Glucse In 37.5 Gm Tube PO PRN PRN Hypoglycemia Protocol Guaifenesin 600 mg 05/23/25 10:25 05/23/25 10:30 Guaifenesin 12 Hr 600 Mg Tabcr PO 600 mg Q12HR UMU Administration Heparin Sodium (Porcine) 5,000 units 05/20/25 22:00 05/23/25 05:10 Heparin Sodium 5,000 Units/Ml Vial SUB-Q 5,000 units Q8HR UMU Administration Dextrose 1,000 mls @ 100 mls/hr 05/20/25 05:03 Dextrose 5% 1,000 Ml IVPB PRN PRN Hypoglycemia Protocol Albumin Human 50 mls @ 999 mls/hr 05/20/25 12:06 Albutein IVPB 06/19/25 12:05 Q10M PRN HYPOTENSION Dextrose 1,000 mls @ 100 mls/hr 05/23/25 07:32 Dextrose 5% 1,000 Ml IVPB PRN PRN Hypoglycemia Protocol Insulin Aspart 2 - 5 units 05/23/25 08:00 05/23/25 09:04 Insulin Aspart (*Bkc) 100 Units/Ml SUB-Q Not Given TIDWM UMU Protocol Lidocaine 1 patch 05/20/25 09:00 05/23/25 09:19 Lidocaine 5% Patch TRANSDERM 1 patch DAILY UMU Administration Lidocaine/Prilocaine 1 each 05/20/25 12:11 Lidocaine/Prilocaine Cream 2.5-2.5% Tube TOPICAL WITH DIALYSIS PRN for dialysis Protocol Loperamide HCl 2 mg 05/20/25 05:19 05/23/25 10:34 Loperamide Hcl 2 Mg Capsule PO 2 mg PRN PRN Administration Diarrhea Melatonin 5 mg 05/20/25 21:00 05/22/25 21:27 Melatonin 5 Mg Tablet PO 5 mg HS UMU Administration Ondansetron HCl 4 mg 05/20/25 05:19 Ondansetron Hcl Odt 4 Mg Tablet PO Q6H PRN Nausea And Vomiting Vitamin B Complex/Folic Acid 1 cap 05/20/25 09:00 05/23/25 09:16 Vitamin B Cmplx/Vit C/Folic Ac 1 Capsule PO 1 cap QAM UMU Administration Radiology Results: ITS Impressions Chest CT 05/19/25 15:17 IMPRESSION: 1. Diffuse interstitial infiltrates with septal thickening and groundglass opacification, most likely edema versus atypical pneumonia. 2: Bilateral pleural effusions, right greater than left. 3: Mediastinal lymphadenopathy, likely reactive. Labs Labs: Laboratory Results - last 24 hr 05/22/25 05/22/25 05/22/25 11:18 16:38 19:45 WBC RBC Hgb Hct MCV MCH MCHC RDW Plt Count MPV Immature Gran % (Auto) Neut % (Auto) Lymph % (Auto) [place] % (Auto) Eos % (Auto) Baso % (Auto) Lymph # (Auto) [place] # (Auto) Eos # (Auto) Baso # (Auto) Abs Immat Gran (auto) Absolute Neuts (auto) Absolute Nucleated RBC Nucleated RBC % Sodium Potassium Chloride Carbon Dioxide Anion Gap BUN Creatinine Estim Creat Clear Calc Estimated GFR Glucose POC Capillary Glucose 115 H 182 H 210 H Calcium Phosphorus Magnesium Albumin 05/23/25 05/23/25 05:15 07:39 WBC 6.7 RBC 3.50 L Hgb 11.0 L Hct 35.3 L MCV 100.9 H MCH 31.4 MCHC 31.2 L RDW 16.2 H Plt Count 137 L MPV 10.9 H Immature Gran % (Auto) 0.6 H Neut % (Auto) 57.7 Lymph % (Auto) 29.4 [place] % (Auto) 6.2 Eos % (Auto) 5.8 H Baso % (Auto) 0.3 Lymph # (Auto) 1.98 [place] # (Auto) 0.4 Eos # (Auto) 0.4 H Baso # (Auto) 0.0 Abs Immat Gran (auto) 0.04 H Absolute Neuts (auto) 3.9 Absolute Nucleated RBC 0.000 Nucleated RBC % 0.0 Sodium 137 Potassium 4.2 Chloride 99 Carbon Dioxide 29 Anion Gap 9 BUN 31 H D Creatinine 6.02 H Estim Creat Clear Calc 9 Estimated GFR 9 L Glucose 85 POC Capillary Glucose 82 Calcium 9.4 Phosphorus 4.8 H Magnesium 2.0 Albumin 3.7
--- NOTE | 2025-05-23 12:12 | P.DS_ITS ---
DS: Admitting Diagnosis Discharge Date 05/23/25 Admitting Diagnosis - acute respiratory failure - volume overload DS: Discharge Diagnosis Discharge Diagnosis (1) Acute respiratory failure: Qualifiers: Respiratory failure complication: unspecified whether with hypoxia or hypercapnia Qualified Code(s): J96.00 - Acute respiratory failure, unspecified whether with hypoxia or hypercapnia Code(s): J96.00 - Acute respiratory failure, unspecified whether with hypoxia or hyper capnia Status: Acute (2) End stage renal disease: Code(s): N18.6 - End stage renal disease Status: Chronic (3) Coronary artery disease: Code(s): I25.10 - Atherosclerotic heart disease of [place] coronary artery without angina pectoris Status: Chronic (4) Hypertension: Code(s): I10 - Essential (primary) hypertension Status: Acute (5) Diabetes: Qualifiers: Diabetes mellitus type: type 2 Diabetes mellitus halfway insulin use: without watermelon 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 use Diabetes mellitus complication status: with kidney complications Diabetes mellitus complication detail: with chronic kidney disease Chronic kidney disease stage: on chronic dialysis Qualified Code(s): E11.22 - Type 2 diabetes mellitus with diabetic chronic kidney disease; N18.6 - End stage renal disease; Z99.2 - Dependence on renal dialysis Code(s): E11.9 - Type 2 diabetes mellitus without complications Status: Chronic (6) Elevated troponin: Code(s): R77.8 - Other specified abnormalities of plasma proteins Status: Acute (7) Mitral regurgitation: Code(s): I34.0 - Nonrheumatic mitral (valve) insufficiency Status: Acute DS: Summary Hospital Course Reason for hospitalization: - respiratory failure Hospital Course: 79-year-old male patient who has a past medical history of end-stage renal disease on dialysis Sunday. The patient resides at [facility] in [place], [place]. The patient has been feeling short of breath over the last 2 weeks. In ED, CT chest showed diffuse interstitial infiltrates and bilateral pleural effusions consistent with pulmonary edema. The patient was given Lasix 80 mg in the emergency room. He was also given D50 due to hypoglycemia. His H&H is 10.2 and 31.7. Platelet counts are down to 91. D-dimer 0.49. Other abnormal labs on his chemistry includes sodium of 132, BUN 35, creatinine 6.32, GFR 9, point of care glucose 164. Troponin 0.058 and repeat was 0.058. BNP was [address]45. Viral serology was negative. Patient was requiring 6L NC to maintain spO2 >90%. No home oxygen requirement. Patient was admitted for further evaluation and management of hypervolemia from ESRD. Upon admission, patient was started on IV Lasix however patient does not make much urine in setting ESRD. Nephrology was consulted patient received inpatient dialysis 3 days in a row. Also received dry ultrafiltration. His respiratory status significantly improved and was weaned to room air. Repeat CXR on day of discharge showed improving infiltrates. Patient did not qualify for home oxygen. Patient remained afebrile with minimal cough and without leukocytosis to suggest pneumonia. 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 He will resume outpatient dialysis on Sunday. Restarted on home Lasix. While admitted, echocardiogram was obtained due to concern for CHF which showed EF of 60%, abnormal diastolic function, moderate to severe mitral valve regurgitation, moderate tricuspid valve regurgitation and severe pulmonary hypertension. Cardiology was consulted who recommended to continue volume management with dialysis and to repeat echocardiogram in 3 months to reassess mitral valve. If severe mitral regurgitation persists, may need referral for mitral valve repair. Patient noted to have episode of hypoglycemia on admission. Patient reports somewhat labile blood sugars at home. Does have a continuous glucose monitor. Patient watches his blood sugars closely and adjust his insulin as needed. Did reduce home insulin dosing and encouraged to watch for signs of hypoglycemia. Patient reports his assisted-living nurses do keep track of his blood sugars and make adjustments as needed. Patient will follow-up with his primary care provider at his assisted living facility. On day of discharge, patient was ambulating independently and felt ready to return back to assisted living facility. He was discharged in stable condition. Status at Discharge Functional status at discharge: independent ambulation Time Spent with Patient Time attestation: Total time spent providing and/or coordinating discharge services: Time spent: Greater than 30 minutes Exam Narrative: General: NAD, well-appearing Eyes: EOMI ENT: neck supple Cardiovascular: Regular rate and rhythm Respiratory: Clear to auscultation, respirations even and unlabored on RA Gastrointestinal: Soft, non tender Genitourinary: no suprapubic tenderness Musculoskeletal: No edema Skin: warm, dry Neuro: Alert. Psych: Mood appropriate DS: Data Data Completed and Pending Completed studies during hospitalization: ITS Impressions Chest X-Ray 05/19/25 13:40 IMPRESSION: No focal consolidation. Moderate perihilar bronchial wall thickening, findings suggestive of respiratory bronchiolitis. Chest CT 05/19/25 15:17 IMPRESSION: 1. Diffuse interstitial infiltrates with septal thickening and groundglass opacification, most likely edema versus atypical pneumonia. 2: Bilateral pleural effusions, right greater than left. 3: Mediastinal lymphadenopathy, likely reactive. Chest X-Ray 05/21/25 07:52 IMPRESSION: 1. Diffuse increased initial pattern and pulmonary edema over pneumonia. 2. Possible small left pleural effusion. Chest X-Ray 05/22/25 08:49 IMPRESSION: 1. Persistent mild interstitial and groundglass opacities in the bilateral lower lung zones which represent mild pulmonary edema, pneumonia or atelectasis. Labs on day of discharge: Labs from last 24 hours 05/23/25 05/23/25 05/23/25 11:35 07:39 05:15 WBC 6.7 RBC 3.50 L Hgb 11.0 L Hct 35.3 L MCV 100.9 H MCH 31.4 MCHC 31.2 L RDW 16.2 H Plt Count 137 L MPV 10.9 H Immature Gran % (Auto) 0.6 H Neut % (Auto) 57.7 Lymph % (Auto) 29.4 Mcclain % (Auto) 6.2 Eos % (Auto) 5.8 H Baso % (Auto) 0.3 Lymph # (Auto) 1.98 Mcclain # (Auto) 0.4 Eos # (Auto) 0.4 H Baso # (Auto) 0.0 Abs Immat Gran (auto) 0.04 H Absolute Neuts (auto) 3.9 Absolute Nucleated RBC 0.000 Nucleated RBC % 0.0 Sodium 137 Potassium 4.2 Chloride 99 Carbon Dioxide 29 Anion Gap 9 BUN 31 H D Creatinine 6.02 H Estim Creat Clear Calc 9 Estimated GFR 9 L Glucose 85 POC Capillary Glucose 157 H 82 Calcium 9.4 Phosphorus 4.8 H Magnesium 2.0 Albumin 3.7 05/22/25 05/22/25 19:45 16:38 WBC RBC Hgb Hct MCV MCH MCHC RDW Plt Count MPV Immature Gran % (Auto) Neut % (Auto) Lymph % (Auto) Mcclain % (Auto) Eos % (Auto) Baso % (Auto) Lymph # (Auto) Mcclain # (Auto) Eos # (Auto) Baso # (Auto) Abs Immat Gran (auto) Absolute Neuts (auto) Absolute Nucleated RBC Nucleated RBC % Sodium Potassium Chloride Carbon Dioxide Anion Gap BUN Creatinine Estim Creat Clear Calc Estimated GFR Glucose POC Capillary Glucose 210 H 182 H Calcium Phosphorus Magnesium Albumin Discharge Plan Discharge Attending physician on discharge: Sincere Walker Consulting providers: Lillie Harmon; Gema Adamson; Olivier Kern Discharging Clinician: Lillie Harmon Patient Disposition: NH Fdc/Asst Living Activity: as tolerated Diet: renal Discharge Instructions: Take all medications as prescribed. Note changes to your insulin - Lantus decreased to 7 units nightly, Humalog decreased to 5 units with meals. Do not take your insulin if your blood sugar is less than 100 or you are not going to eat. You will need to follow-up with cardiology to have a repeat echocardiogram in 3 months to assess your valve. Follow-up with your primary care provider in one week. Return to the emergency department if you develop chest pain, shortness of breath, persistent fever >100.4, confusion, loss of consciousness. Patient Instructions: Antibiotic Form, Heart Failure (GEN) Patient Language: Other Stand Alone Forms: General Discharge Information Follow-up/Referrals: 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 MD [Physician, Nephrology] - Call for Appointment Referral Note: follow-up for hospitalization Olivier Kern DO [Physician, Cardiology] - Call for Appointment Referral Note: Follow-up for repeat echocardiogram in 3 months to evaluate valve Maranda Saucedo APRN [Primary Care Provider, Hospitalist] - Call for Appointment Referral Note: 1 week Discharge Medications: Continued furosemide 40 mg tablet 40 mg PO BID ondansetron HCl [Zofran] 4 mg tablet 4 mg PO Q6H PRN (Reason: nausea and vomiting) Qty: 20 0RF dicyclomine 10 mg capsule 10 mg PO BID PRN (Reason: diarrhea) Qty: 20 0RF Rx Instructions: 1 tab q 8hrs as needed on dialysis days for diarrhea calcium acetate(phosphat bind) 667 mg capsule 667 mg PO TID melatonin 3 mg tablet 5 mg PO HS lidocaine 4 % adhesive patch,medicated 1 patch topical Q12H acetaminophen 325 mg tablet 650 mg PO Q4H PRN (Reason: pain) atorvastatin 40 mg tablet 40 mg PO DAILY carvedilol 25 mg tablet 25 mg PO BID Rx Instructions: TAKE 1 TABLET BY MOUTH (DME) Dexcom G7 Sensor Device MISCELLANEOUS Celi-Gabrielle 0.8 mg Tablet 1 tablet PO DAILY amlodipine 5 mg tablet See Rx Instructions .ROUTE .COMPLEX Qty: 30 5RF Dose Instruction: TAKE 1 TABLET BY MOUTH EVERY DAY Rx Instructions: TAKE 1 TABLET BY MOUTH EVERY DAY Changed loperamide [Anti-Diarrheal (loperamide)] 2 mg capsule 2 mg PO Q6H PRN (Reason: diarrhea) Qty: 20 0RF Patient Comments: Take two caplets as needed with each loose stool/ 8 Tabs/24HRs insulin lispro 100 unit/mL insulin pen 5 unit SUBCUT TIDWM 30 Days Qty: 4.5 0RF insulin glargine [Lantus Solostar U-100 Insulin] 100 unit/mL (3 mL) insulin pen 7 unit subcut HS 30 Days Qty: 2.1 0RF Discontinued insulin lispro [Humalog KwikPen Insulin] 100 unit/mL insulin pen 8 unit subcut BID Patient Comments: With lunch and dinner Date of admission: 05/19/25 16:58 Primary Care Provider: Maranda Saucedo Admitting Provider: Sincere Walker Attending physician on admission: Sincere Walker Condition: Stable
--- NOTE | 2025-05-23 13:16 | PC.NURSE ---
Patient allowed to remain withou IV access per hospitalist. Yaz KINNEY
[2025-05-23] MEDS: MELATONIN 5 MG TABLET PO (21:04)
[2025-05-23] MEDS: INSULIN GLARGINE (*BKC) 100 UNITS/ML 7 UNITS SUB-Q (21:05)
[2025-05-23] MEDS: ACETAMINOPHEN 325 MG TABLET 650 MG PO (21:11)
[2025-05-24] VITALS (11 sets, daily range): BP systolic 133–156; BP diastolic 54–62; PULSE 56–67; RESP 18–20; TEMP 36.1–36.7; O2SAT 98–100
[2025-05-24 06:02] LABS: Anion Gap 10 mmol/L (4-12); Blood Urea Nitrogen 47 mg/dL (9-20); Calcium 9.9 mg/dL (8.4-10.2); Carbon Dioxide 30 mmol/L (22-30); Chloride 96 mmol/L (98-107); Estimated CRCL calculation 7 ml/min; Estimated Glomerular Filt Rate 7; Glucose 63 mg/dL (65-110); Potassium 4.3 mmol/L (3.4-5.0); Sodium 136 mmol/L (137-145)
[2025-05-24] MEDS: CALCIUM ACETATE 667 MG TABLET PO ×3 (08:49→16:43)
[2025-05-24] MEDS: guaiFENesin 12 HR 600 MG TABCR PO ×2 (08:49→21:33)
[2025-05-24] MEDS: VITAMIN B CMPLX/VIT C/FOLIC AC 1 CAPSULE 1 CAP PO (08:50)
[2025-05-24] MEDS: ATORVASTATIN 40 MG TABLET PO (08:50)
[2025-05-24] MEDS: LIDOCAINE 5% PATCH 1 PATCH TRANSDERM (08:50)
--- NOTE | 2025-05-24 09:36 | P.PNNP_ITS ---
Progress Note: A&P Assessment and Plan (1) End stage renal disease: Code(s): N18.6 - End stage renal disease Status: Chronic Assessment and Plan: * HD will be scheduled for tomorrow * volume status looks okay. No swelling and clear lungs. * potassium, CO2, and BUN are all okay * outpatient dialysis unit = [facility] * primary hydroelectric mechanic = Dr. 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 (2) Acute hypoxic respiratory failure: Code(s): J96.01 - Acute respiratory failure with hypoxia Status: Acute Assessment and Plan: * suspect multifactorial: * pleural effusions * pulmonary edema * atypical pneumonia(?) * bronchitis * other(?) * CT of chest noted: * diffuse interstitial infiltrates with septal thickening and groundglass opacification, most likely edema versus atypical pneumonia * bilateral pleural effusions, right greater than left * mediastinal lymphadenopathy, likely reactive * Improved. Off oxygen. No swelling or shortness of breath (3) Volume overload: Qualifiers: Hypervolemia type: other Qualified Code(s): E87.79 - Other fluid overload Code(s): E87.70 - Fluid overload, unspecified Status: Acute Assessment and Plan: * continue removing fluid with dialysis. (4) Anemia: Code(s): D64.9 - Anemia, unspecified Status: Chronic Assessment and Plan: * Hemoglobin 11 last check. * Will see what it is tomorrow and decide about EPO then (5) Essential hypertension: Code(s): I10 - Essential (primary) hypertension Status: Chronic Assessment and Plan: * blood pressure doing well. Systolic in the 100-140 range now. * It did drop yesterday on dialysis. (6) Diabetes: Qualifiers: Diabetes mellitus type: type 2 Diabetes mellitus longterm insulin use: without extermination supervisor use Diabetes mellitus complication status: with kidney complications Diabetes mellitus complication detail: with chronic kidney disease Chronic kidney disease stage: on chronic dialysis Qualified Code(s): E11.22 - Type 2 diabetes mellitus with diabetic chronic kidney disease; N18.6 - End stage renal disease; Z99.2 - Dependence on renal dialysis Code(s): E11.9 - Type 2 diabetes mellitus without complications Status: Chronic Assessment and Plan: * follow accu-cheks * glycemic control per hospitalist Will continue to follow. Subjective Date/time seen: 05/24/25 09:36 Interval history: patient feels okay. No chest pain or shortness of breath no swelling Exam Narrative: General: elderly but WD/WN male in NAD Heart: normal S1 and S2; no rub or gallop Lungs: clear Abdomen: soft, nontender, nondistended, positive bowel sounds Extremities: no cyanosis or clubbing; no edema Skin: no rash Objective Data Vital Signs Vital Signs: Vital Signs - 24 hr 05/23/25 09:49 05/23/25 11:20 05/23/25 11:30 Temperature Pulse Rate 68 63 69 Respiratory Rate 18 Blood Pressure Pulse Oximetry 92 94 90 Oxygen Delivery Room Air Room Air Fraction of Inspired Oxygen 21 21 05/23/25 12:00 05/23/25 14:00 05/23/25 16:00 Temperature 97.2 F L Pulse Rate 59 L 61 68 Respiratory Rate 18 Blood Pressure 141/52 H Pulse Oximetry 97 Oxygen Delivery Fraction of Inspired Oxygen 05/23/25 20:04 05/23/25 21:04 05/23/25 21:16 Temperature Pulse Rate 70 70 Respiratory Rate Blood Pressure Pulse Oximetry 97 Oxygen Delivery Room Air Fraction of Inspired Oxygen 05/23/25 21:18 05/23/25 22:32 05/24/25 00:02 Temperature 98.0 F Pulse Rate 68 61 Respiratory Rate 20 Blood Pressure 164/60 H Pulse Oximetry 99 97 Oxygen Delivery Room Air Fraction of Inspired Oxygen 05/24/25 04:04 05/24/25 06:00 05/24/25 08:44 Temperature 98.0 F Pulse Rate 56 L 64 Respiratory Rate 20 Blood Pressure 156/62 H 133/60 Pulse Oximetry 98 Oxygen Delivery Fraction of Inspired Oxygen 05/24/25 08:49 Temperature Pulse Rate 67 Respiratory Rate Blood Pressure Pulse Oximetry Oxygen Delivery Fraction of Inspired Oxygen Intake/Output Intake/Output: Intake & Output 05/21/25 05/22/25 05/23/25 05/24/25 23:59 23:59 23:59 23:59 Intake Total 404 933 9454 440 Output Total 3150 2500 Balance -6760 -1900 1470 440 Meds/Results Medications: Active Medications Generic Name Dose Route Start Last Admin Trade Name Gonzalo PRN Reason Stop Dose Admin Acetaminophen 650 mg 05/20/25 05:19 05/23/25 21:11 Acetaminophen 325 Mg Tablet PO 650 mg Q4H PRN Administration Pain Amlodipine Besylate 5 mg 05/20/25 09:00 05/24/25 08:49 Amlodipine Besylate 5 Mg Tablet BY MOUTH 5 mg DAILY UMU Administration Atorvastatin Calcium 40 mg 05/20/25 09:00 05/24/25 08:50 Atorvastatin 40 Mg Tablet PO 40 mg DAILY UMU Administration Calcium Acetate 667 mg 05/20/25 08:00 05/24/25 08:49 Calcium Acetate 667 Mg Tablet PO 667 mg TIDWM UMU Administration Carvedilol 25 mg 05/20/25 09:00 05/24/25 08:49 Carvedilol 25 Mg Tablet PO 25 mg Q12HR UMU Administration Dextrose 12.5 gm 05/20/25 05:03 Dextrose 50% 25 Gm/50 Ml Syringe IV PUSH PRN PRN Hypoglycemia Protocol Dextrose 12.5 gm 05/23/25 07:32 Dextrose 50% 25 Gm/50 Ml Syringe IV PUSH PRN PRN Hypoglycemia Protocol Dicyclomine HCl 10 mg 05/20/25 05:19 05/20/25 18:21 Dicyclomine Hcl 10 Mg Capsule PO 10 mg TID PRN Administration Diarrhea Glucagon 1 mg 05/20/25 05:03 Glucagon For Inj 1 Mg Vial IM PRN PRN Hypoglycemia Protocol Glucagon 1 mg 05/23/25 07:32 Glucagon For Inj 1 Mg Vial IM PRN PRN Hypoglycemia Protocol Glucose 15 gm 05/20/25 05:03 Glucose Oral Gel 15 Gm Of Glucse In 37.5 Gm Tube PO PRN PRN Hypoglycemia Protocol Glucose 15 gm 05/23/25 07:32 Glucose Oral Gel 15 Gm Of Glucse In 37.5 Gm Tube PO PRN PRN Hypoglycemia Protocol Guaifenesin 600 mg 05/23/25 10:25 05/24/25 08:49 Guaifenesin 12 Hr 600 Mg Tabcr PO 600 mg Q12HR UMU Administration Heparin Sodium (Porcine) 5,000 units 05/20/25 22:00 05/24/25 05:04 Heparin Sodium 5,000 Units/Ml Vial SUB-Q 5,000 units Q8HR UMU Administration Dextrose 1,000 mls @ 100 mls/hr 05/20/25 05:03 Dextrose 5% 1,000 Ml IVPB PRN PRN Hypoglycemia Protocol Albumin Human 50 mls @ 999 mls/hr 05/20/25 12:06 Albutein IVPB 06/19/25 12:05 Q10M PRN HYPOTENSION Dextrose 1,000 mls @ 100 mls/hr 05/23/25 07:32 Dextrose 5% 1,000 Ml IVPB PRN PRN Hypoglycemia Protocol Insulin Aspart 2 - 5 units 05/23/25 08:00 05/24/25 08:09 Insulin Aspart (*Bkc) 100 Units/Ml SUB-Q Not Given TIDWM UMU Protocol Insulin Glargine 7 units 05/23/25 21:00 05/23/25 21:05 Insulin Glargine (*Bkc) 100 Units/Ml SUB-Q 7 units HS UMU Administration Lidocaine 1 patch 05/20/25 09:00 05/24/25 08:50 Lidocaine 5% Patch TRANSDERM 1 patch DAILY UMU Administration Lidocaine/Prilocaine 1 each 05/20/25 12:11 Lidocaine/Prilocaine Cream 2.5-2.5% Tube TOPICAL WITH DIALYSIS PRN for dialysis Protocol Loperamide HCl 2 mg 05/20/25 05:19 05/23/25 10:34 Loperamide Hcl 2 Mg Capsule PO 2 mg PRN PRN Administration Diarrhea Melatonin 5 mg 05/20/25 21:00 05/23/25 21:04 Melatonin 5 Mg Tablet PO 5 mg HS UMU Administration Ondansetron HCl 4 mg 05/20/25 05:19 Ondansetron Hcl Odt 4 Mg Tablet PO Q6H PRN Nausea And Vomiting Vitamin B Complex/Folic Acid 1 cap 05/20/25 09:00 05/24/25 08:50 Vitamin B Cmplx/Vit C/Folic Ac 1 Capsule PO 1 cap QAM UMU Administration Radiology Results: ITS Impressions Chest CT 05/19/25 15:17 IMPRESSION: 1. Diffuse interstitial infiltrates with septal thickening and groundglass opacification, most likely edema versus atypical pneumonia. 2: Bilateral pleural effusions, right greater than left. 3: Mediastinal lymphadenopathy, likely reactive. Chest X-Ray 05/23/25 19:25 IMPRESSION: 1. Resolution of prior pulmonary edema. No evident acute cardiopulmonary disease. Labs Labs: Laboratory Results - last 24 hr 05/23/25 05/23/25 05/23/25 11:35 16:15 20:15 Sodium Potassium Chloride Carbon Dioxide Anion Gap BUN Creatinine Estim Creat Clear Calc Estimated GFR Glucose POC Capillary Glucose 157 H 153 H 167 H Calcium 05/24/25 05/24/25 05/24/25 05:03 05:20 05:37 Sodium 136 L Potassium 4.3 Chloride 96 L Carbon Dioxide 30 Anion Gap 10 BUN 47 H D Creatinine 7.67 H Estim Creat Clear Calc 7 Estimated GFR 7 L Glucose 63 L POC Capillary Glucose 58 L* 68 112 H Calcium 9.9 05/24/25 05/24/25 06:40 07:58 Sodium Potassium Chloride Carbon Dioxide Anion Gap BUN Creatinine Estim Creat Clear Calc Estimated GFR Glucose POC Capillary Glucose 176 H 125 H Calcium
--- NOTE | 2025-05-24 11:53 | P.PNIM_ITS ---
Progress Note: A&P Assessment and Plan (1) Acute respiratory failure: Qualifiers: Respiratory failure complication: unspecified whether with hypoxia or hypercapnia Qualified Code(s): J96.00 - Acute respiratory failure, unspecified whether with hypoxia or hypercapnia Code(s): J96.00 - Acute respiratory failure, unspecified whether with hypoxia or hypercapnia Status: Acute Assessment and Plan: - secondary to hypervolemia -CT chest with interstitial infiltrates with septal thickening and groundglass opacification, most likely edema versus atypical pneumonia. Bilateral pleural effusions, right greater than left. Mediastinal lymphadenopathy, likely reactive. - patient is afebrile without leukocytosis and minimal cough - doubt bacterial pneumonia. - required up to 6L NC, No home O2 requirement. Weaned to 2L NC. Attempting to wean to RA today. - BNP 17K - echo with EF 60%, abnormal diastolic function, mild-mod AR, mod-severe MR, mod TR, severe pulmonary HTN - s/p IV lasix - CXR 05/23 showed resolution of pulmonary edema -strict I&O - cardio and nephrology following. Volume management with dialysis. - resolved with dialysis - resumed PO Lasix 05/24 (2) End stage renal disease: Code(s): N18.6 - End stage renal disease Status: Chronic Assessment and Plan: -the patient is on dialysis Sunday. Follows with Dr. 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. - AV fistula to the right AC which has a positive bruit and thrill. - s/p IV lasix - monitor electrolytes - nephrology following. Last dialyzed 05/22. Planning for dialysis tomorrow. (3) Coronary artery disease: Code(s): I25.10 - Atherosclerotic heart disease of [place] coronary artery without angina pectoris Status: Chronic Assessment and Plan: -s/p stents -continue with Coreg, atorvastatin, and Norvasc. (4) Hypertension: Code(s): I10 - Essential (primary) hypertension Status: Acute Assessment and Plan: -BP stable -continue Coreg and amlodipine (5) Diabetes: Qualifiers: Diabetes mellitus type: type 2 Diabetes mellitus intermodal dispatcher insulin use: without jail use Diabetes mellitus complication status: with kidney complications Diabetes mellitus complication detail: with chronic kidney disease Chronic kidney disease stage: on chronic dialysis Qualified Code(s): E11.22 - Type 2 diabetes mellitus with diabetic chronic kidney disease; N18.6 - End stage renal disease; Z99.2 - Dependence on renal dialysis Code(s): E11.9 - Type 2 diabetes mellitus without complications Status: Chronic Assessment and Plan: -hemoglobin A1c 4.7 -Accu-Cheks AC and HS with sliding scale insulin. -his home insulin was placed on hold due to hypoglycemia. Patient has CGM. Resumed home Lantus at reduced dose. [place] POCT glucose. (6) Elevated troponin: Code(s): R77.8 - Other specified abnormalities of plasma proteins Status: Acute Assessment and Plan: - troponin I 0.058, flat trend - denied chest pain - likely due to ESRD and volume overload - monitor on telemetry (7) Mitral regurgitation: Code(s): I34.0 - Nonrheumatic mitral (valve) insufficiency Status: Acute Assessment and Plan: - echo with moderate to severe MR - cardio following, recommended to maintain euvolemia with HD and optimize BP to improve MR. Recommended outpatient follow-up in 2 weeks and a repeat echo in 2 months to re-evaluate need for possible mitral valve repair (8) Left upper extremity swelling: Code(s): M79.89 - Other specified soft tissue disorders Status: Acute Assessment and Plan: - follow-up LUE doppler Subjective Date/time seen: 05/24/25 11:53 Interval history: Patient seen examined at bedside. Doing well, still on room air. Attempted to discharge yesterday however unable to discharge to assisted living facility on the weekend due to staffing issue. Review of Systems Review of Systems: All systems reviewed & are unremarkable except as noted in HPI and below Exam Narrative: General: NAD, well-appearing Eyes: EOMI ENT: neck supple Cardiovascular: Regular rate and rhythm Respiratory: Clear to auscultation, respirations even and unlabored on RA Gastrointestinal: Soft, non tender Genitourinary: no suprapubic tenderness Musculoskeletal: mild LUE edema with erythema or warmth Skin: warm, dry Neuro: Alert. Psych: Mood appropriate Objective Data Vital Signs Vital Signs: Vital Signs - 24 hr 05/23/25 12:00 05/23/25 14:00 05/23/25 16:00 Temperature 97.2 F L Pulse Rate 59 L 61 68 Respiratory Rate 18 Blood Pressure 141/52 H Pulse Oximetry 97 Oxygen Delivery 05/23/25 20:04 05/23/25 21:04 05/23/25 21:16 Temperature Pulse Rate 70 70 Respiratory Rate Blood Pressure Pulse Oximetry 97 Oxygen Delivery Room Air 05/23/25 21:18 05/23/25 22:32 05/24/25 00:02 Temperature 98.0 F Pulse Rate 68 61 Respiratory Rate 20 Blood Pressure 164/60 H Pulse Oximetry 99 97 Oxygen Delivery Room Air 05/24/25 04:04 05/24/25 06:00 05/24/25 08:00 Temperature 98.0 F Pulse Rate 56 L 64 63 Respiratory Rate 20 Blood Pressure 156/62 H Pulse Oximetry 98 Oxygen Delivery 05/24/25 08:44 05/24/25 08:49 Temperature Pulse Rate 67 Respiratory Rate Blood Pressure 133/60 Pulse Oximetry Oxygen Delivery Intake/Output Intake/Output: Intake & Output 05/21/25 05/22/25 05/23/25 05/24/25 23:59 23:59 23:59 23:59 Intake Total 586 143 2443 440 Output Total 3150 2500 Balance -2670 -1900 1470 440 Meds/Results Medications: Active Medications Generic Name Dose Route Start Last Admin Trade Name Freq PRN Reason Stop Dose Admin Acetaminophen 650 mg 05/20/25 05:19 05/23/25 21:11 Acetaminophen 325 Mg Tablet PO 650 mg Q4H PRN Administration Pain Amlodipine Besylate 5 mg 05/20/25 09:00 05/24/25 08:49 Amlodipine Besylate 5 Mg Tablet BY MOUTH 5 mg DAILY UMU Administration Atorvastatin Calcium 40 mg 05/20/25 09:00 05/24/25 08:50 Atorvastatin 40 Mg Tablet PO 40 mg DAILY UMU Administration Calcium Acetate 667 mg 05/20/25 08:00 05/24/25 08:49 Calcium Acetate 667 Mg Tablet PO 667 mg TIDWM UMU Administration Carvedilol 25 mg 05/20/25 09:00 05/24/25 08:49 Carvedilol 25 Mg Tablet PO 25 mg Q12HR UMU Administration Dextrose 12.5 gm 05/20/25 05:03 Dextrose 50% 25 Gm/50 Ml Syringe IV PUSH PRN PRN Hypoglycemia Protocol Dextrose 12.5 gm 05/23/25 07:32 Dextrose 50% 25 Gm/50 Ml Syringe IV PUSH PRN PRN Hypoglycemia Protocol Dicyclomine HCl 10 mg 05/20/25 05:19 05/20/25 18:21 Dicyclomine Hcl 10 Mg Capsule PO 10 mg TID PRN Administration Diarrhea Furosemide 40 mg 05/24/25 17:00 Furosemide 40 Mg Tablet PO BID UMU Glucagon 1 mg 05/20/25 05:03 Glucagon For Inj 1 Mg Vial IM PRN PRN Hypoglycemia Protocol Glucagon 1 mg 05/23/25 07:32 Glucagon For Inj 1 Mg Vial IM PRN PRN Hypoglycemia Protocol Glucose 15 gm 05/20/25 05:03 Glucose Oral Gel 15 Gm Of Glucse In 37.5 Gm Tube PO PRN PRN Hypoglycemia Protocol Glucose 15 gm 05/23/25 07:32 Glucose Oral Gel 15 Gm Of Glucse In 37.5 Gm Tube PO PRN PRN Hypoglycemia Protocol Guaifenesin 600 mg 05/23/25 10:25 05/24/25 08:49 Guaifenesin 12 Hr 600 Mg Tabcr PO 600 mg Q12HR UMU Administration Heparin Sodium (Porcine) 5,000 units 05/20/25 22:00 05/24/25 05:04 Heparin Sodium 5,000 Units/Ml Vial SUB-Q 5,000 units Q8HR UMU Administration Dextrose 1,000 mls @ 100 mls/hr 05/20/25 05:03 Dextrose 5% 1,000 Ml IVPB PRN PRN Hypoglycemia Protocol Albumin Human 50 mls @ 999 mls/hr 05/20/25 12:06 Albutein IVPB 06/19/25 12:05 Q10M PRN HYPOTENSION Dextrose 1,000 mls @ 100 mls/hr 05/23/25 07:32 Dextrose 5% 1,000 Ml IVPB PRN PRN Hypoglycemia Protocol Albumin Human 50 mls @ 999 mls/hr 05/24/25 09:38 Albutein IVPB 05/25/25 09:37 Q10M PRN HYPOTENSION Insulin Aspart 2 - 5 units 05/23/25 08:00 05/24/25 08:09 Insulin Aspart (*Bkc) 100 Units/Ml SUB-Q Not Given TIDWM UMU Protocol Insulin Glargine 5 units 05/24/25 21:00 Insulin Glargine (*Bkc) 100 Units/Ml SUB-Q HS UMU Lidocaine 1 patch 05/20/25 09:00 05/24/25 08:50 Lidocaine 5% Patch TRANSDERM 1 patch DAILY UMU Administration Lidocaine/Prilocaine 1 each 05/20/25 12:11 Lidocaine/Prilocaine Cream 2.5-2.5% Tube TOPICAL WITH DIALYSIS PRN for dialysis Protocol Loperamide HCl 2 mg 05/20/25 05:19 05/23/25 10:34 Loperamide Hcl 2 Mg Capsule PO 2 mg PRN PRN Administration Diarrhea Melatonin 5 mg 05/20/25 21:00 05/23/25 21:04 Melatonin 5 Mg Tablet PO 5 mg HS UMU Administration Ondansetron HCl 4 mg 05/20/25 05:19 Ondansetron Hcl Odt 4 Mg Tablet PO Q6H PRN Nausea And Vomiting Vitamin B Complex/Folic Acid 1 cap 05/20/25 09:00 05/24/25 08:50 Vitamin B Cmplx/Vit C/Folic Ac 1 Capsule PO 1 cap QAM UMU Administration Radiology Results: ITS Impressions Chest CT 05/19/25 15:17 IMPRESSION: 1. Diffuse interstitial infiltrates with septal thickening and groundglass opacification, most likely edema versus atypical pneumonia. 2: Bilateral pleural effusions, right greater than left. 3: Mediastinal lymphadenopathy, likely reactive. Chest X-Ray 05/23/25 19:25 IMPRESSION: 1. Resolution of prior pulmonary edema. No evident acute cardiopulmonary disease. Labs Labs: Laboratory Results - last 24 hr 05/23/25 05/23/25 05/24/25 16:15 20:15 05:03 Sodium Potassium Chloride Carbon Dioxide Anion Gap BUN Creatinine Estim Creat Clear Calc Estimated GFR Glucose POC Capillary Glucose 153 H 167 H 58 L* Calcium 05/24/25 05/24/25 05/24/25 05:20 05:37 06:40 Sodium 136 L Potassium 4.3 Chloride 96 L Carbon Dioxide 30 Anion Gap 10 BUN 47 H D Creatinine 7.67 H Estim Creat Clear Calc 7 Estimated GFR 7 L Glucose 63 L POC Capillary Glucose 68 112 H 176 H Calcium 9.9 05/24/25 07:58 Sodium Potassium Chloride Carbon Dioxide Anion Gap BUN Creatinine Estim Creat Clear Calc Estimated GFR Glucose POC Capillary Glucose 125 H Calcium Quality VTE Prophylaxis VTE prophylaxis: pharmacologic ordered
[2025-05-24] MEDS: FUROSEMIDE 40 MG TABLET PO (16:43)
[2025-05-24] MEDS: MELATONIN 5 MG TABLET PO (21:33)
[2025-05-24] MEDS: LOPERAMIDE HCL 2 MG CAPSULE PO (21:34)
[2025-05-24] MEDS: INSULIN GLARGINE (*BKC) 100 UNITS/ML SUB-Q (21:35)
[2025-05-25] VITALS (24 sets, daily range): BP systolic 103–143; BP diastolic 53–70; PULSE 52–67; RESP 16–18; TEMP 36.1–37; O2SAT 97–100
[2025-05-25 05:45] LABS: Hematocrit 31.2 % (42.0-52.0); Hemoglobin 10.2 g/dL (14.0-18.0); Mean Corpuscular HGB Conc 32.7 g/dl (32-36); Mean Corpuscular Hemoglobin 31.8 pg (26-34); Mean Corpuscular Volume 97.2 fl (80-100); Platelet Count Result 129 k/mm3 (150-375); Red Blood Count 3.21 M/mm3 (4.6-6.20); White Blood Count 7.6 K/mm3 (4.5-10.0)
[2025-05-25 06:10] LABS: Albumin Level 3.6 g/dL (3.5-5.1); Anion Gap 12 mmol/L (4-12); Blood Urea Nitrogen 55 mg/dL (9-20); Calcium 9.5 mg/dL (8.4-10.2); Carbon Dioxide 26 mmol/L (22-30); Chloride 94 mmol/L (98-107); Estimated CRCL calculation 6 ml/min; Estimated Glomerular Filt Rate 5; Glucose 105 mg/dL (65-110); Potassium 4.8 mmol/L (3.4-5.0); Sodium 132 mmol/L (137-145)
[2025-05-25] MEDS: guaiFENesin 12 HR 600 MG TABCR PO (08:28)
[2025-05-25] MEDS: ATORVASTATIN 40 MG TABLET PO (08:29)
[2025-05-25] MEDS: FUROSEMIDE 40 MG TABLET PO ×2 (08:29→17:57)
[2025-05-25] MEDS: CALCIUM ACETATE 667 MG TABLET PO ×3 (08:29→17:57)
[2025-05-25] MEDS: VITAMIN B CMPLX/VIT C/FOLIC AC 1 CAPSULE 1 CAP PO (08:29)
[2025-05-25] MEDS: LIDOCAINE 5% PATCH 1 PATCH TRANSDERM (08:33)
--- NOTE | 2025-05-25 12:59 | PM.DS ---
DS: Admitting Diagnosis Discharge Date 05/25/25 Admitting Diagnosis - acute hypoxic respiratory failure DS: Discharge Diagnosis Discharge Diagnosis (1) Acute respiratory failure: Qualifiers: Respiratory failure complication: unspecified whether with hypoxia or hypercapnia Qualified Code(s): J96.00 - Acute respiratory failure, unspecified whether with hypoxia or hypercapnia Code(s): J96.00 - Acute respiratory failure, unspecified whether with hypoxia or hypercapnia Status: Acute (2) End stage renal disease: Code(s): N18.6 - End stage renal disease Status: Chronic (3) Coronary artery disease: Code(s): I25.10 - Atherosclerotic heart disease of [place] coronary artery without angina pectoris Status: Chronic (4) Hypertension: Code(s): I10 - Essential (primary) hypertension Status: Acute (5) Diabetes: Qualifiers: Diabetes mellitus type: type 2 Diabetes mellitus intermediate accountant insulin use: without intermediate accountant use Diabetes mellitus complication status: with kidney complications Diabetes mellitus complication detail: with chronic kidney disease Chronic kidney disease stage: on chronic dialysis Qualified Code(s): E11.22 - Type 2 diabetes mellitus with diabetic chronic kidney disease; N18.6 - End stage renal disease; Z99.2 - Dependence on renal dialysis Code(s): E11.9 - Type 2 diabetes mellitus without complications Status: Chronic (6) Elevated troponin: Code(s): R77.8 - Other specified abnormalities of plasma proteins Status: Acute (7) Mitral regurgitation: Code(s): I34.0 - Nonrheumatic mitral (valve) insufficiency Status: Acute (8) Left upper extremity swelling: Code(s): M79.89 - Other specified soft tissue disorders Status: Acute DS: Summary Hospital Course Reason for hospitalization: - acute respiratory failure Hospital Course: 79-year-old male patient who has a past medical history of end-stage renal disease on dialysis Sunday. The patient resides at [facility] in [place], [place]. The patient has been feeling short of breath over the last 2 weeks. In ED, CT chest showed diffuse interstitial infiltrates and bilateral pleural effusions consistent with pulmonary edema. The patient was given Lasix 80 mg in the emergency room. He was also given D50 due to hypoglycemia. His H&H is 10.2 and 31.7. Platelet counts are down to 91. D-dimer 0.49. Other abnormal labs on his chemistry includes sodium of 132, BUN 35, creatinine 6.32, GFR 9, point of care glucose 164. Troponin 0.058 and repeat was 0.058. BNP was [address]. Viral serology was negative. Patient was requiring 6L NC to maintain spO2 >90%. No home oxygen requirement. Patient was admitted for further evaluation and management of hypervolemia from ESRD. Upon admission, patient was started on IV Lasix however patient does not make much urine in setting ESRD. Nephrology was consulted and patient received inpatient dialysis 3 days in a row. Also received dry ultrafiltration. His respiratory status significantly improved and was weaned to room air. Repeat CXR showed improving infiltrates. Patient did not qualify for home oxygen. Patient remained afebrile with minimal cough and without leukocytosis to suggest pneumonia. Nephrology cleared patient for discharge with close outpatient follow-up with his dormitory counselor. He will resume outpatient dialysis. Restarted on home Lasix. Discharge was delayed due to his assisted living facility not having appropriate staff over the weekend. While admitted, echocardiogram was obtained due to concern for CHF which showed EF of 60%, abnormal diastolic function, moderate to severe mitral valve regurgitation, moderate tricuspid valve regurgitation and severe pulmonary hypertension. Cardiology was consulted who recommended to continue volume management with dialysis and to repeat echocardiogram in 3 months to reassess mitral valve. If severe mitral regurgitation persists, may need referral for mitral valve repair. Patient noted to have episodes of hypoglycemia at night. Patient reports somewhat labile blood sugars at home. Does have a continuous glucose monitor. Patient watches his blood sugars closely and adjust his insulin as needed. Did reduce home insulin dosing and encouraged to watch for signs of hypoglycemia. Changed Lantus from nightly to daily dosing to prevent nocturnal hypoglycemia. Patient reports his assisted-living nurses do keep track of his blood sugars and make adjustments as needed. Patient will follow-up with his primary care provider at his assisted living facility. On day of discharge, patient was ambulating independently and felt ready to return back to assisted living facility. He was discharged in stable condition. Time Spent with Patient Time attestation: Total time spent providing and/or coordinating discharge services: Time spent: Greater than 30 minutes Exam Narrative: General: NAD, well-appearing Eyes: EOMI ENT: neck supple Cardiovascular: Regular rate and rhythm Respiratory: Clear to auscultation, respirations even and unlabored on RA Gastrointestinal: Soft, non tender Genitourinary: no suprapubic tenderness Musculoskeletal: mild LUE edema with no erythema or warmth Skin: warm, dry Neuro: Alert. Psych: Mood appropriate DS: Data Data Completed and Pending Completed studies during hospitalization: ITS Impressions Chest X-Ray 05/19/25 13:40 IMPRESSION: No focal consolidation. Moderate perihilar bronchial wall thickening, findings suggestive of respiratory bronchiolitis. Chest CT 05/19/25 15:17 IMPRESSION: 1. Diffuse interstitial infiltrates with septal thickening and groundglass opacification, most likely edema versus atypical pneumonia. 2: Bilateral pleural effusions, right greater than left. 3: Mediastinal lymphadenopathy, likely reactive. Chest X-Ray 05/21/25 07:52 IMPRESSION: 1. Diffuse increased initial pattern and pulmonary edema over pneumonia. 2. Possible small left pleural effusion. Chest X-Ray 05/22/25 08:49 IMPRESSION: 1. Persistent mild interstitial and groundglass opacities in the bilateral lower lung zones which represent mild pulmonary edema, pneumonia or atelectasis. Chest X-Ray 05/23/25 19:25 IMPRESSION: 1. Resolution of prior pulmonary edema. No evident acute cardiopulmonary disease. Venous Doppler Study 05/24/25 15:49 Impression: Negative for DVT. Labs on day of discharge: Labs from last 24 hours 05/25/25 05/25/25 05/25/25 11:35 07:49 05:19 WBC 7.6 RBC 3.21 L Hgb 10.2 L Hct 31.2 L MCV 97.2 MCH 31.8 MCHC 32.7 RDW 16.3 H Plt Count 129 L MPV 10.8 H Sodium 132 L Potassium 4.8 Chloride 94 L Carbon Dioxide 26 Anion Gap 12 BUN 55 H Creatinine 9.66 H Estim Creat Clear Calc 6 Estimated GFR 5 L Glucose 105 POC Capillary Glucose 154 H 128 H Calcium 9.5 Phosphorus 5.7 H Albumin 3.6 05/25/25 05/25/25 05/24/25 04:01 03:18 20:36 WBC RBC Hgb Hct MCV MCH MCHC RDW Plt Count MPV Sodium Potassium Chloride Carbon Dioxide Anion Gap BUN Creatinine Estim Creat Clear Calc Estimated GFR Glucose POC Capillary Glucose 109 H 60 L 131 H Calcium Phosphorus Albumin 05/24/25 16:50 WBC RBC Hgb Hct MCV MCH MCHC RDW Plt Count MPV Sodium Potassium Chloride Carbon Dioxide Anion Gap BUN Creatinine Estim Creat Clear Calc Estimated GFR Glucose POC Capillary Glucose 156 H Calcium Phosphorus Albumin Discharge Plan Discharge Attending physician on discharge: Sincere Walker Consulting providers: Lillie Harmon; Gema Adamson; Olivier Kern Discharging Clinician: Lillie Harmon [facility] Activity: as tolerated Diet: renal Discharge Instructions: Per Care Coordination, patient to discharge back to [facility] ). Diana fax discharge instructions and medication sheets to . Take all medications as prescribed. Note changes to your insulin - Lantus decreased to 5 units and changed to morning time. Humalog decreased to 5 units with meals. Do not take your insulin if your blood sugar is less than 100 or you are not going to eat. You will need to follow-up with cardiology to have a repeat echocardiogram in 3 months to assess your valve. Follow-up with your primary care provider in one week. Return to the emergency department if you develop chest pain, shortness of breath, persistent fever >100.4, confusion, loss of consciousness. Patient Instructions: Antibiotic Form, Heart Failure (GEN) Patient Language: Other Stand Alone Forms: General Discharge Information Follow-up/Referrals: 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 MD [Physician, Nephrology] - Call for Appointment Referral Note: follow-up for hospitalization Olivier Kern DO [Physician, Cardiology] - Call for Appointment Referral Note: Follow-up for repeat echocardiogram in 3 months to evaluate valve Maranda Saucedo APRN [Primary Care Provider, Hospitalist] - Call for Appointment Referral Note: 1 week Discharge Medications: Continued furosemide 40 mg tablet 40 mg PO BID ondansetron HCl [Zofran] 4 mg tablet 4 mg PO Q6H PRN (Reason: nausea and vomiting) Qty: 20 0RF dicyclomine 10 mg capsule 10 mg PO BID PRN (Reason: diarrhea) Qty: 20 0RF Rx Instructions: 1 tab q 8hrs as needed on dialysis days for diarrhea calcium acetate(phosphat bind) 667 mg capsule 667 mg PO TID melatonin 3 mg tablet 5 mg PO HS lidocaine 4 % adhesive patch,medicated 1 patch topical Q12H acetaminophen 325 mg tablet 650 mg PO Q4H PRN (Reason: pain) atorvastatin 40 mg tablet 40 mg PO DAILY carvedilol 25 mg tablet 25 mg PO BID Rx Instructions: TAKE 1 TABLET BY MOUTH (DME) Dexcom G7 Sensor Device MISCELLANEOUS Celi-Gabrielle 0.8 mg Tablet 1 tablet PO DAILY amlodipine 5 mg tablet See Rx Instructions .ROUTE .COMPLEX Qty: 30 5RF Dose Instruction: TAKE 1 TABLET BY MOUTH EVERY DAY Rx Instructions: TAKE 1 TABLET BY MOUTH EVERY DAY Changed loperamide [Anti-Diarrheal (loperamide)] 2 mg capsule 2 mg PO Q6H PRN (Reason: diarrhea) Qty: 20 0RF Patient Comments: Take two caplets as needed with each loose stool/ 8 Tabs/24HRs insulin lispro 100 unit/mL insulin pen 5 unit SUBCUT TIDWM 30 Days Qty: 4.5 0RF insulin glargine [Lantus Solostar U-100 Insulin] 100 unit/mL (3 mL) insulin pen 5 unit subcut DAILY 30 Days Qty: 2.1 0RF Discontinued insulin lispro [Humalog KwikPen Insulin] 100 unit/mL insulin pen 8 unit subcut BID Patient Comments: With lunch and dinner Date of admission: 05/19/25 16:58 Primary Care Provider: Maranda Saucedo Admitting Provider: Sincere Walker Attending physician on admission: Sincere Walker Condition: Stable
--- NOTE | 2025-05-25 13:55 | PCPTNOTE ---
The patient treatment was not able to be completed on 05/25/2025 due to patient out of the room for dialysis. Will plan to continue treatment per plan of care.
[2025-05-25] MEDS: EPOETIN ALFA-EPBX 4,000 UNITS/ML VIAL 4000 UNITS IV PUSH (15:50)
--- NOTE | 2025-05-25 16:50 | P.PNNP_ITS ---
Progress Note: A&P Assessment and Plan (1) End stage renal disease: Code(s): N18.6 - End stage renal disease Status: Chronic Assessment and Plan: * HD today * continue outpatient dialysis schedule of Sun/Sun/Sunday * follow electrolytes, volume status, and clearance * outpatient dialysis unit = [facility] * primary office machine embossograph operator = Dr. 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 (2) Acute hypoxic respiratory failure: Code(s): J96.01 - Acute respiratory failure with hypoxia Status: Acute Assessment and Plan: * resolved * suspect multifactorial: * pleural effusions * pulmonary edema * atypical pneumonia(?) * bronchitis * other(?) * CT of chest noted: * diffuse interstitial infiltrates with septal thickening and groundglass opacification, most likely edema versus atypical pneumonia * bilateral pleural effusions, right greater than left * mediastinal lymphadenopathy, likely reactive * wean off supplemental oxygen * fluid removal with dialysis as tolerated by hemodynamics * follow respiratory status (3) Volume overload: Qualifiers: Hypervolemia type: other Qualified Code(s): E87.79 - Other fluid overload Code(s): E87.70 - Fluid overload, unspecified Status: Acute Assessment and Plan: * resolved * as noted by bilateral pleural effusions and pulmonary edema * attempt aggressive fluid removal with HD * per outpatient dialysis clinic, fluid removal with HD can be challenging due to intolerance * dry ultrafiltration (on 05/20) for further fluid removal (3L removed at that time) * follow I/Os (4) Anemia: Code(s): D64.9 - Anemia, unspecified Status: Chronic Assessment and Plan: * due to ESRD * Epogen with dialysis * follow trend of H/H (5) Essential hypertension: Code(s): I10 - Essential (primary) hypertension Status: Chronic Assessment and Plan: * reasonable control at this time * aggressive fluid removal/ultrafiltration with dialysis may help further improve * follow trend of hemodynamics (6) Diabetes: Qualifiers: Diabetes mellitus type: type 2 Diabetes mellitus superintendent terminal insulin use: without detention use Diabetes mellitus complication status: with kidney complications Diabetes mellitus complication detail: with chronic kidney disease Chronic kidney disease stage: on chronic dialysis Qualified Code(s): E 11.22 - Type 2 diabetes mellitus with diabetic chronic kidney disease; N18.6 - End stage renal disease; Z99.2 - Dependence on renal dialysis Code(s): E11.9 - Type 2 diabetes mellitus without complications Status: Chronic Assessment and Plan: * follow accu-cheks * glycemic control per hospitalist Not opposed to discharge from renal perspective if otherwise medically stable. Will continue to follow. L Subjective Date/time seen: 05/25/25 16:50 Interval history: Follow-up for end stage renal disease on hemodialysis. Chart reviewed since last seen -- tolerating dialysis treatment at the time of my visit (seen on HD at 4:40pm); improvement in breathing/respiratory status noted; weaned off supplemental oxygen over the weekend; no apparent distress noted when seen. Exam 2 Narrative: General: elderly but WD/WN male in NAD Heart: normal S1 and S2; no rub Lungs: clear anteriorly Abdomen: soft, nontender, nondistended, positive bowel sounds Extremities: no cyanosis or clubbing; no edema Skin: no rash or nodules Objective Data Vital Signs Vital Signs: Vital Signs Temp Pulse Resp BP Pulse Ox O2 Del Method FiO2 05/25/25 16:45 56 L 117/56 L 05/25/25 16:30 54 L 121/53 L 05/25/25 16:15 55 L 113/55 L 05/25/25 16:00 52 L 117/54 L 05/25/25 15:45 55 L 132/59 L 05/25/25 15:30 54 L 122/59 L 05/25/25 15:15 54 L 131/57 L 05/25/25 15:00 54 L 138/61 05/25/25 14:45 55 L 125/61 05/25/25 14:30 56 L 141/63 H 05/25/25 14:15 57 L 131/59 L 05/25/25 14:00 59 L 135/61 05/25/25 13:45 61 142/70 H 05/25/25 13:34 100 05/25/25 13:34 97.9 F 65 16 127/59 L 100 05/25/25 12:00 63 05/25/25 08:30 Room Air 05/25/25 08:26 59 L 05/25/25 08:00 67 05/25/25 06:00 97.0 F L 59 L 18 143/57 H 97 05/25/25 04:00 58 L 05/25/25 00:00 62 05/24/25 22:26 97.0 F L 58 L 18 141/54 H 98 09/07/25 20:00 59 L 05/24/25 20:00 Room Air Intake/Output Intake/Output: Intake & Output 05/22/25 05/23/25 05/24/25 05/25/25 23:59 23:59 23:59 23:59 Intake Total 600 1470 920 480 Output Total 2500 0 Balance -1900 1470 920 480 Meds/Results Medications: Active Medications Generic Name Dose Route Start Last Admin Trade Name Gonzalo PRN Reason Stop Dose Admin Acetaminophen 650 mg 05/20/25 05:19 05/23/25 21:11 Acetaminophen 325 Mg Tablet PO 650 mg Q4H PRN Administration Pain Amlodipine Besylate 5 mg 05/20/25 09:00 05/25/25 08:28 Amlodipine Besylate 5 Mg Tablet BY MOUTH 5 mg DAILY UMU Administration Atorvastatin Calcium 40 mg 05/20/25 09:00 05/25/25 08:29 Atorvastatin 40 Mg Tablet PO 40 mg DAILY UMU Administration Calcium Acetate 667 mg 05/20/25 08:00 05/25/25 12:50 Calcium Acetate 667 Mg Tablet PO 667 mg TIDWM UMU Administration Carvedilol 25 mg 05/20/25 09:00 05/25/25 08:26 Carvedilol 25 Mg Tablet PO 25 mg Q12HR UMU Administration Dextrose 12.5 gm 05/23/25 07:32 Dextrose 50% 25 Gm/50 Ml Syringe IV PUSH PRN PRN Hypoglycemia Protocol Dicyclomine HCl 10 mg 05/20/25 05:19 05/20/25 18:21 Dicyclomine Hcl 10 Mg Capsule PO 10 mg TID PRN Administration Diarrhea Epoetin Volodymyr-epbx 4,000 units 05/25/25 18:00 05/25/25 15:50 Epoetin Volodymyr-Epbx 4,000 Units/Ml Vial IV PUSH 05/25/25 18:01 4,000 units ONCE ONE Administration Furosemide 40 mg 05/24/25 17:00 05/25/25 08:29 Furosemide 40 Mg Tablet PO 40 mg BID UMU Administration Glucagon 1 mg 05/23/25 07:32 Glucagon For Inj 1 Mg Vial IM PRN PRN Hypoglycemia Protocol Glucose 15 gm 05/23/25 07:32 Glucose Oral Gel 15 Gm Of Glucse In 37.5 Gm Tube PO PRN PRN Hypoglycemia Protocol Guaifenesin 600 mg 05/23/25 10:25 05/25/25 08:28 Guaifenesin 12 Hr 600 Mg Tabcr PO 600 mg Q12HR UMU Administration Heparin Sodium (Porcine) 5,000 units 05/20/25 22:00 05/25/25 13:47 Heparin Sodium 5,000 Units/Ml Vial SUB-Q 5,000 units Q8HR UMU Administration Albumin Human 50 mls @ 999 mls/hr 05/20/25 12:06 Albutein IVPB 06/19/25 12:05 Q10M PRN HYPOTENSION Dextrose 1,000 mls @ 100 mls/hr 05/23/25 07:32 Dextrose 5% 1,000 Ml IVPB PRN PRN Hypoglycemia Protocol Insulin Aspart 2 - 5 units 05/23/25 08:00 05/25/25 12:49 Insulin Aspart (*Bkc) 100 Units/Ml SUB-Q Not Given TIDWM UMU Protocol Insulin Glargine 5 units 05/24/25 21:00 05/24/25 21:35 Insulin Glargine (*Bkc) 100 Units/Ml SUB-Q 5 units HS UMU Administration Lidocaine 1 patch 05/20/25 09:00 05/25/25 08:33 Lidocaine 5% Patch TRANSDERM 1 patch DAILY UMU Administration Lidocaine/Prilocaine 1 each 05/20/25 12:11 Lidocaine/Prilocaine Cream 2.5-2.5% Tube TOPICAL WITH DIALYSIS PRN for dialysis Protocol Loperamide HCl 2 mg 05/20/25 05:19 05/24/25 21:34 Loperamide Hcl 2 Mg Capsule PO 2 mg PRN PRN Administration Diarrhea Melatonin 5 mg 05/20/25 21:00 05/24/25 21:33 Melatonin 5 Mg Tablet PO 5 mg HS UMU Administration Ondansetron HCl 4 mg 05/20/25 05:19 Ondansetron Hcl Odt 4 Mg Tablet PO Q6H PRN Nausea And Vomiting Vitamin B Complex/Folic Acid 1 cap 05/20/25 09:00 05/25/25 08:29 Vitamin B Cmplx/Vit C/Folic Ac 1 Capsule PO 1 cap QAM UMU Administration Radiology Results: ITS Impressions Chest CT 05/19/25 15:17 IMPRESSION: 1. Diffuse interstitial infiltrates with septal thickening and groundglass opacification, most likely edema versus atypical pneumonia. 2: Bilateral pleural effusions, right greater than left. 3: Mediastinal lymphadenopathy, likely reactive. Chest X-Ray 05/23/25 19:25 IMPRESSION: 1. Resolution of prior pulmonary edema. No evident acute cardiopulmonary disease. Venous Doppler Study 05/24/25 15:49 Impression: Negative for DVT. Labs Labs: Laboratory Tests 05/25/25 05:19 05/25/25 05:19 Calcium 9.5 Phosphorus 5.7 H Albumin 3.6
[2025-05-25 16:59] LABS: Hepatitis B Surface Antigen Negative (Negative)
[2025-05-25 17:16] LABS: Hepatitis B Surface Anti Res Negative
== END 2025-05-25 18:30 | DRG 425 ==
LOC: ANHED 16:31 → ANH3MEDSUR 17:55
PROVIDERS: Family Medicine; Internal Medicine Nephrology; Nurse Practitioner; Admitting Provider Internal Medicine; Emergency Provider Emergency Medicine; PCP Nurse Practitioner; Visit Provider Physician Assistant
DX: E87.79 Other fluid overload (principal); I12.0 Hypertensive chronic kidney disease with stage 5 chronic kidney disease or end stage renal disease; E11.22 Type 2 diabetes mellitus with diabetic chronic kidney disease; J96.01 Acute respiratory failure with hypoxia; N18.6 End stage renal disease; I25.10 Atherosclerotic heart disease of native coronary artery without angina pectoris; E11.649 Type 2 diabetes mellitus with hypoglycemia without coma; R79.89 Other specified abnormal findings of blood chemistry; M79.89 Other specified soft tissue disorders; D63.1 Anemia in chronic kidney disease; Z20.822 Contact with and (suspected) exposure to COVID-19; E78.5 Hyperlipidemia, unspecified; I34.0 Nonrheumatic mitral (valve) insufficiency; Z99.2 Dependence on renal dialysis; Z95.5 Presence of coronary angioplasty implant and graft; Z85.828 Personal history of other malignant neoplasm of skin
CPT/HCPCS: 36415; 71045; 71046; 71250; 80048; 80053; 80069; 82948; 83036; 83735; 83880; 84484; 85025; 85027; 85055; 85380; 85610; 85730; 86706; 87340; 87637; 87641; 93005; 93306; 93971; 94618; 96374; 97161; 97166; 97530; 97535; 99285; A9270; G0257; J1644; J1815; J1938; J7030; Q5105